=== PATIENT | male | born 1955 | race Caucasian/White ===

== ENCOUNTER 2016-12-30 15:49 | Inpatient (IN) ==
[2016-12-30] MEDS ORDERED: VANCOMYCIN IV PER PHARMACY MISC SCH (16:55)
[2016-12-30 18:03] LABS: BASO% 0.1 % (0.0-0.8); HEMATOCRIT 32.8 % (42.0-52.0); HEMOGLOBIN 11.1 g/dL (14.0-18.0); IMM GRAN# 0.06 X1000 (0.0-0.04); IMM GRAN% 0.6 % (0.0-0.5); INR 1.7; LYMPH# 0.33 X1000 (1.2-3.4); MANUAL DIFF NEEDED? YES; MCH 33.3 PG (27-31); MCHC 33.8 g/dL (33-37); MCV 98.5 FL (81-99); MONO% 9.2 % (1.7-9.3); MPV 11.2 FL (7.4-10.4); NEUT% 87.1 % (42.2-75.2); PLT 95 X1000 (130-400); PROTIME 18.5 Seconds (9.2-11.7); RBC 3.33 XMIL (4.7-6.1)
[2016-12-30 18:21] LABS: BANDS 5 % (0-1); LYMPHS 5 % (21-51); MONO 3 % (1-9)
[2016-12-30 18:24] LABS: POTASSIUM 2.6 mmol/L (3.5-5.1)
[2016-12-30 18:25] LABS: CALCIUM 8.4 mg/dL (8.8-10.2)
[2016-12-30] MEDS ORDERED: POTASSIUM CHLORIDE 20 MEQ/SWI 20 MEQ/100 ML IVPB IV SCH (19:00)
[2016-12-30] MEDS: POTASSIUM CHLORIDE 40 MEQ in NS 250 ML IV SCH (20:31)
[2016-12-30] MEDS: NUBAIN IV PRN (20:31)
[2016-12-30] MEDS: NS 1,000 ML IV SCH (20:32)
[2016-12-30] MEDS ORDERED: VANCOMYCIN 2.5 GM in NS 500 ML IV ONE ×4 (21:00)
[2016-12-30] MEDS: HUMULIN R SUBQ SCH (21:19)
[2016-12-30] MEDS ORDERED: ZOFRAN IV PRN (22:17)
--- NOTE | 2016-12-30 22:45 | HISTORY AND PHYSICAL ---
CHIEF COMPLAINT: Perirectal pain for the last few days. HISTORY OF PRESENT ILLNESS: He is a 61-year-old white gentleman who was evaluated in the office, with right perirectal swelling, with impending abscess, and quite a bit of induration. We were trying to do incision and drainage in the office. Patient was not able to infiltrate, with a lot of bleeding. He is basically admitted to the hospital for observation. He is also found to have hypokalemia. The patient needs to be incised and drained, and Dr. Piotr Camarillo was consulted. He was bleeding from the site of the incision. As a result, a hospital admission was warranted. 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 PAST SURGICAL HISTORY: Bypass surgery, below-knee amputation on the left leg. MEDICATIONS: Potassium 20 mEq p.o. b.i.d., Crestor 20 daily, Icar-C Plus 1 tablet daily, gabapentin 800 p.o. b.i.d., Pletal 100 p.o. b.i.d., BuSpar 15 t.i.d., Ventolin HFA as directed, Lasix 80 daily, aspirin 81 daily, metoprolol 100 daily, Janumet 50/500 one tab p.o. b.i.d., oxycodone 30 mg p.o. b.i.d., morphine 15 p.o. b.i.d., cholestyramine 4 g daily. Recently, was given Flagyl. ALLERGIES: Not known. SOCIAL HISTORY: . 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 Lives in [place]. Disabled. No smoking. No alcohol. No drug abuse. FAMILY HISTORY: Father at 58 from diabetes and heart disease. Mother is 78 years old, healthy. HEALTH MAINTENANCE: Influenza vaccine, pneumococcal vaccine declined. Tetanus 11/2015. Last prostate exam 01/2016. PSA 01/2016. Colonoscopy [place] [address] Back. REVIEW OF SYSTEMS: HEENT: No headache. No dizziness. No earache. No sore throat. Neck: No goiter. No lymphadenopathy. No bruit. Cardiopulmonary: No chest pain, shortness of breath, PND, orthopnea. Gastrointestinal: No nausea, vomiting, abdominal pain, diarrhea. Genitourinary: No history of hesitancy, frequency. The left leg was amputated. Right leg has peripheral vascular disease, under the care of Dr. Hui, and perirectal swelling. Painful. Neurological: No obvious neurological symptoms or weakness. PHYSICAL EXAMINATION: VITAL SIGNS: Fever of 100. Tachycardic. Blood pressure is 140/60. HEENT: Atraumatic, normocephalic. Pupils equal, react to light. Dry mucous membranes. NECK: Supple. No lymphadenopathy. CHEST: Bilateral air entry. No rales, no wheezing. HEART: Sounds are regular. ABDOMEN: Belly is soft, nontender. Good bowel sounds. EXTREMITIES: Status post left below-knee amputation, and decreased pulses in the right foot. No signs of gangrene. SKIN: Large perirectal induration, impending abscess noted. INVESTIGATIONS: CBC: White cell count 10, hematocrit 32, platelets 95,000. PT 18, INR 1.7. SMA- 7: Sodium 136, potassium 2.6, chloride 95, BUN 12, creatinine 1.5, glucose 132, calcium 8.4. ASSESSMENT AND PLAN: 1. A 61-year-old white gentleman, admitted to the hospital with a fever, right perirectal impending abscess, unable to do as an outpatient, the incision and drainage. Surgical consult. IV vancomycin. 2. Dehydration. IV fluids. 3. Hypokalemia. Replace the potassium. 4. Surgical consult with Dr. Piotr Camarillo. 5. Status post below-knee amputation on the left side. 6. Right leg peripheral vascular disease, under the care of Dr. Hui. 7. Hepatic fibrosis due to ZHENG, stable. 8. Coronary artery disease, status post bypass surgery, on aspirin. Last cardiac evaluation by Dr. Mckay in 07/2015. 9. Vitamin B12 deficiency, on replacement therapy. 10. Chronic peripheral neuropathy, on Neurontin. 11. Chronic pain, under the [facility], with morphine and Percocet. 12. Hyperlipidemia, on Crestor. 13. Type 2 diabetes, currently on Janumet. Last A1c was 6.6 in the office. 14. Baseline creatinine is 1.1. 15. Will follow up. cc: Shady Johnson MD
[2016-12-30] MEDS: SODIUM CHLORIDE 0.9% INJ SCH (22:48)
[2016-12-30] MEDS: PROTONIX IV SCH (22:48)
[2016-12-31] MEDS: NUBAIN IV PRN ×7 (00:22→23:51)
[2016-12-31] MEDS ORDERED: VANCOMYCIN 2.5 GM in NS 500 ML IV ONE (01:00)
[2016-12-31] MEDS: LOMOTIL PO PRN ×3 (01:57→16:40)
[2016-12-31] MEDS ORDERED: POTASSIUM CHLORIDE 20 MEQ/SWI 20 MEQ/100 ML IVPB IV SCH (03:00)
[2016-12-31 05:38] LABS: MANUAL DIFF NEEDED? NO
[2016-12-31 05:45] LABS: INR 1.69; PROTIME 18.3 Seconds (9.2-11.7)
[2016-12-31 05:50] LABS: BASO% 0.1 % (0.0-0.8); HEMATOCRIT 32.9 % (42.0-52.0); HEMOGLOBIN 11.1 g/dL (14.0-18.0); HEMOGLOBIN A1C 6.2 % (4.8-6.0); IMM GRAN# 0.02 X1000 (0.0-0.04); IMM GRAN% 0.3 % (0.0-0.5); LYMPH# 0.61 X1000 (1.2-3.4); LYMPH% 8.4 % (20.5-51.1); MCH 32.7 PG (27-31); MCHC 33.7 g/dL (33-37); MCV 97.1 FL (81-99); MONO# 0.57 X1000 (0.11-0.59); MONO% 7.8 % (1.7-9.3); MPV 11.1 FL (7.4-10.4); NEUT% 83.4 % (42.2-75.2); PLT 93 X1000 (130-400); RBC 3.39 XMIL (4.7-6.1)
[2016-12-31 06:13] LABS: AGAP 16; BUN 12 mg/dL (8-22); CALCIUM 8.3 mg/dL (8.8-10.2); CHLORIDE 100 mmol/L (98-107); COSMO 279; MAGNESIUM 1.7 mg/dL (1.5-2.7); POTASSIUM 2.4 mmol/L (3.5-5.1); SODIUM 139 mmol/L (136-145); TCO2 23 mmol/L (25-35)
[2016-12-31] MEDS: POTASSIUM CHLORIDE 40 MEQ in NS 250 ML IV SCH (06:16)
[2016-12-31] MEDS: HUMULIN R SUBQ SCH ×4 (06:59→23:41)
[2016-12-31] MEDS: CYANOCOBALAMIN IM SCH (08:29)
[2016-12-31] MEDS ORDERED: POTASSIUM CHLORIDE 40 MEQ in 1/2 NS 250 ML IV SCH (09:00)
[2016-12-31] MEDS: NS 1,000 ML IV SCH ×2 (09:55→16:54)
[2016-12-31] MEDS: MORPHINE ONE ×6 (10:20→15:10)
[2016-12-31] MEDS: PHENERGAN ONE ×5 (10:23→14:10)
[2016-12-31] MEDS: POTASSIUM CHLORIDE 40 MEQ in 1/2 NS 250 ML IV ONE ×2 (10:25→15:09)
[2016-12-31] MEDS ORDERED: PATIENT'S OWN MED PO PRN (11:21)
[2016-12-31] MEDS ORDERED: METOPROLOL TARTRATE 100 MG PO SCH (11:21)
--- NOTE | 2016-12-31 12:09 | CONSULTATION ---
DATE OF CONSULTATION: 12/31/2016 REQUESTING PHYSICIAN: Lasha Johnson MD REASON FOR CONSULTATION: Concerning perirectal abscess. HISTORY OF PRESENT ILLNESS: A 61-year-old male with a past medical history of peripheral vascular disease, diabetes, presenting with a several-day history of perirectal swelling. He had a significant amount of induration. He had it opened up in the office, but the patient did not it tolerate very well. We were able to drain it, and he was found to have electrolyte abnormalities, and given the need for further drainage, he was admitted to the hospital. He was ready for surgery. The patient is still reporting pain and multiple bowel movements. PAST MEDICAL HISTORY: 1. Coronary artery disease. 2. COPD. 3. Hypertension. 4. Acid reflux. 5. 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 6. Hyperlipidemia. 7. Irritable bowel syndrome. 8. Depression. 9. Metabolic syndrome. 10. B12 deficiency. 11. Anemia. 12. Peripheral vascular disease. 13. Diabetes mellitus type 2. 14. Neuropathy. 15. Chronic anxiety. PAST SURGICAL HISTORY: Includes bypass surgery and hwwxz-meo-lgsi amputation on the left. MEDICATIONS: His home medications were reviewed. He is currently on antibiotics in the hospital. ALLERGIES: None. SOCIAL HISTORY: No alcohol, tobacco, or illicit drugs. FAMILY HISTORY: Positive for diabetes and heart disease. REVIEW OF SYSTEMS: A full 10-point review of systems was obtained and negative except those specified in the HPI. PHYSICAL EXAMINATION: Vital Signs: The patient is currently afebrile. His vital signs have been stable. General: No acute distress. male, looks stated age, but appears to be uncomfortable. HEENT: Normocephalic, atraumatic. Pupils equal, round, reactive to light. Mucous membranes moist. Oropharynx benign. Neck: Supple. Trachea midline. Cardiovascular: Regular rate and rhythm. Lungs: Grossly clear. Abdomen: Soft, nontender, nondistended. Extremities previous: Ondzg-wmf-bkxl amputation on the left, healing well. Rectal: There was a large perirectal abscess that is draining. Significantly tender to palpation. Neurologic: Grossly intact. Skin: No signs of jaundice. Vascular: All extremities perfused. LABORATORY: Reviewed from admission. White blood cell count is 10, hematocrit 32, platelet count 95,000. INR 1.7, creatinine 1.5. ASSESSMENT AND PLAN: A 61-year-old male with a perirectal abscess and multiple medical comorbidities. 1. Perirectal abscess. At this time, we will plan on incision and drainage. It is somewhat draining already spontaneously, but we will need to open this up further in the operating room. We will get a consent. 2. Multiple medical comorbidities including hypokalemia, peripheral vascular disease, coronary artery disease, cirrhosis, all currently being managed by his primary care physician, Dr. Johnson. cc: MD Shady Diana MD MTDD
[2016-12-31] MEDS: POTASSIUM CHLORIDE 60 MEQ in NS 500 ML IV SCH ×2 (12:47→17:55)
[2016-12-31] MEDS: BUSPAR PO SCH ×2 (14:10→16:40)
[2016-12-31] MEDS: ATIVAN IV PRN ×2 (14:24→20:26)
--- NOTE | 2016-12-31 14:33 | OPERATIVE NOTE ---
PROCEDURE DATE: 12/31/2016 PREOPERATIVE DIAGNOSIS: Perirectal abscess. POSTOPERATIVE DIAGNOSIS: Perirectal abscess. PROCEDURE: 1. Incision and drainage of perirectal abscess. 2. Anoscopy. SURGEON: Piotr Camarillo MD. PERSONNEL ADMINISTRATOR: None. ANESTHESIA: General endotracheal. INTRAOPERATIVE FINDINGS: Perirectal abscess tracked about 5-6 cm toward the rectum. I did not see any connection on anoscopy. ESTIMATED BLOOD LOSS: 5 mL. SPECIMENS REMOVED: Cultures from the wound. BRIEF HISTORY: The patient is a 61-year-old male presenting with perirectal abscess. It had been attempted to be drained in the office by his primary care physician, but is unable to tolerate it. Therefore, we felt he would need to be admitted and had definitive drainage. The risks, benefits, and alternatives were discussed. All questions answered. DESCRIPTION OF PROCEDURE: After informed consent was obtained, the patient brought over to the operative theatre, transferred to the operating table and placed in the supine position. General endotracheal anesthesia was then performed without complication. A formal time-out was then performed, confirming patient, date, procedure. All were in agreement. At that time, attention was given to the patient. He was repositioned in lithotomy, was prepped and draped in sterile fashion. After the time-out, we turned our attention to the perirectal abscess. There was an area that previously opened. We increased this size and made a cruciate incision. We encountered a large abscess which we drained and irrigated it. It tracked about 5 cm towards the rectum. It existed mostly on the right side. We irrigated out this area copiously. Again we then put a [place] anoscope into the anoscopy. I did not see any obvious connections. The mucosa looked normal of the rectum. We then placed iodoform packing into the wound. The patient tolerated the procedure well and was transferred back to recovery room in stable condition. I did discuss this case with Dr. Johnson. I will put him on Zosyn given the potential contamination for gram-negative coverage. cc: MD Shady Diana MD
[2016-12-31] MEDS: ZOSYN 3.375 GM in NS 50 ML IV SCH ×3 (15:09→23:52)
[2016-12-31] MEDS: GLUCOPHAGE PO SCH (16:41)
[2016-12-31] MEDS: JANUVIA PO SCH (16:41)
--- NOTE | 2016-12-31 18:09 | PROGRESS NOTE ---
DATE: 12/31/2016 SUBJECTIVE: The patient complains of severe pain going for surgery this morning. He has anxiety diarrhea. REVIEW OF SYSTEMS: No chest pain, shortness of breath. No GI symptoms other than diarrhea. PHYSICAL EXAMINATION: Vital Signs: Afebrile. Tachycardic. Vitals are stable. HEENT: Within normal limits. Chest: Clear. Heart: Sounds are regular. Abdomen: Belly is soft, nontender. Good bowel sounds. Neurologic: No obvious neurological deficits noted. INVESTIGATIONS: CBC: White cell count 7.3, hematocrit 32, platelet count 93. PT 18, INR 1.69. SMA-7: Sodium 139. Potassium 2.4, chloride 100, glucose 133, A1c 6.2, magnesium 1.7. ASSESSMENT AND PLAN: 1. Right perirectal abscess. Waiting for incision and drainage. Continue on IV vancomycin. 2. Dehydration. IV NS 80 mL an hour. 3. Hypokalemia, potassium 2.4. Will replace the potassium through the IV. 4. Gastrointestinal prophylaxis with Protonix. 5. Continue pain control with Nubain and waiting for incision and drainage. 6. We will check the labs in the morning. LEVEL OF DOCUMENTATION: 25 minutes. cc: Shady Johnson MD MTDD
[2016-12-31] MEDS: VENTOLIN HFA INH SCH (19:15)
[2016-12-31] MEDS: NEURONTIN PO SCH (20:26)
[2016-12-31] MEDS: SODIUM CHLORIDE 0.9% INJ SCH (20:27)
[2016-12-31] MEDS: CRESTOR PO SCH (20:27)
[2016-12-31] MEDS: KLOR-CON PO SCH (20:27)
[2016-12-31] MEDS: PLETAL PO SCH (20:27)
[2016-12-31] MEDS: PROTONIX IV SCH ×2 (20:27→23:41)
[2016-12-31] MEDS: PERIDEX MT SCH (20:29)
[2016-12-31] MEDS: VANCOMYCIN 1,850 MG in NS 500 ML IV SCH (22:15)
[2017-01-01] MEDS: NUBAIN IV PRN ×6 (03:09→20:06)
[2017-01-01] MEDS: ATIVAN IV PRN ×2 (03:18→20:32)
[2017-01-01] MEDS: LOMOTIL PO PRN ×3 (04:48→20:26)
[2017-01-01] MEDS: ZOSYN 3.375 GM in NS 50 ML IV SCH ×3 (05:21→21:24)
[2017-01-01] MEDS: NS 1,000 ML IV SCH ×3 (05:21→18:48)
[2017-01-01 05:52] LABS: MANUAL DIFF NEEDED? NO
[2017-01-01] MEDS: HUMULIN R SUBQ SCH ×4 (06:08→23:07)
[2017-01-01 06:11] LABS: BASO% 0.3 % (0.0-0.8); EOS# 0.01 X1000 (0.0-0.7); EOS% 0.1 % (0.0-10.0); HEMATOCRIT 28.7 % (42.0-52.0); HEMOGLOBIN 9.4 g/dL (14.0-18.0); IMM GRAN# 0.04 X1000 (0.0-0.04); IMM GRAN% 0.6 % (0.0-0.5); LYMPH# 0.77 X1000 (1.2-3.4); LYMPH% 10.8 % (20.5-51.1); MCH 32.4 PG (27-31); MCHC 32.8 g/dL (33-37); MONO# 0.61 X1000 (0.11-0.59); MONO% 8.6 % (1.7-9.3); MPV 11.4 FL (7.4-10.4); NEUT% 79.6 % (42.2-75.2); PLT 94 X1000 (130-400)
[2017-01-01 06:31] LABS: CALCIUM 8.1 mg/dL (8.8-10.2); POTASSIUM 3.2 mmol/L (3.5-5.1)
[2017-01-01] MEDS: VENTOLIN HFA INH SCH ×2 (07:53→20:00)
[2017-01-01] MEDS: POTASSIUM CHLORIDE 60 MEQ in NS 500 ML IV SCH ×2 (09:27→16:37)
[2017-01-01] MEDS: PERIDEX MT SCH ×2 (09:30→20:28)
[2017-01-01] MEDS: NEURONTIN PO SCH ×2 (09:31→20:26)
[2017-01-01] MEDS: ASPIRIN PO SCH (09:31)
[2017-01-01] MEDS: LASIX PO SCH (09:31)
[2017-01-01] MEDS: BUSPAR PO SCH ×3 (09:31→16:50)
[2017-01-01] MEDS: KLOR-CON PO SCH ×2 (09:31→20:27)
[2017-01-01] MEDS: GLUCOPHAGE PO SCH ×2 (09:31→16:50)
[2017-01-01] MEDS: PATIENT'S OWN MED PO SCH (09:31)
[2017-01-01] MEDS: PLETAL PO SCH ×2 (09:31→20:26)
[2017-01-01] MEDS: JANUVIA PO SCH ×2 (09:32→16:50)
[2017-01-01] MEDS: CYANOCOBALAMIN IM SCH (09:41)
--- NOTE | 2017-01-01 12:08 | PROGRESS NOTE ---
DATE: 01/01/2017 SUBJECTIVE: The patient is in a lot of pain, confusion. A lot of diarrhea. REVIEW OF SYSTEMS: None reported other than pain. OBJECTIVE: Vital Signs: On exam, vitals are stable. HEENT: Within normal limits. Neck: Supple. Chest: Clear. Heart: Sounds are regular. Abdomen: Belly is soft, nontender. Good bowel sounds. Rectal Exam: Revealed loose stools and pack was there, much improved in duration. Extremities: Status post amputation on the left side. INVESTIGATIONS: CBC: White cell count 7.1, hematocrit 28, platelets 94. SMA-7: Sodium 143, potassium 3.2, chloride 101, BUN 15, creatinine 1.4, glucose 125. Microbiology cultures are pending. ASSESSMENT AND PLAN: 1. Right perirectal abscess, status post incision and drainage. Continue on vancomycin and Zosyn. 2. Diarrhea, due to irritable bowel syndrome. We will use the Lomotil, probiotics and Xifaxan. 3. Dehydration. IV fluids. 4. Hypokalemia. Replace the potassium. Slowly reconcile his home medications. 5. For pain control, continue on the Nubain. 6. Anxiety with Ativan. LEVEL OF DOCUMENTATION: 25 minutes. cc: Shady Johnson MD
[2017-01-01] MEDS: CRESTOR PO SCH (20:27)
[2017-01-01] MEDS: XIFAXAN PO SCH (20:27)
[2017-01-01] MEDS: SODIUM CHLORIDE 0.9% INJ SCH ×2 (20:27→20:29)
[2017-01-01] MEDS: PROTONIX IV SCH ×2 (20:29→23:06)
[2017-01-01] MEDS: VANCOMYCIN 1,850 MG in NS 500 ML IV SCH (22:35)
[2017-01-01] MEDS ORDERED: LANOXIN IV ONE (22:44)
[2017-01-01] MEDS ORDERED: TORADOL IM ONE (22:44)
[2017-01-01] MEDS: LOVENOX SUBQ SCH (23:40)
[2017-01-02 00:04] LABS: FREE T4 1.46 ng/dL (0.93-1.70)
[2017-01-02] MEDS: NUBAIN IV PRN ×2 (00:45→17:01)
[2017-01-02] MEDS: ZOSYN 3.375 GM in NS 50 ML IV SCH ×4 (02:32→21:27)
[2017-01-02 02:37] LABS: BASO% 0.5 % (0.0-0.8); EOS# 0.01 X1000 (0.0-0.7); EOS% 0.1 % (0.0-10.0); HEMATOCRIT 30.9 % (42.0-52.0); IMM GRAN# 0.08 X1000 (0.0-0.04); IMM GRAN% 0.9 % (0.0-0.5); LYMPH# 0.69 X1000 (1.2-3.4); LYMPH% 8.1 % (20.5-51.1); MANUAL DIFF NEEDED? YES; MCH 32.4 PG (27-31); MCHC 32.4 g/dL (33-37); MONO# 0.57 X1000 (0.11-0.59); MONO% 6.7 % (1.7-9.3); MPV 11.3 FL (7.4-10.4); NEUT% 83.7 % (42.2-75.2); PLT 98 X1000 (130-400); RBC 3.09 XMIL (4.7-6.1)
[2017-01-02 02:47] LABS: LYMPHS 1 % (21-51); MONO 2 % (1-9); NRBC 1 % (0-0)
[2017-01-02 03:10] LABS: URINE CULTURE NEEDED? NO; URINE MICRO REVIEW NEEDED? NO; URINE SOURCE CATH
[2017-01-02 03:13] LABS: BILIRUBIN URINE NEGATIVE (NEGATIVE); BLOOD URINE NEGATIVE (NEGATIVE); COLOR YELLOW; GLUCOSE URINE NEGATIVE (NEGATIVE); LEUKOCYTES URINE NEGATIVE (NEGATIVE); NITRITE URINE NEGATIVE (NEGATIVE); PH URINE 5.5; PROTEIN URINE TRACE mg/dL (NEGATIVE); SP GRAVITY URINE 1.014; TURBIDITY URINE CLEAR (CLEAR); UROBILINOGEN URINE NORMAL (NORMAL)
[2017-01-02 03:13] LABS: ALBUMIN 2.2 g/dL (3.5-5.0); CALCIUM 7.4 mg/dL (8.8-10.2); POTASSIUM 3.8 mmol/L (3.5-5.1); TOTAL BILIRUBIN 1.59 mg/dL (0.20-1.00); TOTAL PROTEIN 6.3 g/dL (6.3-8.3)
[2017-01-02 03:14] LABS: UR EPITHELIAL CELLS <10 /HPF (<10); URINE BACTERIA NEGATIVE /HPF; URINE RBC <10 /HPF (<10); URINE WBC <10 /HPF (<10)
[2017-01-02] MEDS ORDERED: NEO-SYNEPHRINE 50 MG in NS 250 ML IV SCH (03:15)
[2017-01-02] MEDS: NEO-SYNEPHRINE 50 MG in NS 250 ML IV SCH ×3 (03:26→20:22)
[2017-01-02 03:50] LABS: ALLEN TEST YES; BLOOD TYPE ARTERIAL; DRAW SITE R BRACHIAL; METHB 0.9 % (0.0-1.5); MODALITY NRB; O2(CT) 11.7 mL/dL (15.0-23.0); PCO2(98.6) 20 mmHg (35-45); PO2(98.6) 63 mmHg (60-100); SAMPLE BLOOD; SAO2 95.7 % (95.0-100.0); THB 8.9 g/dL (11.5-17.4); pH(98.6) 7.42 (7.35-7.45)
[2017-01-02] MEDS: DUONEB (A & A) INH SCH ×4 (04:01→21:25)
[2017-01-02] MEDS: NS 1,000 ML IV SCH ×2 (04:28→09:30)
[2017-01-02] MEDS: HUMULIN R SUBQ SCH ×4 (06:28→21:29)
[2017-01-02] MEDS ORDERED: LANOXIN IV ONE (07:00)
[2017-01-02] MEDS: VENTOLIN HFA INH SCH ×2 (08:07→19:35)
[2017-01-02] MEDS: ATIVAN IV PRN (08:37)
[2017-01-02] MEDS: LOMOTIL PO PRN (08:40)
[2017-01-02] MEDS: XIFAXAN PO SCH ×2 (08:40→21:28)
[2017-01-02] MEDS: NEURONTIN PO SCH ×2 (08:40→21:28)
[2017-01-02] MEDS: PLETAL PO SCH ×2 (08:41→21:27)
[2017-01-02] MEDS: GLUCOPHAGE PO SCH (08:41)
[2017-01-02] MEDS: JANUVIA PO SCH ×2 (08:41→17:00)
[2017-01-02] MEDS: ASPIRIN PO SCH (08:41)
[2017-01-02] MEDS: BUSPAR PO SCH ×3 (08:41→17:00)
[2017-01-02] MEDS: LASIX PO SCH (08:41)
[2017-01-02] MEDS: CYANOCOBALAMIN IM SCH (08:42)
[2017-01-02] MEDS: KLOR-CON PO SCH ×2 (08:42→21:28)
[2017-01-02] MEDS: PERIDEX MT SCH ×2 (08:42→21:28)
--- NOTE | 2017-01-02 08:50 | Diag Imaging Result Doc PS360 ---
CHEST-PORTABLE - 01/02/2017 INDICATION: A. fib w/RVR TECHNIQUE: COMPARISON: CT chest 07/09/2015 FINDINGS: There is significant cardiomegaly and pulmonary vascular congestion. There are heterogeneous, mixed bilateral infiltrates. No pneumothorax or large effusion. Stable sternotomy wires. IMPRESSION: 1. Cardiomegaly and pulmonary vascular congestion. 2. Heterogeneous bilateral infiltrates suggesting pulmonary edema or pneumonia superimposed on COPD. Electronically signed by Aydin Geiger 01/02/2017 8:48 AM
[2017-01-02] MEDS ORDERED: CULTURELLE PO SCH (09:00)
[2017-01-02] MEDS ORDERED: SODIUM BICARBONATE 8.4% 75 MEQ in D5W 1,000 ML IV SCH ×2 (10:16→12:00)
[2017-01-02] MEDS: PATIENT'S OWN MED PO SCH (11:24)
[2017-01-02] MEDS: LOVENOX SUBQ SCH (11:45)
[2017-01-02 15:52] LABS: ALLEN TEST YES; BE -8.9 mmoll (-3.0-3.0); BLOOD TYPE ARTERIAL; DRAW SITE L RADIAL; METHB 0.6 % (0.0-1.5); O2(CT) 15.5 mL/dL (15.0-23.0); PCO2(98.6) 23 mmHg (35-45); PO2(98.6) 75 mmHg (60-100); SAMPLE BLOOD; SAO2 98.4 % (95.0-100.0); THB 11.5 g/dL (11.5-17.4)
[2017-01-02 15:53] LABS: MODALITY NRB
--- NOTE | 2017-01-02 16:02 | CONSULTATION ---
DATE OF CONSULTATION: 01/02/2017 IMPRESSION: 1. Consultation regarding sinus tachycardia. Telemetry strips and 12 lead EKG demonstrates sinus tachycardia. I suspect this is likely driven by severity of acute noncardiac illness, namely, sepsis. 2. Current admission for right perirectal infection/abscess. Patient is status post recent drainage. Patient has history of previous recurrent perirectal abscess. 3. Acute sepsis. 4. Atherosclerotic coronary disease with history of previous coronary bypass grafting. Cardiac catheterization/coronary angiography around 1 year ago demonstrated left ventricular ejection fraction of 60%, severe 2 vessel coronary atherosclerosis and patent coronary bypass grafts. The patient continues without angina. 5. Chronic obstructive pulmonary disease. 6. Chronic liver disease related to fatty liver. 7. 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 8. Advanced peripheral vascular disease. Patient is status post left gledu-pek-ctdw amputation. RECOMMENDATIONS: 1. Supportive care with intravenous pressures to support blood pressures and judicious intravenous fluid administration. 2. Critical Care/Pulmonary Medicine consultation has already been arranged. 3. Follow up echocardiography to reassess left ventricular function which will be useful in managing patient's hemodynamics. HISTORY: This 61-year-old, white male with past history of recurrent perirectal abscess, diabetes mellitus with associated peripheral neuropathy and possible gastroparesis, atherosclerotic coronary disease with history of coronary bypass surgery, advanced peripheral vascular disease with history of left kfbin-lot-sbrs amputation and chronic liver disease related to fatty liver disease was recently admitted for management of impending right perirectal abscess. He is status post incision, drainage and packing. Last night he developed tachycardia possibly atrial fibrillation. His blood pressure was on the low side. He was transferred to the Intensive Care Unit. Review of ECG strips shows sinus tachycardia. The patient is presently dyspneic but denies chest pain or angina. He complains of pain at the site of his perirectal region. He is currently requiring 100% non-rebreather to achieve oxygen saturation of 95%. PAST MEDICAL HISTORY: 1. Atherosclerotic coronary disease with history of previous coronary bypass grafting. Coronary angiography last year demonstrated severe 2 vessel coronary atherosclerosis and patent bypass grafts. Left ventricular ejection fraction 60%. 2. 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 3. Chronic liver disease related to fatty liver. 4. Advanced peripheral vascular disease. Patient is status post left nucyg-qcf-ndai amputation. 5. Depression/anxiety. ALLERGIES: No known drug allergies. MEDICATIONS: Prior to admission as listed. SOCIAL HISTORY: He is . 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 He quit smoking several years ago. He does not use alcohol. FAMILY HISTORY: Positive for diabetes mellitus and heart disease. REVIEW OF SYSTEMS: Pulmonary: Noteworthy for dyspnea but negative for orthopnea. Gastrointestinal: Noteworthy for probable gastroparesis but otherwise negative. Constitutional: Noteworthy for recent fever. REMAINDER REVIEW OF SYSTEMS: Negative/noncontributory with 14 total systems reviewed. PHYSICAL EXAMINATION: General: This is an ill-appearing, older middle-aged white male on supplemental oxygen per 100% non-rebreather. Patient appears dyspneic. Vital Signs: Blood pressure 110/60 on intravenous Donavan-Synephrine. Heart rate 120-130 with ECG monitor showing sinus tachycardia. Oxygen saturation 95%. HEENT Examination: Extraocular movements intact. Mucous membranes are somewhat dry. Neck: Supple without jugular distention. Chest: Auscultation reveals a few scattered expiratory wheezes. No rales could be appreciated. Cardiac Examination: Reveals regular tachycardia without appreciable murmur or gallop. Abdomen: Soft, nontender. Extremities: Noteworthy for left pgdic-hhf-pyho amputation. There is no peripheral edema. Neurologic Examination: Reveals him to be awake and responsive. Speech is fluent. He moves all 4 extremities equally well. DIAGNOSTIC DATA: ECG demonstrates sinus tachycardia. LABORATORY DATA: Noteworthy for white blood cell count 8.5, hematocrit 30.9, BUN 15, creatinine 1.7. cc: MD Shady Teixeira MD
--- NOTE | 2017-01-02 16:04 | CONSULTATION ---
DATE OF CONSULTATION: 01/02/2017 REQUESTING PHYSICIAN: Dr. Holland. REASON FOR CONSULTATION: Respiratory failure/distress. HISTORY OF PRESENT ILLNESS: Mr. López is a 61-year-old white male with prior tobacco history, peripheral vascular disease, coronary artery disease, COPD, diabetes mellitus, and chronic anxiety disorder who has had intermittent and ongoing diarrhea for the last 8-10 months. The patient has not yet had a colonoscopy due to his inability to take GoLYTELY prior to the procedure. He has been rescheduled for next week. He has lost approximately 50 pounds according to his . He has had a history of perirectal abscesses primarily on the left side but several days ago he developed increased swelling in the rectal region. Dr. Johnson attempted to drain it in the office but patient could not tolerate the procedure. The patient was admitted to the hospital and underwent incision and drainage of a perirectal abscess. There was no connection with colon identified on anoscopy. The patient has had multiple episodes of nausea and vomiting prior to admission. The patient has developed increasing oxygen requirements along with hypotension. He continues to have multiple liquid bowel movements. PAST MEDICAL HISTORY: 1. COPD with prior tobacco use. The patient's reports he stopped smoking after his amputation 10 years ago. 2. Coronary artery disease with prior bypass grafting. 3. Recurrent perirectal abscess as per above. 4. Cirrhosis of the liver due to nonalcoholic steatohepatitis. 5. Gastroesophageal reflux disease. 6. Gastroparesis secondary to diabetes mellitus. 7. Diabetes mellitus. 8. Peripheral vascular disease status post left zjmgr-ijy-jtxw amputation. 9. Chronic anxiety. 10. Peripheral neuropathy. SOCIAL HISTORY: Patient is retired [employer]. Prior tobacco use as per above. No alcohol use. FAMILY HISTORY: Positive for heart disease and diabetes mellitus. REVIEW OF SYSTEMS: Limited due to patient's increased work of breathing. PHYSICAL EXAMINATION: General: Reveals an acute on chronically ill-appearing white male. Vital Signs: BP 98/62, heart rate 126, respiratory rate 23, oxygen saturation 94% on nonrebreather. HEENT: Pupils are equal and reactive. Oropharynx is dry. Neck: Supple. Chest: Reveals bilateral rhonchi. Cardiac Exam: Increased rate. Regular rhythm. Abdomen: Soft with diminished bowel sounds. Extremities: Cool to the touch. LABORATORIES: Chest x-ray reveals cardiomegaly, vascular congestion with right greater than left infiltrates. White blood count 8.5 thousand, hemoglobin 10.0, platelet count 98,000. Chemistry. Sodium 147, potassium 3.8, chloride 114, bicarbonate 13, anion gap is elevated at 20, BUN 15, creatinine 1.7, albumin 2.2. INR 2 days ago was 1.69. Arterial blood gas reveals a pH 7.42, pCO2 of 20, PO2 of 63 with a lactate of 4.4. IMPRESSION: A 61-year-old white male with chronic obstructive pulmonary disease, diabetes mellitus, who was admitted to the hospital with a perirectal abscess. Klebsiella pneumonia has been identified and he is on antibiotics to cover this organism. The patient has had progressive hypoxemic respiratory failure and now has bilateral pulmonary infiltrates. Infiltrates may be related to an aspiration pneumonia or to acute respiratory distress syndrome. The patient has had significant amount weight loss over the last year along with frequent diarrhea. With his vascular disease, it is not clear whether he is having ischemic bowel or some other etiology for his recurrent diarrhea. He was scheduled for colonoscopy in the middle of next week but will not likely make that appointment. He currently is hypotensive which may be related to systemic inflammatory response syndrome/sepsis or may be due to dehydration associated with multiple liquid bowel movements. With the patient's respiratory failure, hypotension, worsening clinical status, his prognosis is guarded given his multiple comorbidities. This was discussed with his . RECOMMENDATIONS: 1. Continue oxygen as needed to maintain saturation greater than 90%. He may require intubation and mechanical ventilation. 2. Anticipate CT scan of the abdomen and pelvis if he requires intubation. Currently he is too unstable to transfer to the CAT scanner. 3. Volume resuscitation with IV fluids. 4. Continue current antibiotic regimen. 5. Continue gastric acid suppression. 6. Additional recommendations pending hospital course. cc: MD Shady Knowles MD
[2017-01-02 16:15] LABS: POTASSIUM 2.9 mmol/L (3.5-5.1)
--- NOTE | 2017-01-02 16:37 | Diag Imaging Result Doc PS360 ---
CHEST-PORTABLE - 01/02/2017 INDICATION: abnormal exam TECHNIQUE: COMPARISON: Earlier today FINDINGS: There is no change in the cardiomegaly and pulmonary vascular congestion. No change in the mixed, heterogeneous bilateral infiltrates compatible with pneumonia and/or pulmonary edema superimposed on COPD. No large effusions. IMPRESSION: No change from prior. Electronically signed by Aydin Geiger 01/02/2017 4:35 PM
[2017-01-02] MEDS: SODIUM BICARBONATE 8.4% 100 MEQ in D5W 1,000 ML IV SCH (16:39)
[2017-01-02] MEDS ORDERED: CALCIUM CHLORIDE SYRINGE IV ONE (16:50)
[2017-01-02] MEDS ORDERED: ALBUMIN 25% IV ONE (16:51)
--- NOTE | 2017-01-02 17:51 | PROGRESS NOTE ---
DATE: 01/02/2017 SUBJECTIVE: The patient just does not feel well at all. Feels very tired. OBJECTIVE: Vital signs: While he was on the floor, blood pressure in the 70s, so he became very hypotensive. He was having some respiratory difficulty. With 15 L of oxygen, his O2 saturations only 88. I moved him to the unit because of his hypotension and respiratory distress. Chest x- ray looks like he has either got pulmonary edema or pneumonia. I would probably favor pneumonia. He has been having diarrhea. We will get stool cultures. He has been on antibiotics for a perirectal abscess, for which he had surgery. His creatinine is 1.7, BUN 15, sodium 147, potassium 3.8. Troponin was essentially normal. Urinalysis was essentially normal. Blood gas showed a pH of 7.42, pCO2 of 20, PO2 of 63 on 100% FiO2. He does have hypoxia. He has been started on Donavan-Synephrine drip. HEENT: Normocephalic. EOMS intact. Throat clear. Heart: His heart was irregularly irregular without murmurs, gallops, or friction rubs. Lungs: Sound fairly clear to auscultation anteriorly at this time, but chest x-ray showed some infiltrates versus pulmonary edema, consistent with probable pneumonia. Abdomen: Soft, with active bowel sounds. No organomegaly or tenderness. extremities: He has had amputation of the left leg. He had decreased pulses on right leg. Blood pressure still low, even on the Donavan-Synephrine, and that is being and regulated. The patient is in critical condition. ASSESSMENT: 1. Hypotension. 2. Pneumonia. 3. Respiratory distress. 4. Atrial fibrillation with rapid ventricular response, tachycardia. 5. Diabetes mellitus. 6. Coronary artery disease. 7. Peripheral vascular disease. 8. Diarrhea. 9. Possible gastroparesis. PLAN: Will try to support. He is on IV antibiotics already. We will give him fluids, as I think he is probably a little dehydrated with a creatinine of 1.7. Will continue the Donavan-Synephrine drip. I have consulted Pulmonology and consulted Cardiology. I have started the patient on digoxin already. The patient is in critical condition. cc: MD Shady Villanueva Jr, MD
[2017-01-02] MEDS ORDERED: CALCIUM CHLORIDE 1 GM in NS 100 ML IV ONE (18:00)
[2017-01-02] MEDS: POTASSIUM CHLORIDE 40 MEQ in 1/2 NS 250 ML IV SCH (18:16)
[2017-01-02 18:56] LABS: I-STAT BE 3 mmoll (-2-3); I-STAT GLUCOSE 113 mg/dL (70-105); I-STAT HCO3 25.9 mmoll (22.0-26.0); I-STAT HEMATOCRIT 29 % (38-51); I-STAT HEMOGLOBIN 9.9 g/dL (11.5-17.5); I-STAT IONIZED CALCIUM 1.14 mmoll (1.12-1.32); I-STAT K 2.6 mmoll (3.5-4.9); I-STAT PCO2 33.3 mmHg (35.0-45.0); I-STAT SO2 100 % (95-98); I-STAT SODIUM 139 mmoll (138-146); I-STAT TCO2 27 mmoll (23-27); I-STAT pH 7.499 (7.350-7.450)
--- NOTE | 2017-01-02 19:48 | ECHO REPORT ---
ORDER DATE: 01/02/2017 MEASUREMENTS: Left ventricular end-diastolic diameter: 5.5. Left ventricular end-systolic diameter: 3.9. Septal thickness: 0.7. Posterior wall thickness 1.2. Left atrium 3. Aortic root 4.5. SUMMARY: 1. Technically difficult study due to limited acoustic window quality. 2. Aortic valve is sclerotic but opens adequately on 2-dimensional images. Peak gradient across aortic valve is 16 mmHg. There is trace aortic regurgitation. Mitral and tricuspid valves are without gross structural abnormality. Pulmonic valve is not well demonstrated. The aortic root is mildly enlarged. 3. Normal left ventricular dimensions suggested. Estimated left ejection fraction appears to be at least 55%. No obvious wall motion abnormality is evident. Left atrium, right atrium, and right ventricle are grossly normal in size with preserved right ventricular systolic function. 4. No pericardial effusion. 5. Appearance of inferior vena cava suggests normal central venous pressure. CONCLUSIONS: 1. Technically difficult study. 2. Aortic valve sclerosis without stenosis with trace aortic regurgitation. 3. Estimated left ejection fraction at least 55%. cc: MD Shady Teixeira MD
[2017-01-02] MEDS: CRESTOR PO SCH (21:28)
[2017-01-03] MEDS: SODIUM CHLORIDE 0.9% INJ SCH ×2 (00:04→10:34)
[2017-01-03] MEDS: SODIUM BICARBONATE 8.4% 100 MEQ in D5W 1,000 ML IV SCH ×4 (00:04→21:58)
[2017-01-03] MEDS: PROTONIX IV SCH ×3 (00:04→21:52)
[2017-01-03] MEDS: LOVENOX SUBQ SCH ×3 (00:04→22:04)
[2017-01-03] MEDS: ATIVAN IV PRN ×2 (00:06→21:21)
[2017-01-03] MEDS: VANCOMYCIN 1,850 MG in NS 500 ML IV SCH ×2 (00:40→04:55)
[2017-01-03] MEDS: NEO-SYNEPHRINE 50 MG in NS 250 ML IV SCH ×5 (02:55→21:48)
[2017-01-03] MEDS: POTASSIUM CHLORIDE 40 MEQ in 1/2 NS 250 ML IV SCH (02:58)
[2017-01-03] MEDS: DUONEB (A & A) INH SCH ×4 (03:16→22:36)
[2017-01-03 04:48] LABS: BLOOD TYPE ARTERIAL; SAMPLE BLOOD
[2017-01-03 04:49] LABS: ALLEN TEST YES; BE -6.7 mmoll (-3.0-3.0); DRAW SITE R RADIAL; METHB 0.7 % (0.0-1.5); O2(CT) 15.2 mL/dL (15.0-23.0); PCO2(98.6) 35 mmHg (35-45); PO2(98.6) 86 mmHg (60-100); SAO2 98.4 % (95.0-100.0); THB 11.2 g/dL (11.5-17.4); pH(98.6) 7.33 (7.35-7.45)
[2017-01-03] MEDS: ZOSYN 3.375 GM in NS 50 ML IV SCH ×4 (04:49→22:05)
[2017-01-03] MEDS: NUBAIN IV PRN ×2 (04:49→20:00)
[2017-01-03 04:50] LABS: MODALITY BI PAP
--- NOTE | 2017-01-03 05:33 | EKG Report ---
Test Performed on : 01/02/2017 06:33:40 AM Test Reason : afib Blood Pressure : / mmHG Vent. Rate : 105 BPM Atrial Rate : 105 BPM P-R Int : 200 ms QRS Dur : 100 ms QT Int : 368 ms P-R-T Axes : 026 -29 010 degrees QTc Int : 486 ms Sinus tachycardia. with premature atrial complexes. Nonspecific ST abnormality Abnormal ECG When compared with ECG of 01-JAN-2017 22:38, (Unconfirmed) Sinus rhythm. has replaced Atrial fibrillation. T wave amplitude has decreased in Anterior leads Confirmed by Myron Angulo MD ([id number]) on 01/03/2017 8:00:15 PM
[2017-01-03 05:40] LABS: BASO% 0.4 % (0.0-0.8); EOS# 0.09 X1000 (0.0-0.7); EOS% 0.7 % (0.0-10.0); HEMATOCRIT 33.1 % (42.0-52.0); HEMOGLOBIN 10.7 g/dL (14.0-18.0); IMM GRAN# 0.06 X1000 (0.0-0.04); IMM GRAN% 0.5 % (0.0-0.5); LYMPH# 1.21 X1000 (1.2-3.4); LYMPH% 9.4 % (20.5-51.1); MANUAL DIFF NEEDED? YES; MCH 32.1 PG (27-31); MCHC 32.3 g/dL (33-37); MCV 99.4 FL (81-99); MONO# 0.52 X1000 (0.11-0.59); PLT 145 X1000 (130-400); RBC 3.33 XMIL (4.7-6.1)
[2017-01-03 05:49] LABS: MAGNESIUM 1.2 mg/dL (1.5-2.7)
--- NOTE | 2017-01-03 05:57 | EKG Report ---
Test Performed on : 01/01/2017 10:38:54 PM Test Reason : tachycardia Blood Pressure : / mmHG Vent. Rate : 136 BPM Atrial Rate : 131 BPM P-R Int : 000 ms QRS Dur : 086 ms QT Int : 388 ms P-R-T Axes : 000 -37 -04 degrees QTc Int : 583 ms Sinus tachycardia. Left axis deviation Cannot rule out Inferior infarct , age undetermined Abnormal ECG When compared with ECG of 27-AUG-2015 09:21, Vent. rate has increased BY 77 BPM Minimal criteria for Inferior infarct are now present Confirmed by Myron Angulo MD ([id number]) on 01/03/2017 7:59:39 PM
[2017-01-03 06:04] LABS: ALBUMIN 2.1 g/dL (3.5-5.0); CALCIUM 8.1 mg/dL (8.8-10.2); POTASSIUM 3.8 mmol/L (3.5-5.1); TOTAL BILIRUBIN 2.18 mg/dL (0.20-1.00); TOTAL PROTEIN 6.4 g/dL (6.3-8.3)
--- NOTE | 2017-01-03 06:05 | EKG Report ---
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 Rate : 130 BPM Atrial Rate : 130 BPM P-R Int : 248 ms QRS Dur : 086 ms QT Int : 332 ms P-R-T Axes : 000 219 210 degrees QTc Int : 488 ms Sinus tachycardia. with 1st degree AV block. Possible Lateral infarct (cited on or before 02-JAN-2017) ST \T\ T wave abnormality, consider inferior ischemia Abnormal ECG When compared with ECG of January 02, 2017 at 06:33- Serial changes of Lateral infarct present St and T wave abnormalities in the inferior leads are new. Confirmed by Myron Angulo MD ([id number]) on 01/03/2017 8:02:46 PM
[2017-01-03] MEDS: HUMULIN R SUBQ SCH ×4 (06:22→22:04)
--- NOTE | 2017-01-03 07:18 | Diag Imaging Result Doc PS360 ---
EXAM: CHEST-PORTABLE HISTORY: abnormal exam TECHNIQUE: AP portable at 0500 COMMENT: Compared to the previous study of 01/02/2017 there has been improvement in the dense alveolar opacification of the right lung but the left lung is worse particularly with regard to the left upper lobe. IMPRESSION: Waxing and waning pulmonary edema/ARDS. Electronically signed by Magdi Wilkinson 01/03/2017 7:16 AM
--- NOTE | 2017-01-03 07:25 | PROGRESS NOTE ---
DATE: 01/03/2017 SUBJECTIVE: The patient was transported down to the ICU over the weekend secondary to respiratory status. It appears that his vital signs have improved since being in the ICU. He is still requiring Donavan-Synephrine and BiPAP. They placed a rectal tube yesterday, which has helped with overall drainage and his multiple diarrhea. He does have Klebsiella growing from his abscessed drainage, which is sensitive to the Zosyn. OBJECTIVE: Vital Signs: The patient is currently afebrile, temperature 98.2 degrees. Pulse is mildly tachycardic in the 120s to 130s. Blood pressure is 115/58. He is on Donavan-Synephrine. He is currently on BiPAP saturating in the 95s. General: No acute distress, but altered and confused. HEENT: Normocephalic, atraumatic. Pupils equal, round, react to light. Mucous membranes moist. Oropharynx benign. Neck: Supple. BiPAP machine and face mask in place. Cardiovascular: Tachycardic, on Donavan-Synephrine. Lungs: Coarse sounds noted bilaterally. He is on a BiPAP. Abdomen: Soft, nontender, nondistended. Perineum: Rectal tube in place. The erythema appears to be better than it did on the day of drainage. I did not see any active drainage. LABORATORY DATA: White blood cell count is 12, hematocrit 33, platelet count 145,000. Base deficit is 6.7 on ABG. Bicarbonate is 18. He is acidotic on ABG. Creatinine is 1.7. His bilirubin is 2.8. ASSESSMENT AND PLAN: A 61-year-old male with a perineal abscess/perirectal abscess, status post drainage. 1. Perirectal abscess. At this time, the patient is agitated. He is on antibiotics for his abscess, and they seem to be appropriate. He does still have leukocytosis, and they are checking a stool for Clostridium difficile. I would recommend to continue the vancomycin and Zosyn right now given the fact that he might have potential for pneumonia. 2. Leukocytosis. At this time, his perineal wound looks like it is healing better. He is having diarrhea. Clostridium difficile is pending, but he might also have superimposed pneumonia on chronic obstructive pulmonary disease. Again, I would recommend to continue broad-spectrum antibiotics. 3. Multiple medical comorbidities. Currently being managed by his primary care physician. His overall clinical status is still guarded. I would recommend continued intensive care unit management. cc: MD Shady Diana MD
[2017-01-03 07:27] LABS: EOS 2 % (1-10); LYMPHS 10 % (21-51)
[2017-01-03] MEDS ORDERED: LASIX IV ONE (07:59)
[2017-01-03] MEDS ORDERED: MAGNESIUM SULFATE 2 GM/S.W.I. 2 GM/50 ML IVPB IV ONE ×2 (08:09→17:44)
[2017-01-03] MEDS ORDERED: AMIDATE ONE (08:28)
[2017-01-03] MEDS ORDERED: QUELICIN ONE (08:28)
--- NOTE | 2017-01-03 09:04 | Diag Imaging Result Doc PS360 ---
EXAM: CHEST-PORTABLE HISTORY: ET tube placement TECHNIQUE: AP supine at 0855 COMMENT: There is an endotracheal tube with its tip in the thoracic inlet. There is diffuse alveolar opacity bilaterally which has worsened since 01/03/2017 at 0500. IMPRESSION: Worsening pulmonary edema and/or ARDS. Electronically signed by Magdi Wilkinson 01/03/2017 9:02 AM
[2017-01-03] MEDS: JANUVIA PO SCH ×2 (10:11→18:19)
[2017-01-03] MEDS: ASPIRIN PO SCH (10:12)
[2017-01-03] MEDS: BUSPAR PO SCH ×3 (10:13→18:18)
[2017-01-03] MEDS: KLOR-CON PO SCH ×2 (10:14→21:55)
[2017-01-03] MEDS: NEURONTIN PO SCH ×2 (10:14→21:50)
[2017-01-03] MEDS: XIFAXAN PO SCH ×2 (10:15→21:50)
[2017-01-03] MEDS: PATIENT'S OWN MED PO SCH (10:15)
[2017-01-03] MEDS: PERIDEX MT SCH ×2 (10:15→22:02)
[2017-01-03 10:16] LABS: INR 1.78; PROTIME 19.4 Seconds (9.2-11.7)
[2017-01-03] MEDS: PLETAL PO SCH ×2 (10:16→21:51)
[2017-01-03] MEDS: DIPRIVAN 1% 1,000 MG/100 ML BOTTLE IV SCH ×8 (10:20→22:03)
[2017-01-03] MEDS ORDERED: NS 250 ML ONE (10:24)
[2017-01-03] MEDS: CYANOCOBALAMIN IM SCH (10:31)
--- NOTE | 2017-01-03 12:23 | Diag Imaging Result Doc PS360 ---
EXAM: CHEST-PORTABLE HISTORY: PICC line placement TECHNIQUE: AP portable at 1208 COMMENT: There is dense alveolar opacity bilaterally which appears to have improved slightly since 01/03/2017 at 0855. There is a PICC line on the right the tip of which appears to be in the superior vena cava. IMPRESSION: Improved pulmonary edema/ARDS. Electronically signed by Magdi Wilkinson 01/03/2017 12:21 PM
[2017-01-03] MEDS ORDERED: VITAMIN K 10 MG in NS 50 ML IV ONE (12:30)
--- NOTE | 2017-01-03 13:40 | Diag Imaging Result Doc PS360 ---
EXAM: CHEST-PORTABLE HISTORY: og/ng placement TECHNIQUE: Portable chest and abdomen for NG tube placement COMMENT: The tip of the NG tube is in the stomach. There is diffuse alveolar opacity in the lungs and an apparent left pleural effusion. IMPRESSION: NG tube in stomach. Electronically signed by Magdi Wilkinson 01/03/2017 1:38 PM
[2017-01-03] MEDS ORDERED: NS 500 ML IV ONE (14:18)
[2017-01-03] MEDS: LEVOPHED 8 MG in D5 1/2 NS 250 ML IV SCH ×2 (15:08→21:49)
--- NOTE | 2017-01-03 15:32 | CONSULTATION ---
DATE OF CONSULTATION: 01/03/2017 ADMITTING PHYSICIAN: Dr. Johnson REASON FOR CONSULTATION: Diarrhea. HISTORY OF PRESENT ILLNESS: Mr. López is 61-year-old male who was admitted on for history of intermittent ongoing diarrhea for the last 8 or 10 months. He has also lost 50 pounds because of the ongoing GI symptoms per the records. He had a history of recent history of perirectal abscess on left side, which is being managed by the primary care team. Since being in the hospital, the patient had developed respiratory failure and was admitted to the ICU. He just got intubated and vented. According to the records, the patient, before admission, had episodes of nausea and vomiting and diarrhea which worsened, caused him hypotension and was admitted initially to the hospital. The patient has never had a colonoscopy in the past. PAST MEDICAL HISTORY: 1. COPD, with prior tobacco abuse. He quit smoking 10 years ago. 2. Coronary artery disease, with prior gastric bypass. 3. Recurrent perirectal abscess. 4. 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 5. Reflux disease. 6. Gastroparesis, secondary diabetes mellitus. 7. Diabetes mellitus. 8. Peripheral vascular disease. 9. Status post left [id number] amputation. 10. Chronic anxiety. 11. Peripheral neuropathy. SURGICAL HISTORY: Coronary bypass grafting, I and drainage of perirectal abscess, left below-the- knee amputation. SOCIAL HISTORY: He is retired. He has a prior history of tobacco abuse. Quit about 10 years. No history of alcohol abuse. FAMILY HISTORY: Noncontributory. REVIEW OF SYSTEMS: Could not be obtained. The patient was intubated and vented a few minutes ago. MEDICATIONS: His medications in the hospital include albuterol, ipratropium inhalers, albuterol inhaler, aspirin, buspirone, chlorhexidine, cilostazol, cyanocobalamin, dextrose 5% with bicarbonate drip, diphenoxylate-atropine, Lomotil 1 tablet 4 times a day, Lovenox 45 mg q.12 hours, gabapentin, sliding-scale regular insulin, Ativan, Nubain IV, phenylephrine, Zofran, Protonix IV b.i.d. Patient on medication pharmacy-dosing of vancomycin , potassium chloride 20 mg p.o. b.i.d., and propofol drip, Xifaxan 550 mg p.o. b.i.d., Crestor 20 mg p.o. at bedtime, Januvia 50 mg b.i.d., Zosyn 3.375 IV q.6 hours, metoprolol 100 mg p.o. as needed. DIET: He is currently n.p.o. here. PHYSICAL EXAMINATION: Vital signs: Temperature of 98 degrees, pulse of 132, respiratory rate 33, blood pressure 138/65, saturating 90% on 15 L of oxygen 100% FiO2 for now, mechanical ventilator. Body weight of 225 pounds 11.2 ounces, BMI of 30.6 kg. General appearance: Moderately nourished, moderately built, lying in bed. Currently intubated, vented and sedated. HEENT : Pale conjunctivae. No icterus. ET tube in place. Neck: Supple. Abdomen: Soft. No guarding, no rebound, nondistended. Extremities: No cyanosis or clubbing. Status post left leg amputation. neurologic: Currently sedated. LABORATORIES: Hemoglobin and hematocrit are 10.7 and 32.1, white count of 12.91 , platelet count of 145,000. INR 1.7, PT of 19.4. PH of 7.3, pCO2 of 35, pO2 86. Bicarb of 19.7 and lactate of 4.1. Sodium of 142, potassium 3.8, chloride 100, bicarb of 18, anion gap of 18 , BUN of 17, creatinine 1.7, glucose of 107, calcium is 8.1, phosphorus 2.4, magnesium 1.2. Total bilirubin is 2.18, AST 73, ALT 19, alkaline phos 150. Total protein 6.4, albumin of 2.1. IMPRESSION AND PLAN: 1. Chronic intermittent diarrhea, along with nausea, vomiting, dehydration and hypotension. In this regard, we will keep him on IV fluids. We will try to correct his lactate with continuing bicarbonate drip and IV fluids. We will check the stool studies for any kind infectious etiology. 2. Perirectal abscesss/p drainage. He is currently on antibiotics, per the primary care team. He is followed by Dr. Camarillo. 3. Peripheral vascular disease, status post left leg amputation and prior history of smoking and diabetes. This is being managed by primary care team and surgical team. 4. Nonalcoholic steatohepatitis, coupled with cirrhosis, complicated with mildly elevated liver enzymes and coagulopathy. We will have to give him a dose of vitamin K to help correct the INR. We will continue to watch his platelet count, which was low and is now recovering. 5. Respiratory failure, chronic obstructive pulmonary disease. Managed by Dr. Licea. 6. Klebsiella infection in the perirectal abscess. Covering with antibiotics. 7. As the patient becomes hemodynamically stable, we may elect to do a flexible sigmoidoscopy or colonoscopy, depending on his overall status. 8. We need to obtain imaging, CT abdomen and pelvis, to evaluate for any ischemic bowel. The patient has lactic acidosis and history of known peripheral artery disease. 9. Gastrointestinal prophylaxis with proton pump inhibitors. 10. Continue to keep a good control of his diabetes. Above plan was discussed with the patient's nurse at bedside. cc: MD Shady Kelly MD Matthew L. Figh, MD James E. Boyle, MD William D. Denney, MD [facility]ALTHHandy
[2017-01-03] MEDS: VENTOLIN HFA INH SCH ×2 (16:02→22:37)
--- NOTE | 2017-01-03 16:30 | EKG Report ---
Test Performed on : 01/03/2017 4:09:47 PM Test Reason : tachycardia Blood Pressure : / mmHG Vent. Rate : 135 BPM Atrial Rate : 270 BPM P-R Int : 000 ms QRS Dur : 090 ms QT Int : 204 ms P-R-T Axes : -84 -27 173 degrees QTc Int : 306 ms Atrial flutter. with 2:1 AV conduction. Possible Anterolateral infarct (cited on or before 02-JAN-2017) Nonspecific T wave abnormality Inferior leads Abnormal ECG When compared with ECG of 02-JAN-2017 08:57, (Unconfirmed) Atrial flutter. has replaced Sinus rhythm. Questionable change in initial forces of Anterior leads ST now depressed in Lateral leads Nonspecific T wave abnormality has replaced inverted T waves in Inferior leads T wave inversion now evident in Anterolateral leads Confirmed by Myron Angulo MD ([id number]) on 01/03/2017 8:31:14 PM
--- NOTE | 2017-01-03 16:33 | PROGRESS NOTE ---
DATE: 01/03/2017 SUBJECTIVE: Overnight events noted. The patient now intubated, on mechanical ventilator and sedated. He continues with a tendency for hypotension and tachycardia. He has been on intravenous Donavan-Synephrine. OBJECTIVE: Vital signs: Blood pressure 100/48, heart rate 126 and regular, with ECG monitor showing regular narrow complex tachycardia, probably sinus tachycardia. Oxygen saturation 96% on 100% FiO2. neck: There is no significant jugular venous distention. Chest: Clear to auscultation anteriorly. Cardiac: Exam reveals a regular tachycardia, without appreciable murmur or gallop. EXTREMITIES: Without edema. DIAGNOSTICS: Echocardiography demonstrates normal left ventricular ejection fraction. LABORATORY DATA: Remarkable for white blood cell count 12.9, hematocrit 33.1. BUN 17, creatinine 1.1. IMPRESSION: 1. Respiratory failure, possibly related to acute respiratory distress syndrome, in the setting of sepsis versus bilateral pneumonitis. 2. Right perirectal abscess. 3. Suspect sepsis. 4. Atherosclerotic coronary disease, with history of previous coronary bypass grafting. Cardiac catheterization 1 year ago demonstrated left ventricular ejection fraction of 60%. Severe 2- vessel coronary atherosclerosis, and patent coronary bypass grafts. Echocardiography this admission shows normal left ventricular systolic function. 5. Chronic obstructive pulmonary disease. 6. Chronic liver disease related to fatty liver. 7. Advanced peripheral vascular disease. The patient is status post left [id number] amputation. 8. Type 2 diabetes mellitus, with associated peripheral neuropathy and possible gastroparesis. RECOMMENDATIONS: 1. Given recurrent tendency for low blood pressure, despite Donavan-Synephrine, would switch to Levophed as tolerated. 2. Intravenous saline bolus, and continue intravenous hydration. 3. Repeat ECG. cc: MD Shady Teixeira MD
[2017-01-03 18:13] LABS: ALLEN TEST NO; BE -4.2 mmoll (-3.0-3.0); BLOOD TYPE ARTERIAL; DRAW SITE L RADIAL; METHB 1.2 % (0.0-1.5); O2(CT) 13.8 mL/dL (15.0-23.0); PCO2(98.6) 48 mmHg (35-45); PO2(98.6) 65 mmHg (60-100); SAMPLE BLOOD; SAO2 94.7 % (95.0-100.0); SRATE 16 BPM; THB 10.7 g/dL (11.5-17.4); TVOL 600 mL; pH(98.6) 7.28 (7.35-7.45)
[2017-01-03 18:38] LABS: MODALITY VENTILATOR
--- NOTE | 2017-01-03 18:44 | PROGRESS NOTE ---
DATE: 01/03/2017 INTERVAL HISTORY: ICU level 3 documentation. Interval history was reviewed. Tuesday patient became hypotensive, decreased urine output. Continued to have diarrhea. Transferred to the ICU on BiPAP machine. The patient was consulted by Dr. Licea and Dr. Obinna Le. Review of systems not able to obtain. He is on BiPAP and requiring restraints and sedation. Input and output: Positive for almost 6 L. The patient was seen twice today in the morning and evening. I discussed with patient and . In the afternoon patient was intubated based on respiratory status. Currently on ventilator support and vasopressors. Afebrile, tachycardic, blood pressure is 80/40 on mechanical ventilation. The patient was intubated, sedated. Orogastric tube was placed. Thayer seen. CHEST X-RAY: Mild CHF, tachycardic. ABDOMEN: Belly is soft, nontender. Good bowel sounds. Loose stools were noted. INVESTIGATIONS: CBC: White cell count 12.9, hematocrit 33, platelets 145,000. PT 19, INR 1.7. ABG: pH is 7.33, pCO2 35, PO2 86, bicarbonate 19, lactate is high on BiPAP machine. SMA 7, sodium 146, potassium 3.8, chloride 110, BUN 17, creatinine 1.7, glucose 107, calcium 8.1, magnesium 1.2, phosphorus. 2.4, albumin 2.1. Microbiology cultures: C. diff. was negative. Klebsiella pneumonia grew from the wound. ASSESSMENT AND PLAN: 1. Central Nervous System: Continue on sedation with propofol. 2. Cardiac: EKG shows atrial flutter with 2:1 block. Echocardiography: Normal LV systolic function. The patient was given digitalis. 3. Perirectal abscess right side due to Klebsiella. Sensitive to Zosyn and vancomycin. 4. Acute respiratory failure with metabolic acidosis: Questionable sepsis. Currently on ventilator support. Chest x-ray: Mild CHF. We will give IV Lasix 60 mg. 5. Hemodynamics: Hypotension. Patient was getting bicarbonate drip 150 mL/h along with Donavan- Synephrine. 6. Deep vein thrombosis prophylaxis. Antithrombotic stockings. 7. Gastrointestinal prophylaxis with IV Protonix. 8. Type 2 diabetes: Follow up on sliding scale with insulin coverage. Also, Dr. Licea started Lovenox 40 mg subcutaneous q.12 hours. 9. Diarrhea: Waiting for CT of the abdomen and pelvis. 10. I discussed with and patient. The patient said he wants to be full code. 11. Hypomagnesemia/hypophosphatemia: Replace the magnesium with Neutra-Phosphate. 12. Patient is very critical. Prognosis is guarded. LEVEL OF DOCUMENTATION: 35 minutes. cc: Shady Johnson MD
[2017-01-03] MEDS ORDERED: POTASSIUM PHOSPHATE 30 MEQ in NS 250 ML IV ONE (19:00)
[2017-01-03] MEDS: CRESTOR PO SCH (21:51)
[2017-01-04] MEDS: ZOSYN 3.375 GM in NS 50 ML IV SCH ×4 (02:27→21:05)
[2017-01-04] MEDS: DIPRIVAN 1% 1,000 MG/100 ML BOTTLE IV SCH ×9 (02:27→23:23)
[2017-01-04] MEDS: DUONEB (A & A) INH SCH ×5 (03:30→22:51)
[2017-01-04] MEDS: HUMULIN R SUBQ SCH ×3 (04:30→16:31)
[2017-01-04 04:50] LABS: ALLEN TEST YES; BE -1.9 mmoll (-3.0-3.0); BLOOD TYPE ARTERIAL; DRAW SITE R RADIAL; METHB 0.7 % (0.0-1.5); O2(CT) 14.6 mL/dL (15.0-23.0); PO2(98.6) 75 mmHg (60-100); SAMPLE BLOOD; SAO2 96.4 % (95.0-100.0); SRATE 16 BPM; THB 11.1 g/dL (11.5-17.4); TVOL 600 mL; pH(98.6) 7.28 (7.35-7.45)
[2017-01-04 04:51] LABS: MODALITY VENTILATOR; PCO2(98.6) 54 mmHg (35-45)
[2017-01-04] MEDS: SODIUM BICARBONATE 8.4% 100 MEQ in D5W 1,000 ML IV SCH ×4 (04:53→20:24)
[2017-01-04] MEDS: NEO-SYNEPHRINE 50 MG in NS 250 ML IV SCH ×6 (04:54→20:25)
[2017-01-04] MEDS: LEVOPHED 8 MG in D5 1/2 NS 250 ML IV SCH ×3 (04:54→20:24)
[2017-01-04 05:45] LABS: INR 1.54; PROTIME 16.6 Seconds (9.2-11.7)
[2017-01-04 06:01] LABS: BASO% 0.7 % (0.0-0.8); EOS# 0.86 X1000 (0.0-0.7); EOS% 6.1 % (0.0-10.0); HEMATOCRIT 30.4 % (42.0-52.0); HEMOGLOBIN 9.9 g/dL (14.0-18.0); IMM GRAN% 0.7 % (0.0-0.5); LYMPH# 2.57 X1000 (1.2-3.4); LYMPH% 18.1 % (20.5-51.1); MANUAL DIFF NEEDED? YES; MCH 33.2 PG (27-31); MCHC 32.6 g/dL (33-37); MONO# 0.49 X1000 (0.11-0.59); MONO% 3.5 % (1.7-9.3); MPV 10.8 FL (7.4-10.4); NEUT% 70.9 % (42.2-75.2); PLT 231 X1000 (130-400); RBC 2.98 XMIL (4.7-6.1)
[2017-01-04 06:05] LABS: MAGNESIUM 2.1 mg/dL (1.5-2.7)
[2017-01-04 06:25] LABS: ALBUMIN 1.3 g/dL (3.5-5.0); POTASSIUM 3.5 mmol/L (3.5-5.1); TOTAL BILIRUBIN 3.38 mg/dL (0.20-1.00); TOTAL PROTEIN 5.7 g/dL (6.3-8.3)
[2017-01-04 06:29] LABS: CALCIUM 6.7 mg/dL (8.8-10.2)
--- NOTE | 2017-01-04 06:47 | PROGRESS NOTE ---
DATE: 01/04/2017 SUBJECTIVE: The patient was intubated yesterday. He is now on 2 pressors. His overall clinical status has worsened. I did discuss his case with the nurse taking care of him through the night. They have had some alterations to his pressors, but he is still on 100% FiO2 with saturations in the 80s. OBJECTIVE: Vital Signs: The patient is currently afebrile. Heart rate in the 130s; blood pressure 110/51, currently on Levophed and Donavan-Synephrine; O2 saturation in the 80s on 100% FiO2. General: Sedated. Cardiovascular: Tachycardic on Donavan-Synephrine and Levophed. Lungs: Coarse sounds noted bilaterally. Referred airway noises. Abdomen: Soft, nontender, nondistended. Perineum: Rectal tube in place. The erythema appears better from his drainage site. LABORATORY DATA: White blood cell count is 14, which is up from 12; hematocrit 30, platelet count 231,000. INR 1.54. His pH is 7.28, pCO2 of 54, bicarbonate 23, base deficit 1.9. His lactic acid is 2.4. Chest x-ray, worsening pulmonary congestion. ASSESSMENT AND PLAN: A 61-year-old male with perineal abscess, status post drainage, now with acute respiratory distress syndrome. 1. Perirectal abscess. At this time, the patient is on antibiotics. His overall wound does not look like it is worsening. He is on appropriate coverage. I recommend to continue antibiotics. His stool for Clostridium difficile was negative. 2. Acute respiratory distress syndrome. At this time, the patient is on 100% FiO2, currently being followed by Pulmonary. We will defer management to Pulmonary. 3. Hypotension. At this time, the patient is on 2 pressors. He is likely in a systemic inflammatory response syndrome like scenario. We may need to consider hydrocortisone for potential for adrenal insufficiency. His overall clinical status has worsened, unsure of the exact etiology because his perineal wound does not look terrible. It might be decompensation from his overall clinical comorbidities. I will continue to follow with you. cc: MD Shady Diana MD
[2017-01-04 07:20] LABS: BANDS 1 % (0-1); EOS 4 % (1-10); LYMPHS 14 % (21-51); MONO 2 % (1-9)
--- NOTE | 2017-01-04 07:23 | Diag Imaging Result Doc PS360 ---
EXAM: CHEST-1 VIEW INDICATION: SOB TECHNIQUE: One view COMPARISON: 01/03/2017 FINDINGS: Support tubes and lines are in stable positions. Inspiration is slightly better than the previous study. Diffuse consolidations are approximately stable given differences in inspiration. No new consolidations are identified. Cardiac silhouette is stable. IMPRESSION: Slightly better inspiration but essentially stable, otherwise. Electronically signed by Brody Gomez 01/04/2017 7:21 AM
[2017-01-04] MEDS: VENTOLIN HFA INH SCH (07:32)
[2017-01-04] MEDS ORDERED: CALCIUM GLUCONATE 2 GM in NS 100 ML IV ONE (07:53)
[2017-01-04] MEDS ORDERED: LASIX IV ONE (08:31)
[2017-01-04] MEDS: SODIUM CHLORIDE 0.9% INJ SCH (08:45)
[2017-01-04] MEDS: PERIDEX MT SCH ×2 (08:45→21:04)
[2017-01-04] MEDS: CYANOCOBALAMIN IM SCH (08:45)
[2017-01-04] MEDS: PROTONIX IV SCH ×2 (08:45→21:04)
[2017-01-04] MEDS: PLETAL PO SCH ×2 (08:46→21:04)
[2017-01-04] MEDS: JANUVIA PO SCH ×2 (08:46→17:28)
[2017-01-04] MEDS: LOPRESSOR PO SCH (08:46)
[2017-01-04] MEDS: NEURONTIN PO SCH ×2 (08:46→21:04)
[2017-01-04] MEDS: XIFAXAN PO SCH ×2 (08:46→21:04)
[2017-01-04] MEDS: ASPIRIN PO SCH (08:47)
[2017-01-04] MEDS: BUSPAR PO SCH ×3 (08:47→17:28)
[2017-01-04] MEDS: KLOR-CON PO SCH ×2 (08:47→22:05)
[2017-01-04] MEDS ORDERED: LASIX IV SCH (09:15)
[2017-01-04] MEDS: ALBUMIN 25% IV SCH ×2 (09:45→17:28)
[2017-01-04] MEDS: PATIENT'S OWN MED PO SCH (10:08)
[2017-01-04] MEDS: SOLU-CORTEF IV SCH ×2 (10:13→17:28)
[2017-01-04] MEDS: LASIX 160 MG in NS 25 ML IV SCH ×2 (11:11→17:28)
[2017-01-04] MEDS: LOVENOX SUBQ SCH ×2 (11:11→23:23)
--- NOTE | 2017-01-04 14:39 | PROGRESS NOTE ---
DATE: 01/04/2017 SUBJECTIVE: Patient continues sedated on ventilator. He continues on Levophed for blood pressure support. He is still also on a low dose of Donavan-Synephrine. OBJECTIVE: Vital Signs: Blood pressure 100/60, heart rate 94 and regular with ECG monitor showing sinus rhythm. Oxygen saturation 94-95% on 100% FiO2. Neck: Jugular venous distention appears to be present. Chest: Auscultation of the chest reveals coarse breath sounds bilaterally. Cardiac Exam: Reveals a regular rate and rhythm without appreciable murmur or gallop. Abdomen: Soft. Bowel sounds are hypoactive. Extremities: There is no evidence of peripheral edema. LABORATORY DATA: Includes a white blood cell count 14.2, hematocrit 30.4. BUN 22, creatinine 2.6. IMPRESSION: 1. Respiratory failure. Suspect acute respiratory distress syndrome in setting of sepsis. 2. Right perirectal abscess. 3. Acute renal failure. 4. Atherosclerotic coronary disease with previous coronary bypass grafting in the past. Left ventricular ejection fraction normal. 5. Chronic obstructive pulmonary disease. 6. Diabetes mellitus, associated peripheral neuropathy and possible gastroparesis. 7. Advanced peripheral vascular disease. Patient is status post left [id number] amputation. RECOMMENDATIONS: 1. Continue supportive care with intravenous pressors. 2. Patient's prognosis appears to be concerning. This was discussed with the patient's father-in- law. Code status is being considered by the family. cc: MD Shady Teixeira MD
--- NOTE | 2017-01-04 18:26 | PROGRESS NOTE ---
DATE: 01/04/2017 SUBJECTIVE: Interval history was reviewed over the last 24 hours, patient is worsening. He is hypertensive, hypoxic. Chest x-ray is worsening. REVIEW OF SYSTEMS: None reported. He was sedated intubated. PHYSICAL EXAMINATION: Vital Signs: Afebrile. Pulse is 90. Blood pressure is 110/53, 100% I's and O's positive, total 18 L. General: On examination, the patient is edematous, intubated, sedated. Lungs: Bilateral air entry. Heart: Sounds are regular. Abdomen: Belly is soft, obese. Nontender good bowel sounds. Extremities: Left below-knee amputation. The patient has ET tube, NG tube, rectal tube, Thayer catheter noted. INVESTIGATIONS: CBC: White cell count 14, hematocrit 30, platelets 231. ABG: PH is 7.38, pCO2 of 54, pO2 of 75. Lactate is 2.4. SMA-7: Sodium is 139, potassium 3.5, chloride 102, BUN 22, creatinine 2.6, glucose 124, calcium 6.7. Increased LFTs: ProBNP 14,000. Albumin 1.3. Routine culture Klebsiella pneumonia. ASSESSMENT AND PLAN: 1. Central nervous system sedation. 2. Acute hypoxic failure due to adult respiratory distress syndrome. Continue on ventilator support as per Dr. Licea. 3. Hyperdynamic heart with atrial flutter, stable. 4. Klebsiella perirectal abscess, incision and drainage. Continue on present IV antibiotics with vancomycin and Zosyn. 5. Third spacing due to sepsis and continue hemodynamic support with IV fluids and vasopressors. 6. Acute kidney failure due to sepsis. Discussed with . Consider Dr. Adame consult. We will give a ian dose of Lasix. 7. Chronic diarrhea. Unable to do a CAT scan. Stool cultures were negative. 8. Hypocalcemia. Calcium gluconate. 9. Gastrointestinal prophylaxis with IV Protonix. CODE: Living Will. He is Full Code. LEVEL OF DOCUMENTATION: 35 minutes. cc: Shady Johnson MD
[2017-01-04] MEDS: NUBAIN IV PRN (20:26)
[2017-01-04] MEDS: ATIVAN IV PRN (20:26)
[2017-01-04] MEDS: CRESTOR PO SCH (21:04)
[2017-01-05] MEDS: DIPRIVAN 1% 1,000 MG/100 ML BOTTLE IV SCH ×6 (01:03→20:11)
[2017-01-05] MEDS: HUMULIN R SUBQ SCH ×5 (01:04→20:01)
[2017-01-05] MEDS: ALBUMIN 25% IV SCH (01:05)
[2017-01-05] MEDS: SOLU-CORTEF IV SCH ×3 (01:05→16:18)
[2017-01-05] MEDS: LEVOPHED 8 MG in D5 1/2 NS 250 ML IV SCH ×5 (01:06→21:42)
[2017-01-05] MEDS: LASIX 160 MG in NS 25 ML IV SCH (02:00)
[2017-01-05] MEDS: ZOSYN 3.375 GM in NS 50 ML IV SCH ×3 (03:21→16:07)
[2017-01-05] MEDS: NEO-SYNEPHRINE 50 MG in NS 250 ML IV SCH ×3 (03:22→16:04)
[2017-01-05] MEDS: DUONEB (A & A) INH SCH ×4 (03:53→19:12)
[2017-01-05 04:43] LABS: ALLEN TEST YES; BE -3.4 mmoll (-3.0-3.0); BLOOD TYPE ARTERIAL; DRAW SITE R RADIAL; METHB 1.5 % (0.0-1.5); O2(CT) 10.6 mL/dL (15.0-23.0); PO2(98.6) 50 mmHg (60-100); SAMPLE BLOOD; SAO2 88.4 % (95.0-100.0); SRATE 18 BPM; THB 8.9 g/dL (11.5-17.4); TVOL 500 mL; pH(98.6) 7.22 (7.35-7.45)
[2017-01-05 04:44] LABS: PCO2(98.6) 60 mmHg (35-45)
[2017-01-05 04:45] LABS: MODALITY VENTILATOR
[2017-01-05 05:08] LABS: BASO% 0.3 % (0.0-0.8); EOS# 0.01 X1000 (0.0-0.7); EOS% 0.1 % (0.0-10.0); HEMATOCRIT 27.5 % (42.0-52.0); HEMOGLOBIN 9.3 g/dL (14.0-18.0); IMM GRAN# 0.08 X1000 (0.0-0.04); IMM GRAN% 0.6 % (0.0-0.5); LYMPH# 1.06 X1000 (1.2-3.4); LYMPH% 7.4 % (20.5-51.1); MANUAL DIFF NEEDED? YES; MCH 35.2 PG (27-31); MCHC 33.8 g/dL (33-37); MCV 104.2 FL (81-99); MONO# 0.66 X1000 (0.11-0.59); MONO% 4.6 % (1.7-9.3); PLT 243 X1000 (130-400); RBC 2.64 XMIL (4.7-6.1)
[2017-01-05 05:23] LABS: INR 1.52; PROTIME 16.4 Seconds (9.2-11.7)
[2017-01-05 05:49] LABS: MONO 1 % (1-9)
[2017-01-05 06:23] LABS: POTASSIUM 4.1 mmol/L (3.5-5.1); TOTAL BILIRUBIN 4.91 mg/dL (0.20-1.00); TOTAL PROTEIN 6.1 g/dL (6.3-8.3)
[2017-01-05 06:27] LABS: CALCIUM 6.1 mg/dL (8.8-10.2)
--- NOTE | 2017-01-05 07:05 | PROGRESS NOTE ---
DATE: 01/05/2017 SUBJECTIVE: The patient is still requiring full support. He is still on high ventilator settings with his saturations still recorded in the 80s. He is still on 2 pressors. Overall, his clinical status is still guarded. OBJECTIVE: Vital Signs: Patient is currently afebrile. His pulse is in the low 100s and high 90s, respiratory rate per the ventilator, blood pressure 126/54, currently on Levophed and Donavan- Synephrine. He is also on a bicarb drip. General Examination: Sedated. Cardiovascular: On 2 pressors. Lungs: Referred airway noises. His chest x-ray looks essentially the same as yesterday. Rectal: Perineum essentially unchanged. No worsening. Rectal tube in place. Laboratory: White blood cell count is 14, hematocrit is 27, platelet count 243,000. INR 1.52. ABG, pH of 7.22, bicarb of 22, pCO2 of 60, O2 of 50. Sodium is 134, potassium is 4.1, calcium is 6.1. ASSESSMENT/PLAN: A 61-year-old, male with perineal abscess, status post drainage, now with acute respiratory distress syndrome and systemic inflammatory response syndrome. 1. Perirectal abscess. At this time, the patient is on antibiotics appropriately. This wound does not look worsening. Recommend to continue current treatment. 2. Acute respiratory distress syndrome. At this time, he is on 100% FiO2. They are increasing his PEEP. Seems to still be having difficulty oxygenating. His chest x-ray looks consistent with acute respiratory distress syndrome to me. 3. Hypotension. At this time, the patient is on 2 pressors. They did start him on hydrocortisone. His laboratory seems to show that he has potentially the possibility of an adrenal insufficiency. He does have somewhat low sodium and high normal potassium. We will see how this affects his overall clinical picture. 4. Acute kidney injury. At this time, nephrology has been consulted. We will continue to follow with their recommendation. His urine output has been essentially 0 overnight. Overall, his clinical status has worsened. His prognosis is probably guarded. We will continue current treatment. cc: MD Shady Diana MD
[2017-01-05] MEDS: CALCIUM GLUCONATE 2 GM in NS 100 ML IV ONE ×2 (07:14→08:07)
--- NOTE | 2017-01-05 07:29 | Diag Imaging Result Doc PS360 ---
CHEST-PORTABLE - 01/05/2017 INDICATION: respiratory failure TECHNIQUE: COMPARISON: 01/04/2017 FINDINGS: Support lines and tubes are stable. Stable cardiomegaly and pulmonary vascular congestion. Stable diffuse bilateral alveolar infiltrates. No new infiltrates. Appearance is compatible with ARDS. IMPRESSION: No change from prior. Electronically signed by Aydin Geiger 01/05/2017 7:27 AM
[2017-01-05] MEDS: JANUVIA PO SCH (08:02)
[2017-01-05] MEDS: ASPIRIN PO SCH (08:03)
[2017-01-05] MEDS: PERIDEX MT SCH ×2 (08:03→20:11)
[2017-01-05] MEDS: KLOR-CON PO SCH (08:04)
[2017-01-05] MEDS: PLETAL PO SCH ×2 (08:04→20:11)
[2017-01-05] MEDS: PROTONIX IV SCH ×2 (08:04→20:11)
[2017-01-05] MEDS: SODIUM CHLORIDE 0.9% INJ SCH ×2 (08:04→20:10)
[2017-01-05] MEDS: BUSPAR PO SCH ×3 (08:05→16:06)
[2017-01-05] MEDS: NEURONTIN PO SCH (08:05)
[2017-01-05] MEDS: PATIENT'S OWN MED PO SCH (08:08)
[2017-01-05] MEDS ORDERED: CALCIUM GLUCONATE 1 GM in NS 50 ML IV ONE (09:00)
[2017-01-05] MEDS: XIFAXAN PO SCH ×2 (09:00→20:11)
[2017-01-05] MEDS: LOPRESSOR PO SCH (10:06)
--- NOTE | 2017-01-05 12:05 | PROGRESS NOTE ---
DATE: 01/04/2017 SUBJECTIVE: Mr. López has been intubated showing deterioration, hypotensive and hypoxic. Has been on intravenous Donavan-Synephrine which has been not very therapeutic, so he has changed to Levophed. OBJECTIVE: Vital signs: Temperature 98 degrees, pulse 120, respiratory rate 33, O2 saturation 99% on mechanical ventilator. HEENT: Conjunctival pallor present. No icterus. Has an ET tube in place. Neck: Supple. Abdomen: Soft, nondistended. Extremities: Status post left leg amputation. Neurological: He is sedated. LABORATORY DATA: Shows white count elevated at 12.9, creatinine elevated, bilirubin is 2.18, albumin is low at 2.1. IMPRESSION AND PLAN: 1. Hypotension and hypoxia due to adult distress syndrome. 2. Chronic intermittent diarrhea. Stool studies pending. He has been on antibiotics for his perirectal abscess. 3. Perirectal abscess and drainage. 4. Peripheral vascular disease. 5. Non-alcoholic steatohepatitis with cirrhosis. 6. Respiratory failure. 7. Klebsiella perirectal abscess. 8. Consider doing flexible sigmoidoscopy when he is stable. 9. Gastrointestinal prophylaxis. 10. Diabetes controlled. Will continue to follow. For some reason, he did take a deteriorating tone in overall status, being treated with multiple physicians. cc: MD Shady Lopez MD
[2017-01-05] MEDS: LOVENOX SUBQ SCH ×2 (12:46→23:51)
--- NOTE | 2017-01-05 13:39 | Diag Imaging Result Doc PS360 ---
CHEST-PORTABLE - 01/05/2017 at 1315 INDICATION: line placement TECHNIQUE: COMPARISON: 05 100 FINDINGS: There is a new right internal jugular dialysis catheter. The distal tip is in the upper SVC. Stable right PICC line. Stable endotracheal tube and nasogastric tube in good position. Stable severe cardiomegaly. There is perhaps slight worsening in the diffuse bilateral alveolar infiltrates compatible with ARDS. No pneumothorax. IMPRESSION: Successful right dialysis catheter placement. Electronically signed by Aydin Geiger 01/05/2017 1:37 PM
[2017-01-05] MEDS: SODIUM BICARBONATE 8.4% 100 MEQ in D5W 1,000 ML IV SCH (14:00)
--- NOTE | 2017-01-05 14:23 | PROGRESS NOTE ---
DATE: 01/05/2017 SUBJECTIVE: The patient continues on ventilator and sedated. He is currently on intravenous pressors including Levophed and Donavan-Synephrine. Temporary dialysis catheter is being placed and right IJ. OBJECTIVE: Vital Signs: Blood pressure 100/50, heart rate 108 and regular, with ECG monitor showing sinus rhythm. Oxygen saturation 88% with FiO2 100%. Neck: Jugular venous distention is present. Chest: Auscultation of chest reveals coarse breath sounds bilaterally. Cardiac examination: Reveals a regular rate and rhythm without appreciable murmur or gallop. There is no evidence of peripheral edema. LABORATORY DATA: Includes a white blood cell count 14.33, hematocrit 27.5. BUN 25, creatinine 3.4. IMPRESSION: 1. Respiratory failure, probably related to acute respiratory distress syndrome in the setting of sepsis. The patient's respiratory failure probably aggravated by volume excess in the setting of acute renal failure. 2. Acute renal failure. 3. Right perirectal abscess. 4. Atherosclerotic coronary disease with previous coronary bypass grafting in the past. Left ventricular ejection fraction normal. 5. Chronic obstructive pulmonary disease. 6. Type 2 diabetes mellitus. 7. Associated peripheral neuropathy and possible gastroparesis. 8. Advanced peripheral vascular disease. Patient is status post left [id number] amputation. RECOMMENDATIONS: 1. Continue supportive care with intravenous pressors. 2. Family has elected to pursue dialysis for volume removal. 3. Prognosis remains critical/guarded. The patient's family is aware of this. cc: MD Shady Teixeira MD
[2017-01-05] MEDS ORDERED: NS 2,000 ML MISC PRN (14:29)
[2017-01-05] MEDS ORDERED: HEPARIN ONE (15:38)
[2017-01-05] MEDS ORDERED: NS 2,000 ML ONE (15:38)
--- NOTE | 2017-01-05 16:37 | OPERATIVE NOTE ---
PROCEDURE DATE: 01/05/2017 PREOPERATIVE DIAGNOSIS: Acute renal failure requiring hemodialysis. POSTOPERATIVE DIAGNOSIS: Acute renal failure requiring hemodialysis. PROCEDURES: Ultrasound-guided right internal jugular vein Vas-Cath placement. SURGEON: Piotr Camarillo MD. DIRECTOR OF CHANNEL MARKETING: None. ANESTHESIA: Local administered by the surgeon. INTRAOPERATIVE FINDINGS: Ultrasound on the right IJ was very distended but amenable to a Vas- Cath. A chest x-ray at this time is pending. BRIEF HISTORY: The patient is a 61-year-old male well known to me, who came in initially with a perirectal abscess. He subsequently had a decline and one of the aspects of this decline was that his kidneys started to have difficulty. He has had essentially zero urine output with elevated BUN and creatinine suggestive of acute renal failure. Given this, Nephrology wanted to have Vas-Cath for dialysis. The risks, benefits, and alternatives were discussed with the family. Consent was obtained. DESCRIPTION OF PROCEDURE: After informed consent was obtained, patient remained in the ICU on the ventilator. The right neck was investigated with an ultrasound, it was of sufficient size of internal jugular vein to place a Vas-Cath. It was a little bit distended suggestive of adequate resuscitation. We then prepped and draped the right neck in the standard fashion. Used local anesthetic to anesthetize the skin. Under ultrasound guidance, I was able to cannulate the right internal jugular vein, pass a wire. We did not see any ectopy. I then in a typical Seldinger technique dilated up the tract and placed the Vas-Cath in place and secured it to the skin in the standard fashion. All ports aspirated and flushed blood easily. We placed a sterile dressing. At the time of this dictation, a chest x-ray is pending but there were no immediate complications noted during the procedure. cc: MD Shady Diana MD
--- NOTE | 2017-01-05 16:40 | PROGRESS NOTE ---
DATE: 01/05/2017 SUBJECTIVE: The patient is resting in bed. He is intubated, vented and sedated. He is on 2 pressors. His family is present at the bedside. He was reported to have green stool. He continues on Levophed and Donavan-Synephrine drip. Temporary dialysis catheter is being placed. PHYSICAL EXAMINATION: Vital signs: Temperature 98.4 degrees, pulse of 108, respiratory rate 18, blood pressure of 91/41, saturating 85% on 100% FiO2. General appearance: Moderately-nourished, lying in bed, sedated, vented, and intubated. HEENT: ET tube in place. NG tube in place. Abdomen: Soft, nondistended. Extremities: No cyanosis and clubbing. He is status post left below-knee amputation. Neurologic: He is sedated. LABORATORIES: His hemoglobin and hematocrit are 9.3 and 27.5, white count of 14.3, platelet count of 243,000. PH of 7.2, pCO2 of 60, pO2 of 50, and he is on FiO2 at 100%. Sodium 135, potassium 4.1, chloride 92, bicarb 23, anion gap of 19, BUN of 25, creatinine 3.4, glucose of 121, calcium is 6.1, total bilirubin is 4.9, AST 91, ALT 24, alkaline phosphatase 101, total protein 6.1, albumin. IMPRESSION AND PLAN: 1. Chronic intermittent diarrhea. Stool studies so far have been negative. Culture negative, clostridium difficile toxin x2. 2. Respiratory failure, secondary to pneumonia and acute respiratory distress syndrome. Being monitored by the rn diabetes critical care team. He is on 100% FiO2 with low pO2. The patient has baseline history of smoking and chronic obstructive pulmonary disease as well. 3. Acute renal insufficiency and failure. He is being evaluated by the nephrology team. 4. Right-sided perirectal abscesses, being monitored by Dr. Camarillo. 5. History of peripheral artery disease and status post below-knee amputation in the past. 6. Perirectal abscesses and drainage being performed on admission. 7. Gastrointestinal prophylaxis with proton pump inhibitors. 8. We will continue antibiotics and supportive care. The patient is critical at this moment. If the patient stabilizes, may elect to do a flexible sigmoidoscopy. This was discussed with the patient's family. cc: MD Shady Javier Dr., MD [facility]
[2017-01-05] MEDS: ZOSYN 2.25 GM in NS 50 ML IV SCH (17:16)
--- NOTE | 2017-01-05 21:25 | CONSULTATION ---
DATE OF CONSULTATION: 01/05/2017 REASON FOR CONSULTATION: Acute kidney injury. CONSULTING PHYSICIAN: Lasha Johnson MD who called me directly. HISTORY OF PRESENT ILLNESS: Mr. López is a 61-year-old man with diabetes, hypertension, hyperlipidemia, peripheral vascular disease who has left BKA. He presented to the hospital because he had a large abscess that required incision and drainage. This was performed by Dr. Camarillo on 12/31. The wound was more extensive than initially perceived, but there was no fistula present. His condition has progressively deteriorated until he required increasing oxygen requirements on the ventilator as well as IV fluids, vasopressors, broad antibiotics, etc. This was attended by a falling urine output. Rising BUN and creatinine. Increased anion gap acidosis. We were asked to assist with his management. PAST MEDICAL HISTORY: As above. He also has obesity, hyperlipidemia, ZHENG with cirrhosis, hypertension, COPD, coronary disease, etc. CURRENT MEDICATIONS: Zosyn, sitagliptin, rosuvastatin, rifaximin, propofol, potassium, Pantoprazole, ondansetron, phenylephrine, Nubain, metoprolol, lorazepam, norepinephrine, insulin, hydrocortisone, gabapentin, enoxaparin, diphenoxylate, sodium bicarbonate, cilostazol, chlorhexidine, bupropion, aspirin, albuterol, ipratropium. ALLERGIES: None. SOCIAL HISTORY: He is . Lives with his . She is present at the bedside. No alcohol or tobacco. FAMILY HISTORY: Positive for heart disease. REVIEW OF SYSTEMS: Otherwise noncontributory. PHYSICAL EXAMINATION: Vital signs: This exam was performed at 0800. At that time blood pressure 123/51, heart rate 104, respirations 21, afebrile. Generally: He is a middle-aged man, sedated, unresponsive on the ventilator. Skin is warm and dry. HEENT: Conjunctivae are pink and dry. Oropharynx is dry. Neck: Supple. Neck veins are not appreciated. Heart: Regular and distant. Lungs: Equal. Coarse crackles. Abdomen: Soft, quiet, nontender. Extremities: Have 3+ edema. No clubbing or cyanosis. LABORATORY DATA: Reviewed. IMPRESSION: Acute kidney injury complicated by anuria, acidosis, volume overload. I counseled the regarding the need for dialysis to manage his electrolytes and fluid and acid-base disorders. She is familiar with dialysis because of the care of her father in the past. I counseled her regarding access placement and Dr. Camarillo will provide that. Plan for dialysis today for 3.5 hours with 2 potassium bath and UF as tolerated. I have reviewed medications and discontinued multiple of his home medications that are still on the list, though he is not able to take p.o. I will adjust his Zosyn dose as well. cc: MD Shady Villarreal MD
[2017-01-06] MEDS: DIPRIVAN 1% 1,000 MG/100 ML BOTTLE IV SCH ×7 (01:01→21:23)
[2017-01-06] MEDS: ZOSYN 2.25 GM in NS 50 ML IV SCH ×3 (01:16→16:33)
[2017-01-06] MEDS: SOLU-CORTEF IV SCH ×3 (01:16→19:22)
[2017-01-06] MEDS: SODIUM BICARBONATE 8.4% 100 MEQ in D5W 1,000 ML IV SCH ×2 (03:07→10:30)
[2017-01-06] MEDS: LEVOPHED 8 MG in D5 1/2 NS 250 ML IV SCH ×3 (03:07→16:34)
--- NOTE | 2017-01-06 03:15 | PROGRESS NOTE ---
DATE: 01/05/2017 SUBJECTIVE: The patient is doing very poorly this morning. He has I Os positive more than 20 L. He is hypotensive, tachycardic, hypoxic. and still under sedation. The patient was given ian dose of Lasix without any urine output. Rectal tube was in place. REVIEW OF SYSTEMS: None reported. PHYSICAL EXAMINATION: Vital Signs: Afebrile, tachycardic, blood pressure is 124/50. 267 pounds. HEENT: Within normal limits. Neck: Supple. Chest: Bilateral air entry. Tachycardic. Abdomen: Belly is soft. Genitourinary: Thayer catheter. No urine output. Rectal: Rectal tube was seen. CHEST X-RAY: Chest x-ray: Questionable ARDS. LABORATORIES: CBC: White cell count 14, hematocrit 27.5, platelets 243,000. PT 16, INR 1.5. ABG: PH is 7.22, pCO2 60, pO2 50 on 100%. SMA 7: Sodium 134, potassium 4.1, chloride 92. BUN 25, creatinine 3.4. Glucose 175, calcium 6.1. Total bilirubin 4.9. ASSESSMENT AND PLAN: 1. LICENSED [employer] on sedation. 2. Sepsis syndrome with impending ARDS, maxed out on the vent support. 3. Acute oliguric renal failure, probably from sepsis syndrome. Consulted Dr. Piotr Camarillo for Vas-Cath and temporary dialysis. 4. Klebsiella, perirectal abscess. On IV Zosyn. I adjusted dose 2.25 q8. Discontinue vancomycin. 5. Refractory hypertension. Stress dose of IV steroids. 6. Hypertension. Continue IV fluids with vasopressors. 7. GI prophylaxis with IV Protonix. 8. Chronic diarrhea, on Xifaxan. Discussed with . The mortality is 80%. Continues to be full code. LEVEL OF DOCUMENTATION: Was 35 minutes. cc: Shady Johnson MD [facility]
[2017-01-06] MEDS: DUONEB (A & A) INH SCH ×3 (03:32→21:13)
[2017-01-06 04:28] LABS: BLOOD TYPE ARTERIAL; SAMPLE BLOOD
[2017-01-06 04:29] LABS: BE -2.3 mmoll (-3.0-3.0); PO2(98.6) 81 mmHg (60-100); THB 10.9 g/dL (11.5-17.4)
[2017-01-06 04:30] LABS: ALLEN TEST YES; DRAW SITE R RADIAL; MODALITY VENTILATOR; O2(CT) 14.6 mL/dL (15.0-23.0); SRATE 18 BPM; TVOL 500 mL; pH(98.6) 7.15 (7.35-7.45)
[2017-01-06 04:31] LABS: PCO2(98.6) 80 mmHg (35-45)
[2017-01-06 05:15] LABS: BASO% 0.1 % (0.0-0.8); EOS# 0.01 X1000 (0.0-0.7); EOS% 0.1 % (0.0-10.0); HEMATOCRIT 24.1 % (42.0-52.0); HEMOGLOBIN 7.5 g/dL (14.0-18.0); IMM GRAN# 0.04 X1000 (0.0-0.04); IMM GRAN% 0.6 % (0.0-0.5); INR 1.53; LYMPH# 0.35 X1000 (1.2-3.4); LYMPH% 4.8 % (20.5-51.1); MANUAL DIFF NEEDED? YES; MCH 32.1 PG (27-31); MCHC 31.1 g/dL (33-37); MONO# 0.49 X1000 (0.11-0.59); MONO% 6.7 % (1.7-9.3); MPV 10.5 FL (7.4-10.4); NEUT% 87.7 % (42.2-75.2); PLT 149 X1000 (130-400); PROTIME 16.5 Seconds (9.2-11.7); RBC 2.34 XMIL (4.7-6.1)
[2017-01-06 05:35] LABS: LYMPHS 11 % (21-51); MONO 5 % (1-9)
[2017-01-06] MEDS: HUMULIN R SUBQ SCH ×4 (06:05→20:28)
[2017-01-06 06:23] LABS: CALCIUM 6.9 mg/dL (8.8-10.2)
[2017-01-06 06:24] LABS: ALBUMIN 2.3 g/dL (3.5-5.0); POTASSIUM 3.8 mmol/L (3.5-5.1); TOTAL BILIRUBIN 3.61 mg/dL (0.20-1.00); TOTAL PROTEIN 6.2 g/dL (6.3-8.3)
--- NOTE | 2017-01-06 07:13 | PROGRESS NOTE ---
DATE: 01/06/2017 SUBJECTIVE: Discussed this case with the nurse overnight. I did place a Vas-Cath without any complications yesterday. He has since developed bleeding from his oropharynx. He is still requiring pressor support. OBJECTIVE: Vital Signs: Patient is currently afebrile. Most recent pulse 115, most recent blood pressure 103/44. He is on Donavan-Synephrine and Levophed. O2 saturation in the mid 90s on 100% FiO2. General Examination: Sedated. HEENT: Oropharynx limited. Oropharynx exam performed. I could see blood as far back to the tonsillar bed, but very limited exam. His gastric tube has blood coming out of it. We placed on suction. Cardiovascular: Mildly tachycardic. Lungs: Referred airway noises from the ventilator and coarse sounds bilaterally. Abdomen: Soft, nontender, nondistended. Perineum essentially unchanged. Rectal tube in place. LABORATORY: White blood cell count 7, hematocrit 24, platelet count 149,000. INR 1.53. ABG pH is 7.15, pCO2 80, pO2 of 81, bicarb of 23. Remainder of labs reviewed. His calcium is 6.9. ASSESSMENT/PLAN: A 61-year-old, male with acute respiratory distress syndrome, status post drainage of a perirectal abscess. 1. Perirectal abscess. At this time, he is on antibiotics. The wound itself appears to be doing well. 2. Acute respiratory distress syndrome. At this time, his overall respiratory status is declining. His pCO2 is increasing. He is on 100% FiO2. Will need to monitor. Pulmonology is following. 3. Hypertension. The patient is still on 2 pressors. Will need to monitor. 4. Acute kidney injury. At this time the patient has had a Vas-Cath ready for dialysis. Will continue current treatment. cc: MD Shady Diana MD
--- NOTE | 2017-01-06 07:40 | Diag Imaging Result Doc PS360 ---
CHEST-PORTABLE - 01/06/2017 INDICATION: respiratory failure TECHNIQUE: COMPARISON: 01/05/2017 FINDINGS: Support lines and tubes are stable. There is slight improvement in the hazy bilateral alveolar infiltrates/ARDS. Stable cardiomegaly. IMPRESSION: Improvement in aeration of the lungs. Electronically signed by Aydin Geiger 01/06/2017 7:38 AM
[2017-01-06] MEDS: ASPIRIN PO SCH (08:02)
[2017-01-06] MEDS: SODIUM CHLORIDE 0.9% INJ SCH ×2 (08:02→20:41)
[2017-01-06] MEDS: XIFAXAN PO SCH ×2 (08:02→20:41)
[2017-01-06] MEDS: PROTONIX IV SCH ×2 (08:02→20:41)
[2017-01-06] MEDS: PLETAL PO SCH ×2 (08:02→20:42)
[2017-01-06] MEDS: BUSPAR PO SCH ×3 (08:02→17:38)
--- NOTE | 2017-01-06 08:12 | PROGRESS NOTE ---
DATE: 01/06/2017 SUBJECTIVE: He is sedated on the ventilator. OBJECTIVE: Vital Signs: Blood pressure 113/49, heart rate 114, respiration 18, afebrile. Intake 5.2 L. Output 2.6 L. General: Sedated, unresponsive, no distress. Skin: Warm and dry. HEENT: Conjunctivae are pink. Neck: Neck veins are not appreciated. Trachea is midline. Heart: Regular and tachycardic with a gallop. Lungs: Have equal breath sounds, coarse with a few scattered crackles. Abdomen: Soft, nontender. Minimal bowel sounds. No organomegaly. Extremities: Have 3+ edema. No clubbing or cyanosis. LABORATORY DATA: Sodium 132, potassium 3.8, chloride 91, bicarbonate 27, BUN 21, creatinine 3.4. Hemoglobin 7.5. IMPRESSIONS: 1. Acute kidney injury. No recovery. He will have SLED again today for 8 hours with a goal of 6 L ultrafiltration. 2. Volume overload. Dialysis plan as above. He has very high volume intake at this point. I would like to stop his bicarbonate drip but I will discuss this with Dr. Licea before making a change. We will ask pharmacy to concentrate the Levophed drip. 3. Electrolytes, acceptable. 4. Acid-base. PH is low but he has significant CO2 retention that has been worsening over the last 48 hours. Anion gap has decreased to 14. 5. Anemia. Falling hemoglobin. I will discuss transfusion with the team. cc: MD Shady Villarreal MD
[2017-01-06] MEDS ORDERED: CALCIUM GLUCONATE 2 GM in NS 50 ML IV ONE (09:00)
[2017-01-06] MEDS ORDERED: HEPARIN ONE (09:02)
[2017-01-06] MEDS ORDERED: NS 2,000 ML ONE (09:02)
[2017-01-06] MEDS: ALBUMIN 25% IV SCH ×2 (10:23→19:23)
[2017-01-06] MEDS: LOPRESSOR PO SCH (10:27)
[2017-01-06] MEDS: PERIDEX MT SCH ×2 (10:27→20:29)
[2017-01-06] MEDS: PATIENT'S OWN MED PO SCH (10:28)
[2017-01-06] MEDS: NEO-SYNEPHRINE 50 MG in NS 250 ML IV SCH (10:34)
[2017-01-06 11:48] LABS: HEPATITIS PROFILE ACUTE SEE COMMENTS
[2017-01-06] MEDS ORDERED: NS 250 ML ONE (13:11)
--- NOTE | 2017-01-06 16:41 | PROGRESS NOTE ---
DATE: 01/06/2017 Error- please see the other dictated report for 01/06/2017 cc: MD Shady Kelly MD MTDD
--- NOTE | 2017-01-06 17:07 | PROGRESS NOTE ---
DATE: 01/06/2017 SUBJECTIVE: The patient currently is intubated, vented and sedated in the ICU 7. He is on 2 pressors. He had a Vas-Cath placed yesterday, and he has been started on dialysis. He has been noted to be bleeding from his mouth. OBJECTIVE: Vital signs: Temperature of 98.4 degrees, pulse rate of 102, respiratory rate 18, blood pressure 150/66, saturating 100% on mechanical ventilator, and FiO2 100%. General appearance: A moderately-nourished, lying in bed. Currently sedated, vented and intubated. HEENT: Positive ET tube. Positive NG tube. Neck: Supple. Abdomen: Soft, nondistended. No guarding. Extremities: No cyanosis, clubbing. He has status post left below-knee amputation. rectal: Tube in place. neurologic: He is sedated. LABORATORIES: Hemoglobin and hematocrit are 7.5 and 24.1, white count of 7.27, platelet count of 149,000. Sodium 132, potassium 3.8, chloride 91, bicarb 27, anion of 14, BUN of 21, creatinine 3.4, glucose of 160, calcium is 6.9. Total bilirubin is 3.61, AST 97, ALT 20, alkaline phos 116, total protein 6.2, albumin of 2.3. His ABG showing a pH of 7.15, pCO2 of 80, pO2 81, and this on PEEP of 12 and FiO2 100%. Hepatitis panel is nonreactive. IMPRESSION AND PLAN: 1. Acute respiratory distress syndrome pneumonia, on full ventilatory support. Still having hypercarbia, being managed by the Pulmonary team. 2. Nonalcoholic steatohepatitis, liver cirrhosis. Currently stable. Will continue to watch liver enzymes and will give him vitamin K for higher PTT and INR more than 1.5. 3. Perirectal abscess growing Klebsiella. He is on IV antibiotics, per the primary team. 4. Anemia. Continued to follow and transfuse as needed. 5. Gastrointestinal prophylaxis with IV Protonix. 6. Chronic intermittent diarrhea. Clostridium difficile has been negative x2. We will continue watch for now and replete electrolytes per the primary team. 7. History of peripheral arterial disease and status post below-knee amputation in the past. 8. We will continue with the current plan of care for now. I discussed that with the patient's nurse at bedside. cc: MD Shady Steve Dr., MD
[2017-01-06] MEDS ORDERED: VITAMIN K 10 MG in NS 50 ML IV ONE (18:00)
[2017-01-06] MEDS ORDERED: VANCOMYCIN 1 GM/NS 1 GM/250 ML IVPB IV ONE (18:00)
--- NOTE | 2017-01-06 22:11 | PROGRESS NOTE ---
DATE: 01/06/2017 SUBJECTIVE: The patient was seen twice in the ICU. He is a level 3 documentation. Patient was seen in the morning as well as in the evening. Discussed the plan of care with the and for the past 24 hours, the patient this morning was very significantly hypoxic, hypotensive, tachycardic. Dr. Camarillo talked to me on the phone that he is bleeding from the mouth. He has a right IJ line placed and had dialysis 2 hours yesterday. He is extremely edematous. He is sedated. REVIEW OF SYSTEMS: None reported. PHYSICAL EXAMINATION: Vital signs: Afebrile. Hypoxic. Tachycardic. On ventilator support and sedation. He has a ET tube, orogastric tube, Thayer catheter, rectal tube. Chest x-ray is worsening. Abdomen: Belly is soft, nontender. Good bowel sounds. Edematous. INVESTIGATIONS: CBC: White cell count 7.2, hematocrit 24, platelet 149,000. PT 16, INR 1.5, PTT 51. ABG: PH is 7.15, pCO2 80, PO2 81 on AC Respiratory rate 18, 100% tidal volume 500. SMA7: Sodium 132, potassium 3.8, chloride 91. BUN 21, creatinine 3.4, glucose 160. Calcium 6.9. Bilirubin 3.6. Hepatitis panel was negative. Chest x-ray, worsening bilateral infiltrates. Microbiology: Sputum culture Klebsiella. Rectum is also Klebsiella. ASSESSMENT AND PLAN: 1. Central nervous system, on sedation with propofol, 2. Acute hypoxic failure due to ARDS, ABG showed respiratory acidosis. Discussed with Dr. Licea increase the rate and tidal volume and he is afraid of dropping blood pressure. 3. Cardiac tachycardic. Intermittent atrial flutter, stable. 4. Gastrointestinal, diarrhea. On rectal tube, stable. 5. Hypertension. Continue on IV bicarb drip with vasopressors and IV fluids to maintain a systolic blood pressure more than 100. 6. Anemia. Hematocrit 24. I discussed with Dr. Adame. We will transfuse a unit of blood through the dialysis. 7. Acute kidney injury. I attempted temporary dialysis. No urine output noted. 8. Perirectal abscess. Gram-negative. 9. Pneumonia. Continue on vancomycin and Zosyn. 10. Bleeding from the mouth. INR is slightly high. We will give a frozen plasma through dialysis. Discontinue Lovenox. Patient is critically ill. discussed with . 11. Hypocalcemia, calcium gluconate. LEVEL OF DOCUMENTATION: 35 minutes. cc: Shady Johnson MD MTDHandy
[2017-01-07] MEDS: DIPRIVAN 1% 1,000 MG/100 ML BOTTLE IV SCH ×6 (00:52→22:12)
[2017-01-07] MEDS: SOLU-CORTEF IV SCH ×3 (01:40→17:34)
[2017-01-07] MEDS: ZOSYN 2.25 GM in NS 50 ML IV SCH ×3 (01:40→17:34)
[2017-01-07] MEDS: DUONEB (A & A) INH SCH ×4 (03:09→21:45)
[2017-01-07 04:46] LABS: ALLEN TEST YES; BE 1.3 mmoll (-3.0-3.0); BLOOD TYPE ARTERIAL; DRAW SITE R RADIAL; METHB 1.7 % (0.0-1.5); PCO2(98.6) 49 mmHg (35-45); PO2(98.6) 303 mmHg (60-100); SAMPLE BLOOD; SAO2 99.1 % (95.0-100.0); SRATE 20 BPM; THB 6.7 g/dL (11.5-17.4); TVOL 600 mL; pH(98.6) 7.35 (7.35-7.45)
[2017-01-07 04:48] LABS: MODALITY VENTILATOR
[2017-01-07 05:10] LABS: ALBUMIN 2.6 g/dL (3.5-5.0); CALCIUM 7.6 mg/dL (8.8-10.2); POTASSIUM 3.6 mmol/L (3.5-5.1); TOTAL BILIRUBIN 2.68 mg/dL (0.20-1.00); TOTAL PROTEIN 6.4 g/dL (6.3-8.3)
[2017-01-07] MEDS: SODIUM BICARBONATE 8.4% 100 MEQ in D5W 1,000 ML IV SCH ×2 (05:43→22:11)
[2017-01-07] MEDS: HUMULIN R SUBQ SCH ×4 (06:22→20:49)
[2017-01-07] MEDS ORDERED: HEPARIN ONE (07:13)
[2017-01-07] MEDS ORDERED: NS 2,000 ML ONE (07:14)
--- NOTE | 2017-01-07 07:20 | Diag Imaging Result Doc PS360 ---
EXAM: CHEST-PORTABLE HISTORY: respiratory failure TECHNIQUE: Portable AP COMPARISON: 01/06/2017 FINDINGS: No change in the right jugular line or in the right is PICC line. No change in the endotracheal tube or the nasogastric tube. Sternal wires are present. There are bilateral infiltrates. Heart is mildly prominent. There is a small left pleural effusion. The lungs are slightly better aerated and clear in the lung bases than they were previously. IMPRESSION: Persistent bilateral infiltrates although there has been slight interval improvement. Electronically signed by Sujit Gandhi 01/07/2017 7:17 AM
[2017-01-07 08:12] LABS: HEMATOCRIT 21.2 % (42.0-52.0); HEMOGLOBIN 6.7 g/dL (14.0-18.0); MCHC 31.6 g/dL (33-37); MCV 98.1 FL (81-99); MPV 10.4 FL (7.4-10.4); RBC 2.16 XMIL (4.7-6.1)
--- NOTE | 2017-01-07 08:34 | PROGRESS NOTE ---
DATE: 01/07/2017 SUBJECTIVE: The patient has gone down on his FiO2 and off of Donavan-Synephrine. He did tolerate dialysis yesterday, apparently got what was removed recorded at 6 L off. Discussed his overall care with the nursing staff. OBJECTIVE: Vital Signs: Patient is currently afebrile. Most recent pulse 102, most recent respiratory rate 20. He is on the ventilator. Most recent blood pressure 105/52. O2 saturation 100%. General exam: Sedated. Cardiovascular: Mildly tachycardic. Lungs: Coarse breath sounds noted. Abdomen: Soft, nontender, nondistended. Perineum essentially unchanged. LABORATORY: ABG reviewed. It appeared to be improved. His pH 7.35, PO2 of 303, pCO2 of 49. ASSESSMENT/PLAN: A 61-year-old, male with acute respiratory distress syndrome status post drainage of perirectal abscess. 1. Perirectal abscess. At this time, he is on antibiotics. We will continue to monitor. 2. Acute respiratory distress syndrome at this time. His clinical status seems to have made slight improvement, but he still has a guarded prognosis. Pulmonary is following. 3. Hypotension. At this time, patient is off of one of the pressors. Will continue to monitor. 4. Acute kidney injury. At this time patient did tolerate hemodialysis yesterday. We will continue to monitor. cc: MD Shady Diana MD
[2017-01-07] MEDS ORDERED: NS 500 ML ONE (08:51)
--- NOTE | 2017-01-07 08:52 | PROGRESS NOTE ---
DATE: 01/07/2017 SUBJECTIVE: He is unresponsive, but he does move spontaneously. OBJECTIVE: Vital Signs: Blood pressure 113/54, heart rate 104, respirations 20, afebrile. Intake 4.7 L. Output 7.2 L. General: No acute distress. Skin: Warm and dry. Eyes: Conjunctivae are pink. Neck: Neck veins are not appreciated. Heart: Regular without gallops or murmurs. Lungs: Have coarse breath sounds with few scattered crackles. Abdomen: Quiet, nontender. Extremities: Have 3+ edema. No clubbing or cyanosis. LABORATORY DATA: Sodium 137, potassium 3.6, chloride 98, bicarbonate 25, BUN 13, creatinine 2.1. Hemoglobin 7.5. IMPRESSION: 1. Acute kidney injury. No recovery. Excellent management of uremia and with dialysis. Continue current care. 2. Electrolytes/acid base. Well managed. 3. Anemia. He received 1 unit packed red blood cells on dialysis yesterday, but his hemoglobin is not yet available for today. Will remeasure and repeat transfusion if appropriate. cc: MD Shady Villarreal MD
[2017-01-07] MEDS: PROTONIX IV SCH ×2 (09:42→20:49)
[2017-01-07] MEDS: XIFAXAN PO SCH ×2 (09:43→20:49)
[2017-01-07] MEDS: PLETAL PO SCH ×2 (09:44→20:29)
[2017-01-07] MEDS: PATIENT'S OWN MED PO SCH (09:44)
[2017-01-07] MEDS: BUSPAR PO SCH ×3 (09:44→17:11)
[2017-01-07] MEDS: ASPIRIN PO SCH (09:44)
[2017-01-07] MEDS: LOPRESSOR PO SCH (09:44)
[2017-01-07] MEDS: PERIDEX MT SCH ×2 (09:44→20:49)
[2017-01-07] MEDS: LEVOPHED 8 MG in D5 1/2 NS 250 ML IV SCH (14:45)
--- NOTE | 2017-01-07 16:29 | PROGRESS NOTE ---
DATE: 01/07/2017 SUBJECTIVE: The patient continues on ventilator and sedated. He is having dialysis. He has also received transfusions. He is currently on Levophed for blood pressure support. Donavan-Synephrine has been weaned off. OBJECTIVE: Vital Signs: Blood pressure 125/56, heart rate 100 and regular, oxygen saturation 99% on FiO2 of 50%. Neck: There is no significant jugular distention evident. Chest: Auscultation of the chest reveals coarse breath sounds bilaterally. Cardiac Exam: Reveals a regular rate and rhythm without appreciable murmur or gallop. LABORATORY DATA: Laboratory data includes hematocrit 21.2, white blood cell count 4.29, BUN 13 and creatinine 2.1. IMPRESSION: 1. Hypoxemic respiratory failure likely related to acute respiratory distress syndrome related to sepsis. 2. Sinus tachycardia, improved with resumption of beta-isabelle and stabilization of blood pressure. 3. Acute renal failure. 4. Recent sepsis. 5. Right perirectal abscess status post drainage. 6. Atherosclerotic coronary disease with previous coronary bypass grafting in the past. Left ventricular ejection fraction normal. 7. Chronic obstructive pulmonary disease. 8. 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 9. Advanced peripheral vascular disease. Patient is status post left [id number] amputation. RECOMMENDATIONS: 1. Continue supportive care with intravenous pressors. 2. No additional CV suggestions at this point. Dr. Chamberlain available if needed over the weekend. cc: MD Shady Teixeira MD
[2017-01-07] MEDS ORDERED: VANCOMYCIN 1 GM/NS 1 GM/250 ML IVPB IV ONE (17:00)
--- NOTE | 2017-01-07 17:45 | PROGRESS NOTE ---
DATE: 01/07/2017 SUBJECTIVE: The patient was seen twice, once in the morning, once in the evening. I discussed with the ICU. LEVEL OF DOCUMENTATION: 35 minutes. INTERVAL HISTORY: The patient had hemodialysis. 6 L fluid was taken out. He did receive 1 unit of packed RBC, 1 unit of FFP and after that his hemodynamics were much improved. REVIEW OF SYSTEMS: None reported. He was sedated. PHYSICAL EXAMINATION: Vital Signs: Temperature is 98 degrees, tachycardic. Blood pressure is 125/56. The input and output -2.4 L. HEENT: Sedated. Patient has ET tube, orogastric tube with intermittent wall suction. PICC line on the right side. Right IJ on the neck. Slightly edematous both extremities upper, ecchymotic. Abdomen: Belly is soft, nontender and had a Thayer and rectal tube. Extremities: Status post left below-knee amputation. INVESTIGATIONS: CBC: White cell count 4.2, hematocrit 21, platelets 87,000. ABG: PH is 7.35, pCO2 49, PO2 303. On 100%. SMA7: Sodium 136, potassium 3.6, chloride 98, BUN 13, creatinine 2.1, glucose 120. Calcium 7.6, bilirubin 2.68. LFTs were normal. Hepatitis panel negative. Chest x-ray is improving. Microbiology cultures: Sputum, Klebsiella, perirectal abscess, Klebsiella pneumonia. ASSESSMENT AND PLAN: 1. Central nervous system: On sedation with propofol, 2. Hemodynamics improving. The patient on 5 mcg of Levophed. IV fluids 75 mL/hour. 3. Acute respiratory failure due to acute respiratory distress syndrome, improving. PO2 300. We will decrease the FiO2 to 50% to prevent the oxygen toxicity. 4. Acute kidney injury. Continue on hemodialysis. He is getting dialysis today and had removed 6 L of fluid. 5. Anemia, hematocrit 21. We will transfuse 2 units of packed red blood cells today during dialysis. 6. Nutrition: Enteral feeding attempted. High residuals. We will consider switching the IV fluids in the morning. Procalamine versus IDPN during dialysis. 7. Perirectal abscess due to Klebsiella, IV vancomycin and Zosyn. 8. Status post right PICC line and right IJ lines, stable. Discussed with the patient at the bedside on the telephone today. LEVEL OF DOCUMENTATION: 35 minutes. cc: Shady Johnson MD
[2017-01-08] MEDS: SOLU-CORTEF IV SCH ×3 (01:08→16:43)
[2017-01-08] MEDS: ZOSYN 2.25 GM in NS 50 ML IV SCH ×3 (01:09→16:43)
[2017-01-08] MEDS: DIPRIVAN 1% 1,000 MG/100 ML BOTTLE IV SCH ×3 (02:35→10:28)
[2017-01-08] MEDS: DUONEB (A & A) INH SCH ×4 (03:20→21:25)
[2017-01-08 04:18] LABS: ALLEN TEST YES; BE 2.3 mmoll (-3.0-3.0); BLOOD TYPE ARTERIAL; DRAW SITE R RADIAL; METHB 0.9 % (0.0-1.5); O2(CT) 17.7 mL/dL (15.0-23.0); PCO2(98.6) 39 mmHg (35-45); PO2(98.6) 81 mmHg (60-100); SAMPLE BLOOD; SAO2 98.1 % (95.0-100.0); SRATE 20 BPM; THB 13.2 g/dL (11.5-17.4); TVOL 600 mL; pH(98.6) 7.44 (7.35-7.45)
[2017-01-08 04:20] LABS: MODALITY VENTILATOR
[2017-01-08 04:45] LABS: ALBUMIN 2.6 g/dL (3.5-5.0); CALCIUM 7.9 mg/dL (8.8-10.2); POTASSIUM 3.6 mmol/L (3.5-5.1); TOTAL BILIRUBIN 2.83 mg/dL (0.20-1.00); TOTAL PROTEIN 5.9 g/dL (6.3-8.3)
[2017-01-08 05:48] LABS: HEMATOCRIT 24.7 % (42.0-52.0); HEMOGLOBIN 8.2 g/dL (14.0-18.0); MCH 32.5 PG (27-31); MCHC 33.2 g/dL (33-37); RBC 2.52 XMIL (4.7-6.1)
[2017-01-08] MEDS: HUMULIN R SUBQ SCH ×4 (06:28→20:37)
--- NOTE | 2017-01-08 07:18 | Diag Imaging Result Doc PS360 ---
EXAM: CHEST-PORTABLE HISTORY: respiratory failure TECHNIQUE: AP portable erect at 0530 COMMENT: There is a right internal jugular central venous catheter with is tip in the superior vena cava at the level of the azygos vein. There is a PICC line on the right with its tip in the superior vena cava. There is an NG tube which passes below the diaphragm and there is an endotracheal tube with its tip at the thoracic inlet. There is mild cardiomegaly. There is interstitial pulmonary edema. The pulmonary edema has improved slightly since the previous study of 01/07/2017. IMPRESSION: Slightly improved pulmonary edema. Electronically signed by Magdi Wilkinson 01/08/2017 7:16 AM
[2017-01-08] MEDS: PROTONIX IV SCH ×2 (08:21→20:38)
[2017-01-08] MEDS: XIFAXAN PO SCH ×2 (08:21→20:38)
[2017-01-08] MEDS: PERIDEX MT SCH ×2 (08:22→20:38)
[2017-01-08] MEDS: ASPIRIN PO SCH (08:29)
[2017-01-08] MEDS: CLINIMIX E 4.25%-5% SOLUTION 1,000 ML IV SCH ×2 (08:45→21:46)
[2017-01-08] MEDS ORDERED: NS 2,000 ML ONE (09:44)
[2017-01-08] MEDS ORDERED: HEPARIN ONE (09:45)
[2017-01-08] MEDS ORDERED: NS 500 ML ONE (10:28)
[2017-01-08] MEDS: LOPRESSOR PO SCH (12:56)
[2017-01-08] MEDS: PLETAL PO SCH ×2 (12:56→20:38)
[2017-01-08] MEDS: BUSPAR PO SCH ×3 (12:56→17:27)
[2017-01-08] MEDS: PATIENT'S OWN MED PO SCH (12:56)
--- NOTE | 2017-01-08 13:35 | PROGRESS NOTE ---
DATE: 01/08/2017 SUBJECTIVE: ICU evaluation at bedside with family. Twenty-four hour events noted. The patient remains sedated and had hemodialysis yesterday. Removed 6 L of fluid. Transfused 2 units of packed RBCs. FiO2 was down to 50%. Completely weaned off of Levophed. Currently on bicarbonate drip 75 mL an hour. No urine output noted. He has high residuals on nasogastric tube. Unable to advanced the enteral feeding. REVIEW OF SYSTEMS: Unable to obtain since he is sedated. OBJECTIVE: Vital Signs: Temperature is 98 degrees, pulse is 97, respiration 25, blood pressure is 125/56, 248 pounds. The input and output are negative 3.6 L. HEENT Exam: Sedated, intubated and orogastric tube placed and right IJ placed. Right upper arm central line. Chest: Bilateral air entry. Heart: Sounds are tachycardic. Abdomen: Belly is soft, nontender. Less edematous. Extremities: Status post left below-knee amputation. Rectal: Rectal tube and Thayer were placed. LABORATORIES: CBC: White cell count 3.8, hematocrit 24, platelets 58. ABG: The pH is 7.44, pCO2 39, PO2 81, bicarbonate 26 on assisted control. Respirations 20. FiO2 50%. Tidal volume 600. SMA 7: Sodium 136, potassium 3.6, chloride 99. BUN 17, creatinine 1.7, glucose 140. Calcium 7.9. Total bilirubin 2.8. AST 60. Total protein 5.9, albumin 2.6. ASSESSMENT AND PLAN: 1. Central nervous system: On sedation. 2. Hemodynamics are stable off vasopressors. Will change the intravenous fluids to the ProcalAmine. 3. Acute kidney injury due to sepsis. Continue supportive hemodialysis. 4. Anemia due to some blood loss. Continue on aspirin, Lovenox, and will transfuse a unit of packed red blood cells during dialysis, as well as nutrition. 5. Gastrointestinal prophylaxis with intravenous Protonix. 6. Sepsis syndrome from Klebsiella perirectal abscess. Gram-negative pneumonia. Continue on Zosyn and Levaquin. 7. Nutrition: Change the intravenous fluids to ProcalAmine 80 an hour. 8. Chronic diarrhea on Xifaxan. 9. We will cut down the steroids. 10. Bleeding from the mouth stopped; off on aspirin and Lovenox. Discussed with the patient and . LEVEL OF DOCUMENTATION: 35 minutes. cc: Shady Johnson MD
--- NOTE | 2017-01-08 14:54 | PROGRESS NOTE ---
DATE: 01/08/2017 SUBJECTIVE: The patient appears to be weaned off of pressors overnight. OBJECTIVE: Temperature 98 degrees, pulse 90, respirations 20, blood pressure 99/50, O2 saturation 98%.General: He is sedated on mechanical ventilator. CV: Tachycardic, but regular. Respiratory: Bilateral breath sounds. Gastrointestinal: Soft, nondistended. LABORATORY: White blood cell count 3.8, hematocrit 24, platelet count 58. A pH 7.4, pCO2 39, PaO2 81, bicarbonate 26. Electrolytes reviewed and notable for BUN 17, creatinine 1.7, total bilirubin 2.8, albumin 2.6. ASSESSMENT AND PLAN: This is a 61-year-old male status post incision and drainage of perirectal abscess with known cirrhosis, now with postoperative acute renal failure and acute respiratory distress syndrome. He remains on a ventilator weaning as per Dr. Taylor. He remains on dialysis. He is on Zosyn and Levaquin for a Klebsiella-positive perirectal abscess and gram-negative pneumonia. He is getting ProcalAmine for nutrition for the time being. cc: MD Shady Guidry MD
--- NOTE | 2017-01-08 15:05 | PROGRESS NOTE ---
DATE: 01/08/2017 SUBJECTIVE: He remains sedated on the ventilator. OBJECTIVE: Vital Signs: Blood pressure 99/50, heart rate 90, respirations 20, afebrile. Intake 3.5 L. Output 7.2 L. General: On physical exam, no acute distress. Skin: Warm and dry. Eyes: Conjunctivae are pink. Neck: Neck veins are not visible today. Heart: Regular. Lungs: Equal. No crackles. Abdomen: Soft, nontender. Bowel sounds are not appreciated. Extremities: Have 2+ edema. No clubbing or cyanosis. IMPRESSION: Acute kidney injury. Excellent biochemical management. He will have slow, low efficiency dialysis today primarily for volume management. He has been successful in achieving negative fluid balance of a total of 7 liters over the last 2 days. He is still net positive about 4-6 liters. Our goal today will be for 6 liters ultrafiltration if his blood pressure allows. No dialysis tomorrow. cc: MD Shady Villarreal MD
[2017-01-08] MEDS: VANCOMYCIN 1 GM/NS 1 GM/250 ML IVPB IV SCH (17:04)
[2017-01-08] MEDS: HALDOL IV PRN (18:51)
[2017-01-09] MEDS: ZOSYN 2.25 GM in NS 50 ML IV SCH ×3 (01:11→17:16)
[2017-01-09] MEDS: SOLU-CORTEF IV SCH ×2 (01:11→08:26)
[2017-01-09] MEDS: DUONEB (A & A) INH SCH ×4 (03:10→21:05)
[2017-01-09 04:31] LABS: ALLEN TEST YES; BE -0.2 mmoll (-3.0-3.0); BLOOD TYPE ARTERIAL; DRAW SITE R RADIAL; METHB 1.3 % (0.0-1.5); PCO2(98.6) 36 mmHg (35-45); PO2(98.6) 121 mmHg (60-100); SAMPLE BLOOD; SAO2 99.2 % (95.0-100.0); SRATE 20 BPM; THB 10.2 g/dL (11.5-17.4); TVOL 600 mL; pH(98.6) 7.43 (7.35-7.45)
[2017-01-09 04:32] LABS: MODALITY BI PAP
[2017-01-09 06:13] LABS: HEMATOCRIT 29.6 % (42.0-52.0); HEMOGLOBIN 9.7 g/dL (14.0-18.0); MCH 31.2 PG (27-31); MCHC 32.8 g/dL (33-37); MCV 95.2 FL (81-99); MPV 10.7 FL (7.4-10.4); RBC 3.11 XMIL (4.7-6.1)
[2017-01-09 06:33] LABS: ALBUMIN 2.7 g/dL (3.5-5.0); CALCIUM 8.3 mg/dL (8.8-10.2); POTASSIUM 4.3 mmol/L (3.5-5.1); TOTAL BILIRUBIN 3.54 mg/dL (0.20-1.00); TOTAL PROTEIN 6.1 g/dL (6.3-8.3)
[2017-01-09] MEDS: HUMULIN R SUBQ SCH ×4 (06:41→20:23)
--- NOTE | 2017-01-09 07:12 | Diag Imaging Result Doc PS360 ---
EXAM: CHEST-PORTABLE HISTORY: respiratory failure TECHNIQUE: Erect AP portable at 0520 COMMENT: The endotracheal tube and NG tube remain in place. There is interstitial pulmonary edema. There is cardiomegaly. Compared to the previous study of 01/08/2017 there has been no appreciable change. IMPRESSION: Pulmonary edema and cardiomegaly. Electronically signed by Magdi Wilkinson 01/09/2017 7:10 AM
[2017-01-09] MEDS: PROTONIX IV SCH ×2 (08:26→20:22)
[2017-01-09] MEDS: CLINIMIX E 4.25%-5% SOLUTION 1,000 ML IV SCH (08:26)
[2017-01-09] MEDS: PERIDEX MT SCH ×2 (08:27→20:22)
[2017-01-09] MEDS: XIFAXAN PO SCH ×2 (08:27→20:22)
[2017-01-09] MEDS: BUSPAR PO SCH ×3 (08:27→17:16)
[2017-01-09] MEDS: LOPRESSOR PO SCH (08:27)
[2017-01-09] MEDS: PATIENT'S OWN MED PO SCH (08:28)
[2017-01-09] MEDS: ASPIRIN PO SCH (08:34)
[2017-01-09] MEDS: PLETAL PO SCH ×2 (08:34→20:23)
--- NOTE | 2017-01-09 12:00 | Diag Imaging Result Doc PS360 ---
EXAM: CT ABDOMEN W/O CONTRAST HISTORY: Abdomen evaluation. TECHNIQUE: CT of the abdomen without contrast. COMMENT: There is patchy groundglass opacity throughout the lung bases which was not evident at the time the previous study of 02/23/2016. There is apparent atelectasis in the posterior costophrenic sulcus of the left lower lobe as well as a small pleural effusion which was also present at the time the previous study. There is ascites which was not present previously. There is anasarca in the subcutaneous fat. The spleen is enlarged measuring over 16.5 cm in AP dimension. This is actually slightly smaller than on the previous study. There is an NG tube with its tip in the body of the stomach. The kidneys are without evidence of hydronephrosis or definite mass. There is calcification in the aorta and its branches including the ostial portion of the superior mesenteric artery and both renal arteries. There is some nodularity and edema present in the omental fat which is not appreciable on the previous study. There are no definite gallstones. The infrarenal abdominal aorta is slightly distended to 2.5 cm. This is not changed significantly since the previous study. There is no evidence of appendicitis. There is no evidence of bowel dilatation. The transverse colon is not well distended however there appears to be some oral contrast in the left transverse colon and the distended portions do not demonstrate any mucosal thickening. The adrenal glands are not enlarged. There is some apparent presacral edema. This is somewhat worse than the previous study. The entirety of the pelvis was not included on this study which was only ordered as an abdomen. IMPRESSION: Anasarca, ascites, and splenomegaly. The possibility of cirrhosis cannot be excluded. Pulmonary edema and left pleural effusion. Atelectasis versus pneumonia left lower lobe. Electronically signed by Magdi Wilkinson 01/09/2017 11:58 AM
--- NOTE | 2017-01-09 14:27 | PROGRESS NOTE ---
DATE: 01/09/2017 SUBJECTIVE: The patient was seen in the ICU. Level 3 documentation. The patient was off on sedation, slowly weaning off from the vent. Had hemodialysis yesterday. Did receive a unit of blood. NG tube was getting more bilious secretions. The patient is still sedated. REVIEW OF SYSTEMS: None reported. PHYSICAL EXAMINATION: Vital signs: On examination, low-grade fever. Hemodynamics were stable. 247 pounds. HEENT: Sedated, intubated, orogastric tube. neck: Right IJ line. extremities: PICC line on the right side noted. DIAGNOSTICS: Chest x-ray slowly improving. I's and O's -4 L. INVESTIGATIONS: Sputum cultures: Klebsiella. Perirectal abscess: Klebsiella. LABORATORIES: CBC: White cell count 5, hematocrit 29, platelets 53,000. ABG: PH is 7.43, pCO2 of 36, PO2 of 121 on AC 20, FiO2 50%. SMA 7: Sodium 134, potassium 4.3, chloride 99, BUN 39, creatinine 2.1, glucose 165. Bilirubin 3.5. LFTs were normal. Hepatitis panel was negative. ASSESSMENT AND PLAN: 1. Central nervous system coming off of propofol. 2. Hypoxic flare due to acute respiratory distress syndrome, improving slowly. Wean off from the vent. 3. Hemodynamics were stable off vasopressors, off IV fluids. 4. Nutrition. Clinimix 75 an hour. 5. Acute kidney injury due to sepsis. Hemodialysis as needed. 6. Anemia due to blood loss. Off aspirin and Lovenox, status post 4 units of packed red blood cells, stable. 7. Perirectal abscess due to Klebsiella, and also gram-negative superimposed ventilator pneumonia. Continue on Zosyn and vancomycin. 8. Chronic diarrhea. Previous workup was negative. We will do the CT of the abdomen and pelvis today. 9. Wean off hydrocortisone since the hemodynamics are stable. Discussed with at bedside. LEVEL OF DOCUMENTATION: 35 minutes. cc: Shady Johnson MD MTDD
--- NOTE | 2017-01-09 18:11 | PROGRESS NOTE ---
DATE: 01/09/2017 SUBJECTIVE: There are no acute events overnight. OBJECTIVE: Vital signs: Temperature 99.8 degrees, pulse 100, respirations 30, blood pressure 129/69, O2 saturation 97%. General: He remains sedated and unresponsive except to painful stimuli. He is on a ventilator. CV: Tachycardic and regular. Respiratory: Bilateral breath sounds. Gastrointestinal: Soft, nontender. LABORATORY: White blood cell count 5.1, hemoglobin 9.7, hematocrit 29.6, platelet count 53,000. pH 7.4, pCO2 36, PaO2 121, bicarb 24.8, lactate 2.0, BUN 39, creatinine 2.1. IMAGING: A CT of the abdomen was obtained showing anasarca, ascites, splenomegaly and possibly cirrhosis. He also has pulmonary edema and left pleural effusion and possibly atelectasis versus pneumonia in the left lower lobe. The transverse colon is not well distended and there is oral contrast in the transverse colon. ASSESSMENT/PLAN: He is status post incision and drainage for perirectal abscess followed by subsequent acute renal failure and acute respiratory distress syndrome. He appears to have pneumonia and pulmonary edema at this time. He remains on hemodialysis. Of note, his platelets are dropping significantly over the last 4-5 days. May need to consider changing his antibiotics from Zosyn to something else and checking a heparin-induced antibody if he has had any heparin products. cc: MD Shady Guidry MD
[2017-01-10] MEDS: ZOSYN 2.25 GM in NS 50 ML IV SCH ×3 (01:45→17:39)
[2017-01-10] MEDS: DUONEB (A & A) INH SCH ×4 (03:10→20:52)
[2017-01-10] MEDS: CLINIMIX E 4.25%-5% SOLUTION 1,000 ML IV SCH ×3 (03:59→16:54)
[2017-01-10 04:28] LABS: ALLEN TEST YES; BLOOD TYPE ARTERIAL; DRAW SITE R RADIAL; PCO2(98.6) 34 mmHg (35-45); PO2(98.6) 93 mmHg (60-100); SAMPLE BLOOD; SRATE 20 BPM; TVOL 600 mL; pH(98.6) 7.35 (7.35-7.45)
[2017-01-10 04:29] LABS: MODALITY VENTILATOR
[2017-01-10 05:14] LABS: HEMATOCRIT 31.4 % (42.0-52.0); HEMOGLOBIN 10.5 g/dL (14.0-18.0); MCH 31.5 PG (27-31); MCHC 33.4 g/dL (33-37); MCV 94.3 FL (81-99); MPV 11.3 FL (7.4-10.4); RBC 3.33 XMIL (4.7-6.1)
[2017-01-10 05:29] LABS: ALBUMIN 2.8 g/dL (3.5-5.0); CALCIUM 8.9 mg/dL (8.8-10.2); POTASSIUM 4.3 mmol/L (3.5-5.1); TOTAL BILIRUBIN 3.76 mg/dL (0.20-1.00); TOTAL PROTEIN 6.4 g/dL (6.3-8.3)
[2017-01-10] MEDS: HUMULIN R SUBQ SCH ×4 (06:09→20:39)
--- NOTE | 2017-01-10 06:26 | PROGRESS NOTE ---
DATE: 01/10/2017 SUBJECTIVE: The patient is off of pressors over the weekend. His FiO2 is down to 45%. Nursing staff stopped his propofol Tuesday, but he is not doing much neurologically. No other major issues reported by the nursing staff. OBJECTIVE: Vital Signs: The patient is currently afebrile. His vital signs have been stable. Again, he is off pressors. He is on the ventilator. General: On the ventilator. Cardiovascular: Regular rate and rhythm. Lungs: Coarse sounds noted. Abdomen: Soft, nontender, nondistended. DIAGNOSTIC DATA: Laboratory reviewed from this morning. White blood cell count is 7, hematocrit 31, platelet count 53,000. ABG reviewed. CMP reviewed. Chest x-ray reviewed. It looks improved. ASSESSMENT AND PLAN: A 61-year-old male with acute respiratory distress syndrome, status post incision and drainage of perirectal abscess. 1. Perirectal abscess: At this time, he is on antibiotics. We will continue to monitor. 2. Acute respiratory distress syndrome: At this time, he seems to have made some slight improvement. He still has a guarded prognosis. 3. Hypotension: At this time, it seems to be improved. 4. Acute renal injury: At this time, he seems to be tolerating dialysis. 5. Severe protein malnutrition.: At this time, he is on Clinimix. I suspect given the fact that he is off pressors, he can probably be started on enteral tube feeds. cc: MD Shady Diana MD
--- NOTE | 2017-01-10 07:23 | Diag Imaging Result Doc PS360 ---
CHEST-PORTABLE - 01/10/2017 INDICATION: respiratory failure TECHNIQUE: COMPARISON: 01/09/2017 FINDINGS: Support lines and tubes are in good position. Stable hazy interstitial opacities diffusely and bilaterally. The appearance is compatible with pulmonary edema. Stable cardiomegaly. No pneumothorax or large effusion. IMPRESSION: No change from prior. Electronically signed by Aydin Geiger 01/10/2017 7:21 AM
[2017-01-10] MEDS: SOLU-CORTEF IV SCH (08:42)
[2017-01-10] MEDS: PROTONIX IV SCH ×2 (08:42→22:09)
[2017-01-10] MEDS: SODIUM CHLORIDE 0.9% INJ SCH ×2 (08:42→22:09)
[2017-01-10] MEDS: PERIDEX MT SCH ×2 (08:42→20:39)
[2017-01-10] MEDS: PATIENT'S OWN MED PO SCH (08:43)
[2017-01-10] MEDS: BUSPAR PO SCH ×3 (08:43→16:54)
[2017-01-10] MEDS: ASPIRIN PO SCH (08:43)
[2017-01-10] MEDS ORDERED: NS 2,000 ML ONE (08:51)
[2017-01-10] MEDS ORDERED: HEPARIN ONE (08:51)
[2017-01-10] MEDS: PLETAL PO SCH ×2 (09:21→21:27)
[2017-01-10] MEDS: LOPRESSOR PO SCH (09:22)
[2017-01-10] MEDS: XIFAXAN PO SCH ×2 (10:05→22:09)
--- NOTE | 2017-01-10 10:58 | PROGRESS NOTE ---
DATE: 01/10/2017 DATE AND TIME SEEN: 01/10/2017 at 07:00. SUBJECTIVE: Mr. López remains sedated. He is on ventilator dependence. He does not open eyes to verbal or tactile stimuli. OBJECTIVE/PHYSICAL EXAMINATION: Vital Signs: His most recent vital signs: Previous temperature recorded is 98.4, blood pressure 115/65, heart rate 90, respirations are 22. Patient remains on 45% FiO2. He has had 2130 in, 600 out per Thayer catheter. General Appearance: This is a 61-year- old white male. He is currently resting in bed. He is ventilator dependent, as mentioned above. Skin: Warm and dry. HEENT: Normocephalic, atraumatic. Conjunctiva is pale. He has mucous membranes moist. Neck: Supple. Trachea midline. Negative jugular venous distention. Cardiovascular: He is regular rate and rhythm. He has a positive S4. Lungs: Clear to auscultation anteriorly. Equal excursion. Ventilator dependent, as noted. Abdomen: Soft, nontender. Positive bowel sounds. These remain hypoactive. Extremities: Have 3+ lower extremity edema. He has bruising noted to the upper extremities bilateral. Genitourinary: Thayer catheter is in place. LABS: Sodium 135, potassium 4.3, chloride 98, CO2 18, BUN 90, creatinine 3.3. Glucose 133. Anion gap 19, calcium 8.9, albumin 2.9. White count 7.74, hemoglobin 10.5, hematocrit 31.4, with a platelet count of 53,000. Patient has ABGs: PH 7.35, CO2 34, pO2 93, bicarb 20.2 on 45%, with a lactate of 1.7. Chest x-ray completed and read this morning indicates no changes to pulmonary edema, bilateral basis. ASSESSMENT AND PLAN: 1. Acute kidney injury. Patient continues to require hemodialysis. We will place him on SLED today. He is to dialyze on a 4 K bath, 27 bicarbonate. We will attempt to pull 4 L of ultrafiltration. He still remains in a positive fluid balance. 2. Electrolytes. These remain stable. 3. Acid-base balance. Patient remains in metabolic and anion gap acidosis. 4. Anemia. This remains stable. 5. Fluid volume overload with pulmonary edema. Again, we will plan for dialysis to assist with fluid volume. I would to thank you for allowing us to follow with this patient. Dictated by Citlali M. Zaragoza, CATHETER BUILDER for Martell Adame MD Patient seen, data reviewed, discussed with Cary Zaragoza on 01/10/17. I agree with the above assessment and plan of care. cc: BROOKE Arredondo MD Jagan Reddy, MD [facility] HOSPITALHandy
[2017-01-10] MEDS ORDERED: NS 1,000 ML ONE (15:49)
[2017-01-10] MEDS: LEVOPHED 8 MG in D5 1/2 NS 250 ML IV SCH (16:13)
[2017-01-10] MEDS ORDERED: VANCOMYCIN 1 GM/NS 1 GM/250 ML IVPB IV ONE (17:00)
--- NOTE | 2017-01-10 19:13 | PROGRESS NOTE ---
DATE: 01/10/2017 SUBJECTIVE: Patient currently lying in bed intubated sedated and he is undergoing dialysis. No fever is reported per the nursing staff. He had some small amount of oozing from his mouth which is getting better from before. OBJECTIVE: Temperature 97 degrees, pulse rate of 102, respiratory rate 32, blood pressure 119/61, saturating 93% on mechanical ventilator FIO2 45%. This gentleman is moderately nourished lying in bed, currently intubated and sedated. HEENT: Positive G-tube, positive NG tube. Pale conjunctivae. Icteric sclerae. Neck supple. Abdomen soft nondistended, no guarding. Extremities: No cyanosis or clubbing. Status post left below-knee amputation. Neurologic: He is sedated. LABS: Hemoglobin and hematocrit is 10.5 and 31.4, white count of 7.7, platelet count of 53,000. MCV of 94.3, PTT of 31.6. Sodium 135, potassium 4.3, chloride 98, bicarb 18, anion gap of 19, BUN of 19, creatinine of 3.3, glucose of 133, calcium is 8.9. Total bilirubin 3.76 , AST 34, ALT 25, alkaline phosphatase 129, total protein 6.2, albumin of 2.8. IMPRESSION AND PLAN: 1. Diarrhea, which is slowing down. His rectal tube output was 200 mL. Stool culture was negative. Stool Clostridium difficile toxin was negative x 2. Will continue on IV fluids and continue on oral [id number] mg BID. The patient has nonalcoholic steatohepatitis complicated with cirrhosis, splenomegaly, ascites, coagulopathy and thrombocytopenia. We will continue watch for now. His platelet counts are going down, this could be secondary to sepsis or antibiotic like Zosyn. His Zosyn may have to be switched if his hematocrit continues to drop. 2. Acute respiratory distress syndrome on full ventilator support by the pulmonary team. 3. Perirectal abscess growing Klebsiella. He is on antibiotics per the primary team. 4. Anemia. Continue to follow and transfuse as needed. 5. Gastrointestinal prophylaxis. Proton pump inhibitors. 6. History of peripheral artery disease, status post left below-knee amputation in the past. 7. Renal failure. Currently undergoing hemodialysis per the nephrology team. 8. Nutrition. He was started on Clinimix per the primary team. The patient was started on Nepro today. Will advance per the dietitian's recommendation. 9. Above discussed with the patient's nurse and the family at bedside. cc: MD Shady Kelly MD Reginald D. Gladish, MD James Boyle MTDD
--- NOTE | 2017-01-10 20:58 | PROGRESS NOTE ---
DATE: 01/10/2017 SUBJECTIVE: Interval history was reviewed. Patient had a CT of the abdomen. Findings were noted. Ascites with cirrhosis of liver with splenomegaly. Unable to do the pelvic CT. We will reschedule in the morning. Patient hemodynamically stable. Discussed with the family at the bedside. He has not had a dialysis yesterday. REVIEW OF SYSTEMS: None reported. OBJECTIVE: Vital signs: He has a temperature 100 degrees. Hemodynamics were stable. Input and output negative. Today after dialysis 2.4 L. Blood pressure dropped and requiring a brief Levophed. HEENT: Intubated, sedated and orogastric tube noted. Right IJ line and PICC line on the right side noted. Chest: Bilateral air entry. Heart: Sounds are tachycardic. Abdomen: Belly is soft, nontender. Good bowel sounds. Left below-knee amputation noted. Extremities: Both upper extremities edematous. INVESTIGATIONS: CBC: White cell count 7.7 hematocrit 31 platelets 53,000. ABG: PH is 7.35, pCO2 34, PO2 93 on assist control, rate of 20, FiO2 45%, tidal volume 600. PEEP of 5. SMA7: Sodium 135, potassium 4.3, chloride 98, BUN 90, creatinine 3.3, glucose 133, calcium 8.9, bilirubin slightly high. ASSESSMENT AND PLAN: 1. Central nervous system, sedation as needed. 2. Hemodynamics are stable. 3. Acute hypoxic failure. Chest x-ray is improving. Continue present vent sitting. 4. Acute kidney injury. No improvement. Going for dialysis today. 5. After dialysis, blood pressure dropped on Levophed. 6. Enteral feeding. Started as well as total parenteral nutrition. 7. Bleeding diathesis stable. Stable hematocrit. 8. Sepsis from the perirectal abscess, Klebsiella, as well as on gram-negative pneumonia. Continue present antibiotics, Zosyn and vancomycin. 9. GI prophylaxis with Protonix. Chronic diarrhea on Xifaxan. 10. 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 PLAN: A little bit unstable. Continue present therapy and full code. Reschedule a CT of the pelvis without contrast. LEVEL OF DOCUMENTATION: 45 minutes. cc: Shady Johnson MD
[2017-01-10] MEDS: ATIVAN IV PRN (21:27)
[2017-01-10] MEDS: HALDOL IV PRN (22:03)
[2017-01-11] MEDS: ZOSYN 2.25 GM in NS 50 ML IV SCH ×3 (01:08→16:31)
[2017-01-11] MEDS: CLINIMIX E 4.25%-5% SOLUTION 1,000 ML IV SCH ×3 (01:08→21:35)
[2017-01-11] MEDS: DUONEB (A & A) INH SCH ×4 (03:32→21:15)
[2017-01-11 04:45] LABS: ALLEN TEST YES; BE -3.3 mmoll (-3.0-3.0); BLOOD TYPE ARTERIAL; DRAW SITE R RADIAL; O2(CT) 15.1 mL/dL (15.0-23.0); PCO2(98.6) 36 mmHg (35-45); PO2(98.6) 75 mmHg (60-100); SAMPLE BLOOD; SAO2 96.9 % (95.0-100.0); SRATE 20 BPM; THB 11.4 g/dL (11.5-17.4); TVOL 600 mL; pH(98.6) 7.38 (7.35-7.45)
[2017-01-11 04:46] LABS: MODALITY VENTILATOR
[2017-01-11] MEDS: ATIVAN IV PRN (05:03)
[2017-01-11 06:23] LABS: HEMATOCRIT 32.7 % (42.0-52.0); HEMOGLOBIN 10.6 g/dL (14.0-18.0); MCH 31.6 PG (27-31); MCHC 32.4 g/dL (33-37); MCV 97.6 FL (81-99); MPV 12.2 FL (7.4-10.4); RBC 3.35 XMIL (4.7-6.1)
[2017-01-11] MEDS: HUMULIN R SUBQ SCH ×5 (06:26→20:14)
[2017-01-11 06:27] LABS: ALBUMIN 2.6 g/dL (3.5-5.0); CALCIUM 8.3 mg/dL (8.8-10.2); POTASSIUM 5.3 mmol/L (3.5-5.1); TOTAL BILIRUBIN 3.04 mg/dL (0.20-1.00); TOTAL PROTEIN 6.6 g/dL (6.3-8.3)
--- NOTE | 2017-01-11 07:12 | Diag Imaging Result Doc PS360 ---
EXAM: CHEST-PORTABLE HISTORY: respiratory failure TECHNIQUE: Erect AP portable at 0520 COMMENT: There is an endotracheal tube with its tip at thoracic inlet and an NG tube with its tip below the diaphragm. There is a PICC line and a internal jugular line on the right both with their tips in the superior vena cava. There is pulmonary edema. This appears to be slightly improved since 01/10/2017. IMPRESSION: Improved pulmonary edema. Electronically signed by Magdi Wilkinson 01/11/2017 7:10 AM
--- NOTE | 2017-01-11 08:02 | PROGRESS NOTE ---
DATE: 01/11/2017 SUBJECTIVE: The patient's respiratory status has somewhat declined. He has become slightly more tachycardic. He has developed a fever. He was on a short interval of Levophed after dialysis but has come off. OBJECTIVE: Vital Signs: Patient's current temperature is 101.2 degrees, pulse in the 120s, blood pressure 153/71, O2 saturation in the 90s. General Examination: Off sedation but not doing much neurologic. Cardiovascular: Mildly tachycardic. Lungs: Coarse sounds noted. Abdomen: Soft, nontender, nondistended. Laboratory: Reviewed. X-ray reviewed. ASSESSMENT/PLAN: A 61-year-old, male with acute respiratory distress syndrome status post incision and drainage of perirectal abscess. 1. Perirectal abscess. At this time, essentially unchanged. 2. Acute respiratory distress syndrome. At this time, he has made some improvements, although he has developed a temperature and his respiratory status is somewhat declined. 3. Hypotension. At this time, seems to be improved, although he did require a short interval of Levophed after dialysis. 4. Acute renal injury. At this time, seems to be tolerating dialysis again except for that short period where he had developed hypotension. 5. Overall, his clinical status appears to still be very much guarded. We will continue to follow with you. cc: MD Shady Diana MD
[2017-01-11] MEDS: SOLU-CORTEF IV SCH (08:18)
[2017-01-11] MEDS: LOPRESSOR PO SCH (08:19)
[2017-01-11] MEDS: TYLENOL PO PRN (08:19)
[2017-01-11] MEDS: XIFAXAN PO SCH ×2 (08:19→20:12)
[2017-01-11] MEDS: PROTONIX IV SCH ×2 (08:19→20:12)
[2017-01-11] MEDS: BUSPAR PO SCH ×3 (10:30→16:31)
[2017-01-11] MEDS: ASPIRIN PO SCH (10:30)
[2017-01-11] MEDS: PLETAL PO SCH ×2 (10:31→21:36)
[2017-01-11] MEDS: PERIDEX MT SCH ×2 (10:31→20:12)
[2017-01-11] MEDS ORDERED: NS 2,000 ML ONE (10:37)
[2017-01-11] MEDS ORDERED: HEPARIN ONE (10:37)
--- NOTE | 2017-01-11 11:37 | Diag Imaging Result Doc PS360 ---
EXAM: CT PELVIS W/O CONTRAST HISTORY: Abdominal distension TECHNIQUE: CT pelvis without contrast. Dose reduction protocol. COMPARISON: None. FINDINGS: There is a small amount of ascites in each paracolic gutter and within the pelvis. A Thayer catheter has the urinary bladder decompressed. There is also a rectal catheter. The bowel loops are not dilated. The prostate is not enlarged. No enlarged lymph nodes. No mass. No abscess. There is at least moderate atherosclerosis. Long-standing mild to moderate arthritic changes to each hip. IMPRESSION: Small amount of ascites. Electronically signed by Sujit Gandhi 01/11/2017 11:35 AM
[2017-01-11] MEDS: PATIENT'S OWN MED PO SCH (12:47)
--- NOTE | 2017-01-11 15:02 | PROGRESS NOTE ---
DATE: 01/11/2017 TIME SEEN: 0735. SUBJECTIVE: Mr. López is resting quietly in bed. His most recent temperature is a 105.7 degrees. The nurses have just placed him on a cooling blanket. He remains ventilator dependent and sedated. OBJECTIVE: His most recent vital signs: Temperature 105.7 degrees, blood pressure 109/61, heart rate 130, respirations are 23. He remains on 45% FiO2. He has had 2877 In. He has had 3710 Out with 3 L on dialysis. 650 mL per fecal bag and 10 mL per Thayer. LABORATORY DATA: Sodium 136, potassium 5.3, chloride 102, CO2 of 22. BUN 54, creatinine 2.3, glucose 164. Anion gap 12, calcium 8.3, albumin 2.6. White count 10.45, hemoglobin 10.6, hematocrit 32.7. Total bilirubin is 3.04. AST of 67, ALT of 38. ABGs: pH 7.38, CO2 of 36, PO2 of 75, bicarb 22.3 on 45% vent FiO2. PHYSICAL EXAMINATION: This is a 61-year-old white male. He is currently resting in bed. He remains sedated, ventilator dependent, in no acute distress. HEENT: Normocephalic, atraumatic. Conjunctiva pale. He has KIMBERLI. Mucous membranes are dry. Neck is supple. Trachea is midline. He has negative JVD. Cardiovascular: He has regular rate and rhythm. He is tachycardic on the monitor. Heart rate of 130s. Positive S4 is noted. Lungs clear to auscultation anteriorly. Equal excursion. Ventilator dependent as noted. Abdomen is soft, nontender, though patient remains sedated. NG tube remains on low intermittent suction. Patient has a fecal tube in place. Hypo-bowel sounds are noted. Extremities: He remains with 3+ lower extremity edema, bruising with 1+ edema to the upper extremities. Genitourinary: Thayer catheter is in place. Minimal urine out. Neurological as mentioned above. ASSESSMENT AND PLAN: 1. Acute kidney injury. Patient continues to require hemodialysis. We have orders for sustained low-efficiency dialysis today. Secondary to patient running 105.7 rectal temperature, we will wait and possibly have 4 hour dialysis later this afternoon. Primary care, Dr. Johnson at bedside. They are ordering a CT of the abdomen. 2. Electrolytes. Patient has mild hyperkalemia, hopefully, with correction on dialysis. We will continue to monitor. 3. Acid-base balance. Patient remains in metabolic and anion gap acidosis though this anion gap is closing. 4. Anemia. This remains low but stable. 5. Fluid volume overload. Again, we will continue to assist with dialysis for ultrafiltration. 6. Fever of unknown source. Primary care is following. They will contact surgery. The patient remains on renal dosed antibiotics. I would like to thank you for allowing us to follow with this patient. Dictated by BROOKE Arredondo for Martell Adame MD Patient seen, data reviewed, discussed with Cary Zaragoza on 01/11/17. I agree with the above assessment and plan of care. cc: BROOKE Arredondo MD Jagan Reddy, MD [facility]ENTER[facility]y
[2017-01-11] MEDS: VANCOMYCIN 1 GM/NS 1 GM/250 ML IVPB IV SCH (17:10)
--- NOTE | 2017-01-11 17:42 | CONSULTATION ---
DATE OF CONSULTATION: 01/11/2017 CONCLUSION: Patient underwent drainage of a perirectal abscess. He spiked a fever up to 105 degrees. The exact cause of the fever is uncertain to me. He does have pulmonary infiltrates and from the sputum Klebsiella was isolated. However it seems like the pulmonary infiltrates are more like pulmonary edema than pneumonia. Likewise, the patient is growing Klebsiella from his perirectal area however the abscess has been drained and if anything, that should keep the temperature down rather than having it spike up after the procedure. RECOMMENDATIONS: The patient has been started on vancomycin and Zosyn. I think this is reasonable pending culture results which I have ordered. I have ordered 2 blood cultures and a urine culture. DISCUSSION: The patient is unable to provide a history as he is intubated and sedated. No family member is here. The admitting history and physical on the patient was done by Dr. Johnson. He was admitted because of perirectal pain. He was found to have an abscess in the perirectal area. Dr. Camarillo was consulted and performed a incision and drainage of the perirectal abscess. PAST MEDICAL HISTORY: Positive for coronary artery disease, COPD, hypertension , gastroesophageal reflux disease, cirrhosis of the liver, splenomegaly, hyperlipidemia, irritable bowel syndrome, depression, B12 deficiency, anemia, peripheral vascular disease and chronic anxiety. PAST SURGICAL HISTORY: Positive for bypass surgery and left [id number] amputation. HOME MEDICATIONS: Include potassium, Crestor, gabapentin Pletal, BuSpar, Ventolin inhaler, Lasix, aspirin, metoprolol, Janumet, oxycodone, cholestyramine. ALLERGIES: None known. 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 He is disabled. He does not smoke cigarettes, drink alcoholic beverages or abuse drugs. FAMILY HISTORY: Positive for diabetes and heart disease. REVIEW OF SYSTEMS: Unable to be obtained. PHYSICAL EXAMINATION: Vital signs: Temperature earlier today was 105, now it is 97.8, pulse 74, respirations 20, blood pressure 101/56. General: This is an ill appearing middle-aged male who is in no acute distress. Lungs: Clear to auscultation. Cardiovascular: Regular heart rate. Extremities: Patient has a right upper extremity PICC in place. The site is not erythematous or swollen. He has a left [id number] amputation. Neck: Patient has internal jugular catheter which has been used for dialysis on the patient. Abdomen: Soft and nontender. Neurologic: The patient is intubated and sedated. There was no tremor. Integument: There was no rash. The patient did have some ecchymotic areas on his arms. Thank you for the consult. cc: MD Shady Gunter MD MTD[facility]
[2017-01-11] MEDS: SODIUM CHLORIDE 0.9% INJ SCH (20:12)
--- NOTE | 2017-01-11 20:23 | PROGRESS NOTE ---
DATE: 01/11/2017 SUBJECTIVE: During the last 24 hours the patient's condition slightly deteriorated. He spiked fever 105 requiring Tylenol. He is a little bit hypotensive requiring vasopressors. He got dialysis today. He still has intermittent bleeding from the mouth. He also is not able to tolerate enteral feeding. REVIEW OF SYSTEMS: None reported. OBJECTIVE: Temperature 105, tachycardic, blood pressure is 131/61, 247 pounds. Input and output - 800 mL. Sedated and intubated. Orogastric tube present, right IJ line and PICC line on the right side noted. Chest x-ray is improving. Abdomen: Belly is soft, nontender. Good bowel sounds. Rectal tube and Thayer was seen upper. Upper extremities edematous and bruising noted. Left below- knee amputation seen. INVESTIGATIONS: White cell count 10, hematocrit 32, platelets 43,000. ABG pH is 7.38, pCO2 36, PO2 75. On assisted control rate of 25-40%. Tidal volume 600, PEEP of 5. SMA 12: Sodium 136, potassium 5.3, chloride 102, BUN 54, creatinine 2.3, glucose 164, calcium 8.3, total bilirubin 3.0, AST 67, alkaline phosphatase 164. Repeat blood cultures are pending. ASSESSMENT AND PLAN: 1. Central nervous system. Under sedation. 2. Fever of 105. Repeat blood cultures. PICC line and IJ line were pretty normal. Follow up on CT of the pelvis. No pelvic abscess noted. Tylenol as needed. Cooling blankets. Blood cultures. CT head. Dr. Mike Ramires consult appreciated. 3. Enteral feeding with Jevity 25 mL an hour and TPN IV. 4. Acute kidney injury. No urine output. Continue dialysis support. 5. Klebsiella pneumonia as well as the perirectal abscess. Continue on Zosyn and vancomycin. 6. Gastrointestinal prophylaxis with IV Protonix. 7. Coronary artery disease on beta blockers. LEVEL OF DOCUMENTATION: 25 minutes. Discussed with the patient's . cc: Shady Johnson MD
[2017-01-12] MEDS: ZOSYN 2.25 GM in NS 50 ML IV SCH ×3 (00:18→17:01)
[2017-01-12] MEDS: CLINIMIX E 4.25%-5% SOLUTION 1,000 ML IV SCH ×3 (00:59→12:37)
[2017-01-12] MEDS: DUONEB (A & A) INH SCH ×4 (03:10→21:09)
[2017-01-12 04:33] LABS: ALLEN TEST YES; BE -3.6 mmoll (-3.0-3.0); BLOOD TYPE ARTERIAL; DRAW SITE R RADIAL; METHB 0.8 % (0.0-1.5); O2(CT) 14.1 mL/dL (15.0-23.0); PCO2(98.6) 30 mmHg (35-45); PO2(98.6) 151 mmHg (60-100); SAMPLE BLOOD; SAO2 99.7 % (95.0-100.0); SRATE 20 BPM; THB 10.1 g/dL (11.5-17.4); TVOL 600 mL; pH(98.6) 7.43 (7.35-7.45)
[2017-01-12 04:34] LABS: MODALITY VENTILATOR
[2017-01-12 05:03] LABS: ALBUMIN 2.2 g/dL (3.5-5.0); CALCIUM 8.9 mg/dL (8.8-10.2); HEMOGLOBIN 9.6 g/dL (14.0-18.0); MCH 32.4 PG (27-31); MCHC 33.1 g/dL (33-37); MPV 13.6 FL (7.4-10.4); POTASSIUM 4.8 mmol/L (3.5-5.1); RBC 2.96 XMIL (4.7-6.1); TOTAL BILIRUBIN 2.28 mg/dL (0.20-1.00); TOTAL PROTEIN 5.4 g/dL (6.3-8.3)
[2017-01-12] MEDS: HUMULIN R SUBQ SCH ×4 (06:06→20:36)
--- NOTE | 2017-01-12 07:16 | Diag Imaging Result Doc PS360 ---
EXAM: CHEST-PORTABLE INDICATION: respiratory failure TECHNIQUE: One view COMPARISON: 01/11/2017 FINDINGS: Support tubes and lines are in stable positions. Bilateral infiltrates suggesting edema are unchanged. No new consolidation is appreciated. Cardiac silhouette is stable. IMPRESSION: Stable chest. Electronically signed by Brody Gomez 01/12/2017 7:14 AM
--- NOTE | 2017-01-12 07:42 | PROGRESS NOTE ---
DATE: 01/12/2017 SUBJECTIVE: The patient is essentially unchanged. He did have a CT scan of his pelvis which did not show a significant perirectal abscess at this time. I suspect he has healed up from that appropriately. He did had to go on Levophed for short interval, it sounds like during dialysis yesterday. OBJECTIVE: Vital Signs: Patient is currently afebrile. Most recent vital signs have been stable through the night. Again, he is off pressors. He is on 45% FiO2 and his saturation is listed in the 90s on the monitor. General Examination: Off sedation, but not doing much neurologically. Cardiovascular: Regular rate and rhythm. Lungs: Coarse referred airway noises. Abdomen: Soft, nontender, nondistended. Tube feeds going at 25 mL an hour. LABORATORY: Reviewed. ASSESSMENT/PLAN: A 61-year-old, male with acute respiratory distress syndrome, status post incision and drainage of perirectal abscess. 1. Perirectal abscess. At this time, essentially unchanged and essentially probably resolved. 2. Acute respiratory distress syndrome. At this time, the patient has made some improvement. He has been on the ventilator for at least nine days. May need approach the family here in the near future about tracheostomy, because I suspect he is probably not going to be off the ventilator in the near future. 3. Hypotension. At this time he is requiring short intervals of Levophed during dialysis, but otherwise he has maintained his blood pressure on its own. 4. Acute renal injury. At this time seems to be tolerating dialysis, except for the short period of time when he is on Levophed. Overall, his clinical status appears to be very much guarded. We will continue to follow with you. cc: MD Shady Diana MD
[2017-01-12] MEDS ORDERED: HEPARIN ONE (08:01)
[2017-01-12] MEDS ORDERED: NS 2,000 ML ONE (08:01)
[2017-01-12] MEDS: BUSPAR PO SCH ×3 (08:46→16:12)
[2017-01-12] MEDS: ASPIRIN PO SCH (08:46)
[2017-01-12] MEDS: LOPRESSOR PO SCH (08:47)
[2017-01-12] MEDS: PATIENT'S OWN MED PO SCH (08:47)
[2017-01-12] MEDS: PERIDEX MT SCH (08:48)
--- NOTE | 2017-01-12 08:48 | Diag Imaging Result Doc PS360 ---
CT HEAD W/O CONTRAST - 01/12/2017 INDICATION: altered mental status TECHNIQUE: A CT dose reduction protocol was used. COMPARISON: None FINDINGS: There is diffuse bilateral subarachnoid hemorrhage. This applies to the cerebral hemispheres, with sparing of the brainstem. There are areas of old encephalomalacia at the cerebellar hemispheres bilaterally. The skull is intact. There is a mastoid effusion on the left side. The sinuses are clear. There is a nasogastric tube in place. IMPRESSION: 1. Diffuse bilateral subarachnoid hemorrhages in the cerebral hemispheres. 2. Areas of old encephalomalacia at the cerebellum bilaterally. 3. A report was immediately called to the ICU. Electronically signed by Aydin Geiger 01/12/2017 8:46 AM
[2017-01-12] MEDS: PLETAL PO SCH (08:49)
[2017-01-12] MEDS: XIFAXAN PO SCH ×2 (08:49→20:25)
--- NOTE | 2017-01-12 10:24 | PROGRESS NOTE ---
DATE: 01/12/2017 TIME SEEN: 07 SUBJECTIVE: Mr. López is resting quietly in bed. He remains ventilator dependent. He is not on any sedation. Nonresponsive. He is in no acute distress. OBJECTIVE: Vital Signs: Most recent vital signs, temperature 97.5 degrees, blood pressure 106/52, heart rate 72, respirations 18. He remains on 45% FiO2. Last recorded saturation 100%. He has had 2860 in and 4700 out with 4 L off at dialysis. Laboratory Data: Sodium 134, potassium 4.8, chloride is 100, CO2 18, BUN 68, creatinine 2.3, glucose 161, anion gap 16, calcium 8.9, albumin 2.2. White count 7.24, hemoglobin 9.6, hematocrit 29, platelet count 46,000. Total bilirubin is 2.28, AST is 50, ALT 34. ABGs: PH 7.43, CO2 30, PO2 151, bicarb 22.1 on 45% FiO2. Lactate of 1.6. Physical Examination: General: This is a 61-year-old, white male. He is currently resting in bed. He is in no acute distress. Remains on the ventilator without sedation. HEENT: Normocephalic, atraumatic. Conjunctivae are pale. He has KIMBERLI. Mucous membranes are dry. Neck: Supple. Trachea midline. No JVD. Cardiovascular: Regular rate and rhythm. He remains tachycardic on the monitor. He has a positive S4. Lungs: Clear to auscultation anteriorly. Equal excursion. Crackles, posterior bases. Remains ventilator dependent. Abdomen: Soft. Hypoactive bowel sounds noted. NG to low intermittent suction. The patient continues with fecal rectal tube. Extremities: Continues with 3+ edema into the sacral, hip, upper abdominal area. Integumentary: The patient has multi-stages of healing for ecchymoses to the upper and lower extremities. Genitourinary: Thayer catheter is in place. Minimal urine out. Neurological: As above. ASSESSMENT AND PLAN: 1. Acute kidney injury. Patient requires hemodialysis today. We will plan for SLED today. We will place him on a 4 K bath. He is to dialyze for 8 hours. We will attempt to pull 4-5 L of ultrafiltration as tolerated on a 27 bicarbonate. 2. Electrolytes. These have improved today. No indications for intervention with assistance on dialysis. 3. Acid-base balance. Again, with assistance on dialysis. Patient continues with metabolic and anion gap acidosis. 4. Anemia. This remains low but stable. 5. Fever of unknown source. Patient had a CT of the abdomen yesterday that was essentially negative. 6. Fluid volume overload. Assist with patient's ultrafiltration. 7. Unresponsiveness without sedation on the ventilator. Patient is scheduled for a CT of the head today without contrast. I would like to thank you for allowing us to follow with this patient. Dictated by BROOKE Arredondo for Martell Adame MD Patient seen, data reviewed, discussed with Cary Zaragoza on 01/12/17. I agree with the above assessment and plan of care. cc: BROOKE Arredondo MD Jagan Reddy, MD [facility]
[2017-01-12 11:07] LABS: INR 1.38; PROTIME 14.8 Seconds (9.2-11.7)
--- NOTE | 2017-01-12 14:45 | Diag Imaging Result Doc PS360 ---
CHEST/ABD TUBE PLACEMENT - 01/12/2017 1430 INDICATION: NG tube placement TECHNIQUE: COMPARISON: 09 11 FINDINGS: There is a nasogastric tube with the tip in the stomach. There is probably also a temperature probe in the esophagus. IMPRESSION: No complication. Electronically signed by Aydin Geiger 01/12/2017 2:42 PM
[2017-01-12] MEDS: PROTONIX IV SCH ×2 (14:48→20:25)
[2017-01-12] MEDS: SOLU-CORTEF IV SCH (14:48)
[2017-01-12] MEDS: REGLAN IV SCH ×2 (15:10→20:33)
[2017-01-12] MEDS: HALDOL IV PRN (15:23)
[2017-01-12] MEDS: LEVOPHED 8 MG in D5 1/2 NS 250 ML IV SCH (16:03)
[2017-01-12] MEDS ORDERED: VANCOMYCIN 1 GM/NS 1 GM/250 ML IVPB IV ONE (17:00)
[2017-01-12] MEDS: ROCEPHIN 2 GM in NS 50 ML IV SCH (19:44)
--- NOTE | 2017-01-12 19:48 | PROGRESS NOTE ---
DATE: 01/12/2017 PRESENT ILLNESS: The patient on CT scan was found today to have a subarachnoid hemorrhage. The patient does have Klebsiella growing in his sputum and his chest x-ray shows bilateral congestion. This could be due to pneumonia or pulmonary venous congestion or a combination of both. Patient is status post drainage of a perirectal abscess which grew Klebsiella as did the sputum. MEDICATIONS: Patient currently is on Zosyn and vancomycin. PHYSICAL EXAMINATION: Vital Signs: Temperature is 99.1 degrees, pulse 78, respirations 30, blood pressure 82/41. General: This is an ill-appearing, middle-aged male who is in no acute distress. Head, eyes, ears, nose, and throat: No drainage noted from the nose or ears. Lungs: Clear to auscultation. Cardiovascular: Regular heart rate. Abdomen: Soft and nontender. Neurologic: The patient is intubated. He has not been on sedation, but he is still obtunded. Most likely this is due to his subarachnoid hemorrhage. LABORATORY AND X-RAY: CBC shows a white count of 7240, hemoglobin 9.6 and platelet count 46,000. Blood gases show a pH of 7.43, a PO2 of 151, a pCO2 of 30. Patient's creatinine is 2.3. GFR is 29. Bilirubin is 2.28. As mentioned above, the head CT scan shows subarachnoid hemorrhage and the chest x-ray shows bilateral infiltrates. ASSESSMENT AND PLAN: 1. The patient has subarachnoid hemorrhage. He may have a Klebsiella pneumonia. He is status post drainage of a perirectal abscess. As regarding Infectious Disease, I am going to discontinue vancomycin and Zosyn and put the patient on Rocephin for a possible Klebsiella pneumonia. 2. Comorbidity is that he has had a subarachnoid hemorrhage. He also has COPD, gastroesophageal reflux disease and cirrhosis of the liver. cc: MD Shady Gunter MD
[2017-01-12] MEDS: SODIUM CHLORIDE 0.9% INJ SCH (20:25)
--- NOTE | 2017-01-12 21:49 | PROGRESS NOTE ---
DATE: 01/12/2017 SUBJECTIVE: The patient continues to do very poorly. Fever was down. He was off sedation, not responding. Dr. Licea has ordered a CT head this morning. Findings were reviewed. Discussed with the family. I's and O's are positive 160 ml. REVIEW OF SYSTEMS: None reported. OBJECTIVE: Vital Signs: Temperature is 99.5 degrees, respiration 34, blood pressure is 109/53. The patient is obtunded requiring minimal dose of Ativan. Not able to tolerate the tube feedings. Chest: Clear. Heart: Sounds are regular. Abdomen: Belly is soft, nontender. Good bowel sounds. Status post left below-knee amputation. LABORATORIES: CBC: White cell count 7.2, hematocrit 29, platelet count 46,000. PT 14, INR 1.3. ABG pH is 7.43, pCO2 30, PO2 151 on assisted control rate of 20, FIO2 45%, tidal volume 600, SMA 7. Sodium 134, potassium 4.8, chloride 100, BUN 68, creatinine 2.3, glucose 182. Repeat blood cultures are pending. CT head showed subarachnoid bleed. ASSESSMENT AND PLAN: 1. Neurological deterioration due to subarachnoid bleed with underlying thrombocytopenia and uremia. Dr. Licea ordered fresh frozen plasma and platelets. Will discuss with the about his prognosis and possible do not resuscitate status. 2. Hemodynamics are unstable requiring vasopressors as needed. 3. Perirectal abscess due to sepsis from Klebsiella. Continue present IV Zosyn and vancomycin and Dr. Ramires has concurred with present doses. 4. Nutrition. Unable to tolerate enteral feeding. Continue on amino acids, total parenteral nutrition 80 mL per hour. 5. Diarrhea. CT of the abdomen and pelvis negative. Continue on Xifaxan. 6. At this time prognosis is very grim. Will discuss with the patient's about the living will, and he is too sick to have anything done in [facility]. The patient's just left from the hospital at 6:30 p.m. We will communicate with her tomorrow morning. LEVEL OF DOCUMENTATION: 35 minutes. cc: Shady Johnson MD
[2017-01-13] MEDS: CLINIMIX E 4.25%-5% SOLUTION 1,000 ML IV SCH ×4 (01:00→22:59)
[2017-01-13] MEDS: PLETAL PO SCH ×3 (01:48→22:24)
[2017-01-13] MEDS: DUONEB (A & A) INH SCH ×4 (03:01→21:32)
[2017-01-13] MEDS: PERIDEX MT SCH ×3 (03:05→22:24)
[2017-01-13] MEDS: ATIVAN IV PRN (03:05)
[2017-01-13] MEDS: REGLAN IV SCH ×4 (03:10→22:30)
--- NOTE | 2017-01-13 03:48 | PROGRESS NOTE ---
DATE: 01/12/2017 SUBJECTIVE: The patient recently intubated and vented. He is not on any sedation anymore. He has a few spontaneous limb movements. He does not open up his eyes yet. He got hemodialysis today with the removal of 1.5 L. He had reinsertion of NG tube today, and the chest x-ray confirmed the NG tube with the tip in the stomach. He is having difficulty tolerating tube feeds. This morning he had around 300 and, on restarting tube feeds later, he developed high residuals. He has a rectal tube, which has put out around 700 mL. OBJECTIVE: Vital signs: Temperature 98.8 degrees, pulse of 87, respiratory 34 , blood pressure 118/60, saturating 90% on 40% FiO2. General appearance: Moderately-nourished, lying in bed, intubated and vented. HEENT: Positive ET tube, positive NG tube. Neck: Supple. Abdomen: Soft. No guarding. No rebound. Extremities: Status post left below-knee amputation. neurologic: He is currently off sedation, but he does not open up his eyes. Not following commands. LABORATORIES: Hemoglobin and hematocrit are 9.6 and 29, white count of 7.2, platelet count of 46,000. ABG showing pH of 7.4, pCO2 of 30, pO2 151, and lactate on 1.6. This is on FiO2 of 45%. Sodium 132, potassium 4, chloride 100, bicarb 18, anion gap 16, BUN of 68, creatinine of 2.3, glucose of 161, calcium is 8.9. Total bilirubin is 2.28, AST 50, ALT 34, alkaline phosphatase 137, total protein 5.4, albumin 3.2. IMPRESSION AND PLAN: 1. Sepsis, currently worked up by Dr. Ramires. 2. Failure to tolerate the percutaneous endoscopic gastrostomy tube feeds: In this regard, we will start on Reglan 5 mg IV q.6 hours and then start trickle feeding and evaluate the response. Further recommendations per Nutrition team. 3. Acute kidney injury, currently on hemodialysis. 4. Klebsiella pneumonia and perirectal abscess, currently on antibiotics, Zosyn and vancomycin. Dr. Ramires has been consulted. 5. Gastrointestinal prophylaxis with proton pump inhibitors. 6. Nonalcoholic steatohepatitis, cirrhosis, complicated with thrombocytopenia. Continue to watch and avoid hepatotoxic drugs as best as possible. 7. Encephalopathy. He is currently off sedation, but is not opening up his eyes. Will continue to watch. Further recommendations pending. cc: MD Dr. Rabia Gunter MD Jagan Reddy, MD MTDD
[2017-01-13 04:35] LABS: ALLEN TEST YES; BLOOD TYPE ARTERIAL; DRAW SITE R RADIAL; METHB 1.2 % (0.0-1.5); O2(CT) 12.3 mL/dL (15.0-23.0); PCO2(98.6) 29 mmHg (35-45); PO2(98.6) 84 mmHg (60-100); SAMPLE BLOOD; SRATE 16 BPM; THB 9.1 g/dL (11.5-17.4); TVOL 600 mL; pH(98.6) 7.47 (7.35-7.45)
[2017-01-13 04:36] LABS: MODALITY VENTILATOR
[2017-01-13] MEDS: HUMULIN R SUBQ SCH ×4 (06:37→22:23)
[2017-01-13 06:51] LABS: ALBUMIN 2.4 g/dL (3.5-5.0); CALCIUM 7.8 mg/dL (8.8-10.2); POTASSIUM 5.2 mmol/L (3.5-5.1); TOTAL BILIRUBIN 1.98 mg/dL (0.20-1.00); TOTAL PROTEIN 5.8 g/dL (6.3-8.3)
[2017-01-13] MEDS ORDERED: HEPARIN ONE (06:57)
[2017-01-13] MEDS ORDERED: NS 2,000 ML ONE (06:57)
--- NOTE | 2017-01-13 07:13 | Diag Imaging Result Doc PS360 ---
EXAM: CHEST-PORTABLE HISTORY: respiratory failure TECHNIQUE: Erect AP portable at 0510 COMMENT: There continues to be increased interstitial markings throughout both lungs. There has been no appreciable change since the previous study of 01/12/2017. The endotracheal tube and NG tube remain in place. IMPRESSION: Pulmonary edema. Stable. Electronically signed by Magdi Wilkinson 01/13/2017 7:10 AM
[2017-01-13] MEDS ORDERED: NS 1,000 ML ONE (07:52)
[2017-01-13] MEDS: SOLU-CORTEF IV SCH (08:31)
--- NOTE | 2017-01-13 08:31 | PROGRESS NOTE ---
DATE: 01/13/2017 SUBJECTIVE: Patient did have a CT scan of his head done yesterday. Showed bilateral subarachnoid hemorrhages. I reviewed the notes from Dr. Licea and Dr. Johnson. They both discussed with the about expectations and end of life discussions. The patient is still not doing much neurologically. OBJECTIVE: Vital signs: Patient's current temperature is 99.5 degrees. Most recent pulse in the 90s. Most recent blood pressure 96/46. O2 saturation 95%. General exam: Without sedation but no real major neurologic activity. Cardiovascular: Regular rate and rhythm. Lungs: Coarse airway noises. Abdomen: Soft, nontender, nondistended. LABORATORY: ABG reviewed. ASSESSMENT/PLAN: A 61-year-old, male with acute respiratory distress syndrome, bilateral subarachnoid hemorrhages, status post incision and drainage of perirectal abscess. 1. Perirectal abscess. At this time, essentially resolved. 2. Bilateral subarachnoid hemorrhages. At this time, likely gives him a very poor prognosis. 3. Acute respiratory distress syndrome. At this time, Pulmonology is following. Overall the patient's prognosis is very poor. From a surgical point of view, he has essentially healed up his perirectal abscess. I suspect future discussions will be had with the family as far as DNR status and expectations. From a surgical point of view, no more surgical intervention unless family does want a trach. In the meantime I will follow peripherally and I will be available if you need me. cc: MD Shady Diana MD
[2017-01-13] MEDS: SODIUM CHLORIDE 0.9% INJ SCH ×2 (08:32→22:31)
[2017-01-13] MEDS: PROTONIX IV SCH ×2 (08:33→22:32)
[2017-01-13] MEDS: LOPRESSOR PO SCH (08:35)
[2017-01-13] MEDS: PATIENT'S OWN MED PO SCH (08:35)
[2017-01-13] MEDS: BUSPAR PO SCH ×3 (08:35→16:02)
[2017-01-13] MEDS: XIFAXAN PO SCH ×2 (08:35→22:36)
--- NOTE | 2017-01-13 08:58 | PROGRESS NOTE ---
DATE: 01/07/2017 SUBJECTIVE: The patient is on hemodialysis. Six L fluid was taken and was given a unit of packed cells and a unit of FFP and stable. OBJECTIVE: Vital Signs: Temperature 98 degrees, slightly tachycardic, blood pressure 125/56. In and out -2.4 L. HEENT: Sedated. ET tube and NG tube with suction spiculated on the right side. Conjunctival pallor present. Abdomen: Soft. Nontender. Thayer and rectal tube present. Extremities: Below knee amputation. LABS: White count 4, hematocrit 21. Creatinine 2.1. Bilirubin 2.68. Her other LFTs are normal. Chest x-ray, improving. CULTURES: Perirectal abscess and Klebsiella pneumoniae. IMPRESSION AND PLAN: 1. Hemodynamics improving on Levophed. 2. Acute respiratory failure from secondary to ARDS. 3. Acute renal failure on hemodialysis. 4. Anemia. Hematocrit is down to 21. The patient is getting couple of units of blood. 5. Nutrition. Has high residuals on enteral feeding with getting ProcalAmine. 6. Perirectal abscess secondary to Klebsiella on IV vancomycin and Zosyn. 7. PICC line. He is still in a critical but is stabilizing. We will follow. Continue decompression. cc: MD Shady Lopez MD
--- NOTE | 2017-01-13 08:58 | PROGRESS NOTE ---
DATE: 01/08/2017 SUBJECTIVE: Patient's family at bedside. The patient has dialysis for 6 L negative. Gotten 2 units of blood. He is off Levophed. OBJECTIVE: Vital signs: Temp 98 degrees, pulse 97, respirations 25, blood pressure 125/56. In and output heddler tier -3.6. HEENT: Sedated, intubated. Lungs: Are clear. Heart: Hyperdynamic. Abdomen: Soft, nontender. Extremities: Devza-yds-nmty amputation on the left. The patient has a rectal and Thayer. LABS: Hematocrit is only up to 24, platelets 58,000. Creatinine down to 1.7. Bilirubin is stable at 2.8. 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 2. Hemodynamic stable off vasopressors. 3. Acute renal failure on hemodialysis. 4. Anemia secondary to blood loss. 5. Gastrointestinal prophylaxis. 6. Sepsis syndrome secondary to Klebsiella. Continue antibiotic. 7. Nutrition. He is on IV ProcalAmine. 8. Chronic diarrhea with stool C. difficile present. 9. Creatinine down with steroids. -4 cc: MD Shady Lopez MD MTDD
--- NOTE | 2017-01-13 09:00 | PROGRESS NOTE ---
DATE: 01/11/2017 Is slightly worse with fever of 105 last night associated with hypotension on vasopressors. He is on dialysis. The bleeding from the mouth has again started. He did not tolerate tube feedings. OBJECTIVE: Temp 105 degrees, tachycardic. Blood pressure 130/67. In and out -800. Sedated, intubated. Abdomen: Soft and nontender. Chest x-ray improving. Has some edema in the upper extremities. Left below knee amputation. LABS: White count is 10, hematocrit stable at 32. Creatinine stable at 2.3. Bilirubin at 3.2, AST and alkaline phosphatase are slightly up. 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 2. Fever spike of 105. The lines are being checked. The patient is getting a CT of the pelvis which showed no abscess. Blood cultures are being ordered. 3. TPN IV tube feeding is on decreased mode because of high outputs, high residuals. 4. Acute kidney injury, still anuric on dialysis. 5. Klebsiella sepsis. 6. Gastrointestinal prophylaxis. 7. CAD. The new spike of temperature is concerning. I still probably think his lines need to be changed. There is some edema in the upper extremities as well. Dr. Johnson is going to follow up on that. Dr. Ramires is following as well. Awaiting on the cultures. -8 cc: MD Shady Lopez MD
--- NOTE | 2017-01-13 09:00 | PROGRESS NOTE ---
DATE: 01/09/2017 SUBJECTIVE: The patient is on weaning mode of sedation. Had hemodialysis. Received another unit of blood. PHYSICAL EXAMINATION: Vital Signs: Low grade fever 99.8, otherwise vitals are stable. HEENT: Still intubated. Conjunctival pallor present. Mild scleral icterus. Lungs: Show increasing improvement with clear lungs. Abdomen: Soft, nondistended. Extremities: Below knee amputation on the left side. LABS: Hematocrit dropped to 29. Creatinine is stable at 2.1. Bilirubin is 3.5. 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 2. Hypoxic secondary to ARDS improving. 3. Hemodynamics stable. 4. Nutrition on Clinimix. 5. Acute kidney injury. Continue dialysis. 6. Anemia due to blood loss. Off aspirin and Lovenox. No signs of bleeding. 7. Perirectal abscess secondary to Klebsiella, on treatment. 8. Chronic diarrhea. C. difficile is negative. Plan is to get a CT of the abdomen. 9. The patient is being weaned off the steroids. He is hemodynamically stable. The patient is still critical but seems to be showing some improvement. -0 cc: MD Shady Lopez MD
[2017-01-13] MEDS: ROCEPHIN 2 GM in NS 50 ML IV SCH (18:13)
--- NOTE | 2017-01-13 18:21 | PROGRESS NOTE ---
DATE: 01/13/2017 SUBJECTIVE: Mr. López is resting in bed. He is ventilator-dependent. He has no spontaneous movement. He does not appear in any acute distress. His is at the bedside. OBJECTIVE: Temperature 99.5 degrees, blood pressure 120/49, heart rate 98, respirations 20. He is on 40% FiO2. Last recorded saturation 97%. He has had 3297 in, 2230 out, 1.5 L on dialysis with 700 out of his fecal bag. LABORATORIES: Sodium 135, potassium 5.2, chloride is 101, CO2 20, BUN 58, creatinine 2.1 glucose 169, anion gap 14, calcium 7.8, albumin 2.4. White count 3.9, hemoglobin 9.1, hematocrit 27.2, with a platelet count of 123,000. ABG: PH 7.47, CO2 29, pO2 84, bicarb 23.4, with a lactic acid of 1.8 on 40% FiO2. IMAGING: The patient had a CT of the head yesterday afternoon, indicating a large subarachnoid hemorrhage. He has been made a DNR level 2. PHYSICAL EXAMINATION: general: This is a 61-year-old, white male. He is currently resting in bed. He is in no acute distress. Ventilator-dependent, without sedation. HEENT: Normocephalic, atraumatic. Conjunctivae pale. He does have KIMBERLI slow to react. Mucous membranes are dry. Neck: Supple. Trachea midline. No JVD. Cardiovascular: Regular rate and rhythm. He is tachycardic on the monitor. Positive S4. Lungs: Clear to auscultation anteriorly. Equal excursion. Crackles at posterior bases. Abdomen: Soft hypo bowel sounds. NG tube to low intermittent suction. Bile green. Fecal bag remains intact. Extremities: Continues with 3+ edema, mostly in the sacral hip/upper abdominal area. Integumentary: The patient has multi- stages of healing for ecchymosis to the upper and lower extremities, right upper arm is greater than left. Genitourinary: Thayer catheter is in place. Minimal urine out, assist with dialysis. Neurological: As above. ASSESSMENT AND PLAN: 1. Acute kidney injury. The patient has had a no improvement. He continues to require dialysis for fluid volume management. We will plan for sustained low-efficiency dialysis today. We will place him on a 4 K bath. He is to dialyze for 8 hours. We will attempt to pull 2 L of ultrafiltration, secondary to Dr. Licea attempting to keep blood pressure greater than 95. We will keep his Levophed on board if needed. 2. Electrolytes and acid-base balance. These remain stable. 3. Anemia. This remains stable. 4. Fever, more than likely secondary to CT of the head being positive for subarachnoid hemorrhage. This continues to fluctuate. 5. Unresponsiveness. Dr. Licea had ordered a CT of the head yesterday. It came back indicating positive subarachnoid hemorrhage. The patient is now on a Do Not Resuscitate level 2. I have spoken with Dr. Johnson, who indicates that they will reevaluate on Tuesday to see if there is any changes before further decisions are made. I would to thank you for allowing us to follow with this patient. Dictated by BROOKE Arredondo for Martell Adame MD Patient seen, data reviewed, discussed with Cary Zaragoza on 01/13/17. I agree with the above assessment and plan of care. cc: BROOKE Arredondo MD Jagan Reddy, MD [facility] HEALTH SYSTEMHandy
[2017-01-13] MEDS: LEVOPHED 8 MG in D5 1/2 NS 250 ML IV SCH (19:02)
--- NOTE | 2017-01-13 19:55 | PROGRESS NOTE ---
DATE: 01/13/2017 SUBJECTIVE: The patient is lying in bed intubated and vented. He has not had any sedation. He gets as needed Haldol. He had a CT scan of the head done yesterday which showed, 1) diffuse bilateral subarachnoid hemorrhage in the cerebral hemispheres, 2) area of old encephalomalacia at the cerebellum bilaterally. The patient's family was present at bedside. No reported fever today. Patient has been having difficulty with tolerating NG tube feeds. He continues to have high residuals despite starting on Reglan 5 mg IV q.6 hours. We will try to increase the Reglan to 10 IV q.6 and restart tube feeds. His fecal device output has slowed down, was reported as 200 mL today. OBJECTIVE: Vitals: Temperature 98.9 degrees, pulse of 98, respiratory rate of 33, blood pressure 110/54, saturating 97% on mechanical ventilator, FiO2 40%. General: Moderately built. Lying in bed. Currently intubated, vented. HEENT : Pale conjunctiva. Icteric sclerae. NG tube in place. Neck: Supple. Abdomen: Soft, nondistended. No guarding. Extremities: Status post left-sided below-knee amputation. Neurologic: He is currently off sedation. Has some spontaneous movements of the lower extremities but does not open up his eyes. LABS: Hemoglobin and hematocrit is 9.6, 29, was from yesterday. ABG; pH of 7.47, PCO2 of 29, PO2 84, bicarb of 23.4, lactate of 1.8. Sodium 130, potassium 5.2, chloride 101, bicarb 20, anion gap of 14, BUN of 58, creatinine of 2.1. Glucose of 159, calcium 7.8. Total bilirubin is 1.98. AST 56, ALT 37, alkaline phosphatase 126. Total protein 5.8, albumin of 2.4. IMPRESSION AND PLAN: 1. Perirectal abscess which has been drained, and currently continue antibiotics per the primary team. 2. Acute respiratory distress syndrome being managed by Dr. Licea. 3. Diarrhea which has slowed down. 4. Failure to tolerate NG tube feeds. Will increase Reglan to 10 mg IV q.6 hours and restart tube feeds and assess from there. 5. Bilateral subarachnoid hemorrhages on a recent CT scan. May be the reason for his altered mental status and limited encephalopathy. 6. Gastrointestinal prophylaxis proton pump inhibitors. 7. Non alcoholic steatohepatitis, cirrhosis. Continue to watch. 8. Renal failure on Hemodialysis per nephrology team. The above plan of care discussed with the patient's family at bedside and all questions answered. cc: MD Shady Kelly MD James E. Boyle, MD Matthew L. Figh, MD Leroy F. Harris, MD MTDD
[2017-01-14] MEDS: REGLAN IV SCH ×4 (01:47→20:24)
[2017-01-14] MEDS: DUONEB (A & A) INH SCH ×4 (03:19→19:22)
[2017-01-14 04:28] LABS: ALLEN TEST YES; BE -2.6 mmoll (-3.0-3.0); BLOOD TYPE ARTERIAL; METHB 0.9 % (0.0-1.5); O2(CT) 18.3 mL/dL (15.0-23.0); PCO2(98.6) 29 mmHg (35-45); PO2(98.6) 92 mmHg (60-100); SAMPLE BLOOD; SAO2 98.6 % (95.0-100.0); SRATE 16 BPM; THB 13.6 g/dL (11.5-17.4); TVOL 600 mL; pH(98.6) 7.45 (7.35-7.45)
[2017-01-14 04:29] LABS: DRAW SITE R RADIAL; MODALITY VENTILATOR
[2017-01-14 04:52] LABS: MANUAL DIFF NEEDED? NO
[2017-01-14 05:09] LABS: BASO% 0.4 % (0.0-0.8); EOS# 0.25 X1000 (0.0-0.7); EOS% 2.9 % (0.0-10.0); HEMATOCRIT 24.7 % (42.0-52.0); IMM GRAN# 0.02 X1000 (0.0-0.04); IMM GRAN% 0.2 % (0.0-0.5); LYMPH% 10.5 % (20.5-51.1); MCH 31.4 PG (27-31); MCHC 32.4 g/dL (33-37); MCV 96.9 FL (81-99); MONO# 0.73 X1000 (0.11-0.59); MONO% 8.5 % (1.7-9.3); MPV 13.3 FL (7.4-10.4); NEUT% 77.5 % (42.2-75.2); PLT 66 X1000 (130-400); RBC 2.55 XMIL (4.7-6.1)
[2017-01-14 05:22] LABS: ALBUMIN 2.4 g/dL (3.5-5.0); CALCIUM 8.6 mg/dL (8.8-10.2); POTASSIUM 5.3 mmol/L (3.5-5.1); TOTAL BILIRUBIN 2.32 mg/dL (0.20-1.00); TOTAL PROTEIN 5.7 g/dL (6.3-8.3)
--- NOTE | 2017-01-14 05:31 | PROGRESS NOTE ---
DATE: 01/13/2017 SUBJECTIVE: Interval history was reviewed. The patient is off sedation, on response. Hemodynamics were stable. Getting dialysis today. REVIEW OF SYSTEMS: None reported. OBJECTIVE: Vital signs: Temp is 99. Is tachycardic. Hemodynamics are stable on 40% FiO2 on 100%. I's and O's -97 mL. HEENT: Sedated, unresponding, intubated. Skin: Slightly bruised on the face as well as on both upper extremities. Chest: Clear. Heart: Sounds are regular. Abdomen: Belly is soft, nontender. Rectal tube and Tahyer were placed. Extremities: He has a right IJ and PICC line on the right arm. LABORATORIES: CBC was not done. ABG: pH is 7.47, pCO2 29, pO2 84, assist control 40%. SMA-7: Sodium 135, potassium 5.2, chloride 101, BUN 58, creatinine 2.1, glucose 169. LFTs were coming down. Repeat blood cultures on 01/11 were negative. ASSESSMENT AND PLAN: 1. Neurological status due to subarachnoid bleed. No sedation, unresponding. 2. Klebsiella pneumoniae, perirectal abscess. Gram-negative pneumonia. Continue present IV antibiotics. 3. Enteral feeding. Not able to tolerate, restart again. 4. Acute kidney injury due to sepsis on hemodialysis today. 5. Subarachnoid bleed. The patient was given FFP as well as, platelets and stop giving heparin. 6. Coordination care with the family. I talked to his at length about 25 minutes. The other options and alternatives. At this point, she decided not to be transferred to [place] for further neurosurgical intervention. She is also discussed with other family members preparing for any bad outcomes on him. At this point, we agreed the advanced directives, DNR level 2 and continue present supportive care; and if the situation does not improve by Tuesday, repeating the CT, will discuss about withdrawing the support. At this time, his prognosis is grim. 7. Advanced directives: DNR 2. LEVEL OF DOCUMENTATION: 35 minutes. cc: MD FARNAZ Jean-Baptiste
[2017-01-14] MEDS: HUMULIN R SUBQ SCH ×4 (06:08→20:24)
[2017-01-14] MEDS: CLINIMIX E 4.25%-5% SOLUTION 1,000 ML IV SCH ×4 (06:09→23:19)
--- NOTE | 2017-01-14 07:35 | Diag Imaging Result Doc PS360 ---
EXAM: CHEST-PORTABLE HISTORY: respiratory failure TECHNIQUE: Portable COMPARISON: 01/13/2017 FINDINGS: No change in the right jugular line, the right-sided PICC line, endotracheal tube, or the nasogastric tube. The lungs are well expanded. Mild increased interstitial markings similar to the prior exam. Sternal wires are present. The heart is not enlarged. The overall appearance is similar to that of the prior exam. IMPRESSION: Stable chest. Electronically signed by Sujit Gandhi 01/14/2017 7:33 AM
[2017-01-14] MEDS: PERIDEX MT SCH ×2 (08:20→20:24)
[2017-01-14] MEDS: SOLU-CORTEF IV SCH (08:32)
[2017-01-14] MEDS: PROTONIX IV SCH ×2 (08:33→20:24)
[2017-01-14] MEDS: LOPRESSOR PO SCH (08:34)
[2017-01-14] MEDS: BUSPAR PO SCH ×4 (08:34→17:33)
[2017-01-14] MEDS: PLETAL PO SCH ×2 (08:35→20:23)
[2017-01-14] MEDS: PATIENT'S OWN MED PO SCH (08:35)
[2017-01-14] MEDS: XIFAXAN PO SCH ×2 (08:35→20:23)
[2017-01-14] MEDS: TYLENOL PO PRN (14:53)
--- NOTE | 2017-01-14 16:44 | PROGRESS NOTE ---
DATE: 01/14/2017 SUBJECTIVE: The patient resting in bed. Remains mechanically ventilated. His eyes are open, but there is no spontaneous movement. OBJECTIVE: Vital Signs: Temperature 97.9 degrees, pulse 95, respiratory rate 31, blood pressure 114/52. Intake 2 L. Output 1.6 L. General: This is an elderly gentleman, resting in bed. He remains mechanically ventilated. Does not appear he is on any sedation. His eyes are open, but he does not focus or track. HEENT: Normocephalic, atraumatic. Orally intubated. Neck: Supple. Trachea midline. No JVD. Cardiovascular: Regular rate and rhythm. Remains tachycardic. S4 noted. Pulmonary: Equal excursion. He has got rhonchi bilaterally. No wheeze noted. Does not appear to be breathing above the vent. Abdomen: Soft, positive bowel sounds. Hypoactive. He has a NG tube to low, intermittent suction, with green bilious drainage. Genitourinary: Thayer catheter. No significant urine. He has a equal he has a bowel management system in place. Extremities: Dependent edema to the sacral hip/upper abdominal area. Trace pretibial edema. No movement. Integumentary: Skin is warm and dry otherwise. LABORATORY DATA: WBC of 8.5, hemoglobin 8.0, hematocrit 24.7, platelet count of 66,000. Sodium 135, potassium 5.3, CO2 18, BUN 61, creatinine 2.4. ASSESSMENT AND PLAN: 1. Acute kidney injury, without recovery. We are dialyzing him for fluid volume management. We will plan to sustained low-efficiency dialysis today, a 4 K bath/8 hours. Attempt to pull 2 to 3 L of fluid. I am not sure if we will achieve that. We are trying to keep his blood pressure above systolic of 95. Will likely require Levophed to achieve that goal. We will continue daily dialysis, as warranted. 2. Electrolytes, acid-base balance, anemia. These are stable. 3. Unresponsiveness. Family is to meet Tuesday with further decisions regarding the patient's care. We will continue with our current plan, until we have additional information. Dictated by BROOKE Matt for Martell Adame MD Data reviewed, discussed with Alissa Abbott on 01/14/17. I agree with the above assessment and plan of care. cc: MD Shady Villarreal MD MTDD
[2017-01-14] MEDS ORDERED: NS 250 ML ONE (17:28)
[2017-01-14] MEDS: ROCEPHIN 2 GM in NS 50 ML IV SCH (17:44)
--- NOTE | 2017-01-14 18:28 | PROGRESS NOTE ---
DATE: 01/14/2017 SUBJECTIVE: The patient is not getting any sedation. Not responding. REVIEW OF SYSTEMS: None reported. OBJECTIVE: Vital Signs: Temperature is 98 degrees, tachycardic, tachypneic. Hemodynamics are stable. Input and output positive 450 mL. HEENT: Pupils equal, reactive to light. Subconjunctival hemorrhage. Petechial hemorrhages noted on the face. Chest: Clear. Heart: Sounds are regular. Abdomen: Belly is soft, nontender. Not arousable with verbal stimulus or painful stimulus and the patient has a right IJ line right- sided PICC line. Thayer catheter noted. Rectal tube noted. Intubated. LABORATORY DATA: CBC: White cell count 8.5, hematocrit 24, platelets 66,000. ABG pH is 7.45, pCO2 of 29, PO2 92 on assisted control 16 rate, 40% FiO2, tidal volume 600, PEEP of 5. SMA 7, sodium 135, potassium 5.3, chloride 101, BUN 61, creatinine 2.4, glucose 133, calcium 8.6. Total bilirubin is high. LFTs were high. Repeat blood cultures were negative on 01/11 as well as urine cultures. ASSESSMENT AND PLAN: 1. Subarachnoid bleed. Not arousable. 2. Anemia. Thrombocytopenia. Transfuse a unit of blood during dialysis as well as, platelet transfusion. Keep the platelet close to 100. 3. Continue ventilator support. 4. Hemodynamics are stable. 5. Unable to tolerate enteral feeding. 6. Perirectal abscess due to Klebsiella. Continue on present IV antibiotics. 7. Continue on IV Clinimix. 8. Discussed with about his prognosis. Continue the present care until Tuesday and reassess his neurological exam and maybe repeat the CT. Until that time there is no withdrawal support. 9. In the meantime he is a DNR level 2. LEVEL OF DOCUMENTATION: Twenty-five minutes. cc: Shady Johnson MD
[2017-01-15] MEDS: REGLAN IV SCH ×4 (01:51→21:04)
[2017-01-15] MEDS: DUONEB (A & A) INH SCH ×4 (02:58→21:17)
[2017-01-15 04:20] LABS: ALLEN TEST YES; BE -0.9 mmoll (-3.0-3.0); BLOOD TYPE ARTERIAL; DRAW SITE R RADIAL; METHB 0.9 % (0.0-1.5); MODALITY VENTILATOR; O2(CT) 10.3 mL/dL (15.0-23.0); PCO2(98.6) 29 mmHg (35-45); PO2(98.6) 85 mmHg (60-100); SAMPLE BLOOD; SAO2 98.7 % (95.0-100.0); SRATE 16 BPM; THB 7.5 g/dL (11.5-17.4); TVOL 600 mL; pH(98.6) 7.49 (7.35-7.45)
[2017-01-15 04:55] LABS: MANUAL DIFF NEEDED? NO
[2017-01-15 05:51] LABS: BASO% 0.5 % (0.0-0.8); EOS# 0.24 X1000 (0.0-0.7); EOS% 2.8 % (0.0-10.0); HEMATOCRIT 23.3 % (42.0-52.0); HEMOGLOBIN 7.5 g/dL (14.0-18.0); IMM GRAN# 0.04 X1000 (0.0-0.04); IMM GRAN% 0.5 % (0.0-0.5); LYMPH# 0.95 X1000 (1.2-3.4); MCH 31.6 PG (27-31); MCHC 32.2 g/dL (33-37); MCV 98.3 FL (81-99); MONO% 8.1 % (1.7-9.3); MPV 11.5 FL (7.4-10.4); NEUT% 77.1 % (42.2-75.2); PLT 92 X1000 (130-400); RBC 2.37 XMIL (4.7-6.1)
[2017-01-15 05:56] LABS: ALBUMIN 2.4 g/dL (3.5-5.0); CALCIUM 8.5 mg/dL (8.8-10.2); POTASSIUM 5.1 mmol/L (3.5-5.1); TOTAL BILIRUBIN 2.03 mg/dL (0.20-1.00)
[2017-01-15] MEDS: HUMULIN R SUBQ SCH ×4 (05:59→21:06)
--- NOTE | 2017-01-15 07:15 | Diag Imaging Result Doc PS360 ---
EXAM: CHEST-PORTABLE HISTORY: respiratory failure TECHNIQUE: Portable chest COMPARISON: 01/14/2017 FINDINGS: The lungs are well expanded. No change in the endotracheal tube, nasogastric tube, right-sided PICC line, or in the right jugular line. Pulmonary edema remains. Heart is mildly prominent. Sternal wires are present. Questionable tiny left effusion. The overall appearance is similar to that of the prior study. IMPRESSION: No interval improvement. Electronically signed by Sujit Gandhi 01/15/2017 7:12 AM
[2017-01-15] MEDS ORDERED: HEPARIN ONE (07:54)
[2017-01-15] MEDS ORDERED: NS 2,000 ML ONE (07:54)
[2017-01-15] MEDS: PLETAL PO SCH ×3 (07:57→21:04)
[2017-01-15] MEDS: XIFAXAN PO SCH ×3 (07:58→21:05)
[2017-01-15] MEDS: BUSPAR PO SCH ×4 (07:58→17:20)
[2017-01-15] MEDS: PROTONIX IV SCH ×3 (07:58→21:04)
[2017-01-15] MEDS: SOLU-CORTEF IV SCH ×2 (07:58→09:41)
--- NOTE | 2017-01-15 08:19 | PROGRESS NOTE ---
DATE: 01/14/2017 PRESENT ILLNESS: The patient has a Klebsiella perirectal abscess and also a Klebsiella pneumonia. MEDICATIONS: The patient is receiving Rocephin. PHYSICAL EXAMINATION: Vital Signs: Temperature is 98.8 degrees, pulse 99, respirations 27, blood pressure 125/54. General: This is an ill-appearing middle-aged male. He is in no acute distress. Lungs: Clear to auscultation. Cardiovascular: Regular heart rate. Abdomen: Soft and nontender. Ear, nose and throat: Patient is intubated. He appears to have poor oral hygiene. LAB AND X-RAY: Chest x-ray shows increased interstitial markings. Blood and urine cultures are sterile. The CBC shows a white count of 8550, hemoglobin is 8 and platelet count is 66,000. Patient's blood gases show a pH of 7.45, PO2 of 92 and a pCO2 of 29. The patient's creatinine is 2.4. The GFR is 28. The alkaline phosphatase is 167. ASSESSMENT AND PLAN: The patient has Klebsiella pneumonia and Klebsiella perirectal abscess. COMORBIDITIES: Include he has a subarachnoid hemorrhage. He also has COPD, gastroesophageal reflux disease and cirrhosis of the liver. cc: MD Shady Gunter MD
[2017-01-15] MEDS ORDERED: NS 250 ML ONE (09:33)
[2017-01-15] MEDS: PATIENT'S OWN MED PO SCH (09:40)
[2017-01-15] MEDS: PERIDEX MT SCH ×2 (09:40→21:04)
[2017-01-15] MEDS: LOPRESSOR PO SCH (09:40)
[2017-01-15] MEDS: CLINIMIX E 4.25%-5% SOLUTION 1,000 ML IV SCH ×2 (12:05→23:52)
[2017-01-15] MEDS: ROCEPHIN 2 GM in NS 50 ML IV SCH (17:20)
--- NOTE | 2017-01-15 18:42 | PROGRESS NOTE ---
DATE: 01/15/2017 SUBJECTIVE: Mr. López 61-year-old white gentleman initially admitted with perirectal abscess requiring incision and drainage. The patient had complex hospital course complicated by sepsis, hypotension, respiratory failure. The patient had kidney failure requiring dialysis. The patient also had subarachnoid hemorrhage. Patient admission history and physical noted. The patient is on hemodialysis. He is receiving blood transfusion. Not able to give any history. Stencil Typist, technician automated equipment and ID specialist following patient along with drywall contractor. OBJECTIVE: Vital signs: His recent vital signs noted. Blood pressure 108/54, pulse 107, respiration 28, temperature 97.5 degrees. Lungs: Decreased air entry both the bases. CVS: S1 and S2. Tachycardia. Abdomen: Soft, globular. Bowel sounds present. RECRUITING CONSULTANT: Patient is on vent not responding. LAB DATA: Revealed hemoglobin 7.5, hematocrit 23.3, WBC count 8.64, platelet count was 92,000. Blood gas results reviewed pH 7.49, pCO2 29, PO2 was 85. Electrolytes BUN 49, creatinine 2.3. PROBLEMS: Includes perirectal abscess, subarachnoid hemorrhage, acute kidney injury, sepsis, respiratory failure. Thrombocytopenia. Overall prognosis is poor. Family is aware of the prognosis. Patient is getting treatment for Klebsiella pneumoniae. The patient also had history of significant peripheral vascular disease, anemia. cc: MD Shady Galan MD
[2017-01-15] MEDS: NUBAIN IV PRN (21:05)
--- NOTE | 2017-01-15 22:56 | PROGRESS NOTE ---
DATE: 01/15/2017 SUBJECTIVE: The patient currently in bed. Remains mechanically ventilated. No spontaneous movement. OBJECTIVE: Vital Signs: Temperature 97.5 degrees, pulse 107, respiratory rate 28, blood pressure 108/54. He is not requiring pressor support at this time. Intake 2.2 L. Output 2.4 L. General: This is an acutely ill gentleman resting in bed. He remains unresponsive and mechanically ventilated. HEENT: Normocephalic, atraumatic. Orally intubated. Neck: Supple. Cardiovascular: Regular rate and rhythm. Again, on no pressor support. Pulmonary: He has equal excursion. Coarse rhonchi bilaterally. Abdomen: Soft. Hypoactive. He continues with an NG tube to low intermittent suction. Genitourinary: Thayer catheter without significant urine output. Bowel management in place. Extremities: Trace to 1+ pretibial edema. Continues with dependent edema to the hips, upper abdominal area. Integumentary: Skin is warm and dry. LABORATORY DATA: WBC of 8.4, hemoglobin 7.5. Sodium 137, potassium 5.1, CO2 20, creatinine 2.3. ASSESSMENT AND PLAN: 1. Acute kidney injury, without recovery. We are continuing daily sled for fluid management. We understand that Tuesday the patient is to undergo some further testing and the decision is to be made by the family as far as continuing aggressive care. We will hold dialysis on Tuesday. 2. Electrolytes, acid-base balance. These are acceptable. 3. Anemia. This is chronic, while he has been in the hospital. Followed by the primary. 4. Mental status. See above for plan. Dictated by BROOKE Matt for Martell Adame MD cc: MD Shady Villarreal MD
[2017-01-16] MEDS: DUONEB (A & A) INH SCH ×4 (03:23→21:16)
[2017-01-16] MEDS: REGLAN IV SCH ×5 (04:14→20:20)
[2017-01-16 04:39] LABS: ALLEN TEST YES; BE -0.4 mmoll (-3.0-3.0); BLOOD TYPE ARTERIAL; DRAW SITE R RADIAL; METHB 0.6 % (0.0-1.5); O2(CT) 11.7 mL/dL (15.0-23.0); PCO2(98.6) 37 mmHg (35-45); PO2(98.6) 89 mmHg (60-100); SAMPLE BLOOD; SAO2 98.6 % (95.0-100.0); SRATE 16 BPM; THB 8.6 g/dL (11.5-17.4); TVOL 600 mL; pH(98.6) 7.42 (7.35-7.45)
[2017-01-16 04:41] LABS: MODALITY VENTILATOR
[2017-01-16 05:40] LABS: MANUAL DIFF NEEDED? NO
[2017-01-16 05:52] LABS: EOS# 0.35 X1000 (0.0-0.7); EOS% 4.2 % (0.0-10.0); HEMATOCRIT 25.2 % (42.0-52.0); IMM GRAN# 0.03 X1000 (0.0-0.04); IMM GRAN% 0.4 % (0.0-0.5); LYMPH# 0.79 X1000 (1.2-3.4); LYMPH% 9.6 % (20.5-51.1); MCH 31.6 PG (27-31); MCHC 31.7 g/dL (33-37); MCV 99.6 FL (81-99); MONO# 0.66 X1000 (0.11-0.59); MPV 12.4 FL (7.4-10.4); NEUT% 76.8 % (42.2-75.2); PLT 84 X1000 (130-400); RBC 2.53 XMIL (4.7-6.1)
[2017-01-16 06:02] LABS: ALBUMIN 2.5 g/dL (3.5-5.0); CALCIUM 8.4 mg/dL (8.8-10.2); POTASSIUM 4.9 mmol/L (3.5-5.1); TOTAL BILIRUBIN 1.8 mg/dL (0.20-1.00); TOTAL PROTEIN 5.8 g/dL (6.3-8.3)
--- NOTE | 2017-01-16 07:17 | Diag Imaging Result Doc PS360 ---
EXAM: CHEST-PORTABLE HISTORY: respiratory failure TECHNIQUE: Portable COMPARISON: 01/15/2017 FINDINGS: No change in the endotracheal tube or in the nasogastric tube. No change in the right jugular line. There is a right-sided PICC line which may have been pulled back 1 to 2 cm from its prior location. The tip is now in the mid superior vena cava. Sternal wires are present. Mild increased interstitial markings in the mid and lower lungs. IMPRESSION: No interval improvement. Electronically signed by Sujit Gandhi 01/16/2017 7:14 AM
[2017-01-16] MEDS: HUMULIN R SUBQ SCH ×4 (07:21→21:04)
[2017-01-16] MEDS: SOLU-CORTEF IV SCH (08:00)
[2017-01-16] MEDS: LOPRESSOR PO SCH ×2 (08:01→11:27)
[2017-01-16] MEDS: PATIENT'S OWN MED PO SCH (08:01)
[2017-01-16] MEDS: PLETAL PO SCH ×2 (08:01→20:20)
[2017-01-16] MEDS: XIFAXAN PO SCH ×2 (08:01→20:20)
[2017-01-16] MEDS: BUSPAR PO SCH ×3 (08:01→16:34)
[2017-01-16] MEDS: PROTONIX IV SCH ×2 (08:01→20:20)
[2017-01-16] MEDS: PERIDEX MT SCH ×2 (08:02→21:04)
[2017-01-16] MEDS: CLINIMIX E 4.25%-5% SOLUTION 1,000 ML IV SCH ×3 (10:43→22:44)
[2017-01-16] MEDS: NUBAIN IV PRN ×2 (13:15→20:21)
[2017-01-16] MEDS: ROCEPHIN 2 GM in NS 50 ML IV SCH (17:18)
--- NOTE | 2017-01-16 17:38 | PROGRESS NOTE ---
DATE: 01/16/2017 SUBJECTIVELY: Mr. López is doing fair. The patient is still on mechanical ventilation, poorly responsive. No fever or chills. At times tachycardic and tachypneic. The patient received 1 unit of packed RBC yesterday. OBJECTIVE: Vital Signs: Noted. Lungs: Decreased air entry both bases. Cardiovascular: S1 and S2 heard. Tachycardia. Abdomen: Soft, globular. Bowel sounds present. METAL POLISHER: Patient is on mechanical ventilator, poorly responsive. LAB DATA: Done today, hemoglobin 8, hematocrit 25.2, platelet count 84,000, WBC count 8.24. Blood gas results reviewed. Electrolytes noted. BUN 31, creatinine 1.6. ASSESSMENT: The patient does have multiple medical problems includin. Subarachnoid hemorrhage. 2. Sepsis. 3. Chronic kidney failure. 4. Thrombocytopenia. 5. Perirectal abscess. 6. Respiratory failure. 7. Klebsiella pneumonia. PLAN: The patient's was present. Overall prognosis is fair to guarded. Family is aware of prognosis. We will continue current treatment and close observation. cc: MD Shady Galan MD
--- NOTE | 2017-01-16 19:03 | PROGRESS NOTE ---
DATE: 01/16/2017 SUBJECTIVE: Patient currently resting in bed. He is mechanically ventilated. He is making some purposeful movement today. He does not allow me to open his eyes. He winces. Report by the nurse is that he will open eyes and attempt to move on command. OBJECTIVE: Vital Signs: Temperature 97.3 degrees, pulse 112, respiratory rate 28, blood pressure 139/65. Intake 2.8 L. Output 3.3 L. General: Acutely ill-appearing gentleman, resting in bed. He is currently mechanically ventilated. He does have some purposeful movement, or at least response to tactile stimuli. HEENT: Normocephalic, atraumatic. He will not allow me to evaluate his pupils. Oral mucosa: He is orally intubated. Neck: Supple. Trachea midline. Cardiovascular: Regular rate and rhythm. Pulmonary: Continues with coarse rhonchi bilaterally. Decreased breath sounds to the bases. He remains mechanically ventilated. Abdomen: Soft, with positive bowel sounds. Hypoactive. He has an NG tube to low intermittent suction. Genitourinary: Thayer catheter, with scant urine. Extremities: 1+ pretibial edema. Dependent edema to the hips. Integumentary: Skin is warm and dry otherwise. LABORATORY DATA: WBC of 8.2, hemoglobin 8.0, hematocrit 25.2, and platelet count of 84,000. Sodium 135, potassium 4.9, CO2 23, creatinine 1.6, albumin 2.5. ASSESSMENT AND PLAN: 1. Acute kidney injury, without recovery. He had SLED every day last week. We are letting him rest today. We will plan to dialyze again tomorrow. Check labs in the morning. Adjust his bath as appropriate. 2. Altered mental status. We understand he is to go down for imaging in the morning. We will plan to initiate his dialysis afterward, and then depending on his results, we will either continue or terminate treatment according to the family's decisions. 3. Electrolytes, acid-base balance, anemia. These have been stable. Anemia is followed by the primary. 4. Fluid volume. See #1 for plan. Dictated by BROOKE Matt for Martell Adame MD cc: MD Shady Villarreal MD
[2017-01-16] MEDS: SODIUM CHLORIDE 0.9% INJ SCH (20:21)
[2017-01-17] MEDS: REGLAN IV SCH ×4 (02:08→21:22)
[2017-01-17] MEDS: DUONEB (A & A) INH SCH ×4 (03:28→21:48)
[2017-01-17 04:43] LABS: ALLEN TEST YES; BE -4.3 mmoll (-3.0-3.0); BLOOD TYPE ARTERIAL; DRAW SITE R RADIAL; METHB 1.1 % (0.0-1.5); O2(CT) 11.5 mL/dL (15.0-23.0); PCO2(98.6) 30 mmHg (35-45); PO2(98.6) 80 mmHg (60-100); SAMPLE BLOOD; SAO2 97.7 % (95.0-100.0); SRATE 14 BPM; THB 8.5 g/dL (11.5-17.4); TVOL 700 mL; pH(98.6) 7.42 (7.35-7.45)
[2017-01-17 04:44] LABS: MODALITY VENTILATOR
[2017-01-17 05:48] LABS: ALBUMIN 2.6 g/dL (3.5-5.0); POTASSIUM 4.3 mmol/L (3.5-5.1); TOTAL BILIRUBIN 1.53 mg/dL (0.20-1.00); TOTAL PROTEIN 6.2 g/dL (6.3-8.3)
[2017-01-17] MEDS: HUMULIN R SUBQ SCH ×4 (06:27→21:23)
--- NOTE | 2017-01-17 07:14 | Diag Imaging Result Doc PS360 ---
EXAM: CHEST-PORTABLE HISTORY: respiratory failure TECHNIQUE: Portable COMPARISON: 01/16/2017 FINDINGS: No change in the right-sided PICC line, endotracheal tube, or in the nasogastric tube. There are infiltrates throughout both lungs. Sternal wires are present. The heart is borderline mildly prominent. The overall appearance is similar to that of the prior exam. IMPRESSION: Stable chest Electronically signed by Sujit Gandhi 01/17/2017 7:12 AM
[2017-01-17] MEDS ORDERED: HEPARIN ONE (08:16)
[2017-01-17] MEDS ORDERED: NS 2,000 ML ONE (08:16)
--- NOTE | 2017-01-17 09:00 | Diag Imaging Result Doc PS360 ---
EXAM: CT HEAD W/O CONTRAST HISTORY: subarachnoid bleed f/u TECHNIQUE: CT of the head without contrast with decreased radiation dose COMMENT: There is some apparent encephalomalacia in the cerebellar hemispheres bilaterally. This is also suggested on the previous study of 01/12/2017, however both examinations suffer from some beam hardening artifact and motion artifact. There is hyperdense material in the subarachnoid space over the convexities of both hemispheres. This was also present at the time the previous study although is slightly less extensive at this time. No mass effect or hydronephrosis is evident. The visualized paranasal sinuses are clear. There is no evidence of acute bony abnormality. IMPRESSION: Subarachnoid hemorrhage over the cerebral convexities. This has diminished slightly since the previous study of 01/12/2017. Quoting an article from stroke dated 05/29/2013, "Commonest causes [of isolated convexity SAH] were cerebral amyloid angiopathy (39%), reversible cerebral vasoconstriction syndrome (17%), cerebral venous sinus thrombosis (10%), large-vessel stenotic atherosclerosis (10%), and posterior reversible encephalopathy syndrome (5%). No cause was identified in 20% (mostly elderly patients with incomplete evaluation). Most (63%) presented with transient neurological symptoms." Electronically signed by Magdi Wilkinson 01/17/2017 8:58 AM
[2017-01-17] MEDS: PERIDEX MT SCH ×2 (09:41→21:24)
[2017-01-17] MEDS: PROTONIX IV SCH ×2 (09:41→21:22)
[2017-01-17] MEDS: SOLU-CORTEF IV SCH (09:41)
[2017-01-17] MEDS: XIFAXAN PO SCH ×2 (09:41→21:22)
[2017-01-17] MEDS: BUSPAR PO SCH ×3 (09:41→17:04)
[2017-01-17] MEDS: PLETAL PO SCH ×2 (09:41→21:22)
[2017-01-17] MEDS: PATIENT'S OWN MED PO SCH (09:44)
[2017-01-17] MEDS: LOPRESSOR PO SCH (09:44)
[2017-01-17] MEDS: CLINIMIX E 4.25%-5% SOLUTION 1,000 ML IV SCH (11:17)
[2017-01-17] MEDS: NUBAIN IV PRN ×2 (13:48→21:22)
--- NOTE | 2017-01-17 15:14 | PROGRESS NOTE ---
DATE: 01/17/2017 SUBJECTIVE: Patient is lying in bed. He is intubated and vented. He has an NG tube. He continues to have difficulty tolerating the NG tube feeds. He continues to have diarrhea in the rectal tube. No fevers reported in the last 24 hours. PHYSICAL EXAMINATION: Vital Signs: Temperature is 97, pulse rate of 92, respiratory rate of 20, blood pressure 122/51, saturating 96% on 40% FiO2. General Appearance: He is moderately built, moderate nourished, lying in bed, intubated and vented. HEENT: Positive ET tube. Positive NG tube. Pale conjunctivae. Neck: Supple. Abdomen: Protuberant, otherwise soft. No guarding. No distention. Extremities: Status post left below-knee amputation. Positive anasarca. Neurologic: He withdraws to pain. He has a subarachnoid hemorrhage. LAB: His ABG is showing a pH of 7.4, pCO2 30, PO2 80, lactate of 1.7, FiO2 of 40%. Sodium 133, potassium 4.3, chloride 101, bicarb 19, anion gap of 15, BUN of 63, creatinine of 2.7, glucose of 161, calcium is 9. Total bilirubin is 1.53, AST 63, ALT 60, alkaline phosphatase is 218, total protein 6.2, albumin of 2.6. CT of the head done today showed subarachnoid hemorrhage over the cerebral convexities. This has diminished slightly since the previous study of 01/12/2017. IMPRESSION AND PLAN: 1. Nonalcoholic steatohepatitis complicated with liver cirrhosis and causing elevated liver enzymes. We will to continue to follow the liver enzymes and liver function. 2. Failure to tolerate NG tube feeds. Patient continues on Clinimix intravenous and intravenous Reglan. We will continue to try with the NG tube feeding and if he fails, we have to consider total parenteral nutrition. I discussed that with the music rehabilitation therapist team. 3. Renal failure, on hemodialysis. 4. Rectal abscess that was drained by the surgical team. 5. Klebsiella pneumoniae and respiratory failure, on full ventilatory support and intravenous antibiotics per the primary team. 6. Subarachnoid hemorrhage causing change in mental status and being followed by the primary team. 7. Gastrointestinal prophylaxis with proton pump inhibitors. 8. Anemia. Continue to watch for now and transfuse as needed. 9. Further recommendations pending hospital course. I discussed the findings with the patient's at bedside and the nurse at bedside. All questions were answered. cc: MD Shady Kelly MD Matthew L. Figh, MD James E. Boyle, MD William D. Denney, MD Reginald D. Gladish, MD
[2017-01-17] MEDS: ROCEPHIN 2 GM in NS 50 ML IV SCH (17:04)
--- NOTE | 2017-01-17 17:27 | PROGRESS NOTE ---
DATE: 01/17/2017 SUBJECTIVE: Patient is resting in bed. He will open his eyes to name and appears to make eye contact. He does not follow commands otherwise. His says that she is able to get him to follow some commands. He is to go for a CT scan and then decisions will be made about continuing his care. OBJECTIVE: Vital signs: Temperature 98.9 degrees, pulse 87, respiratory rate 19, blood pressure 118/51. Intake 2.6 L. Output 1.0 L. General: This is an acutely ill-appearing gentleman resting in bed. He remains mechanically ventilated. He has spontaneous eye opening. HEENT: Normocephalic, atraumatic. He is orally intubated. Pupils are reactive. Neck: Supple. Trachea midline. Cardiovascular: Regular rate and rhythm. Pulmonary: He has rhonchi bilaterally. Again with decreased breath sounds to the bases and remains mechanically ventilated. Abdomen: Soft. Hypoactive bowel sounds and G tube Thayer catheter with a small amount a urine. Extremities: 1+ pretibial edema with dependent edema up to the hip level. Integumentary: Skin is warm and dry with ecchymosis noted otherwise. LAB DATA: Sodium 135, potassium 4.3, CO2 19, BUN 63, creatinine 2.7, albumin 2.6. ASSESSMENT AND PLAN: 1. Acute kidney injury without recovery. We are continuing with SLEDD daily. We will plan to initiate treatment in the morning and await the family's decisions on his treatment plan. 2. Altered mental status. Followed by primary and Neurology. 3. Electrolytes, acid-base balance anemia acceptable. Continue to treat on dialysis. Dictated by BROOKE Matt for Martell Adame MD Patient seen, data reviewed, discussed with Alissa Abbott on 01/17/17. I agree with the above assessment and plan of care. cc: MD Shady Villarreal MD MTDD
--- NOTE | 2017-01-17 19:44 | PROGRESS NOTE ---
DATE: 01/17/2017 SUBJECTIVE: Interval history was reviewed over the weekend. The patient did receive significant platelet transfusion to keep the platelet count above 100. He is slowly awake off sedation, able to make eye contact. REVIEW OF SYSTEMS: None reported. OBJECTIVE: Vital Signs: Afebrile. He is tachycardic. Blood pressure is 111/ 52. He is on vent settings. I/O's negative 987. HEENT: He has subconjunctival hemorrhage. Pupils equal, reactive to light. Ecchymoses and petechial rash on the upper part of the body noted. Chest: Bilateral air entry. Heart: Sounds are regular. Abdomen: Belly is soft, nontender. Rectal: tube and Thayer were placed. No urine output was noted. LABS: ABGs: pH is 7.42, pCO2 30, PO2 80 on assisted control 14, FiO2 40%. Tidal volume 600, PEEP of 5. SMA 7: Sodium 135, potassium 4.3, chloride 101, BUN 63, creatinine 2.7, glucose 257, elevated LFTs. Repeat cultures were negative. ASSESSMENT AND PLAN: 1. Subarachnoid bleed due to thrombocytopenia. Keep the platelet count at 100, 000. Patient was given platelet transfusion by Dr. Licea. The patient is getting a CT of the head this afternoon. 2. Acute kidney injury. Going for hemodialysis with sustained low-efficiency daily dialysis (SLEDD). 3. Hemodynamics are stable. 4. Acute hypoxic failure. Chest x-ray is improving. Continue present vent settings. 5. Enteral feeding. Not able to tolerate due to high residuals. Continue on intravenous proton pump inhibitor to prevent the stress-induced gastropathy. 6. Klebsiella abscess and pneumonia. Continue on the intravenous antibiotics with present doses. 7. Chronic diarrhea. CT of the abdomen and pelvis negative Xifaxan and enteral feeding with intravenous peripheral parenteral nutrition . 8. Right leg peripheral vascular disease. On Pletal. 9. Living will, Do Not Resuscitate 2 discussed with the patient, . LEVEL OF DOCUMENTATION: Thirty-five minutes. cc: Shady Johnson MD [facility]
--- NOTE | 2017-01-17 20:01 | PROGRESS NOTE ---
DATE: 01/17/2017 PRESENT ILLNESS: The patient has a Klebsiella perirectal abscess and pneumonia. MEDICATIONS: This is day 5 for Rocephin. PHYSICAL EXAMINATION: Vital Signs: Temperature is 98.1 degrees, pulse 99, respirations 22, blood pressure 111/52. General: This is an ill-appearing, middle-aged male. He is intubated and sedated. Lungs: Bilateral rhonchi. Cardiovascular: Regular heart right. Abdomen: Soft and nontender. LAB AND X-RAY: CBC shows a white count of 8240, hemoglobin 8, platelet count 84,000, blood gases show a pH of 7.42, a PO2 of 80 and a pCO2 of 30. Creatinine is 2.7, GFR is 24, alkaline phosphatase is 218. Blood and urine cultures are sterile. CT scan shows subarachnoid hemorrhage. Chest x-ray shows bilateral infiltrates. ASSESSMENT AND PLAN: Patient has Klebsiella pneumonia and perirectal abscess. My plan is to continue treatment with Rocephin. The patient's comorbid comorbidities include subarachnoid hemorrhage, chronic obstructive pulmonary disease, gastroesophageal reflux disease and cirrhosis of the liver. cc: MD Shady Gunter MD
[2017-01-18] MEDS: CLINIMIX E 4.25%-5% SOLUTION 1,000 ML IV SCH ×3 (00:30→22:52)
[2017-01-18] MEDS ORDERED: LACRI-LUBE OPH OINT BOTH EYES ONE (00:34)
[2017-01-18] MEDS: REGLAN IV SCH ×4 (03:50→20:19)
[2017-01-18] MEDS: DUONEB (A & A) INH SCH ×4 (03:51→19:34)
[2017-01-18] MEDS ORDERED: LACRI-LUBE OPH OINT BOTH EYES PRN (04:04)
[2017-01-18 04:46] LABS: ALLEN TEST YES; BE -3.2 mmoll (-3.0-3.0); BLOOD TYPE ARTERIAL; DRAW SITE R RADIAL; METHB 1.5 % (0.0-1.5); O2(CT) 11.6 mL/dL (15.0-23.0); PCO2(98.6) 31 mmHg (35-45); PO2(98.6) 85 mmHg (60-100); SAMPLE BLOOD; SAO2 98.3 % (95.0-100.0); SRATE 14 BPM; THB 8.6 g/dL (11.5-17.4); TVOL 700 mL; pH(98.6) 7.43 (7.35-7.45)
[2017-01-18 04:47] LABS: MODALITY VENTILATOR
[2017-01-18 05:28] LABS: ALBUMIN 2.5 g/dL (3.5-5.0); CALCIUM 8.7 mg/dL (8.8-10.2); POTASSIUM 4.7 mmol/L (3.5-5.1); TOTAL BILIRUBIN 1.41 mg/dL (0.20-1.00); TOTAL PROTEIN 5.9 g/dL (6.3-8.3)
[2017-01-18] MEDS ORDERED: NS 2,000 ML ONE (07:24)
[2017-01-18] MEDS ORDERED: HEPARIN ONE (07:24)
--- NOTE | 2017-01-18 07:35 | Diag Imaging Result Doc PS360 ---
CHEST-PORTABLE - 01/18/2017 INDICATION: respiratory failure TECHNIQUE: COMPARISON: 01/17/2017 FINDINGS: Support lines and tubes are stable. Stable significant cardiomegaly and pulmonary vascular congestion. Stable diffuse bilateral pulmonary infiltrates compatible with edema and/or volume overload. No pneumothorax or large effusion. IMPRESSION: No change from prior. Electronically signed by Aydin Geiger 01/18/2017 7:32 AM
[2017-01-18] MEDS: NUBAIN IV PRN ×2 (08:53→16:43)
[2017-01-18] MEDS: BUSPAR PO SCH ×3 (08:55→16:46)
[2017-01-18] MEDS: PLETAL PO SCH ×2 (08:56→20:18)
[2017-01-18] MEDS: XIFAXAN PO SCH ×2 (08:56→20:18)
[2017-01-18] MEDS: LOPRESSOR PO SCH ×2 (08:57→16:46)
[2017-01-18] MEDS: PATIENT'S OWN MED PO SCH (09:13)
[2017-01-18] MEDS: PERIDEX MT SCH ×2 (09:14→20:18)
[2017-01-18] MEDS: PROTONIX IV SCH ×2 (09:14→20:19)
--- NOTE | 2017-01-18 09:33 | PROGRESS NOTE ---
DATE: 01/18/2017 SUBJECTIVE: Unresponsive. OBJECTIVE: Vital Signs: Blood pressure 114/51, heart rate 121, respiration 24, temperature 99.5 degrees. Intake 2.8 L. Output 2.6 L. PHYSICAL EXAMINATION: No acute distress.Skin: Warm and dry. Neck: Neck veins are not appreciated. Heart: Regular without gallops. Lungs: Equal and clear. Abdomen: Soft, nontender. Bowel sounds present. Extremities: Have 2+ edema. No clubbing or cyanosis. LABORATORY DATA: Sodium 136, potassium 4.7, chloride 100, bicarbonate 20, BUN 53, creatinine 2.5. Hemoglobin 8.0. IMPRESSION: Acute kidney injury. No recovery. SLED today. A 4 potassium bath, 27 bicarbonate. 8 hours. Two to 3 L ultrafiltration. cc: MD Shady Villarreal MD
[2017-01-18] MEDS: HUMULIN R SUBQ SCH ×4 (10:06→20:18)
[2017-01-18] MEDS: LEVOPHED 8 MG in D5 1/2 NS 250 ML IV SCH (11:39)
[2017-01-18] MEDS: SOLU-CORTEF IV SCH (14:12)
[2017-01-18] MEDS: ROCEPHIN 2 GM in NS 50 ML IV SCH (18:20)
--- NOTE | 2017-01-18 18:39 | PROGRESS NOTE ---
DATE: 01/18/2017 PRESENT ILLNESS: The patient has Klebsiella perirectal abscess and pneumonia. MEDICATIONS: The patient is on Rocephin now for the 6th day. PHYSICAL EXAMINATION: Vital Signs: Temperature is 99.8 degrees, pulse 122, respirations 21, blood pressure 114/57. General: This is an ill-appearing, middle-aged male. He is intubated and sedated. Cardiovascular: Heart rate is regular. Lungs: There were bilateral rhonchi. Abdomen: Soft and nontender. Neurologic: The patient is intubated, he has obtunded. IV catheters-R internal jugular vein catheter and PICC sites not red or swollen. LAB AND X-RAY: Patient's chest x-ray shows bilateral infiltrates. The patient' s blood gases show a pH of 7.43, a PO2 of 85 and a pCO2 of 31. Creatinine is 2.5. GFR is 26. AST is 61. Blood and urine cultures are sterile. ASSESSMENT AND PLAN: Patient has Klebsiella pneumonia and perirectal abscess. I plan to continue Rocephin. I have ordered a CBC for tomorrow. COMORBIDITIES: Include subarachnoid hemorrhage, chronic obstructive pulmonary disease, gastroesophageal reflux disease and cirrhosis of the liver. cc: MD Shady Gunter MD MTDD
--- NOTE | 2017-01-18 19:08 | PROGRESS NOTE ---
DATE: 01/18/2017 SUBJECTIVE: The patient is awake but not able to focus, not able to move the extremities. REVIEW OF SYSTEMS: None reported. PHYSICAL EXAMINATION: Vital Signs: He has low-grade fever, tachycardic, blood pressure is low on mechanical ventilation. General: The patient is getting bathing today. Neck: Right-sided dialysis catheter noted in the neck, intubated. HEENT: Will open eyes. Petechial hemorrhage on the head. Chest: Bilateral air entry. Heart: Sounds are regular. Abdomen : Belly is soft, nontender. Rectal: Thayer rectal tube was placed. PICC line on the right side is fine. Rectal area slightly excoriated. He also had a stage I pressure ulcer noted. Neurologic Examination: Not able to move the legs, arms. LABORATORIES: CBC was not done. ABG: pH is 7.43, pCO2 31, PO2 85 on mechanical ventilation, 40% FiO2, tidal volume 700, PEEP of 5. SMA 7, BUN 53, creatinine 2.5. LFTs were high. ASSESSMENT AND PLAN: 1. Subarachnoid bleed. Keep the platelet count above 90,000 close to 100. Follow up on CBC. 2. Acute respiratory failure. Stable on the vent. 3. Hemodynamics were stable. 4. Enteral feeding not able to tolerate. 5. Stage I pressure ulcer, on DuoDERM patch. 6. Nutrition through IV PPN. 7. Acute kidney injury. Getting dialysis today with SLEDD. 8. History of Klebsiella infection. Change the antibiotics to IV ceftriaxone. 9. Continue GI prophylaxis and No significant improvement. Discussed with patient and . Continue DNR to see progress. Repeat labs in the morning. LEVEL OF DOCUMENTATION: 25 minutes. cc: Shady Johnson MD [facility]
[2017-01-18] MEDS: SODIUM CHLORIDE 0.9% INJ SCH (20:19)
[2017-01-19] MEDS: CLINIMIX E 4.25%-5% SOLUTION 1,000 ML IV SCH ×2 (02:00→13:02)
[2017-01-19] MEDS: DUONEB (A & A) INH SCH ×4 (02:35→19:39)
[2017-01-19] MEDS: REGLAN IV SCH ×4 (02:40→20:27)
[2017-01-19 04:35] LABS: ALLEN TEST YES; BE -2.7 mmoll (-3.0-3.0); BLOOD TYPE ARTERIAL; DRAW SITE R RADIAL; METHB 1.4 % (0.0-1.5); O2(CT) 10.1 mL/dL (15.0-23.0); PCO2(98.6) 30 mmHg (35-45); PO2(98.6) 77 mmHg (60-100); SAMPLE BLOOD; SAO2 97.9 % (95.0-100.0); SRATE 14 BPM; THB 7.5 g/dL (11.5-17.4); TVOL 700 mL; pH(98.6) 7.45 (7.35-7.45)
[2017-01-19 04:37] LABS: MODALITY VENTILATOR
[2017-01-19 05:00] LABS: BASO% 0.2 % (0.0-0.8); EOS# 0.22 X1000 (0.0-0.7); EOS% 2.2 % (0.0-10.0); HEMATOCRIT 25.4 % (42.0-52.0); HEMOGLOBIN 8.2 g/dL (14.0-18.0); IMM GRAN# 0.05 X1000 (0.0-0.04); IMM GRAN% 0.5 % (0.0-0.5); LYMPH# 1.04 X1000 (1.2-3.4); LYMPH% 10.5 % (20.5-51.1); MANUAL DIFF NEEDED? YES; MCH 31.9 PG (27-31); MCHC 32.3 g/dL (33-37); MCV 98.8 FL (81-99); MONO# 0.71 X1000 (0.11-0.59); MONO% 7.2 % (1.7-9.3); MPV 13.1 FL (7.4-10.4); NEUT% 79.4 % (42.2-75.2); PLT 82 X1000 (130-400); RBC 2.55 XMIL (4.7-6.1)
[2017-01-19 05:07] LABS: ALBUMIN 2.3 g/dL (3.5-5.0); CALCIUM 8.8 mg/dL (8.8-10.2); POTASSIUM 4.9 mmol/L (3.5-5.1); TOTAL BILIRUBIN 1.34 mg/dL (0.20-1.00); TOTAL PROTEIN 5.4 g/dL (6.3-8.3)
[2017-01-19] MEDS: HUMULIN R SUBQ SCH ×4 (06:21→20:28)
[2017-01-19 06:39] LABS: EOS 2 % (1-10); MONO 8 % (1-9)
[2017-01-19 06:40] LABS: LARGE PLATELETS OCCASIONAL; LYMPHS 8 % (21-51)
--- NOTE | 2017-01-19 07:21 | Diag Imaging Result Doc PS360 ---
EXAM: CHEST-PORTABLE HISTORY: respiratory failure TECHNIQUE: AP portable at the 0500 COMMENT: There is a NG tube which passes below the diaphragm and an endotracheal tube with its tip at the shantell. There is a right internal jugular central venous catheter with its tip in the superior vena cava. There is interstitial pulmonary edema. Compared to the previous study of 01/18/2017 this has not changed. IMPRESSION: Pulmonary edema. Electronically signed by Magdi Wilkinson 01/19/2017 7:18 AM
[2017-01-19] MEDS ORDERED: NS 2,000 ML ONE (07:23)
[2017-01-19] MEDS ORDERED: HEPARIN ONE (07:23)
[2017-01-19] MEDS: PROTONIX IV SCH ×2 (08:32→20:27)
[2017-01-19] MEDS: BUSPAR PO SCH ×3 (08:32→16:11)
[2017-01-19] MEDS: PATIENT'S OWN MED PO SCH (08:32)
[2017-01-19] MEDS: XIFAXAN PO SCH ×2 (08:32→20:28)
[2017-01-19] MEDS: PLETAL PO SCH ×2 (08:32→20:28)
[2017-01-19] MEDS: SOLU-CORTEF IV SCH (08:32)
[2017-01-19] MEDS: SODIUM CHLORIDE 0.9% INJ SCH ×2 (08:32→20:27)
[2017-01-19] MEDS: LOPRESSOR PO SCH (08:33)
[2017-01-19] MEDS: PERIDEX MT SCH ×2 (08:33→20:27)
--- NOTE | 2017-01-19 09:09 | PROGRESS NOTE ---
DATE: 01/14/2017 SUBJECTIVE: The patient is resting in bed. The patient is intubated and vented. He is off sedation. He has some spontaneous limb movements. He continues to have difficulty tolerating tube feeds. He continues high residuals. His NG tube has been clamped. He continues to have liquid stool in the rectal tube. OBJECTIVE: Vital signs: Temperature 98.8, pulse of 99, respiratory 22, blood pressure 125/54, saturating 98% on 40% FiO2. General appearance: He is moderately nourished, lying in bed, currently intubated and vented. HEENT: Pale conjunctivae. Icteric sclera. An NG tube in place, draining dark-colored drainage. Neck: Supple. Abdomen: Soft, nondistended. No guarding. Extremities: Bruising noted over upper extremities, and status post left below-knee amputation. Neurologic: He does not open his eyes to commands. He has some spontaneous lower extremity movements. He is off sedation. According the nurses, he did open his eyes today. LABORATORY: Hemoglobin and hematocrit are 8 and 24.7, white count of 8.5, platelet count of 66,000. ABG showing pH of 7.45, pCO2 29, pO2 92. This is on FiO2 of 40%. Sodium 132, potassium 5.3, chloride 101, bicarb of 18, anion gap 16, BUN of 61, creatinine 2.4, glucose of 133, calcium is 8.6. Total bilirubin is 2.32, AST 78, ALT 50, alkaline phosphatase 167. Total protein 5, albumin of 2.4. IMAGING: X-ray of the chest, done today, showed stable chest. IMPRESSION AND PLAN: 1. Nonalcoholic steatohepatitis and cirrhosis. Continue watch for now. 2. Thrombocytopenia. Continue to watch for now. The patient does have bruising over the upper extremities, so we will have to avoid using any kind of heparin with dialysis. 3. Diarrhea, negative stool studies. Unclear, could be secondary to ischemic bowel. Will need to obtain imaging of the abdomen and pelvis at some point. This has been ordered, but not been done because of the patient's unstable status. 4. Subarachnoid hemorrhage. Aware. 5. Klebsiella pneumoniae and perirectal abscess. Continue antibiotics. 6. Failure to tolerate enteral feeding, despite being on Reglan, so we may have to consider total parenteral nutrition, but total parenteral nutrition can cause fluid overload. We will leave to the discretion of the Pulmonary team and the Nephrology team. 7. Renal failure. He is on hemodialysis. The above plan was discussed with the patient's nurse at bedside. All questions answered. cc: MD Shady Johnston Dr., MD
--- NOTE | 2017-01-19 11:32 | PROGRESS NOTE ---
DATE: 01/19/2017 SUBJECTIVE: He has eyes open and looking forward, but does not respond to verbal or tactile stimuli. OBJECTIVE: Vital Signs: Blood pressure 102/58, heart rate 100, respirations 24, afebrile. Intake 2.4 L, output 4.1 L. General: On physical exam, no acute distress. Skin: Warm and dry. HEENT: Conjunctivae are pink. Oropharynx is dry. Neck: Neck veins are not appreciated. Heart: Regular and tachycardic. Lungs: Have equal breath sounds. Coarse. A few crackles. Abdomen: Soft, nontender. Bowel sounds present. Extremities: Have 2+ edema. No clubbing or cyanosis. LABORATORY DATA: Sodium 134, potassium 4.9, chloride 101, bicarbonate 20, BUN 46, creatinine 2.2, hemoglobin 8.2. IMPRESSION: Acute kidney injury. No recovery. We will perform a standard intermittent hemodialysis treatment today using a 2 potassium bath and a goal of 2-3 liters ultrafiltration. Electrolytes and acid-base are acceptable. Hemoglobin is within target. cc: MD Shady Villarreal MD
[2017-01-19] MEDS: NUBAIN IV PRN (14:53)
--- NOTE | 2017-01-19 16:57 | PROGRESS NOTE ---
DATE: 01/19/2017 SUBJECTIVE: The patient is resting in bed. He is intubated and vented. He is off sedation. He opens his eyes sometimes. He continues to have trouble tolerating tube feeds. Continues to have some liquid stool in the rectal tube. Stool studies have been negative. The last imaging of the abdomen and pelvis, abdomen was done on 01/09/2017 which showed anasarca, ascites, splenomegaly, pulmonary edema, pleural effusion, atelectasis and pneumonia in the left lower lobe. There was no evidence of any gallstones. No evidence of any appendicitis. No evidence of any bowel dilation, and the spleen size was 16.5 cm. OBJECTIVE: Vital signs: Temperature 99.6, pulse of 85, respiratory rate 20, blood pressure 193/43, saturating 90% on mechanical ventilator. FiO2 of 40%. General: Moderately built, moderately nourished , lying in bed, currently vented and intubated. HEENT: Positive ET tube. Positive NG tube. Pale conjunctivae. No icterus. Neck: Supple. Abdomen: Soft. No guarding. No rebound. No distention. Extremities: Status post left below-knee amputation. Neurologic: He occasionally opens up his eyes. Does not follow any commands. LABORATORIES: Hemoglobin and hematocrit is 8.2 and 25.4, white count 9.8, platelet count of 82,000. PH of 7.45, PCO2 30, PO2 77. This is on FiO2 40%. His lactate is 1.9, sodium 130, potassium 4.9, chloride 101, bicarb 29, anion gap 13, BUN of 46, creatinine 2.2, glucose of 144. Calcium is 8.8, total bilirubin is 1.34, AST 55, ALT 59. Alkaline phosphatase 229. Total protein is 5.4, albumin of 2.3. Blood culture has been negative x2. It was drawn 01/11. Stool culture were drawn on 01/03. We will repeat those which were negative. IMPRESSION AND PLAN: 1. Subarachnoid bleed. Being monitored primary care team. 2. Failure to tolerate NG tube feeds, despite being on Reglan. He continues on Clinimix for now. May consider TPN if okay with the Pulmonary Team and Critical Care Team. 3. Ongoing diarrhea. We will repeat the stool studies. We will start him on Culturelle per the NG tube twice daily. 4. Kidney failure, currently undergoing dialysis by Dr. Adame. 5. Klebsiella pneumonia infection, continue on IV antibiotics. GI prophylaxis per PPI. 6. Nonalcoholic steatohepatitis complicated with cirrhosis. Mildly elevated liver enzymes, sepsis, thrombocytopenia, anasarca, hypoalbuminemia. Continue to watch for now and try to avoid hepatotoxic drugs. 7. Further recommendations to follow pending hospital course. cc: MD Shady Kelly MD Leroy F. Harris, MD James E. Boyle, MD
[2017-01-19] MEDS: ROCEPHIN 2 GM in NS 50 ML IV SCH (17:26)
--- NOTE | 2017-01-19 19:25 | PROGRESS NOTE ---
DATE: 01/18/2017 SUBJECTIVE: The patient is awake, but not communicating. He would make an eye contact, moving spontaneously. PHYSICAL EXAMINATION: Vital Signs: Low-grade fever, tachycardic, blood pressure is low. He is on mechanical ventilation. neck: Dialysis catheter. HEENT: He is opening his eyes. Lungs: Bilateral air entry. Heart: Normal sounds and regular rhythm. Abdomen: Soft. Nontender. rectal: The patient has rectal tube. skin: PICC line. He has a small pressure ulcer noted. Neurological: Not able to test. LABORATORY DATA: AB.43, pCO2 31, pO2 85 on 40% FiO2. BUN 53, creatinine 2.5. IMPRESSION AND PLAN: 1. Subarachnoid bleed. 2. Acute respiratory failure, stable on vent. 3. Acute kidney injury. Getting dialysis today. 4. Enteral feeding, is not tolerating. 5. Stage I pressure ulcer. 6. Nutrition. He is getting IV PPN. 7. Klebsiella infection. 8. Gastrointestinal prophylaxis. 9. H is currently Do Not Resuscitate. Family, is aware. Dr. Johnson is talking to her. cc: MD Shady Lopez MD MTDD
--- NOTE | 2017-01-19 20:24 | PROGRESS NOTE ---
DATE: 01/19/2017 SUBJECTIVE: The patient is still awake, not following with verbal commands. REVIEW OF SYSTEMS: None reported. OBJECTIVE: Low-grade fever. Respirations 20, blood pressure is 119/60 on mechanical ventilation. Chest: Clear. Heart Sounds are regular. Abdomen: Belly is soft, nontender. Extremities: Slight bruising noted. INVESTIGATIONS: CBC: White cell count 9.8, hematocrit 25, platelets 82. An ABG pH is 7.45, pCO2 30, PO2 77, 91% on mechanical ventilation. Sodium 134, potassium 4.9, chloride 101, BUN 46, creatinine 2.2, glucose 144. LFTs are slightly high. Microbiology cultures were negative. ASSESSMENT AND PLAN: 1. Subarachnoid bleed slowly improving. Keep the platelet count more than 100, 000. Transfuse one platelet unit. 2. Anemia with underlying coronary artery disease. Transfuse a unit of blood. 3. Enteral feeding not able to tolerate. Continue IV PPN. 4. Klebsiella infection on IV ceftriaxone. Dr. Back repeated the stool cultures again. 5. Living will, Do Not Resuscitate. No significant change. Continue supportive care. Hemodialysis as per Dr. Adame. Level of documentation 25 minutes. cc: Shady Johnson MD [facility]
[2017-01-20] MEDS: CLINIMIX E 4.25%-5% SOLUTION 1,000 ML IV SCH ×2 (01:40→13:58)
[2017-01-20] MEDS: DUONEB (A & A) INH SCH ×4 (03:00→18:58)
[2017-01-20] MEDS: REGLAN IV SCH ×5 (03:44→20:26)
[2017-01-20 04:24] LABS: ALLEN TEST YES; BE -0.2 mmoll (-3.0-3.0); BLOOD TYPE ARTERIAL; DRAW SITE R RADIAL; METHB 1.1 % (0.0-1.5); O2(CT) 24.8 mL/dL (15.0-23.0); PCO2(98.6) 34 mmHg (35-45); PO2(98.6) 91 mmHg (60-100); SAMPLE BLOOD; SAO2 98.3 % (95.0-100.0); SRATE 14 BPM; THB 18.5 g/dL (11.5-17.4); TVOL 700 mL; pH(98.6) 7.44 (7.35-7.45)
[2017-01-20 04:25] LABS: MODALITY VENTILATOR
[2017-01-20 05:03] LABS: MANUAL DIFF NEEDED? NO
[2017-01-20 05:32] LABS: ALBUMIN 2.2 g/dL (3.5-5.0); CALCIUM 8.5 mg/dL (8.8-10.2); POTASSIUM 4.7 mmol/L (3.5-5.1); TOTAL BILIRUBIN 1.56 mg/dL (0.20-1.00); TOTAL PROTEIN 5.4 g/dL (6.3-8.3)
[2017-01-20 05:51] LABS: BASO% 0.2 % (0.0-0.8); EOS# 0.43 X1000 (0.0-0.7); EOS% 5.3 % (0.0-10.0); HEMATOCRIT 25.8 % (42.0-52.0); HEMOGLOBIN 8.3 g/dL (14.0-18.0); LYMPH# 0.96 X1000 (1.2-3.4); LYMPH% 11.9 % (20.5-51.1); MCH 31.4 PG (27-31); MCHC 32.2 g/dL (33-37); MCV 97.7 FL (81-99); MONO# 0.52 X1000 (0.11-0.59); MONO% 6.4 % (1.7-9.3); MPV 12.6 FL (7.4-10.4); NEUT% 76.2 % (42.2-75.2); PLT 70 X1000 (130-400); RBC 2.64 XMIL (4.7-6.1)
[2017-01-20] MEDS: HUMULIN R SUBQ SCH ×4 (06:22→20:26)
--- NOTE | 2017-01-20 06:56 | PROGRESS NOTE ---
DATE: 01/20/2017 PRESENT ILLNESS: The patient has a Klebsiella perirectal abscess and pneumonia. MEDICATIONS: This is day 8 of treatment with Rocephin. PHYSICAL EXAMINATION: Vital Signs: Temperature is 99.3 degrees, pulse 94, respirations 19, blood pressure 101/43. General: This is an ill-appearing, middle-aged male. He is intubated and sedated. The patient has a diffuse edema and ecchymotic areas. Extremities: Patient has a PICC in the right arm. The site is not erythematous or swollen. Lungs: Clear to auscultation. Cardiovascular: Heart rate is regular. Abdomen: Soft and nontender. LAB AND X-RAY: The patient's chest x-ray today shows bilateral infiltrates. Liver function studies are slightly elevated. The patient's blood gases show a pH of 7.44, pO2 of 91, a pCO2 of 34. Creatinine is 2.5. GFR is 26. CBC shows a white count of 8100, hemoglobin 8.3, and platelet count 70,000. A chest x-ray has been taken this morning. The report of it is pending. ASSESSMENT AND PLAN: Patient has a Klebsiella pneumoniae and perirectal abscess. I plan to continue Rocephin. COMORBIDITIES: Subarachnoid hemorrhage, COPD, gastroesophageal reflux disease, and cirrhosis of the liver. cc: MD Shady Gunter MD
--- NOTE | 2017-01-20 07:08 | Diag Imaging Result Doc PS360 ---
EXAM: CHEST-PORTABLE HISTORY: respiratory failure TECHNIQUE: AP portable at 0500 COMMENT: There is an endotracheal tube with its tip slightly above the shantell. There is an NG tube which passes below the diaphragm. The right PICC line and internal jugular line remain in place. There is still diffuse interstitial opacity bilaterally which has not changed appreciably since 01/19/2017. The heart size remains enlarged. The inspiration remains suboptimal. IMPRESSION: Pulmonary edema. Cardiomegaly. Electronically signed by Magdi Wilkinson 01/20/2017 7:05 AM
[2017-01-20] MEDS: NUBAIN IV PRN (07:34)
[2017-01-20] MEDS ORDERED: NS 2,000 ML ONE (08:33)
[2017-01-20] MEDS ORDERED: HEPARIN ONE (08:33)
[2017-01-20] MEDS: SODIUM CHLORIDE 0.9% INJ SCH ×2 (08:57→20:26)
[2017-01-20] MEDS: PLETAL PO SCH ×2 (08:57→21:05)
[2017-01-20] MEDS: BUSPAR PO SCH ×3 (08:57→17:23)
[2017-01-20] MEDS: PERIDEX MT SCH ×2 (08:57→20:26)
[2017-01-20] MEDS: PROTONIX IV SCH ×2 (08:57→20:26)
[2017-01-20] MEDS: XIFAXAN PO SCH ×2 (08:57→20:26)
[2017-01-20] MEDS: SOLU-CORTEF IV SCH (08:57)
[2017-01-20] MEDS: LOPRESSOR PO SCH (08:58)
[2017-01-20 09:06] LABS: MPV 12.7 FL (7.4-10.4)
[2017-01-20] MEDS: FLAGYL PO SCH ×2 (09:31→21:24)
[2017-01-20] MEDS: PATIENT'S OWN MED PO SCH (09:31)
--- NOTE | 2017-01-20 09:33 | PROGRESS NOTE ---
DATE: 01/20/2017 SUBJECTIVE: The patient is awake, not following with verbal commands. REVIEW OF SYSTEMS: Unable to obtain. EXAMINATION: General: He is awake. He is on ventilator support. Hemodynamics were stable. Chest: Clear. Heart: Sounds are regular. Abdomen: Belly is soft, nontender. Left leg: Below-knee was amputated. INVESTIGATIONS: CBC: White cell count 8.1, hematocrit 26, platelets 70,000. ABG: pH is 7.44, pCO2 34, pO2 91 on mechanical ventilation. SMA-7: BUN 50, creatinine 2.5. LFTs were slightly high. ASSESSMENT AND PLAN: 1. Subarachnoid bleed. Continue to hematological support for platelets more than 100,000. 2. Continue ventilator support, stable. Chest x-ray stable. 3. Enteral feeding. Not able to tolerate. Continues to have diarrhea and worsening of the perirectal abscess. Residuals 120 mL. 4. Diarrhea. We will add p.o. Flagyl. 5. Perirectal abscess. Continue on IV ceftriaxone. 6. Kidney failure on dialysis as needed. Continue supportive care. 7. Living will/Do Not Resuscitate 2. We will discuss with the about his status. LEVEL OF DOCUMENTATION: 25 minutes. cc: Shady Johnson MD
--- NOTE | 2017-01-20 13:49 | PROGRESS NOTE ---
DATE: 01/20/2017 SUBJECTIVE: Patient is currently resting in bed. He is intubated and vented. He opens his eyes spontaneously. His is at the bedside. He had a low-grade fever this morning of 99.6. He continues having difficulty with tolerating NG tube feeds. Last night he was started on tube feeds at 20 mL/h from 3 a.m. to 7 a.m. and at change of shift he had 120 mL of residuals. He has ongoing diarrhea in the rectal tube. The stool studies were again done yesterday which were in negative for C. difficile. OBJECTIVE: Vital signs: Temperature 99.6 degrees, pulse rate 112, respiratory rate 19, blood pressure 170/70, saturating 90% on 40% FiO2. General appearance: Moderately built, moderately nourished, lying in bed, currently intubated and vented. HEENT: NG tube in place. Positive pallor. Questionable icterus. Neck: Supple. Abdomen: Soft. No guarding. No rebound. Extremities: No cyanosis or clubbing. He is status post left below-knee amputation. Neurologic: He opens eyes spontaneously. Does not answer any questions or obey any commands. LABS: His hemoglobin and hematocrit are 8.3 and 25.8, white count of 8.1, platelet count of 71,000. ABG showing pH of 7.44, pCO2 34, PO2 91; this is on the ventilator support, FiO2 of 40%. Sodium 130, potassium 4.7, chloride 97, bicarb 29, anion gap of 16, BUN of 50, creatinine 2.5, glucose, calcium is 8.5, total bilirubin is 1.56, AST 50, ALT 55, alkaline phosphatase 212, total protein 5.4, albumin of 2.2. Residuals on the NG tube were positive and his tube is now again being held. He continues Clinimix. Rectal Tube has put out 390 mL today. He is getting dialysis today. The stool is liquid brown. IMPRESSION AND PLAN: 1. Nonalcoholic steatohepatitis complicated with liver cirrhosis. Continue to follow his liver enzymes, ammonia level, and CBC. 2. Subarachnoid bleed. Being monitored by the primary team. 3. Failure to tolerate NG tube feeds despite being on Reglan. Continue the Clinimix. May consider TPN if okay with the primary care team and critical care team. 4. Ongoing diarrhea. Negative stool studies x2. Will follow the finalized report of stool culture. 5. Kidney failure, on hemodialysis. Undergoing dialysis today. 6. Klebsiella pneumonia infection. On IV antibiotics. 7. Perirectal abscess status post drainage. On antibiotics. 8. Gastrointestinal prophylaxis with PPIs. 9. The above plan of care is discussed with the patient and patient's family at bedside and all questions answered. cc: MD Shady Kelly MD Leroy F. Harris, MD James E. Boyle, MD MTDD
[2017-01-20] MEDS: LEVOPHED 8 MG in D5 1/2 NS 250 ML IV SCH (15:12)
--- NOTE | 2017-01-20 16:11 | PROGRESS NOTE ---
DATE: 01/20/2017 SUBJECTIVE: He did not really respond to me. The family states that he does respond. He is coughing. OBJECTIVE: Vital Signs: Blood pressure 96/45, heart rate 75, respiration 18, afebrile. Intake 3.1 L. Output 3.8 L. General: No acute distress. Skin: Warm and dry. HEENT: Conjunctivae are pink. Oropharynx is dry. Neck: Neck veins are not distended. Heart: Regular without gallops. Lungs: Have equal breath sounds. Coarse. Few crackles. Abdomen: Soft, nontender. Bowel sounds present. Extremities: Have 3+ edema. No clubbing or cyanosis. LABORATORY DATA: Sodium 135, potassium 4.7, chloride 97, bicarbonate 22, BUN 50, creatinine 2.5. Hemoglobin 8.3. IMPRESSION: 1. Acute kidney injury. No recovery. Continue daily SLED for volume management and uremia management. Electrolytes and acid-base are in target. 2. Anemia. Hemoglobin is below target but does not reach criteria for transfusion. cc: MD Shady Villarreal MD
[2017-01-20] MEDS: ROCEPHIN 2 GM in NS 50 ML IV SCH (17:22)
[2017-01-21] MEDS: DUONEB (A & A) INH SCH ×4 (02:38→21:15)
[2017-01-21] MEDS: CLINIMIX E 4.25%-5% SOLUTION 1,000 ML IV SCH ×2 (02:46→15:35)
[2017-01-21] MEDS: REGLAN IV SCH ×4 (03:33→20:05)
[2017-01-21 04:14] LABS: ALLEN TEST YES; BE 0.5 mmoll (-3.0-3.0); BLOOD TYPE ARTERIAL; DRAW SITE R RADIAL; METHB 0.8 % (0.0-1.5); MODALITY VENTILATOR; O2(CT) 11.7 mL/dL (15.0-23.0); PCO2(98.6) 29 mmHg (35-45); PO2(98.6) 59 mmHg (60-100); SAMPLE BLOOD; SAO2 95.4 % (95.0-100.0); SRATE 14 BPM; THB 8.9 g/dL (11.5-17.4); TVOL 700 mL; pH(98.6) 7.51 (7.35-7.45)
[2017-01-21 04:43] LABS: MANUAL DIFF NEEDED? NO
[2017-01-21 05:07] LABS: ALBUMIN 2.6 g/dL (3.5-5.0); POTASSIUM 4.1 mmol/L (3.5-5.1); TOTAL BILIRUBIN 1.15 mg/dL (0.20-1.00); TOTAL PROTEIN 5.5 g/dL (6.3-8.3)
[2017-01-21 05:10] LABS: BASO% 0.3 % (0.0-0.8); EOS# 0.38 X1000 (0.0-0.7); EOS% 5.8 % (0.0-10.0); HEMATOCRIT 26.3 % (42.0-52.0); HEMOGLOBIN 8.3 g/dL (14.0-18.0); IMM GRAN# 0.02 X1000 (0.0-0.04); IMM GRAN% 0.3 % (0.0-0.5); LYMPH# 0.82 X1000 (1.2-3.4); LYMPH% 12.6 % (20.5-51.1); MCH 31.2 PG (27-31); MCHC 31.6 g/dL (33-37); MCV 98.9 FL (81-99); MONO# 0.52 X1000 (0.11-0.59); MPV 12.6 FL (7.4-10.4); PLT 47 X1000 (130-400); RBC 2.66 XMIL (4.7-6.1)
[2017-01-21] MEDS: HUMULIN R SUBQ SCH ×4 (06:08→20:06)
[2017-01-21] MEDS ORDERED: HEPARIN IV PRN (07:16)
[2017-01-21] MEDS ORDERED: NS 2,000 ML MISC PRN (07:16)
[2017-01-21] MEDS ORDERED: TIGHT: 0.2 ML/HR MISC PRN (07:16)
--- NOTE | 2017-01-21 07:36 | Diag Imaging Result Doc PS360 ---
EXAM: CHEST-PORTABLE INDICATION: respiratory failure TECHNIQUE: One view COMPARISON: 01/20/2017 FINDINGS: Support tubes and lines are in stable positions. Diffuse bilateral infiltrate is unchanged, most compatible with pulmonary edema. No new consolidations are appreciated. Cardiac silhouette is stable. IMPRESSION: Stable chest. Electronically signed by Brody Gomez 01/21/2017 7:34 AM
[2017-01-21] MEDS: PROTONIX IV SCH ×2 (08:14→20:05)
[2017-01-21] MEDS: XIFAXAN PO SCH ×2 (08:14→20:05)
[2017-01-21] MEDS: SOLU-CORTEF IV SCH (08:14)
[2017-01-21] MEDS: LOPRESSOR PO SCH (08:14)
[2017-01-21] MEDS: SODIUM CHLORIDE 0.9% INJ SCH ×2 (08:14→20:05)
[2017-01-21] MEDS: BUSPAR PO SCH ×3 (08:14→17:09)
[2017-01-21] MEDS: FLAGYL PO SCH ×2 (08:14→20:05)
[2017-01-21] MEDS: PERIDEX MT SCH ×2 (08:15→20:07)
[2017-01-21] MEDS: PATIENT'S OWN MED PO SCH (08:15)
--- NOTE | 2017-01-21 08:16 | PROGRESS NOTE ---
DATE: 01/21/2017 SUBJECTIVE: He remains sedated on the ventilator and unresponsive. OBJECTIVE: Vital Signs: Blood pressure 112/59, heart rate 85, respirations 26, afebrile, intake 3.1 L. Output 5.4 L. General: No acute distress. Skin: Warm and dry. Neck: Neck veins are not visible. Lungs: Have equal breath sounds with diffuse rhonchi. Heart: Regular without gallops. Abdomen: Soft and nontender. Bowel sounds are present. Extremities: Have 2+ edema. No clubbing or cyanosis. LABORATORY DATA: Sodium 139, potassium 4.1, chloride 104, bicarbonate 23, BUN 34, creatinine 1.7. Hemoglobin 8.3. IMPRESSION AND PLAN: 1. Acute kidney injury. No recovery. His uremia is well managed with daily SLED. We will use intermittent hemodialysis today instead of SLED for logistical reasons. Target 3 L ultrafiltration using a 3 potassium bath. 2. Electrolytes are acceptable. 3. Acid-base is in target. 4. Anemia. Hemoglobin is low, but stable and does not meet criteria for transfusion. cc: MD Shady Villarreal MD
[2017-01-21] MEDS ORDERED: NS 2,000 ML ONE (08:43)
[2017-01-21] MEDS ORDERED: HEPARIN ONE (08:43)
[2017-01-21 12:07] LABS: INR 1.36; PROTIME 14.6 Seconds (9.2-11.7); PTT 27.6 Seconds (22.0-36.0)
[2017-01-21 12:20] LABS: MPV 12.3 FL (7.4-10.4)
--- NOTE | 2017-01-21 13:07 | CONSULTATION ---
DATE OF CONSULTATION: 01/21/2017 REASON FOR CONSULTATION: Subarachnoid hemorrhage with thrombocytopenia. REQUESTING PHYSICIAN: Consultation requested by Dr. Taylor. HISTORY OF PRESENT ILLNESS: Mr. López is a critically ill, 61-year-old, male who is currently in the ICU. He is experiencing thrombocytopenia and also has a subarachnoid hemorrhage. It appears that the patient was initially admitted to the hospital back on 12/30 for a perirectal abscess after failed I and D as an outpatient. The patient has since had surgical I and D. He has had complications since that time. The patient also had comorbidities upon presentation as well. The patient has cirrhosis, as well as non alcoholic steatohepatitis. He has also developed kidney failure, as well as Klebsiella pneumonia infection. His perirectal abscess has started to worsen, even after surgical intervention. The patient has received several units of platelets. Today his platelets are 47,000. He is currently intubated. He is also undergoing slow, low efficiency dialysis while in the ICU. There is no family at bedside at this time. PAST MEDICAL HISTORY: 1. Coronary artery disease. 2. COPD. 3. Hypertension. 4. Acid reflux. 5. Cirrhosis of the liver due to ZHENG. 6. Splenomegaly. 7. Hyperlipidemia. 8. IBS. 9. Peripheral vascular disease. 10. Type 2 diabetes with neuropathy. 11. Chronic depression and anxiety. PAST SURGICAL HISTORY: 1. Status post bypass surgery. 2. [id number] amputation on the left leg. SOCIAL HISTORY: Patient is reported to be . 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 He currently lives in [place] and is disabled. Per the H and P, the patient denies any smoking, alcohol or drug use. FAMILY HISTORY: His father at age 58 from diabetes and heart disease, and his mother is currently living at 78 years old and is healthy. REVIEW OF SYSTEMS: Really could not be completed as the patient is intubated and there is no one at bedside. Reviewing from the chart, he has several issues going on. These seem to be expressed currently in the HPI. PHYSICAL EXAMINATION: Vital Signs: Temperature 99.3 degrees, heart rate 71, respirations 22, blood pressure 138/71, O2 saturation 95% on mechanical vent at 40%. General: This is a critically ill-appearing male, lying in the hospital bed. He is intubated. He is currently hooked up to hemodialysis. He is not moving or responsive to voice. HEENT: Head appears to be normocephalic, atraumatic. Eyes: His eyes are open. Sclerae appear to be with no erythema. Ears nose throat, neck, and mouth: Intubated. Trachea appears to be midline. Cardiovascular: S1, S2 heard. No murmurs, gallops, or rubs appreciated at this time. Respiratory: Patient has coarse breath sounds bilaterally. Gastrointestinal: Abdomen does seem protuberant. Decreased bowel sounds throughout. Abdomen is soft. Musculoskeletal: Patient does have that left [id number] amputation noted. Extremities: Patient has no right lower extremity edema at this time. Bilateral upper extremities have some edema with the right being slightly greater than the left. LABS AND STUDIES: White blood cells 6.51, hemoglobin 8.3, hematocrit 26.3, platelets 47. Sodium 139, potassium 4.1, chloride 104, CO2 23, BUN 34, creatinine 1.7 and glucose 147. Bilirubin 1.15, AST 71, ALT 70, alkaline phosphatase 241. CT of the head done on 01/17/2017 shows a subarachnoid hemorrhage over the cerebral convexities. This has diminished slightly since the previous study done on 01/12/2017. ASSESSMENT AND PLAN: 1. Thrombocytopenia. We will go ahead and check a DIC panel at this time. We will plan to replete with cryoprecipitate as needed. Patient is critically ill and also has liver disease. This is noted. With a subarachnoid hemorrhage, the goal would be to keep his platelets as close to 100,000 as possible. Agree with platelet transfusion after dialysis later today. We will also ensure that the patient is not becoming platelet refractory and get a 1 hour post platelet count after transfusions are completed today. 2. Subarachnoid hemorrhage. Most recent CT as per above. Again, platelet count goal should be around 100,000. 3. Liver disease with cirrhosis. Continue as per gastroenterology. 4. Respiratory failure. Pulmonology is on board. 5. Acute renal failure. Currently receiving slow, low efficiency dialysis. Continue as per Dr. Adame. 6. Pneumonia and rectal mass. Patient is on intravenous antibiotics. It appears that Dr. Ramires from infectious disease is also involved in the case. We want to thank you for consulting us on Mr. López. We will continue to follow along and adjust our treatment plan per his hospital course. Dictated by ALEXANDER Lopez for Alix King MD cc: MD Shady Riggs MD I have seen and examined the patient and the above note reflects my evaluation , assessment and plan. Alix King MD [facility]
[2017-01-21] MEDS: NUBAIN IV PRN ×2 (16:15→22:44)
[2017-01-21] MEDS: ROCEPHIN 2 GM in NS 50 ML IV SCH (17:09)
--- NOTE | 2017-01-21 17:28 | PROGRESS NOTE ---
DATE: 01/21/2017 PRESENT ILLNESS: The patient has a Klebsiella pneumonia and perirectal abscess. MEDICATIONS: The patient has been on Rocephin now for 9 days. PHYSICAL EXAMINATION: Vital Signs: Temperature is 97.3 degrees, pulse 74, respirations 16, blood pressure 115/58. General: This is an ill-appearing, middle-aged male. He is intubated and sedated. He has diffuse edema. He also has multiple ecchymotic areas. Both of the patient's IV catheter sites, 1 in the arm and 1 and neck are not erythematous or swollen. Lungs: Clear to auscultation. Cardiovascular: Heart rate is irregular. Abdomen: Soft and nontender. LAB AND X-RAY: CBC shows a white count of 6510, hemoglobin 8.3 and platelet count 42,000. Stool for Clostridium difficile culture and O and P are all negative. Chest x-ray shows bilateral infiltrates which could be due to fluid or infection or a combination of both. ASSESSMENT AND PLAN: I plan to continue Rocephin over the weekend and then the first of the week stop it because the patient was at close to 2 weeks of treatment and see how he does off the antibiotic. COMORBIDITIES: Subarachnoid hemorrhage, COPD, gastroesophageal reflux disease, cirrhosis of the liver. cc: MD Shady Gunter MD
[2017-01-21 17:31] LABS: MPV 10.3 FL (7.4-10.4)
--- NOTE | 2017-01-21 18:53 | PROGRESS NOTE ---
DATE: 01/21/2017 SUBJECT: Patient remains awake, nonverbal, not following with verbal commands. The patient did receive platelet transfusion. REVIEW OF SYSTEMS: None reported. The patient able to tolerate the tube feedings well. OBJECTIVE: Vital signs: Temperature is 97 degrees, pulse is 74, blood pressure 111/47 on mechanical ventilation. HEENT exam: Opening the eyes. Not following with verbal commands. Pupils equal, reactive to light. Good gag reflex and cough reflex. Chest: Bilateral air entry. Heart: Sounds are regular. Belly: Soft, nontender. He has a Thayer and rectal tube noted. Extremities: Left leg below-knee amputation noted. Right leg no ischemic changes in the foot noted. LABORATORIES: CBC. White cell count 6.1, hematocrit 26, platelet 82,000. PT 14, INR 1.3. ABG pH is 7.51, pCO2 of 29, PO2 59 on AC 14 FiO2 40%. Tidal volume 700, PEEP of 5. SMA 7. Sodium 139, potassium 4.1, chloride 104, BUN 34, creatinine 1.7, glucose 146, total bilirubin 1.1, increased LFTs and repeat stool white cells none. C. difficile negative. ASSESSMENT AND PLAN: 1. Subarachnoid bleed, stable. Keep the platelet count more than 100,000, transfuse 2 units of platelet count. 2. Acute respiratory failure, stable chest x-ray. Continue on mechanical ventilation. 3. Hemodynamics were stable off vasopressors. 4. Enteral feeding as tolerates. 5. Chronic diarrhea. Workup so far was negative. Continue on p.o. Flagyl. 6. Acute kidney injury. No recovery at this time. Continue supportive hemodialysis as per Dr. Adame. 7. History of Klebsiella perirectal abscess. Continue on IV ceftriaxone. 8. Living will, do not resuscitate 2. Enteral feeding with IV PPN. Discussed with patient about the status. Continue present therapy until Tuesday will reassess again. Will ask neurology consult if there is no better. LEVEL OF DOCUMENTATION: 25 minutes. cc: Shady Johnson MD
[2017-01-22] MEDS: CLINIMIX E 4.25%-5% SOLUTION 1,000 ML IV SCH ×3 (02:14→16:30)
[2017-01-22] MEDS: REGLAN IV SCH ×4 (02:14→20:04)
[2017-01-22 04:57] LABS: ALLEN TEST YES; BE 3.9 mmoll (-3.0-3.0); BLOOD TYPE ARTERIAL; DRAW SITE R RADIAL; METHB 1.2 % (0.0-1.5); O2(CT) 11.9 mL/dL (15.0-23.0); PCO2(98.6) 37 mmHg (35-45); PO2(98.6) 85 mmHg (60-100); SAMPLE BLOOD; SAO2 98.2 % (95.0-100.0); SRATE 14 BPM; THB 8.8 g/dL (11.5-17.4); TVOL 700 mL; pH(98.6) 7.48 (7.35-7.45)
[2017-01-22 04:58] LABS: MODALITY VENTILATOR
[2017-01-22 05:12] LABS: ALBUMIN 2.7 g/dL (3.5-5.0); CALCIUM 8.7 mg/dL (8.8-10.2); POTASSIUM 3.5 mmol/L (3.5-5.1); TOTAL BILIRUBIN 1.12 mg/dL (0.20-1.00); TOTAL PROTEIN 6.1 g/dL (6.3-8.3)
[2017-01-22] MEDS: HUMULIN R SUBQ SCH ×4 (06:18→20:05)
[2017-01-22] MEDS ORDERED: HEPARIN ONE (06:51)
[2017-01-22] MEDS ORDERED: NS 2,000 ML ONE (06:52)
--- NOTE | 2017-01-22 08:08 | Diag Imaging Result Doc PS360 ---
EXAM: CHEST-PORTABLE INDICATION: respiratory failure TECHNIQUE: One view COMPARISON: 01/21/2017 FINDINGS: Support tubes and lines are in stable positions. Diffuse bilateral infiltrates suggesting edema are unchanged. No new consolidations appreciated. Cardiac silhouette is stable. IMPRESSION: Stable chest. Electronically signed by Brody Gomez 01/22/2017 8:05 AM
[2017-01-22] MEDS: PATIENT'S OWN MED PO SCH (09:00)
[2017-01-22 09:10] LABS: MANUAL DIFF NEEDED? NO
[2017-01-22] MEDS: PERIDEX MT SCH ×2 (09:21→20:04)
[2017-01-22] MEDS: NUBAIN IV PRN (09:21)
[2017-01-22] MEDS: XIFAXAN PO SCH ×2 (09:22→20:04)
[2017-01-22] MEDS: SOLU-CORTEF IV SCH (09:22)
[2017-01-22] MEDS: LOPRESSOR PO SCH (09:22)
[2017-01-22] MEDS: BUSPAR PO SCH ×3 (09:22→17:35)
[2017-01-22] MEDS: PROTONIX IV SCH ×2 (09:23→20:04)
[2017-01-22 09:27] LABS: BASO% 0.5 % (0.0-0.8); EOS# 0.52 X1000 (0.0-0.7); EOS% 8.1 % (0.0-10.0); HEMATOCRIT 26.5 % (42.0-52.0); HEMOGLOBIN 8.2 g/dL (14.0-18.0); IMM GRAN# 0.02 X1000 (0.0-0.04); IMM GRAN% 0.3 % (0.0-0.5); LYMPH# 0.85 X1000 (1.2-3.4); LYMPH% 13.2 % (20.5-51.1); MCH 31.1 PG (27-31); MCHC 30.9 g/dL (33-37); MCV 100.4 FL (81-99); MONO# 0.38 X1000 (0.11-0.59); MONO% 5.9 % (1.7-9.3); MPV 11.6 FL (7.4-10.4); PLT 72 X1000 (130-400); RBC 2.64 XMIL (4.7-6.1)
[2017-01-22] MEDS: FLAGYL PO SCH ×2 (09:29→20:04)
[2017-01-22] MEDS: DUONEB (A & A) INH SCH ×4 (09:48→21:45)
--- NOTE | 2017-01-22 13:15 | PROGRESS NOTE ---
DATE: 01/22/2017 SUBJECTIVE: Patient remains in ICU on ventilatory support and he is currently on dialysis. seemed to think he followed her with his eyes around the room a bit and may have blinked in response earlier today. He is currently sedated now. OBJECTIVE: Vital signs: Afebrile, pulse 99, respirations 19, O2 saturation on ventilator is 95%. Cardiovascular: RRR. Lungs: CTA. Abdomen: Soft, active bowel sounds. Nondistended. TP in progress. Extremities: Left lower extremity amputation noted. Right lower extremity without edema. I's and O's show 3750 in, 3405 out. LABS: White count 6.4, hemoglobin 8.2, platelets 72,000, sodium 133, potassium 3.5, chloride 94, CO2 26, BUN 45, creatinine 2.0. Liver function tests remain mild to moderately elevated. Chest x- ray, no acute changes. Some mild diffuse infiltrates which are chronic. ASSESSMENT: 1. Subarachnoid hemorrhage. 2. Thrombocytopenia. 3. Acute respiratory failure on mechanical ventilation. 4. Nutrition on enteral feedings. 5. Chronic diarrhea with negative Clostridium difficile on oral Flagyl, rectal tube in place. 6. Acute kidney injury on dialysis per Dr. Adame. 7. Klebsiella perirectal abscess on Rocephin per Dr. Ramires. 8. Do not resuscitate level 2. PLAN: Continue Rocephin, ventilation, hemodialysis, metoprolol and current supportive care. Follow labs. Particularly consider repeat platelet transfusion if platelets dip. Will leave the final decision on that to Dr. Taylor who is on this weekend for critical care. cc: MD Shady Willoughby MD
--- NOTE | 2017-01-22 13:39 | PROGRESS NOTE ---
DATE: 01/22/2017 SUBJECTIVE: Eyes are open but he does not really respond to me. OBJECTIVE: Vital Signs: Blood pressure 102/49, heart rate 83, respirations 32, afebrile. General: He is in no acute distress. Skin: Warm and dry. Conjunctivae are pink. Heart: Regular. Lungs: Have equal breath sounds, coarse. Few crackles. Abdomen: Soft, nontender. Bowel sounds present. Extremities: Have 1+ edema. No clubbing or cyanosis. LABORATORY DATA: Sodium 133, potassium 3.5, chloride 94, bicarbonate 26, BUN 45, creatinine 2.0, hemoglobin 8.2. IMPRESSION: 1. Acute kidney injury. No recovery. Continue SLEDD with a target of 3-4 L ultrafiltration today. Electrolytes and acid-base are acceptable. No changes. 2. Anemia is in target. cc: MD Shady Villarreal MD
--- NOTE | 2017-01-22 14:06 | CONSULTATION ---
DATE OF CONSULTATION: 01/22/2017 CHIEF COMPLAINT: No new issues today per the spouse and the patient is unable to speak due to tracheostomy. VITAL SIGNS: Blood pressure 106/49, pulse 85, respirations 18, temperature 97.9 degrees Fahrenheit, O2 saturation 95% on the ventilator at 40% FiO2. LABORATORY DATA: Hemoglobin 8.2, hematocrit 26.5, total white blood cell count 6.43, platelet count 72,000. Sodium 133, potassium 3.5, BUN 45, creatinine 2.0, calcium 8.7, total bilirubin 1.12, AST 63, ALT 58, albumin 2.7, total protein 6.1. PHYSICAL EXAM: General: The patient is awake and alert. He is on ventilator and is in no acute distress. HEENT: Head normocephalic, atraumatic. Mucosa is pale and moist. Pupils reactive to light. Oropharynx with tracheostomy. Neck: Supple. Cardiovascular: S1, S2. Regular rate and rhythm. No murmurs noted. Respiratory: Decreased breath sounds to the bilateral lower lobes. Clear to auscultation. Mild labored breathing noted. Abdomen: Soft, nontender nondistended, positive for bowel sounds. Extremities: Trace edema to the bilateral lower extremities. Skin: He has multiple ecchymoses to the bilateral upper extremities. Neurologic: No apparent neurological deficits noted. ASSESSMENT AND PLAN: 1. Thrombocytopenia. Platelet count today is 72,000. He was transfused 1 unit of platelets yesterday. Fibrinogen was 328.5, PT 14.6, INR 1.36, PTT 27.6, D-dimer 19.4. He does have a subarachnoid hemorrhage and our goal is to maintain his platelets as close to 100,000 as possible. Will continue to monitor platelet count closely. 2. Subarachnoid hemorrhaging. We will continue to monitor and try to maintain his platelets at a goal of around 100,000. 3. Liver disease with cirrhosis. He is being followed by Gastroenterology. 4. Respiratory failure. He is on a ventilator. Pulmonary is following. 5. Acute renal failure. He is on hemodialysis and is being followed closely by Dr. Adame. 6. Pneumonia and rectal mass. He is on antibiotics and is being followed closely by Dr. Ramires. Dictated by BROOKE Mcgregor for Alix King MD cc: MD Shady Riggs MD I have seen and examined the patient and agree with the above A/P Alix King MD [facility]ITAL[facility]
--- NOTE | 2017-01-22 16:45 | PROGRESS NOTE ---
DATE: 01/22/2017 GASTROENTEROLOGY CONSULTATION: SUBJECTIVE: Patient is resting in bed. He is intubated and vented. He was able to wake up, open up his eyes on commands. He is tolerating tube feeds better, he has been put on 25 mL/h. His last residual was around 100 mL per the nursing staff. No documented fever or chills. No blood in the stools noted. OBJECTIVE: Vital signs: Temperature of 98.7 degrees, pulse rate of 99, respiratory rate of 19, blood pressure 102/49, saturating 95% on mechanical ventilator. General Appearance: Well- nourished, lying in bed, in no acute distress. HEENT: Positive ET tube, positive NG tube. Pale conjunctivae, no icterus. Neck: Supple. Abdomen: Soft. No guarding. No rebound. Extremities: No cyanosis and clubbing. Status post left below-knee amputation. Neurologic: He has a limited exam. He does open his eyes on command. LABS: Hemoglobin and hematocrit 8.2 and 26.5, white count 6.43, platelet count of 72,000, his PTT of 27.4, pH of 7.48, pCO2 37, PO2 85, lactate of 2, this is on FiO2 of 40%. Sodium 130, potassium 3.5, chloride 94, bicarb 22, anion gap 13, BUN of 45, creatinine of 2, glucose of 149, calcium 8.7, total bilirubin is 1.12. AST 63, ALT 58, and alkaline phos 238, total protein 6.1, albumin of. 2.7. IMPRESSION AND PLAN: 1. Nonalcoholic steatohepatitis complicated with liver cirrhosis. Continue to follow liver enzymes, liver function. 2. Malnutrition. He continues on NG tube feeds. He is beginning to tolerate the NG tube feeds better than before. We will continue to advance to meet the nutrition goal. We will keep an eye on the residual as well. Continue on Reglan as before. 3. Subarachnoid hemorrhage. Aware. 4. Thrombocytopenia likely secondary to sepsis and cirrhosis. Aware. 5. Acute respiratory failure requiring intubation. Being managed by the Pulmonary team. 6. Chronic diarrhea. Negative stool studies x2. 7. Perirectal abscess. Has drainage. Currently on antibiotics. 8. He has acute kidney injury. On hemodialysis per Dr. Adame. 9. Pneumonia. Currently on antibiotics. 10. Gastrointestinal prophylaxis proton pump inhibitors. The above plan was discussed with the patient and nurse and answered all questions. cc: MD Sahdy Kelly MD James E. Boyle, MD Reginald D. Gladish, MD MTDD
[2017-01-22] MEDS: ROCEPHIN 2 GM in NS 50 ML IV SCH (18:01)
[2017-01-23] MEDS: NUBAIN IV PRN ×2 (02:28→08:08)
[2017-01-23] MEDS: REGLAN IV SCH ×4 (03:07→20:27)
[2017-01-23] MEDS: DUONEB (A & A) INH SCH ×4 (03:24→19:00)
[2017-01-23] MEDS: CLINIMIX E 4.25%-5% SOLUTION 1,000 ML IV SCH ×3 (03:29→17:17)
[2017-01-23 05:31] LABS: ALLEN TEST YES; BE 0.5 mmoll (-3.0-3.0); BLOOD TYPE ARTERIAL; DRAW SITE R RADIAL; O2(CT) 11.4 mL/dL (15.0-23.0); PCO2(98.6) 30 mmHg (35-45); PO2(98.6) 64 mmHg (60-100); SAMPLE BLOOD; SAO2 97.5 % (95.0-100.0); SRATE 14 BPM; THB 8.5 g/dL (11.5-17.4); TVOL 700 mL
[2017-01-23 05:32] LABS: MODALITY VENTILATOR
[2017-01-23] MEDS: HUMULIN R SUBQ SCH ×4 (06:04→20:27)
[2017-01-23 06:30] LABS: ALBUMIN 2.7 g/dL (3.5-5.0); CALCIUM 8.8 mg/dL (8.8-10.2); POTASSIUM 4.1 mmol/L (3.5-5.1); TOTAL BILIRUBIN 1.14 mg/dL (0.20-1.00); TOTAL PROTEIN 6.2 g/dL (6.3-8.3)
--- NOTE | 2017-01-23 06:37 | PROGRESS NOTE ---
DATE: 01/21/2017 SUBJECTIVE: Patient appears to be awake, nonverbal, not responding. Patient has received a platelet transfusion. He is tolerating the tube feeding well. OBJECTIVE: Vital Signs: Temperature 97 degrees, pulse 74, blood pressure 111/47. HEENT: Opening eyes but not following the finger. There is a blank stare. There is conjunctival pallor present. Neck: Supple. Trachea in the midline. Heart: Normal first and second heart sounds. Lungs: Clear. Abdomen: Soft. Nontender. Laboratory Data: White count 6, hematocrit 26, platelets are 82,000 after transfusion. INR 1.3. BUN 34, creatinine 1.7, glucose 146. Stool C. difficile negative. IMPRESSION AND PLAN: 1. Subarachnoid bleed, thrombocytopenia. The patient is getting a couple more units of platelets to keep the platelet count above 100,000. 2. Acute respiratory failure, on mechanical ventilation. 3. Hemodynamics stable without vasopressors. 4. Chronic diarrhea. Workup was negative but he is on oral Flagyl. 5. Acute kidney injury, currently on dialysis. 6. Klebsiella rectal abscess. Continue on intravenous ceftriaxone. 7. [id number] level 2. Patient is getting further reevaluation by neurology. Probably by Tuesday, family will decide about continued life support. cc: MD Shady Lopez MD
[2017-01-23 07:33] LABS: MANUAL DIFF NEEDED? NO
[2017-01-23 07:38] LABS: BASO% 0.5 % (0.0-0.8); EOS# 0.27 X1000 (0.0-0.7); EOS% 4.4 % (0.0-10.0); HEMOGLOBIN 8.1 g/dL (14.0-18.0); LYMPH# 0.89 X1000 (1.2-3.4); LYMPH% 14.4 % (20.5-51.1); MCH 31.3 PG (27-31); MCHC 31.2 g/dL (33-37); MCV 100.4 FL (81-99); MONO# 0.56 X1000 (0.11-0.59); MONO% 9.1 % (1.7-9.3); MPV 11.6 FL (7.4-10.4); NEUT% 71.6 % (42.2-75.2); PLT 86 X1000 (130-400); RBC 2.59 XMIL (4.7-6.1)
--- NOTE | 2017-01-23 08:03 | Diag Imaging Result Doc PS360 ---
EXAM: CHEST-PORTABLE INDICATION: respiratory failure TECHNIQUE: One view COMPARISON: 01/22/2017 FINDINGS: Support tubes and lines are in stable positions. Bilateral diffuse infiltrates most compatible with edema are unchanged. No new consolidation is appreciated. Cardiac silhouette is stable. IMPRESSION: Stable chest. Electronically signed by Brody Gomez 01/23/2017 8:01 AM
[2017-01-23] MEDS: SOLU-CORTEF IV SCH (08:07)
[2017-01-23] MEDS: PERIDEX MT SCH ×2 (08:08→20:26)
[2017-01-23] MEDS: PROTONIX IV SCH ×2 (08:08→20:27)
[2017-01-23] MEDS: LOPRESSOR PO SCH (08:08)
[2017-01-23] MEDS: BUSPAR PO SCH ×3 (08:09→17:17)
[2017-01-23] MEDS: XIFAXAN PO SCH ×2 (08:09→20:27)
[2017-01-23] MEDS: PATIENT'S OWN MED PO SCH (08:10)
[2017-01-23] MEDS: FLAGYL PO SCH ×2 (08:10→20:27)
--- NOTE | 2017-01-23 10:37 | PROGRESS NOTE ---
DATE: 01/23/2017 SUBJECTIVE: Patient remains in the ICU on ventilatory support. SLED is being performed 6 out of 7 days per week. Patient seems stable. He received 2 more units of platelets transfused yesterday. OBJECTIVE: Vital Signs: Afebrile. Pulse 105, respirations 25, O2 saturation on the ventilator is 94%. Weight 224. Is and Os show 3730 in and 700 out. Tube feedings continuing, which are being tolerated. CV: RRR. Lungs: CTA. Abdomen: Soft. Active bowel sounds. Nondistended. Extremities: Less edema in the hands. Left stump BKA is without significant abnormality. Right lower extremity without any edema. Neurologic: Patient is blinking. He does move his right hand non-purposefully. Laboratory Data: Sodium 139, potassium 4.1, chloride 103, CO2 22, BUN 43, creatinine 1.8. Total bilirubin 1.14, AST 57, ALT 57, alkaline phosphatase 244, total protein 6.2, albumin 2.7. White blood cell count 6.18, hemoglobin 8.1, platelets 86,000. Chest x-ray this morning reveals bilateral diffuse infiltrates, notable for edema unchanged. ASSESSMENT: 1. Subarachnoid hemorrhage with brain injury. 2. Thrombocytopenia. 3. Cirrhosis of the liver. 4. Acute respiratory failure, on mechanical ventilation. 5. Malnutrition, on enteral feedings. 6. Chronic diarrhea with rectal tube in place and on Flagyl. 7. Acute kidney injury, on SLED per Dr. Adame. 8. Klebsiella perirectal abscess, on Rocephin per Dr. Ramires. 9. [id number] level 2. PLAN: Continue aggressive supportive care to include SLED, Rocephin, ventilation. Plans are being made for repeat CT head tomorrow, platelet transfusions per Dr. Taylor and the critical care team as required to keep his platelets more toward the 100,000 range. We will follow. cc: MD Shady Willoughby MD
[2017-01-23] MEDS: ATIVAN IV PRN (12:37)
[2017-01-23] MEDS: ROCEPHIN 2 GM in NS 50 ML IV SCH (17:16)
--- NOTE | 2017-01-23 17:46 | PROGRESS NOTE ---
DATE: 01/23/2017 SUBJECTIVE: Patient currently resting in bed. He is intubated, vented. He does receive Ativan and that is why he was more drowsy than yesterday. No fever is reported today. He is keeping his NG tube feeds down. He is receiving 27 per hour. His residuals are less than 100, so I will increase the dose to 30 mL/hour and observe the response. OBJECTIVE: Vital signs: Temperature 98.5 degrees, pulse rate of 75, respiratory rate 20, blood pressure 157/79, saturating 90% on mechanical ventilator with FiO2 of 40%. General appearance: Moderately build, moderately nourished, lying in bed, currently intubated, vented. HEENT: Positive ET tube. Positive NG tube. Pale conjunctivae. No icterus. Neck: Supple. Abdomen: Soft. No guarding. No rebound. Mildly protuberant. No major distention noted. Extremities: Status post left below-knee amputation. Neurologic: He is currently sedated secondary to Ativan. LABORATORIES: Hemoglobin and hematocrit is 8.1 and 26, white count of 6.18, platelet count of 86,000. His ABG is 7.5, PCO2 30, PO2 64. He is on FiO2 40%. Sodium 139, potassium 4.1, chloride 103, bicarb 22, anion gap of 14, BUN of 43, creatinine 1.2, glucose of 132, calcium is 8.8, total bilirubin is 1.14. AST 57, ALT 57, alkaline phosphatase 244, total protein 6.2, albumin of 2.7. IMPRESSION AND PLAN: 1. Non alcoholic steatohepatitis, complicated with cirrhosis. Continue to follow liver enzymes and liver function. 2. Thrombocytopenia, currently being monitored. 3. Malnutrition. He is tolerating his NG tube feeds, so we advance the rate to 30 mL/hour and we will follow up on the dietitian recommendations and we will keep a check on the residuals as before. 4. Subcoracoid hemorrhage, aware. 5. Thrombocytopenia, likely secondary to sepsis and cirrhosis. Aware. 6. Acute respiratory failure requiring intubation. Being managed by Pulmonary Team. 7. Chronic diarrhea. Negative stool studies x2. We will keep on probiotics. 8. Perirectal abscess, status post drainage. On antibiotics. 9. Acute kidney injury, on hemodialysis by Dr. Adame. 10. Pneumonia on antibiotics. 11. GI prophylaxis with PPI. The above plan of care was discussed with the patient's nurse and all questions answered. cc: MD Shady Kelly MD James E. Boyle, MD Reginald D. Gladish, MD
[2017-01-24] MEDS: ATIVAN IV PRN ×4 (00:18→21:18)
[2017-01-24] MEDS: NUBAIN IV PRN ×3 (00:32→08:20)
[2017-01-24] MEDS: DUONEB (A & A) INH SCH ×4 (03:11→18:57)
[2017-01-24] MEDS: REGLAN IV SCH ×4 (03:34→20:27)
[2017-01-24] MEDS: CLINIMIX E 4.25%-5% SOLUTION 1,000 ML IV SCH ×2 (03:35→17:09)
[2017-01-24 04:44] LABS: ALLEN TEST YES; BE -2.9 mmoll (-3.0-3.0); BLOOD TYPE ARTERIAL; DRAW SITE R RADIAL; METHB 0.9 % (0.0-1.5); O2(CT) 15.4 mL/dL (15.0-23.0); PCO2(98.6) 32 mmHg (35-45); PO2(98.6) 58 mmHg (60-100); SAMPLE BLOOD; SAO2 91.8 % (95.0-100.0); SRATE 14 BPM; THB 12.3 g/dL (11.5-17.4); TVOL 700 mL; pH(98.6) 7.42 (7.35-7.45)
[2017-01-24 04:45] LABS: MODALITY VENTILATOR
[2017-01-24 05:00] LABS: MANUAL DIFF NEEDED? NO
[2017-01-24 05:36] LABS: POTASSIUM 4.7 mmol/L (3.5-5.1)
[2017-01-24 05:37] LABS: ALBUMIN 2.9 g/dL (3.5-5.0); CALCIUM 9.4 mg/dL (8.8-10.2); TOTAL BILIRUBIN 1.15 mg/dL (0.20-1.00); TOTAL PROTEIN 6.7 g/dL (6.3-8.3)
[2017-01-24 05:56] LABS: BASO% 0.3 % (0.0-0.8); EOS# 0.52 X1000 (0.0-0.7); EOS% 4.7 % (0.0-10.0); HEMATOCRIT 28.5 % (42.0-52.0); HEMOGLOBIN 9.3 g/dL (14.0-18.0); IMM GRAN# 0.04 X1000 (0.0-0.04); IMM GRAN% 0.4 % (0.0-0.5); LYMPH# 1.19 X1000 (1.2-3.4); LYMPH% 10.7 % (20.5-51.1); MCH 32.4 PG (27-31); MCHC 32.6 g/dL (33-37); MCV 99.3 FL (81-99); MONO# 0.83 X1000 (0.11-0.59); MONO% 7.5 % (1.7-9.3); MPV 11.6 FL (7.4-10.4); NEUT% 76.4 % (42.2-75.2); PLT 93 X1000 (130-400); RBC 2.87 XMIL (4.7-6.1)
[2017-01-24] MEDS: HUMULIN R SUBQ SCH ×4 (06:04→20:15)
--- NOTE | 2017-01-24 07:30 | Diag Imaging Result Doc PS360 ---
CHEST-PORTABLE - 01/24/2017 INDICATION: respiratory failure TECHNIQUE: COMPARISON: 01/23/2017 FINDINGS: Support lines and tubes are stable. Stable dense bilateral alveolar infiltrates compatible with edema or ARDS. Heart size remains borderline enlarged. IMPRESSION: No complication or change from prior. Electronically signed by Aydin Geiger 01/24/2017 7:28 AM
[2017-01-24] MEDS: FLAGYL PO SCH ×2 (08:19→20:27)
[2017-01-24] MEDS: XIFAXAN PO SCH ×2 (08:19→20:31)
[2017-01-24] MEDS: BUSPAR PO SCH ×3 (08:19→17:09)
[2017-01-24] MEDS: LOPRESSOR PO SCH (08:19)
[2017-01-24] MEDS: PERIDEX MT SCH ×2 (08:20→20:27)
[2017-01-24] MEDS: SOLU-CORTEF IV SCH (08:20)
[2017-01-24] MEDS: PROTONIX IV SCH ×2 (08:21→20:27)
[2017-01-24] MEDS: SODIUM CHLORIDE 0.9% INJ SCH (08:21)
[2017-01-24] MEDS: PATIENT'S OWN MED PO SCH (08:28)
--- NOTE | 2017-01-24 09:07 | Diag Imaging Result Doc PS360 ---
CT HEAD W/O CONTRAST - 01/24/2017 INDICATION: AMS TECHNIQUE: A CT dose reduction protocol was used. COMPARISON: None FINDINGS: There are numerous stable bilateral small areas of cortical hyperdensity. These are randomly distributed mostly in the watershed areas of the cerebral hemispheres. No mass effect. No acute hemorrhage. The skull is intact. The sinuses are clear. There is a nasogastric tube. IMPRESSION: Stable diffuse bilateral hyperdensities. Initially this was thought to represent subarachnoid hemorrhage, but now this clearly represents laminar cortical necrosis, in a watershed distribution. No new abnormalities. Electronically signed by Aydin Geiger 01/24/2017 9:05 AM
[2017-01-24] MEDS ORDERED: NS 2,000 ML ONE (09:11)
[2017-01-24] MEDS ORDERED: HEPARIN ONE (09:11)
--- NOTE | 2017-01-24 10:58 | PROGRESS NOTE ---
DATE: 01/24/2017 SUBJECTIVE: Mr. López is resting quietly in bed. He remains ventilator dependent. His eyes are open. He does not respond. OBJECTIVE: Vital Signs: His most recent vital signs are temperature 96.9 degrees, blood pressure 146/72, heart rate 105, respirations 20. He remains on 50% FiO2. Last recorded saturation 93%. He has had 3730 in, 700 out per Thayer catheter. He continues with Nepro infusing to tube feeding at 30 mL an hour. Laboratory Data: Sodium 135, potassium 4.7, chloride is 100, CO2 20, BUN 74, creatinine 2.9, glucose 136, anion gap 15, calcium 9.4, albumin 2.9. White count 11.14, hemoglobin 9.3, hematocrit 28.5, platelet count 93,000. Patient has ABGs with pH 7.42, CO2 32, PO2 58, bicarb 22.5 on 50%. Physical Examination: General: This is a 61-year-old, white male. He is currently resting in bed. He remains ventilator dependent. Unresponsive. Skin is warm and dry. HEENT: Normocephalic, atraumatic. Conjunctivae are pink. He has no reaction to his pupils. Cardiovascular: Regular rate and rhythm. Lungs: Coarse breath sounds. Clear to auscultation bilateral, equal excursion. Abdomen: Soft, nontender. Positive bowel sounds. Extremities: There is 1+ edema. No clubbing or cyanosis. ASSESSMENT AND PLAN: 1. Acute kidney injury with no recovery. Patient will be placed on SLED today. Target goal of 3- 4 L of ultrafiltration. He will be placed on a 4 K bath for 8 hours as tolerated. 2. Electrolytes. These are stable. 3. Acid-base balance. This remains stable. 4. Anemia. This remains low but stable. 5. Unresponsive on ventilator without sedation. Patient is to have a repeat CT today. I would like to thank you for allowing us to follow with this patient. Dictated by BROOKE Arredondo for Martell Adame MD Patient seen, data reviewed, discussed with Cary Zaragoza on 01/24/17. I agree with the above assessment and plan of care. cc: BROOKE Arredondo MD Jagan Reddy, MD [facility] INSANEHandy
--- NOTE | 2017-01-24 11:42 | PROGRESS NOTE ---
DATE: 01/24/2017 SUBJECTIVE: Patient is currently resting in bed. He is currently sleepy. He got some Ativan earlier this morning. The patient is intubated and vented. He starting tube feed at 30 mL per hour. No fevers reported over the last 24 hours. T max was 99.7 yesterday morning. PHYSICAL EXAMINATION: Vital Signs: Temperature of 98.1 degrees, pulse rate of 97, respiratory rate 31, blood pressure 146/72, saturating 91% on mechanical ventilator at FiO2 of 60%. General Appearance: Moderately built, moderately nourished, lying in bed, intubated and vented. HEENT: Positive ET tube, positive NG tube. Neck: Supple. Abdomen: Soft. No guarding. No rebound. Mild protuberance. Extremities: No cyanosis and clubbing. Status post left below-knee amputation. Neurologic: He is currently sedated with Ativan. LABS: Hemoglobin and hematocrit are 9.3 and 28.5, white count of 11.14, platelet count of 93,000. PTT of 26.9. ABGs 7.42, pCO2 32, PO2 58. This is on 50% FiO2. Sodium of 135, potassium 4.7, chloride 100, bicarb 20, anion gap 15, BUN of 74, creatinine of 2.9, glucose of 136, calcium is 9.4. Total bilirubin is 1.15, AST 47, AST 52, alkaline phosphatase is 259, total protein 6.7, albumin of 2.9. ASSESSMENT AND PLAN: 1. Nonalcoholic steatohepatitis complicated with cirrhosis. His liver enzymes are trending down. We will continue to follow. 2. Thrombocytopenia, likely secondary to sepsis and cirrhosis. We will continue to follow. 3. Malnutrition. He has now been tolerating NG tube feeds. He is at 30 mL per hour. We will continue advancing the tube feeds as the dietitian's recommendations. According to the last note, the goal of 25 mL per hour has been reached but he is already receiving intravenous Clinimix. The goal of tube feeds is to be 45 mL per hour. Once he reaches his goal of 45 mL per hour of Nepro, then we will discontinue his intravenous Clinimix. 4. His phosphorus level was normal at 3.8 yesterday. 5. Subarachnoid hemorrhage. He had a repeat CT scan done today per the primary team. They are following. 6. Acute respiratory failure, requiring intubation, being managed by pulmonary team. 7. Perirectal abscess, status post drainage. 8. Acute kidney injury, on hemodialysis per Dr. Adame. 9. Pneumonia. Currently on antibiotics. 10. Gastrointestinal prophylaxis with proton pump inhibitors. 11. Diarrhea. He continues to have a fecal output of 600 mL this morning. His stools have been negative x2. We will keep him on probiotics, Culturelle by mouth twice a day. It could be a side effect of medication like Reglan but Reglan is helping him tolerate his NG tube feeds so we will watch for now. 12. Encephalopathy. He will continue on Xifaxan 550 mg by mouth twice a day. 13. The above plans were discussed with the patient and family at bedside. All questions were answered. cc: MD Shady Kelly MD Matthew L. Figh, MD James E. Boyle, MD Reginald D. Gladish, MD
[2017-01-24] MEDS: ROCEPHIN 2 GM in NS 50 ML IV SCH (17:09)
--- NOTE | 2017-01-24 17:38 | PROGRESS NOTE ---
DATE: 01/24/2017 PRESENT ILLNESS: The patient has Klebsiella pneumoniae and perirectal abscess. MEDICATIONS: This is day 12 of treatment with Rocephin. PHYSICAL EXAMINATION: Vital Signs: Temperature is 97.6 degrees, pulse 81, respirations 27, blood pressure 101/53. General: This is a chronically ill-appearing, middle-aged male. He is intubated and sedated. Lungs: Clear to auscultation. Cardiovascular: Regular heart rate. Abdomen: Soft and nontender. The patient's IV sites show no erythema or drainage. Rectal: We turned the patient on his side and I looked at the patient's rectal area. There are 2 small incisions where the perirectal abscess was drained. Both incisions are not erythematous. They appear to be closing. They do not have any purulent drainage from them and there is no older either. LAB AND X-RAY: Chest x-ray shows bilateral infiltrates compatible with ARDS or edema. The patient's blood gases show a pH of 7.42, a PO2 of 58, a pCO2 of 32. The patient's creatinine is 2.9. The GFR is 22. The patient's alkaline phosphatase is 259. CBC shows a white count of 11,140, hemoglobin 9.3, and platelet count 93,000. CT scan of the head shows diffuse bilateral hyperdensities compatible with cortical necrosis. ASSESSMENT AND PLAN: I plan to continue Rocephin for 2 more days and then stop it. Patient's comorbidities include subarachnoid hemorrhage which now has become necrotic, COPD, gastroesophageal reflux disease, and cirrhosis of the liver. cc: MD Shady Gunter MD
--- NOTE | 2017-01-24 18:00 | CONSULTATION ---
DATE OF CONSULTATION: 01/24/2017 HISTORY OF PRESENT ILLNESS: Mr. López is 61 years old and he has been poorly responsive. History from his attentive is that he may have had some periods of confusion over a few weeks prior to admission about a month ago. For example, once he seemed to be attempting to put his prosthetic left leg on to his right foot. He did not have definite dementia. There is no history of recent head injury. He has never had diagnosed stroke, seizure, other neurologic event. He has not used ethanol regularly in many years. He presented several weeks ago with apparent rectal abscess. This was managed surgically. Postoperatively, he was sedated and then after sedation was reduced, he did not become alert. Workup includes noncontrast CT of the head done 3 times in the last 12 days. These show some changes across the cortex which were thought to be possible subarachnoid bleeding but, more clearly seen today, seem more consistent with laminar necrosis. Lab showed WBC 6000 up to 11,000. Blood sugars have been 150s to 190s. Liver enzymes have been mildly elevated. He has been afebrile. Systolic blood pressures have ranged 90s to 160s. PHYSICAL EXAM: On exam, Mr. López is supine, intubated, not responsive. He has full lateral eye movement with passive head turning. There is brisk corneal reflex bilaterally. Pupils react briskly to bright light. Right pupil is little bit smaller than the left. Tongue is midline. Tone is equal in the limbs. Plantar response is silent on the remaining foot. There is no meningismus. IMPRESSION: Global encephalopathy, imaging evidence of laminar necrosis, no definite evidence of increased intracranial pressure or focal brain dysfunction. We will get EEG to make sure there is not ongoing seizure. Further plans will depend on that report. Thanks for asking me to see Mr. López. cc: MD Shady Marques III, MD MTDD
--- NOTE | 2017-01-24 22:49 | PROGRESS NOTE ---
DATE: 01/24/2017 SUBJECT: Interval history was reviewed over the weekend. Patient was seen by Dr. Sosa. According to the nurses his condition remains no change. He was more responding on Tuesday. This morning he was given little bit sedation and Nubain. He is not responding, tachycardic, tachypneic. As a result given some Nubain. REVIEW OF SYSTEMS: Not able to obtain. DATA: Vital signs: Temperature is 98 degrees, respirations 26, blood pressure is 119/54. HEENT: He is un-responding on the ventilator support. He has ET tube, NG tube, PICC line on the right arm as well as dialysis catheter on the right IJ. Chest: Is bilateral air entry. Heart: Sounds are regular. Belly: Is soft, nontender. Good bowel sounds. Extremities: Right foot no ischemic changes noted. Left below-knee amputation noted. LABS: CBC. White cell count 11, hematocrit 28, platelets 93,000. ABG pH is 7.42, pCO2 32, PO2 58 mechanical ventilation assisted control, rate of 14, FiO2 of 50%. Tidal volume 700, PEEP of 5. SMA 7. Sodium 135, potassium 4.7, BUN 74, creatinine 2.9, glucose 191, elevated liver function tests. The microbiology stool white cells negative, ova and parasites negative, Klebsiella on sputum cultures. Chest x-ray, worsening ARDS like picture. ASSESSMENT AND PLAN: 1. Subarachnoid bleed. Repeat CT. Also get neurology consult with Dr. Barrios. 2. Chronic mechanical ventilation not able to wean off due to central nervous system issues. Dr. Piotr Camarillo is interested in doing tracheostomy. 3. Hemodynamics are stable. 4. Enteral feeding tolerating, rectal tube was placed. Continue on Xifaxan. Stool cultures were negative. 5. Acute kidney injury. No recovery. Continue dialysis support. He is getting SLEDD 6. Transfuse a unit of platelets. 7. Klebsiella perirectal abscess on intravenous ceftriaxone. 8. Overall prognosis is no change. Discussed with . Will take the input from Dr. Barrios and based on that further recommendations will be discussed. In the meantime, continue present therapy with DNR level 2. LEVEL OF DOCUMENTATION: 35 minutes. cc: Shady Johnson MD
[2017-01-25] MEDS: ATIVAN IV PRN ×4 (01:35→20:06)
[2017-01-25] MEDS: DUONEB (A & A) INH SCH ×4 (02:57→21:25)
[2017-01-25] MEDS: REGLAN IV SCH ×4 (04:05→20:40)
[2017-01-25 04:09] LABS: ALLEN TEST YES; BE -0.6 mmoll (-3.0-3.0); BLOOD TYPE ARTERIAL; DRAW SITE R RADIAL; METHB 1.3 % (0.0-1.5); PCO2(98.6) 32 mmHg (35-45); PO2(98.6) 118 mmHg (60-100); SAMPLE BLOOD; SAO2 99.2 % (95.0-100.0); SRATE 14 BPM; THB 10.2 g/dL (11.5-17.4); TVOL 600 mL; pH(98.6) 7.46 (7.35-7.45)
[2017-01-25 04:10] LABS: MODALITY VENTILATOR
[2017-01-25] MEDS: NUBAIN IV PRN ×2 (04:23→08:24)
[2017-01-25] MEDS: TYLENOL PO PRN (04:29)
[2017-01-25] MEDS: CLINIMIX E 4.25%-5% SOLUTION 1,000 ML IV SCH ×2 (05:07→16:51)
[2017-01-25 05:32] LABS: ALBUMIN 2.4 g/dL (3.5-5.0); CALCIUM 8.4 mg/dL (8.8-10.2); TOTAL BILIRUBIN 1.07 mg/dL (0.20-1.00)
--- NOTE | 2017-01-25 06:17 | Diag Imaging Result Doc PS360 ---
EXAM: CHEST-PORTABLE HISTORY: respiratory failure TECHNIQUE: Portable AP COMPARISON: 01/24/2017 FINDINGS: There are dense bilateral infiltrates diffusely in both lungs. These are fairly similar to the prior exam. Sternal wires are present and the heart is mildly prominent. No change in the right-sided PICC line, right jugular line, or in the nasogastric tube. Endotracheal tube is located at the shantell. This is similar to the prior exam and should likely be pulled back 1 to 2 cm. IMPRESSION: No interval improvement. The endotracheal tube is at the shantell and should probably be pulled back 1 to 2 cm. Electronically signed by Sujit Gandhi 01/25/2017 6:15 AM
[2017-01-25] MEDS: HUMULIN R SUBQ SCH ×4 (06:32→22:42)
[2017-01-25] MEDS ORDERED: HEPARIN ONE (08:15)
[2017-01-25] MEDS ORDERED: NS 2,000 ML ONE (08:15)
[2017-01-25] MEDS: PROTONIX IV SCH ×2 (08:26→20:41)
[2017-01-25] MEDS: SOLU-CORTEF IV SCH (08:27)
[2017-01-25] MEDS: PERIDEX MT SCH ×2 (08:27→20:41)
[2017-01-25] MEDS: XIFAXAN PO SCH ×2 (08:27→20:40)
[2017-01-25] MEDS: SODIUM CHLORIDE 0.9% INJ SCH (08:27)
[2017-01-25] MEDS: LOPRESSOR PO SCH (08:28)
[2017-01-25] MEDS: BUSPAR PO SCH ×3 (08:28→16:51)
[2017-01-25] MEDS: PATIENT'S OWN MED PO SCH (08:28)
[2017-01-25] MEDS: FLAGYL PO SCH ×2 (08:28→20:40)
--- NOTE | 2017-01-25 09:16 | EEG REPORT ---
DATE: 01/24/2017 EEG #: [id number]. COMMENT: This is a digitally recorded EEG done portably in the ICU on a 61-year-old patient with persistent unresponsiveness. FINDINGS: The record is composed of low and medium amplitude polymorphic and rhythmic theta and delta diffusely across the hemispheres. There was no variation in response to noxious stimulation or photic stimulation. There was no spontaneous variation to correlate with drowsing or sleep. There is a subtle burst suppression pattern with 0.5-2 second bursts of relatively higher amplitude slowing by periods of voltage suppression. No epileptiform discharge or electrographic seizure was recorded. INTERPRETATION: Abnormal EEG because of generalized slowing. CORRELATION: This is indicative of a diffuse encephalopathy and is nonspecific. Burst suppression is a poor prognostic factor. cc: MD Shady Maqrues III, MD
--- NOTE | 2017-01-25 10:02 | PROGRESS NOTE ---
DATE: 01/25/2017 SUBJECTIVE: Mr. López continues unresponsive, requiring ventilator support. Clinically, he looks about the same as yesterday. His EEG showed marked generalized slowing with some voltage suppression and some burst suppression features. I discussed very frankly with the possibility that the clinical findings, CT findings, and EEG findings are all consistent with a diffuse cortical brain injury and that this may be irreversible. With continued support, he may stabilize and be vegetative. I do not have any urgent suggestions. He has some chemistry abnormalities which are relatively minor and generally would not be associated with encephalopathy. The only sedating medication I see listed in recent days is lorazepam at relatively low doses, probably not sufficient to produce his protracted unresponsiveness. Thanks for asking me to see Mr. López. cc: MD Shady Marques III, MD MTDD
[2017-01-25 10:04] LABS: MANUAL DIFF NEEDED? NO
[2017-01-25 12:05] LABS: BASO% 0.3 % (0.0-0.8); EOS# 0.27 X1000 (0.0-0.7); EOS% 4.7 % (0.0-10.0); HEMATOCRIT 24.5 % (42.0-52.0); HEMOGLOBIN 7.5 g/dL (14.0-18.0); IMM GRAN# 0.02 X1000 (0.0-0.04); IMM GRAN% 0.3 % (0.0-0.5); LYMPH# 0.95 X1000 (1.2-3.4); LYMPH% 16.6 % (20.5-51.1); MCHC 30.6 g/dL (33-37); MCV 101.2 FL (81-99); MONO# 0.53 X1000 (0.11-0.59); MONO% 9.2 % (1.7-9.3); MPV 12.7 FL (7.4-10.4); NEUT% 68.9 % (42.2-75.2); PLT 60 X1000 (130-400); RBC 2.42 XMIL (4.7-6.1)
--- NOTE | 2017-01-25 13:39 | PROGRESS NOTE ---
DATE: 01/25/2017 TIME SEEN: 0745. SUBJECTIVE: Mr. López is resting quietly in bed. His is at his bedside. He remains ventilator dependent. Nonresponsive. OBJECTIVE: His most recent vital signs: Temperature 100.5 degrees, blood pressure 119/60, heart rate 92, respirations 22. He is on 60% FiO2. His last recorded saturation is 98%. He has had 3660 In, 4535 out with 4 L on dialysis. LABORATORY DATA: Sodium 137, potassium 5, chloride is 103, CO2 is 22. BUN 48, creatinine 1.9, glucose 134. Anion gap 12, calcium 8.4, albumin 2.4. White count 11.14, hemoglobin 9.3, hematocrit 28.5 with a platelet count of 93,000 drawn on 01/24/2017. PHYSICAL EXAMINATION: This is a 61-year-old, white male. He is currently resting in bed. He remains ventilator dependent. Unresponsive. Skin is warm and dry. HEENT: Normocephalic, atraumatic. Conjunctivae is pink. He has KIMBERLI mostly constricted. North react. Cardiovascular: Regular rate and rhythm. Lungs: Coarse breath sounds bilateral. Equal excursion. Diminished in the posterior bases. Abdomen soft, nontender. Positive bowel sounds. NG tube remains to tube feedings. Extremities: 1+ edema. No clubbing or cyanosis. ASSESSMENT AND PLAN: 1. Acute kidney injury with no recovery. Patient requires daily dialysis for fluid volume management. We will place him on SLEDD today and place him on a 4 K bath for 8 hours, 27 bicarb, target goal of 4 L of ultrafiltration. 2. Electrolytes. These are stable. 3. Acid-base balance. This is stable. 4. Anemia. This remains low but stable. 5. Unresponsiveness. Remains on ventilator, unresponsive without sedation, followed by Dr. Barrios. I would to thank you for allowing us to follow with this patient. Dictated by BROOKE Arredondo for Martell Adame MD Patient seen, data reviewed, discussed with Cary Zaragoza on 01/25/17. I agree with the above assessment and plan of care. cc: BROOKE Arredondo MD Jagan Reddy, MD [facility] HOSPITALHandy
[2017-01-25] MEDS: CARDIZEM 100 MG/NS 100 MG/100 ML IVPB IV SCH (14:24)
--- NOTE | 2017-01-25 15:38 | EKG Report ---
Test Performed on : 01/25/2017 1:44:58 PM Test Reason : afib with rvr Blood Pressure : / mmHG Vent. Rate : 129 BPM Atrial Rate : 083 BPM P-R Int : 000 ms QRS Dur : 078 ms QT Int : 298 ms P-R-T Axes : 000 016 018 degrees QTc Int : 436 ms Atrial fibrillation. with rapid ventricular response. Nonspecific ST abnormality Abnormal ECG When compared with ECG of 03-JAN-2017 16:09, Atrial fibrillation. has replaced Atrial flutter. Borderline criteria for Anterior infarct are no longer present Borderline criteria for Anterolateral infarct are no longer present ST no longer depressed in Lateral leads T wave inversion no longer evident in Anterolateral leads Confirmed by Nancy TORRES, Nghia Sierra ([id number]) on 01/26/2017 10:00:20 AM
[2017-01-25] MEDS: ROCEPHIN 2 GM in NS 50 ML IV SCH (17:06)
[2017-01-25] MEDS ORDERED: NS 500 ML ONE (17:45)
--- NOTE | 2017-01-25 18:48 | PROGRESS NOTE ---
DATE: 01/25/2017 SUBJECTIVE: Patient remains on ventilator support. Not much improvement appreciated by Dr. Barrios's consult. His comments were reviewed. EEG was done. The patient is not responding very well. REVIEW OF SYSTEMS: Not able to obtain. OBJECTIVE: Vital signs: Temperature is 97 degrees, blood pressure is 102/52, mechanical ventilation 50% FiO2, PEEP of 5, tidal volume 600. General: The patient still has a right IJ dialysis catheter, PICC line on the right side. Intubated. Orogastric tube. Chest x-ray is worsening. He is little bit tachycardic during dialysis. Abdomen: Belly is soft, nontender. /Rectal: Rectal tube and Thayer was placed. Neurologic: No improvement of neurological status. INVESTIGATIONS: CBC: White cell count 5.7, hematocrit 24.5, platelets 60,000. PH is 7.46, pCO2 32, PO2 118 on 60% FiO2. SMA 7: Sodium 137, potassium 5, BUN 48, creatinine 1.9, glucose 177. LFTs were high. ASSESSMENT AND PLAN: 1. 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 Dr. Barrios is skeptical that his recovery is not full. Follow up on EEG. 2. Chronic ventilator support more than [address] Camarillo is interested in doing a tracheostomy to relieve the pain. Discussed with . She wants to get it done. 3. Acute kidney injury. No improvement. Continue supportive dialysis. 4. Thrombocytopenia. Platelet transfusion as needed. 5. Enteral feeding. Not able to tolerate. Off the feeding. 6. Nutrition through IV PPN. 7. Klebsiella infection. On IV ceftriaxone. 8. Chronic diarrhea. Currently on Mefoxin and Flagyl. 9. Intermittent atrial fibrillation during dialysis. Cardizem drip as needed. 10. Prognosis is grim. We will discuss with the . LEVEL OF DOCUMENTATION: 25 minutes. cc: Shady Johnson MD
--- NOTE | 2017-01-25 19:28 | PROGRESS NOTE ---
DATE: 01/25/2017 PRESENT ILLNESS: The patient has Klebsiella pneumonia and a perirectal abscess. MEDICATIONS: This is day 13 of treatment with Rocephin. PHYSICAL EXAMINATION: Vital Signs: Temperature is 97.8 degrees, pulse 85, respirations 28, blood pressure 101/50. General: This is an ill-appearing, middle-aged male. He is in no acute distress. Lungs: Clear to auscultation. Cardiovascular: Regular heart rate. Abdomen: Soft and nontender. The patient's IV sites do not show any drainage or swelling. LAB AND X-RAY: CBC shows a white count of 5730, hemoglobin 7.5 and platelet count 60,000. Blood gases show a pH of 7.46, a PO2 of 118 and a pCO2 of 32. Creatinine is 1.9, GFR is 36, alkaline phosphatase is 288. ASSESSMENT AND PLAN: Patient has pneumonia and a perirectal abscess, both of which I think are getting better. The patient will be on Rocephin 1 more day. I plan to stop it tomorrow. COMORBIDITIES: Include subarachnoid hemorrhage, which has become necrotic, COPD, gastroesophageal reflux disease and cirrhosis of the liver. cc: MD Shady Gunter MD
[2017-01-25] MEDS: HALDOL IV PRN (23:04)
[2017-01-26] MEDS: DUONEB (A & A) INH SCH ×4 (03:00→21:00)
[2017-01-26] MEDS: CARDIZEM 100 MG/NS 100 MG/100 ML IVPB IV SCH ×3 (03:07→19:33)
[2017-01-26] MEDS: REGLAN IV SCH ×4 (03:07→20:03)
[2017-01-26] MEDS: ATIVAN IV PRN ×3 (03:27→23:24)
[2017-01-26] MEDS: NUBAIN IV PRN ×2 (04:49→11:54)
[2017-01-26 05:05] LABS: ALLEN TEST YES; BE -0.1 mmoll (-3.0-3.0); BLOOD TYPE ARTERIAL; DRAW SITE R RADIAL; METHB 0.9 % (0.0-1.5); O2(CT) 12.2 mL/dL (15.0-23.0); PCO2(98.6) 33 mmHg (35-45); PO2(98.6) 89 mmHg (60-100); SAMPLE BLOOD; SAO2 99.2 % (95.0-100.0); SRATE 14 BPM; THB 8.9 g/dL (11.5-17.4); TVOL 600 mL; pH(98.6) 7.46 (7.35-7.45)
[2017-01-26 05:06] LABS: MODALITY VENTILATOR
[2017-01-26 05:43] LABS: MANUAL DIFF NEEDED? NO
[2017-01-26 05:58] LABS: INR 1.26; PROTIME 13.4 Seconds (9.2-11.7)
[2017-01-26] MEDS: CLINIMIX E 4.25%-5% SOLUTION 1,000 ML IV SCH ×2 (06:09→17:16)
[2017-01-26 06:19] LABS: ALBUMIN 2.6 g/dL (3.5-5.0); CALCIUM 8.8 mg/dL (8.8-10.2); POTASSIUM 5.3 mmol/L (3.5-5.1); TOTAL BILIRUBIN 1.06 mg/dL (0.20-1.00)
[2017-01-26] MEDS ORDERED: NS 4,000 ML ONE (06:21)
[2017-01-26] MEDS ORDERED: HEPARIN ONE (06:21)
[2017-01-26] MEDS: HUMULIN R SUBQ SCH ×4 (06:22→20:06)
--- NOTE | 2017-01-26 06:25 | PROGRESS NOTE ---
DATE: 01/26/2017 SUBJECTIVE: Patient still remains on the ventilator. There is some concern about his potential recovery given his EEG and Dr. Barrios's evaluation but otherwise, the patient has been on the ventilator for pushing close to 3 weeks. OBJECTIVE: Vital Signs: Patient is currently hemodynamically stable. He is currently on the ventilator. His settings were reviewed. He is on FiO2 of 50%, has a PEEP of 5. General Examination: Sedated. Neck: Palpable trachea. He does have a central line in his right internal jugular vein. Cardiovascular: Regular rate and rhythm. Lungs: Referred airway noises. Abdomen: Soft, nondistended. Laboratory: Currently pending from this morning. His platelet count yesterday was 60,000. His INR is 1.26. His ABG was reviewed. ASSESSMENT AND PLAN: A 61-year-old, male with multiple medical comorbidities, currently on ventilator support, needing potential for tracheostomy. 1. Multiple medical comorbidities. Currently being managed by his primary care physician, infectious disease, and neurology. We will defer to them. 2. Long-term ventilator support. At this time, he has reached a point where a tracheostomy needs to be considered. I will discuss further with Dr. Johnson and the patient's about intervention. We will have to follow up with his morning labs. He may need some platelets before we can do the procedure since his platelet count was 60,000 yesterday. If it remains this low, we might need to transfuse him until it is around 100,000. His INR seems to be okay at 1.26 which is likely acceptable for this procedure. We will discuss further with the family and Dr. Johnson. cc: MD Shady Diana MD
[2017-01-26 06:31] LABS: BASO% 0.5 % (0.0-0.8); EOS# 0.21 X1000 (0.0-0.7); HEMATOCRIT 22.4 % (42.0-52.0); HEMOGLOBIN 6.9 g/dL (14.0-18.0); LYMPH# 0.56 X1000 (1.2-3.4); LYMPH% 13.4 % (20.5-51.1); MCH 31.2 PG (27-31); MCHC 30.8 g/dL (33-37); MCV 101.4 FL (81-99); MONO% 9.6 % (1.7-9.3); MPV 11.7 FL (7.4-10.4); NEUT% 71.5 % (42.2-75.2); PLT 70 X1000 (130-400); RBC 2.21 XMIL (4.7-6.1)
--- NOTE | 2017-01-26 07:31 | Diag Imaging Result Doc PS360 ---
CHEST-PORTABLE - 01/26/2017 INDICATION: respiratory failure TECHNIQUE: COMPARISON: 01/25/2017 FINDINGS: Support lines and tubes are stable. Stable coarse bilateral alveolar infiltrates. Heart size remains enlarged. No pneumothorax or large effusion. IMPRESSION: No complication or change from prior. Electronically signed by Aydin Geiger 01/26/2017 7:28 AM
--- NOTE | 2017-01-26 08:19 | PROGRESS NOTE ---
DATE: 01/25/2017 SUBJECTIVE: Mr. López is intubated. He is sedated. There is no one at bedside. OBJECTIVE/VITAL SIGNS: Temperature is 97.8 degrees, heart rate 96, respirations 25, blood pressure 119/60, O2 saturations 97% on mechanical vent set at 60. LABORATORIES: White blood cells 5.73, hemoglobin 7.5, hematocrit 24.5, platelets 60,000. Sodium 137, potassium 5.0, chloride 103, CO2 22, BUN 48, creatinine 1.9, glucose 177. PHYSICAL EXAMINATION: Cardiovascular: S1, S2 heard. Regular rhythm. Respiratory: Mechanical vent sounds noted. Gastrointestinal: Abdomen is soft. Positive bowel sounds. Extremities: No edema noted. ASSESSMENT AND PLAN: 1. Thrombocytopenia. DIC panel was previously negative; however, the patient's platelets have again dropped. We will plan to repeat DIC panel in the morning. We will proceed with 2 units of platelets at this time. The goal is to keep his platelets as close to 100 ,000 as possible. The patient has also proven to be responsive to platelets, as his 1-hour post -platelet count was adequate. 2. Subarachnoid hemorrhage. Continue to keep platelets around 100,000, as per above. Neurology is following. 3. Liver disease with cirrhosis. Continue as per Gastroenterology. 4. Respiratory failure. The patient continues on a vent. Pulmonology is following. 5. Acute renal failure. The patient continues to get hemodialysis, as per Dr. Adame. 6. Pneumonia, and then a rectal abscess. The patient continues on IV antibiotics. Infectious Disease is following the patient. 7. Anemia. The patient's hemoglobin is also down some. We will defer further management to Nephrology. Dictated by ALEXANDER Lopez for Alix King MD cc: MD Shady Riggs MD I have seen and examined the patient and agree with the above note. Alix OSEI
[2017-01-26] MEDS: PROTONIX IV SCH ×2 (10:04→20:03)
[2017-01-26] MEDS: HALDOL IV PRN ×2 (10:04→20:03)
[2017-01-26] MEDS: PERIDEX MT SCH ×2 (10:04→20:03)
[2017-01-26] MEDS: SODIUM CHLORIDE 0.9% INJ SCH (10:04)
[2017-01-26] MEDS: SOLU-CORTEF IV SCH (10:05)
[2017-01-26] MEDS: BUSPAR PO SCH ×3 (10:05→17:16)
[2017-01-26] MEDS: XIFAXAN PO SCH ×2 (10:05→20:03)
[2017-01-26] MEDS: FLAGYL PO SCH ×2 (10:06→20:03)
[2017-01-26] MEDS: LOPRESSOR PO SCH (10:06)
--- NOTE | 2017-01-26 10:54 | PROGRESS NOTE ---
DATE: 01/26/2017 SUBJECTIVE: He has eyes open, deviated to the right eye. Increased work of breathing. OBJECTIVE: Vital Signs: Blood pressure 115/66, heart rate 104, respirations 35, temperature 99.7 degrees. Intake 3.04 L. Output 3.3 L. General: Well increased work of breathing as above. Skin: Warm and dry. HEENT: Conjunctivae are pink. Neck: Neck veins are not appreciated. Heart: Regular and tachycardic. Lungs: Have equal breath sounds. Coarse. Few scattered crackles. Abdomen: Soft, nontender. Bowel sounds present. Extremities: Have 1+ edema. No clubbing or cyanosis. LABORATORY DATA: Sodium 135, potassium 5.3, chloride 101, bicarbonate 22, BUN 44, creatinine 1.8. Hemoglobin 6.9. IMPRESSION: 1. Acute kidney injury. No recovery. SLED today. 2. Electrolytes. Modest hyperkalemia. A 3K bath. 3. Acid base, in target. 4. Anemia. Two units packed red blood cells. cc: MD Shady Villarreal MD
[2017-01-26] MEDS: PATIENT'S OWN MED PO SCH (11:53)
[2017-01-26] MEDS: LEVOPHED 8 MG in D5 1/2 NS 250 ML IV SCH (12:31)
--- NOTE | 2017-01-26 14:28 | PROGRESS NOTE ---
DATE: 01/26/2017 Mr. López looks about the same clinically. His minimal facial movement and eye movement may be a little more brisk today than yesterday, but I do not think that is significant. He has full lateral eye movement with head turning. Pupils react to bright light. Corneal reflex is present bilaterally. There is no limb movement. IMPRESSION: Global encephalopathy, probably irreversible but time will tell. He has some sedating medicines on board which makes extending time frame of observation reasonable. I agree with current management. No new suggestion from neurologic standpoint today. cc: MD Shady Marques III, MD
--- NOTE | 2017-01-26 16:02 | PROGRESS NOTE ---
DATE: 01/26/2017 SUBJECTIVE: Patient resting in bed. His is at bedside and notes that he is currently undergoing dialysis. There was a fever spike today at around 8 o'clock of 100.4. Patient has been on NG tube feeds. He is tolerating 30 mL/hour. He had residuals of 60-70 mL every 4 hours. His stool output was 650 mL so far. He is undergoing hemodialysis. OBJECTIVE: Vital signs: Temperature 98.7 degrees, T-max 100.4 degrees, pulse rate of 84, respiratory rate of 30, blood pressure 93/45, saturating 97% on 50% FiO2. General: Moderately well-nourished, lying in bed, in no acute distress. He is intubated and vented. Positive NG tube. Positive for pallor. Neck: Supple. Abdomen: Soft. No guarding. No rebound. Extremities: Status post left below-knee amputation. Neurologic: He opens his eyes spontaneously according to the patient's but today he has been sedated as he was having respiratory distress and coughing spells while on ventilator. LABS: Hemoglobin and hematocrit of 6.9 and 22.4, white count of 4.17, platelet count of 70,000, INR 1.26, PT of 13.4, PTT of 28.6, ABG 7.46, pCO2 33, PO2 89, lactate of 1.9 on 50% FiO2. Sodium 135, potassium 5.3, chloride 101, bicarbonate 22, anion gap 12, BUN of 44, creatinine 1.8, glucose of 139, calcium is 8.8, total bilirubin is 1.06, AST 32, ALT 33, alkaline phosphatase 235, total protein 6, albumin of 2.6. IMPRESSION AND PLAN: 1. Nonalcoholic steatohepatitis with liver cirrhosis. We will continue to follow liver enzymes and liver function. 2. Thrombocytopenia. He is getting platelet transfusions as needed to keep the platelet count above 100,000 as the patient has some arachnoid hemorrhage seen on CT. 3. The patient has global encephalopathy secondary to subarachnoid hemorrhage likely. Neurology team is on board. 4. Respiratory failure on ventilator support. Dr. Camarillo is considering doing a tracheostomy. 5. Renal failure, currently on hemodialysis. 6. Enteral feeding. We will advance the tube feeds to 30 mL/hour. We will try to reach a goal of 45 mL/hour. At that time we will decide to wean him down off Clinimix. We will follow the dietitian's recommendations if there are any changes. I discussed this with the Nursing staff. 7. Klebsiella infection, on IV ceftriaxone. 8. Chronic diarrhea, on Flagyl with negative stool studies. It could be malabsorption syndrome from vascular insufficiency. When he recovers he may benefit from CT angiography of the mesenteric vessels. 9. Atrial fibrillation intermittent, on Cardizem. 10. GI prophylaxis: PPI. 11. The above plan was discussed with the patient and family who were at bedside. cc: MD Shady Kelly MD Leroy F. Harris, MD Eston G. Norwood III, MD Matthew L. Figh, MD Reginald D. Gladish, MD MTDD
[2017-01-26] MEDS: ROCEPHIN 2 GM in NS 50 ML IV SCH (17:15)
--- NOTE | 2017-01-26 18:00 | PROGRESS NOTE ---
DATE: 01/26/2017 PRESENT ILLNESS: Mr. López is in with a klebsiella perirectal abscess, and he has developed Klebsiella pneumonia. MEDICATIONS: This is day 14 of treatment with Rocephin. We will DC antibiotics at this time. PHYSICAL EXAMINATION: Vital Signs: Temp 98.7 degrees, heart rate 82, respiratory rate 31, blood pressure 130/74. He was noted to have a temp of a 100.4 degrees this a.m. The patient is going to be receiving a trach and a tunnel cath tomorrow, which temp may be in relation to right intrajugular Vas-Cath at this point. general: This is an ill-appearing, middle-aged, white gentleman, who is sedated on the ventilator. He is tachypneic. Lungs: Clear to auscultation bilaterally. He is on 50% FiO2 on the ventilator. Cardiovascular: He has a regular rate and rhythm. He has trace edema to his lower extremities, and some edema and weeping to the upper extremities as well. Skin: Moist and warm, with multiple areas of bruising and abrasions. Abdomen: Soft, with hypoactive bowel sounds. His IV sites to his right internal jugular and right upper arm PICC are covered with Biopatch, so sites cannot be seen as far as drainage or redness. No edema is noted. LABORATORY AND X-RAY: CBC today shows a white count of 4.17, hemoglobin is 6.9. He has received 2 units of blood. Platelet count is 70,000. PH is 7.46, pCO2 33, pO2 is 89. His creatinine is 1.8. GFR 39. He has had dialysis today with 2 L of fluid removed. Alkaline phos is 235. Chest x- ray today shows stable course alveolar infiltrates. ASSESSMENT AND PLAN: Mr. López has pneumonia and a perirectal abscess, and has completed a 2-week course of Rocephin, which we will stop after today. We will obtain blood cultures from the PICC and internal jugular catheter. The plans have been discussed with and recommended by Dr. Ramires. Comorbidities include cortical necrosis on a previous CT scan, COPD, GERD and cirrhosis of the liver. Dictated by BROOKE Thorne for Mike Ramires MD cc: BROOKE Thorne MD Jagan Reddy, MD MTDD
--- NOTE | 2017-01-26 18:02 | PROGRESS NOTE ---
DATE: 01/26/2017 SUBJECTIVE: Based on the data collected by my nurse practitioner, Sasha Chamberlain, and my physical exam, my plan of treatment appears in the dictation by Ms. Chamberlain. In addition, the patient has a temperature now of 100.4. Our plan is to get 1 blood culture from the internal jugular catheter, and the other blood culture from the PICC. cc: MD Shady Gunter MD
--- NOTE | 2017-01-26 19:12 | PROGRESS NOTE ---
DATE: 01/26/2017 SUBJECTIVE: The patient remained unresponsive. No significant change. REVIEW OF SYSTEMS: None reported. OBJECTIVE: VITAL SIGNS: He is afebrile. Hemodynamics are stable on mechanical ventilation. Open the eyes. Not following with verbal commands.Chest: Bilateral air entry. Heart: Sounds are regular. Abdomen: Belly is soft, nontender. Good bowel sounds. Extremities: Status post left below- knee amputation. LABORATORIES: CBC: White cell count 4, hematocrit 22, platelets 70,000. PT 13, INR 1.2. ABG pH is 7.46, pCO2 33, PO2 89. On assisted control 14, FiO2 50, tidal volume 600, PEEP of 5. SMA 7: Sodium 135, potassium 5.3, chloride 101, BUN 44, creatinine 1.8, glucose 176, LFTs were normal. ASSESSMENT AND PLAN: 1. Subarachnoid bleed with cortical necrosis. No improvement. No definitive change noted. 2. Acute respiratory failure unable to wean off. Discussed with Dr. Piotr Camarillo and the family wants to do a tracheostomy. 3. Thrombocytopenia. We will transfuse a unit of platelets prior to the procedure. 4. Anemia. We will transfuse 2 units of packed RBCs during dialysis. 5. Acute kidney injury getting the sustained low-efficiency dialysis (SLED). Removed 4 L. 6. Living will. Do Not Resuscitate 2. 7. Enteral feeding as tolerated 8. Peripheral parenteral nutrition IV for nutrition. 9. Paroxysmal atrial fibrillation. Stable. 10. Prognosis is poor. LEVEL OF DOCUMENTATION: Twenty-five minutes. cc: Shady Johnson MD
[2017-01-27] MEDS: NUBAIN IV PRN ×2 (01:31→18:11)
[2017-01-27] MEDS: DUONEB (A & A) INH SCH ×4 (03:10→21:13)
[2017-01-27] MEDS: REGLAN IV SCH ×4 (03:55→20:33)
[2017-01-27 04:38] LABS: ALLEN TEST YES; BE 0.6 mmoll (-3.0-3.0); BLOOD TYPE ARTERIAL; DRAW SITE R RADIAL; METHB 1.2 % (0.0-1.5); MODALITY VENTILATOR; O2(CT) 12.5 mL/dL (15.0-23.0); PCO2(98.6) 32 mmHg (35-45); PO2(98.6) 101 mmHg (60-100); SAMPLE BLOOD; SAO2 98.9 % (95.0-100.0); SRATE 14 BPM; THB 9.2 g/dL (11.5-17.4); TVOL 600 mL; pH(98.6) 7.48 (7.35-7.45)
[2017-01-27] MEDS: CARDIZEM 100 MG/NS 100 MG/100 ML IVPB IV SCH ×2 (05:26→18:01)
[2017-01-27] MEDS: ATIVAN IV PRN (05:26)
[2017-01-27 06:01] LABS: ALBUMIN 2.6 g/dL (3.5-5.0); CALCIUM 8.7 mg/dL (8.8-10.2); POTASSIUM 5.4 mmol/L (3.5-5.1); TOTAL BILIRUBIN 1.45 mg/dL (0.20-1.00); TOTAL PROTEIN 6.4 g/dL (6.3-8.3)
[2017-01-27 06:21] LABS: BASO% 0.6 % (0.0-0.8); EOS# 0.28 X1000 (0.0-0.7); EOS% 5.5 % (0.0-10.0); HEMATOCRIT 28.2 % (42.0-52.0); IMM GRAN# 0.04 X1000 (0.0-0.04); IMM GRAN% 0.8 % (0.0-0.5); LYMPH# 0.83 X1000 (1.2-3.4); LYMPH% 16.2 % (20.5-51.1); MANUAL DIFF NEEDED? YES; MCH 30.4 PG (27-31); MCHC 31.9 g/dL (33-37); MCV 95.3 FL (81-99); MONO# 0.49 X1000 (0.11-0.59); MONO% 9.6 % (1.7-9.3); MPV 13.2 FL (7.4-10.4); NEUT% 67.3 % (42.2-75.2); RBC 2.96 XMIL (4.7-6.1)
[2017-01-27] MEDS: HUMULIN R SUBQ SCH ×4 (06:26→20:33)
--- NOTE | 2017-01-27 06:34 | Diag Imaging Result Doc PS360 ---
EXAM: CHEST-PORTABLE HISTORY: respiratory failure TECHNIQUE: Portable AP COMPARISON: 01/26/2017 FINDINGS: Sternal wires are present. No change in the right jugular line, the endotracheal tube, or the nasogastric tube. There are dense bilateral infiltrates. These are slightly more pronounced in the right lung than they were on the prior exam. I believe there is a tiny left pleural effusion. IMPRESSION: Mild interval worsening. Electronically signed by Sujit Gandhi 01/27/2017 6:31 AM
--- NOTE | 2017-01-27 06:38 | PROGRESS NOTE ---
DATE: 01/27/2017 SUBJECTIVE: The patient about the same. I did discuss the placement of a tunneled dialysis catheter and a tracheostomy with the . We obtained consent yesterday. OBJECTIVE: Vital Signs: Patient is currently afebrile. His most recent temperature 97.9, most recent pulse 71, most recent respiratory rate on the ventilator 24. Most recent blood pressure is 108/53. O2 saturation 95%. He is currently on 50% FiO2. His PEEP was 8. General: Sedated. Neck: Palpable trachea and a central line in place. Does not look infected. Cardiovascular: Regular rate and rhythm. Lungs: Referred airway noises. Abdomen: Soft, nontender, nondistended. LABORATORY: Platelet count from this morning is pending. His platelet count yesterday was 70. He has had orders for a platelet transfusion. ASSESSMENT AND PLAN: A 61-year-old male with multiple medical comorbidities currently on ventilator support. 1. Multiple medical comorbidities, currently being managed by his primary care physician and other specialists. 2. Renal dysfunction. At this time, he does have a Vas-Cath. It sounds like he will need more long-term access. We will place a tunneled dialysis catheter in the operating room today. 3. Long-term ventilator support. At this time, we will plan on tracheostomy. Discussed with the extensively the risks, benefits, alternatives, including risk of loss of airway, risk of bleeding, risk of damage to the trachea. She voiced understanding and wished to proceed with the procedure. We will need to make sure his platelet count is at least higher than it was yesterday. He does have platelets ordered. We will follow up with the results. cc: MD Shady Diana MD
[2017-01-27] MEDS: CLINIMIX E 4.25%-5% SOLUTION 1,000 ML IV SCH ×2 (06:54→23:05)
[2017-01-27] MEDS ORDERED: NS 2,000 ML ONE (07:09)
[2017-01-27] MEDS ORDERED: HEPARIN ONE (07:09)
[2017-01-27 07:30] LABS: LYMPHS 16 % (21-51); MONO 12 % (1-9)
[2017-01-27 07:54] LABS: PLT 39 X1000 (130-400)
[2017-01-27] MEDS: FLAGYL PO SCH ×2 (08:59→20:33)
[2017-01-27] MEDS: SOLU-CORTEF IV SCH (08:59)
[2017-01-27] MEDS: XIFAXAN PO SCH ×2 (08:59→20:33)
[2017-01-27] MEDS: PROTONIX IV SCH ×2 (08:59→20:33)
[2017-01-27] MEDS: BUSPAR PO SCH ×3 (08:59→18:00)
[2017-01-27] MEDS: PERIDEX MT SCH ×2 (09:00→20:32)
[2017-01-27] MEDS: PATIENT'S OWN MED PO SCH (09:00)
[2017-01-27] MEDS: LOPRESSOR PO SCH (09:11)
--- NOTE | 2017-01-27 12:44 | PROGRESS NOTE ---
DATE: 01/27/2017 SUBJECTIVE: The patient is resting in bed. He is undergoing dialysis today. He is receiving platelets, 3 packs today. He is going for a tracheostomy by Dr. Piotr Camarillo. No fever reported this morning. His tube feeds have been turned off for tracheostomy today. OBJECTIVE: Vital signs: Temperature 98.1, pulse 74, respiratory rate, blood pressure 119/60, saturating 96% on FiO2 50%. General: He is moderately built, lying in bed, currently intubated and vented. HEENT: Positive ET tube. Neck: Supple. Abdomen: Soft. No guarding or rebound. Extremities: Status post left below-knee amputation. Neurologic : He is currently sleepy. LABS: Hemoglobin and hematocrit is 9.9, 28.2. White count of 5.1, platelet count of 39,000. His ABG 7.48, pCO2 32, pO2 101. This is on FiO2 of 50%. Sodium 135, potassium 5.1 , chloride 101, bicarb 22, anion gap 12. BUN 37, creatinine 1.5, glucose of 117. Calcium 8.7, total bilirubin is 1.45. AST 42, ALT 37, alkaline phosphatase 270. Total protein 6.4, albumin 2.6. IMPRESSION AND PLAN: 1. Non-alcoholic steatohepatitis, complicated with cirrhosis. Currently stable. Bilirubin test are getting close to normal. 2. Thrombocytopenia, which is getting worse. Getting platelet transfusions. 3. Prolonged intubation and on ventilation after respiratory failure. He is preparing for tracheostomy today with Dr. Camarillo. 4. Subarachnoid bleed with cortical necrosis, being managed by the neurology team. 5. Anemia. Continue to watch for now and transfuse as needed. 6. Renal failure on SLED sustained low. Patient did dialysis per Dr. Adame. 7. We will restart his enteral feeding after the tracheostomy. At some point, he will need PEG tube placement. Also, we will discuss after the tracheostomy. The above plan was discussed with patient's nurse. cc: MD Shady Kelly MD Matthew L. Figh, MD Reginald D. Gladish, MD Leroy F. Harris, MD MTDD
[2017-01-27 13:45] LABS: BASO% 0.3 % (0.0-0.8); EOS# 0.15 X1000 (0.0-0.7); EOS% 3.9 % (0.0-10.0); HEMATOCRIT 25.3 % (42.0-52.0); HEMOGLOBIN 7.8 g/dL (14.0-18.0); IMM GRAN# 0.02 X1000 (0.0-0.04); IMM GRAN% 0.5 % (0.0-0.5); LYMPH# 0.28 X1000 (1.2-3.4); LYMPH% 7.3 % (20.5-51.1); MANUAL DIFF NEEDED? NO; MCHC 30.8 g/dL (33-37); MCV 97.3 FL (81-99); MONO# 0.24 X1000 (0.11-0.59); MONO% 6.2 % (1.7-9.3); MPV 11.5 FL (7.4-10.4); NEUT% 81.8 % (42.2-75.2); PLT 73 X1000 (130-400)
--- NOTE | 2017-01-27 14:28 | PROGRESS NOTE ---
DATE: 01/27/2017 TIME SEEN: 07:10. SUBJECTIVE: Mr. López is resting quietly in bed. He remains ventilator dependent. He remains unresponsive. He does appear to have some slight increased work of breathing again this a.m. OBJECTIVE: Vital signs: His last temperature 97.9 degrees, blood pressure 120/ 60, heart rate respirations are 22. Patient remains on 50% FiO2. Last recorded saturation 95% . He has had 3786 in, he has had 4640 out with 4 L on dialysis. LABS: Sodium 135 potassium 5.4, chloride 101, CO2 22, BUN 37, creatinine 1.5, glucose 117. His anion gap is 12, calcium 8.7 albumin 2.6. White count 5.13, hemoglobin 9, hematocrit 28.2, with a platelet count of 39,000. Blood cultures preliminary for repeat are still pending. PHYSICAL EXAMINATION: General: This is a 61-year-old, white male. He is ventilator dependent. He is resting quietly in no acute distress. Skin: Warm and dry. HEENT: Normocephalic, atraumatic. Conjunctivae pink. He has KIMBERLI. Mucous membranes dry. Neck: Supple. Trachea midline. No indications of JVD. Cardiovascular: He is regular rate and rhythm. He has a few scattered rhonchi. Per ET tube suctioning, scant, clear to sy. Abdomen: Soft , nontender. Positive bowel sounds. Tube feedings continue and these are currently stopped secondary to going to surgery. Extremities: Continues with 1+ edema. No clubbing or cyanosis. ASSESSMENT AND PLAN: 1. Acute kidney injury with no recovery. SLED today. Patient is to be placed on a 3 K bath. He is to dialyze for 8 hours as tolerated. We will attempt to pull 4 L of ultrafiltration. 2. Electrolytes and acid-base balance. Again, patient has mild hyperkalemia with a 3 K bath for correction. 3. Anemia. This remains stable. 4. Thrombocytopenia. Patient's platelet count is down to 39. This is followed by primary care, Dr. Ramires. I would like to thank you for allowing us to follow with this patient. Dictated by BROOKE Arredondo for Martellrachel Adame MD Patient seen, data reviewed, discussed with Cary Zaragoza on 01/27/17. I agree with the above assessment and plan of care. cc: BROOKE Arredondo MD Jagan Reddy, MD MTDD
[2017-01-27] MEDS ORDERED: NORCURON ONE (16:00)
[2017-01-27] MEDS ORDERED: SODIUM CHLORIDE 0.9% 10 ML ONE (16:00)
--- NOTE | 2017-01-27 18:58 | PROGRESS NOTE ---
DATE: 01/27/2017 PRESENT ILLNESS: The patient has been treated for a Klebsiella perirectal abscess and pneumonia. MEDICATIONS: The patient's antibiotics were discontinued yesterday. PHYSICAL EXAMINATION: Vital Signs: Temperature is 98.3 degrees, pulse 76, respirations 18, blood pressure 118/67. General: This is an ill-appearing, middle-aged male. He is in no acute distress. He is obtunded. Lungs: Bilateral lungs clear to auscultation. Cardiovascular: Regular heart rate. Abdomen: Soft and nontender. LABORATORY AND X-RAY: Chest x-ray still shows bilateral infiltrates. Repeat blood cultures are pending. Alkaline phosphatase is 270. Creatinine is 1.5. GFR is 48. Blood gases show a pH of 7.48, a PO2 of 101, a pCO2 of 32. A CBC shows a white count of 3960, hemoglobin 7.8 and platelet count 73,000. ASSESSMENT AND PLAN: 1. At this time, I do not think the patient has an active infection and I do not plan on putting him on any antibiotics at this time. The blood cultures that were drawn are still pending, however. 2. Comorbidities: include in subarachnoid hemorrhage which has become necrotic, COPD, gastroesophageal reflux disease and cirrhosis of the liver. cc: MD Shady Gunter MD
--- NOTE | 2017-01-27 19:54 | PROGRESS NOTE ---
DATE: 01/27/2017 SUBJECTIVE: The patient is not doing very well. Nonresponsive. As per the , she wants to do the tracheostomy. Piotr Camarillo MD called me. Platelets were low. He advised to transfuse 3 units prior to the procedure. REVIEW OF SYSTEMS: None reported. OBJECTIVE: Vital signs: Afebrile. Hemodynamics were stable on mechanical ventilation. Nonresponding. Eyes: Pupils equal, reactive to light. Chest: Bilateral air entry. Heart: Sounds are regular. Abdomen: Belly is soft, nontender. Good bowel. Neurological: No change. INVESTIGATIONS: CBC: Initial platelet count 39,000, white cell 5.1, hematocrit 28, platelet count 639,000. PT/INR is normal. Arterial blood gas: PH is 7.48, pCO2 32, PO2 101. On mechanical ventilation 14, FiO2 50%. Tidal volume 600. SMA7: Sodium 135, potassium 5.4, chloride 101, BUN 37, creatinine 1.5, glucose 117, calcium 8.7. Alkaline phosphatase 270. LFTs were normal. ASSESSMENT AND PLAN: 1. Subarachnoid bleed. No change. 2. Acute respiratory failure. Not able to wean off from the ventilator. As per the 's request, we will do the tracheostomy this afternoon after transfusing 3 units of platelets to keep the platelets above 70,000. 3. Enteral feeding, not able to tolerate. 4. Acute kidney injury. Supportive dialysis. 5. Perirectal abscess, status post incision and drainage. Dr. Ramires is going to discontinue the antibiotics. 6. Chronic diarrhea on Xifaxan and Flagyl. 7. Do Not Resuscitate level 2. Prognosis is poor. At this time I do not see any improvement. We will discuss with the patient over the weekend to make the plans for withdrawal supports if he does not improve over next 72 hours. LEVEL OF DOCUMENTATION: 35 minutes. cc: Shady Johnson MD
[2017-01-28] MEDS: DUONEB (A & A) INH SCH ×4 (03:43→21:11)
[2017-01-28] MEDS: REGLAN IV SCH ×4 (03:49→20:13)
[2017-01-28] MEDS: CARDIZEM 100 MG/NS 100 MG/100 ML IVPB IV SCH ×3 (03:49→23:37)
[2017-01-28 04:21] LABS: ALLEN TEST YES; BE -0.3 mmoll (-3.0-3.0); BLOOD TYPE ARTERIAL; DRAW SITE R RADIAL; METHB 1.5 % (0.0-1.5); O2(CT) 13.8 mL/dL (15.0-23.0); PCO2(98.6) 37 mmHg (35-45); PO2(98.6) 125 mmHg (60-100); SAMPLE BLOOD; SAO2 99.1 % (95.0-100.0); SRATE 14 BPM; THB 10.1 g/dL (11.5-17.4); TVOL 600 mL; pH(98.6) 7.42 (7.35-7.45)
[2017-01-28 04:28] LABS: MODALITY VENTILATOR
--- NOTE | 2017-01-28 04:58 | OPERATIVE NOTE ---
PROCEDURE DATE: 01/27/2017 PREOPERATIVE DIAGNOSES: 1. Chronic respiratory failure, requiring supervisor backfilling intubation. 2. Subarachnoid hemorrhage, with neurologic deficit. 3. Renal failure, needing more supervisor backfilling hemodialysis. POSTOPERATIVE DIAGNOSES: 1. Chronic respiratory failure, requiring supervisor backfilling intubation. 2. Subarachnoid hemorrhage, with neurologic deficit. 3. Renal failure, needing more supervisor backfilling hemodialysis. PROCEDURE PERFORMED: 1. Insertion of tunneled hemodialysis catheter in the right internal jugular vein, with fluoro guidance. 2. Tracheostomy (#8 Shiley). SURGEON: Piotr Camarillo MD. COMMUTER PILOT: Dr. Ward. Dr. Ward assisted with the entirety of the case. He helped with retraction, dissection, and identification of the major anatomy. ANESTHESIA: General endotracheal. BRIEF HISTORY: The patient is a 61-year-old male well-known to me. He has been in respiratory failure and renal failure. He had been intubated for over 2 weeks, needed supervisor backfilling ventilator support. He also needed skilled nursing dialysis access. The risks, benefits, and alternatives for both procedures were discussed with his . All questions answered. DESCRIPTION OF PROCEDURE: After informed consent was obtained, patient brought to the operative theatre, transferred to the operative table, placed in supine position. The patient remained intubated during the entirety of the time. The patient had a previous right internal jugular vein Vas-Cath. This area was prepped and draped in sterile fashion. After the formal time-out, we passed a wire through the most distal port, through the Vas-Cath. Exchanged it over a wire, then placed a wire to the superior vena cava. We then created a tunnelled hemodialysis catheter from the right chest wall, exchanged it over the wire in typical Seldinger technique, and placed the tip of the catheter in the superior vena cava. We secured it in place in a standard fashion. All ports aspirated and flushed easily. The fluoro showed the catheter in good position. We then cleaned this area. We placed a sterile dressing and then re-prepped the neck to turn our attention to the tracheostomy. We palpated the thyroid cartilage, made an incision inferior to this down to the sternal notch. He had some very enlarged veins in the area, which we had to ligate. I got down to the tracheal fascia, which we were able to identify. We grasped the 3rd tracheal ring, elevated it, and made an incision through the tracheal ring after placing 2 stay sutures on either side. We saw the ET tube slowly pass and be removed. We placed a #8 Shiley into the trachea, connected it to the ventilator. There was good end-tidal CO2. The patient's saturations of oxygen level remained above 90% during the entirety of the exchange. We secured the trach in place and placed a trach collar. The patient tolerated the procedure well, was transferred back to the ICU. cc: MD Shady Diana MD
[2017-01-28 05:08] LABS: MANUAL DIFF NEEDED? NO
[2017-01-28 05:42] LABS: BASO% 0.3 % (0.0-0.8); EOS# 0.34 X1000 (0.0-0.7); EOS% 5.9 % (0.0-10.0); HEMATOCRIT 28.1 % (42.0-52.0); HEMOGLOBIN 8.8 g/dL (14.0-18.0); IMM GRAN# 0.02 X1000 (0.0-0.04); IMM GRAN% 0.3 % (0.0-0.5); LYMPH# 0.74 X1000 (1.2-3.4); LYMPH% 12.8 % (20.5-51.1); MCH 30.2 PG (27-31); MCHC 31.3 g/dL (33-37); MCV 96.6 FL (81-99); MONO# 0.62 X1000 (0.11-0.59); MONO% 10.8 % (1.7-9.3); MPV 11.6 FL (7.4-10.4); NEUT% 69.9 % (42.2-75.2); PLT 85 X1000 (130-400); RBC 2.91 XMIL (4.7-6.1)
[2017-01-28 05:44] LABS: ALBUMIN 2.7 g/dL (3.5-5.0); CALCIUM 8.6 mg/dL (8.8-10.2); TOTAL BILIRUBIN 1.05 mg/dL (0.20-1.00); TOTAL PROTEIN 6.2 g/dL (6.3-8.3)
[2017-01-28] MEDS: HUMULIN R SUBQ SCH ×4 (06:01→20:13)
[2017-01-28] MEDS ORDERED: HEPARIN ONE (07:26)
[2017-01-28] MEDS ORDERED: NS 2,000 ML ONE (07:26)
--- NOTE | 2017-01-28 07:27 | Diag Imaging Result Doc PS360 ---
CHEST-PORTABLE - 01/28/2017 INDICATION: respiratory failure TECHNIQUE: COMPARISON: 01/27/2017 FINDINGS: There is a new tracheostomy tube in good position. Stable nasogastric tube, right PICC line and right dialysis catheter in good position. Stable diffuse bilateral alveolar infiltrates compatible with pulmonary edema/ARDS. Stable mild cardiomegaly. IMPRESSION: ETT exchanged for tracheostomy tube. Otherwise no change from prior. Electronically signed by Aydin Geiger 01/28/2017 7:25 AM
--- NOTE | 2017-01-28 07:47 | PROGRESS NOTE ---
DATE: 01/28/2017 SUBJECTIVE: No major issues. He has had a little bit of bleeding noted from his tracheostomy site but he seems to be doing okay otherwise. OBJECTIVE: Vital Signs: Patient is currently afebrile. His vital signs have been stable. He is on the ventilator. General: No acute distress. Cardiovascular: Regular rate and rhythm. Lungs: Some coarse sounds noted. He seems to be tolerating his tracheostomy well. Abdomen: Soft, nontender, nondistended. LABORATORY: Reviewed from this morning. ASSESSMENT AND PLAN: A 61-year-old male with respiratory failure and renal failure. 1. Respiratory failure. At this time he seems to be doing okay with his tracheostomy. We will continue to monitor. I will be available as needed. 2. Renal dysfunction. At this time, he tolerated exchange for his Vas-Cath for a tunneled dialysis catheter. That will be used for dialysis. 3. At this time, he seems to be doing relatively well. My partners will be available over the weekend and I will be available once the week starts next week if any issues arise. cc: MD Shady Diana MD
--- NOTE | 2017-01-28 08:55 | PROGRESS NOTE ---
DATE: 01/28/2017 SUBJECTIVE: Mr. López is about the same. He had his tracheostomy performed on yesterday. He remains unresponsive today. OBJECTIVE: Vital Signs: Blood pressure 131/66, heart rate 86, respirations 28, afebrile. Intake 4 L. Output 400 mL. PHYSICAL EXAMINATION: No acute distress.Skin: Warm and dry. HEENT: Conjunctivae are pink. He has an abrasion on the left face. Neck: Neck veins are not visible. Tracheostomy in place. Heart: Regular. Lungs: Equal, coarse. No crackles. Abdomen: Soft, nontender. Bowel sounds are present. Extremities: Have trace edema. No clubbing or cyanosis. LABORATORY DATA: Sodium 134, potassium 5.0, chloride 101, bicarbonate 22, BUN 45, creatinine 1.6. IMPRESSION: 1. Acute kidney injury. No recovery. I will plan for SLED today with a goal of 4 L to maintain even fluid balance. 2. Electrolytes are acceptable. 3. Acid base, in target. cc: MD Shday Villarreal MD
[2017-01-28] MEDS: LOPRESSOR PO SCH (09:20)
[2017-01-28] MEDS: PERIDEX MT SCH ×2 (09:20→20:12)
[2017-01-28] MEDS: XIFAXAN PO SCH ×2 (09:20→20:12)
[2017-01-28] MEDS: SOLU-CORTEF IV SCH (09:21)
[2017-01-28] MEDS: PROTONIX IV SCH ×2 (09:21→20:12)
[2017-01-28] MEDS: BUSPAR PO SCH ×3 (09:22→16:34)
[2017-01-28] MEDS: NUBAIN IV PRN ×3 (09:38→22:49)
[2017-01-28] MEDS: FLAGYL PO SCH ×2 (09:49→20:12)
[2017-01-28] MEDS: PATIENT'S OWN MED PO SCH (09:49)
[2017-01-28] MEDS: CLINIMIX E 4.25%-5% SOLUTION 1,000 ML IV SCH (11:06)
--- NOTE | 2017-01-28 14:57 | PROGRESS NOTE ---
DATE: 01/28/2017 Mr. López is supine, intubated, unresponsive. With passive head turning to check eye movement, there is full lateral eye movement and more grimace generated than in previous days. I do not see anything else changed on exam. Pupils continue briskly reactive. Limb tone is diminished and symmetric throughout. IMPRESSION: Cortical laminar necrosis as demonstrated on several imaging studies. The imaging findings, clinical course, EEG are all consistent with severe encephalopathy and poor prognosis. I do not have any new suggestion from neurologic standpoint today. cc: MD Shady Marques III, MD [facility]
--- NOTE | 2017-01-28 20:51 | PROGRESS NOTE ---
DATE: 01/28/2017 SUBJECTIVE: The patient had a tracheostomy done with no improvement. Mental status with no change. The patient's he is not in the room. REVIEW OF SYSTEMS: None reported. PHYSICAL EXAMINATION: Vital Signs: He is afebrile. Tachypneic. Vital Signs: Stable. I's and O's -1.8. HEENT Examination: He has ecchymosis rash on the left cheek. Not able to open the eyes. Status post tracheostomy, bleeding stopped. Chest: Bilateral air entry. Heart: Sounds are regular. Abdomen: Belly is soft, nontender. No ischemic leg on the right side. LABORATORIES: Repeat blood cultures were negative. CBC: White cell count 5.7, hematocrit 28, platelet 85,000. ABG: pH is 7.42, pCO2 37, PO2 125 on mechanical ventilation, rate 14, FiO2 70, tidal volume 600, PEEP of 5. ASSESSMENT AND PLAN: 1. Central Nervous System: Subarachnoid bleed. No change. Prognosis is grim. 2. Acute kidney injury. No response on hemodialysis as per Dr. Adame. 3. Unable to wean off vent status post tracheostomy. 4. 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 5. Status post perirectal abscess I and D. Off antibiotics. 6. Enteral feeding through the Dobhoff, tolerating very well. 7. Living Will DNR. Prognosis is poor. If there is no improvement over the weekend, consider withdrawal support after discussing with other consultants. LEVEL OF DOCUMENTATION: 25 minutes. cc: Shady Johnson MD MTDD
[2017-01-28] MEDS: ATIVAN IV PRN (20:53)
[2017-01-29] MEDS: CLINIMIX E 4.25%-5% SOLUTION 1,000 ML IV SCH (00:56)
[2017-01-29] MEDS: ATIVAN IV PRN ×5 (01:16→22:35)
[2017-01-29] MEDS: REGLAN IV SCH ×4 (02:57→20:21)
[2017-01-29] MEDS: DUONEB (A & A) INH SCH ×4 (03:36→21:00)
--- NOTE | 2017-01-29 03:48 | PROGRESS NOTE ---
DATE: 01/28/2017 PRESENT ILLNESS: The patient currently is off all antibiotics. At this time I think the patient does not have an active infection. MEDICATIONS: As mentioned above, the patient is off antibiotics. PHYSICAL EXAMINATION: Vital Signs: Temperature is 97.1 degrees, pulse 80, respirations 30, blood pressure 123/56. General: This is an ill-appearing middle-aged male. He does seem to be short of breath, even at rest. Lungs: There were bilateral rhonchi. Cardiovascular: Heart rate was regular. Abdomen: Soft and nontender. Neck: The patient has a tracheostomy in place. Extremities: Patient has a PICC in the right arm. The site is not swollen or red. Neck: The patient has a dialysis catheter in place. LAB AND X-RAYS: Chest x-ray shows bilateral alveolar infiltrates. Blood gases show a pH of 7.42, a pO2 of 125, a pCO2 of 37, creatinine is 1.6. GFR is 44. Blood cultures are negative. CBC shows a white count of 5760, hemoglobin 8.8, and platelet count 85,000. ASSESSMENT AND PLAN: At this time I do not think the patient has an infection. For now, I am not going to start him on antibiotics. COMORBIDITIES: 1. Includes subarachnoid hemorrhage, which has become necrotic. 2. Chronic obstructive pulmonary disease. 3. Gastroesophageal reflux disease. 4. Cirrhosis of the liver. cc: MD Shady Gunter MD
[2017-01-29 04:39] LABS: MANUAL DIFF NEEDED? NO
[2017-01-29 04:48] LABS: BASO% 0.5 % (0.0-0.8); EOS# 0.31 X1000 (0.0-0.7); EOS% 5.7 % (0.0-10.0); HEMATOCRIT 27.2 % (42.0-52.0); HEMOGLOBIN 8.8 g/dL (14.0-18.0); IMM GRAN# 0.02 X1000 (0.0-0.04); IMM GRAN% 0.4 % (0.0-0.5); LYMPH# 0.73 X1000 (1.2-3.4); LYMPH% 13.3 % (20.5-51.1); MCH 30.9 PG (27-31); MCHC 32.4 g/dL (33-37); MCV 95.4 FL (81-99); MONO# 0.63 X1000 (0.11-0.59); MONO% 11.5 % (1.7-9.3); MPV 11.7 FL (7.4-10.4); NEUT% 68.6 % (42.2-75.2); PLT 58 X1000 (130-400); RBC 2.85 XMIL (4.7-6.1)
[2017-01-29 04:58] LABS: ALLEN TEST YES; BE -1.4 mmoll (-3.0-3.0); BLOOD TYPE ARTERIAL; DRAW SITE R RADIAL; METHB 1.1 % (0.0-1.5); MODALITY VENTILATOR; O2(CT) 13.1 mL/dL (15.0-23.0); PCO2(98.6) 35 mmHg (35-45); PO2(98.6) 88 mmHg (60-100); SAMPLE BLOOD; SAO2 98.2 % (95.0-100.0); SRATE 14 BPM; THB 9.7 g/dL (11.5-17.4); TVOL 600 mL; pH(98.6) 7.42 (7.35-7.45)
[2017-01-29 05:16] LABS: ALBUMIN 2.7 g/dL (3.5-5.0); TOTAL BILIRUBIN 1.04 mg/dL (0.20-1.00); TOTAL PROTEIN 6.1 g/dL (6.3-8.3)
[2017-01-29] MEDS: HUMULIN R SUBQ SCH ×4 (06:02→20:22)
[2017-01-29] MEDS: CARDIZEM 100 MG/NS 100 MG/100 ML IVPB IV SCH ×2 (07:38→18:34)
--- NOTE | 2017-01-29 09:02 | Diag Imaging Result Doc PS360 ---
CHEST-PORTABLE - 01/29/2017 INDICATION: respiratory failure TECHNIQUE: COMPARISON: 01/28/2017 FINDINGS: Support lines and tubes are stable. There are grossly stable mixed bilateral infiltrates. Stable cardiomegaly. No pneumothorax. IMPRESSION: No change from prior. Electronically signed by Aydin Geiger 01/29/2017 9:00 AM
[2017-01-29] MEDS: XIFAXAN PO SCH ×2 (09:06→20:22)
[2017-01-29] MEDS: LOPRESSOR PO SCH (09:07)
[2017-01-29] MEDS: BUSPAR PO SCH ×3 (09:07→17:30)
[2017-01-29] MEDS: SOLU-CORTEF IV SCH (09:08)
[2017-01-29] MEDS: PROTONIX IV SCH ×2 (09:08→20:22)
[2017-01-29] MEDS: PERIDEX MT SCH ×2 (09:08→20:22)
--- NOTE | 2017-01-29 10:17 | PROGRESS NOTE ---
DATE: 01/29/2017 SUBJECTIVE: The patient is still in a vegetative state. Not able to follow with verbal commands. Not getting any sedation other than Nubain for pain. REVIEW OF SYSTEMS: None reported. PHYSICAL EXAMINATION: Afebrile. Blood pressure is stable, 217 pounds. Input and output 95 mL.HEENT: Opens the eyes. Tracheostomy done. Chest: Clear. Heart: Sounds are regular. Abdomen: Belly is soft, nontender. Good bowel sounds. Status post left below-knee amputation. LABORATORIES: CBC: White cell count 5.4, hematocrit 27, platelets 58,000. ABG, pH is 7.42, pCO2 35, PO2 88 on mechanical ventilation assist control rate of 14, FiO2 50%. Tidal volume 600, PEEP of 5. SMA 7: Sodium 136, potassium 5, chloride 101, BUN 58, creatinine 2.0. Elevated LFTs. ASSESSMENT AND PLAN: 1. Neurological status after subarachnoid bleed. No significant improvements. Looks like he is sitting to the vegetative state. 2. Acute respiratory failure. Unable to wean off due to neurological state status post tracheostomy. 3. Paroxysmal atrial fibrillation. Stable. 4. On the beta blockers. 5. Enteral feeding tolerating 35 an hour. Currently on Reglan and Xifaxan. 6. Perirectal abscess. Off IV antibiotics. 7. Anemia, thrombocytopenia due to cirrhosis and stable. At this time his prognosis is grim. We will discuss with the about possible withdrawals after weekend. Continue supportive care. LEVEL OF DOCUMENTATION: 35 minutes. cc: Shady Johnson MD
[2017-01-29] MEDS: PATIENT'S OWN MED PO SCH (10:55)
[2017-01-29] MEDS: FLAGYL PO SCH ×2 (10:55→20:22)
--- NOTE | 2017-01-29 10:56 | PROGRESS NOTE ---
DATE: 01/29/2017 Mr. Efren López underwent a trach and a PermCath by Dr. Camarillo on 01/27/2017. The trach site and PermCath site appear to be doing well. The patient remains on the ventilator, critically ill. cc: MD Shady Trimble MD
--- NOTE | 2017-01-29 12:19 | PROGRESS NOTE ---
DATE: 01/29/2017 SUBJECTIVE: He is about the same. Unresponsive. OBJECTIVE: Vital Signs: Blood pressure 146/67, heart rate 104, respirations 38, temperature 99.3 degrees. Intake 3 L. Output 2.9 L. General: No acute distress. Skin: Warm and dry. Neck: Neck veins are not distended. Heart: Regular. Lungs: Equal. Abdomen: Soft, nontender. Bowel sounds present. Extremities: There is 2+ edema. No clubbing or cyanosis. LABORATORY DATA: Sodium 136, potassium 5.0, chloride 101, bicarbonate 21, BUN 58, creatinine 2.0. Hemoglobin 8.8. IMPRESSION: Acute kidney injury. No recovery. Volume status is acceptable currently. No dialysis over the weekend. Electrolytes and acid-base are in target. cc: MD Shady Villarreal MD
[2017-01-29] MEDS: NUBAIN IV PRN (12:51)
[2017-01-29] MEDS: HALDOL IV PRN (15:29)
--- NOTE | 2017-01-29 19:44 | PROGRESS NOTE ---
DATE: 01/25/2017 SUBJECTIVE: Patient remains on the ventilator. No improvement. Dr. Barrios of Neurology has seen. EEG was done. The patient is not responding, but he is staring. OBJECTIVE: Vital Signs: Temperature 97, blood pressure 102/52, 50% FiO2 on the vent, PEEP of 5, tidal volume 600. General: Patient is on dialysis catheter with a PICC line. The patient has an orogastric tube, from which he is being fed. Chest x-ray worse. Abdomen: Belly is soft, nontender. Patient has a rectal tube and Thayer tube in place. Neurological: No improvement. LABORATORY DATA: White count 5.7, hematocrit 24.7. Potassium 5. BUN 48, creatinine 1.9. LFTs are high. IMPRESSION AND PLAN: 1. Subarachnoid bleed with cortical necrosis. 2. Chronic ventilatory support. 3. Acute kidney injury, on dialysis. 4. Thrombocytopenia. 5. Enteral feeding. 6. Nutritional support through TPN. 7. Klebsiella sepsis. 8. Chronic diarrhea. 9. Intermittent atrial fibrillation. 10. Gastrointestinal prophylaxis. PROGNOSIS: Dismal. cc: MD Shady Lopez MD
--- NOTE | 2017-01-29 19:47 | PROGRESS NOTE ---
DATE: 01/28/2017 SUBJECTIVE: Patient had a trach done. There is no improvement in mental status or ventilatory status. PHYSICAL EXAMINATION: Vital Signs: Afebrile. Tachypneic. HEENT: The patient has some ecchymosis on the face. Today, appears drowsy. Chest: Bilateral air entry. Heart: Regular. Abdomen: Soft. Nontender. LABORATORY DATA: White count 5.7, hematocrit 28, platelets 85,000. IMPRESSION AND PLAN: 1. Subarachnoidal bleed with cortical necrosis. 2. Acute kidney injury, on dialysis. 3. Respiratory failure. 4. Anemia and thrombocytopenia, secondary to sepsis. 5. Perirectal abscess. 6. Enteral feeding. 7. Gastrointestinal prophylaxis. 8. DNR. PROGNOSIS: Appears very poor. cc: MD Shady Lopez MD
[2017-01-30] MEDS: REGLAN IV SCH ×5 (02:24→21:39)
[2017-01-30] MEDS: ATIVAN IV PRN ×4 (02:24→16:50)
[2017-01-30] MEDS: DUONEB (A & A) INH SCH ×4 (03:22→21:32)
[2017-01-30] MEDS: HALDOL IV PRN ×2 (04:01→14:06)
[2017-01-30] MEDS: CARDIZEM 100 MG/NS 100 MG/100 ML IVPB IV SCH ×2 (04:02→16:47)
[2017-01-30 04:47] LABS: ALLEN TEST YES; BE -4.6 mmoll (-3.0-3.0); BLOOD TYPE ARTERIAL; DRAW SITE R RADIAL; METHB 0.9 % (0.0-1.5); O2(CT) 11.7 mL/dL (15.0-23.0); PCO2(98.6) 35 mmHg (35-45); PO2(98.6) 89 mmHg (60-100); SAMPLE BLOOD; SAO2 98.5 % (95.0-100.0); SRATE 14 BPM; THB 8.6 g/dL (11.5-17.4); TVOL 500 mL; pH(98.6) 7.37 (7.35-7.45)
[2017-01-30 04:48] LABS: MODALITY VENTILATOR
[2017-01-30 04:57] LABS: MANUAL DIFF NEEDED? NO
[2017-01-30 05:21] LABS: BASO% 0.1 % (0.0-0.8); EOS# 0.23 X1000 (0.0-0.7); EOS% 3.4 % (0.0-10.0); HEMATOCRIT 27.8 % (42.0-52.0); HEMOGLOBIN 8.9 g/dL (14.0-18.0); IMM GRAN# 0.02 X1000 (0.0-0.04); IMM GRAN% 0.3 % (0.0-0.5); LYMPH# 0.91 X1000 (1.2-3.4); LYMPH% 13.4 % (20.5-51.1); MCH 30.2 PG (27-31); MCV 94.2 FL (81-99); MONO# 0.77 X1000 (0.11-0.59); MONO% 11.4 % (1.7-9.3); MPV 11.8 FL (7.4-10.4); NEUT% 71.4 % (42.2-75.2); PLT 70 X1000 (130-400); RBC 2.95 XMIL (4.7-6.1)
[2017-01-30 05:36] LABS: MAGNESIUM 2.2 mg/dL (1.5-2.7); PREALBUMIN 10.7 mg/dL (20-40)
[2017-01-30 06:01] LABS: ALBUMIN 2.7 g/dL (3.5-5.0); CALCIUM 9.6 mg/dL (8.8-10.2); POTASSIUM 5.5 mmol/L (3.5-5.1); TOTAL BILIRUBIN 1.12 mg/dL (0.20-1.00); TOTAL PROTEIN 6.6 g/dL (6.3-8.3)
[2017-01-30] MEDS: HUMULIN R SUBQ SCH ×8 (06:01→21:40)
[2017-01-30] MEDS: NUBAIN IV PRN ×2 (07:41→23:49)
[2017-01-30] MEDS: BUSPAR PO SCH ×3 (08:49→16:46)
[2017-01-30] MEDS: XIFAXAN PO SCH ×2 (08:49→21:40)
[2017-01-30] MEDS: FLAGYL PO SCH ×2 (08:50→21:40)
[2017-01-30] MEDS: PROTONIX IV SCH ×2 (08:50→21:39)
[2017-01-30] MEDS: SOLU-CORTEF IV SCH (08:50)
[2017-01-30] MEDS: PERIDEX MT SCH ×2 (08:50→21:39)
--- NOTE | 2017-01-30 08:50 | Diag Imaging Result Doc PS360 ---
CHEST-PORTABLE - 01/30/2017 INDICATION: respiratory failure TECHNIQUE: COMPARISON: 01/29/2017 FINDINGS: Support lines and tubes are stable. Stable cardiomegaly. Stable diffuse bilateral heterogeneous alveolar infiltrates. There are probably small pleural effusions. IMPRESSION: No change from prior. Electronically signed by Aydin Geiger 01/30/2017 8:48 AM
[2017-01-30] MEDS: LOPRESSOR PO SCH (08:51)
[2017-01-30] MEDS: PATIENT'S OWN MED PO SCH (08:51)
--- NOTE | 2017-01-30 12:00 | PROGRESS NOTE ---
DATE: 01/30/2017 SUBJECTIVE: The patient is extremely tachycardic, tachypneic, agitated, requiring Ativan and Nubain. REVIEW OF SYSTEMS: None reported. OBJECTIVE: Temperature is 97, heart rate is 112, respirations 37, blood pressure is 130/78 on mechanical ventilation. I's and O's are minus 370. HEENT: Unresponsive, not following verbal commands. Orogastric tube and ET tube were placed. Right IJ dialysis catheter and PICC line were placed. Bilateral air entry. Tachycardic. Belly is soft, nontender. No improvement of neurological status. DIAGNOSTIC DATA: White cell count is 6.7, hematocrit 27, platelets 70. ABG shows pH is 7.37, pCO2 is 35, pO2 is 89 on mechanical ventilation, 14 FiO2 50%, tidal volume 500, PEEP of 5. SMA-7 shows sodium 136, potassium 5.8, chloride 98, BUN is 90, creatinine 3.1, glucose 162. LFTs are stable. Prealbumin is 10.7. Chest x-ray with bilateral infiltrates, no improvement. ASSESSMENT AND PLAN: 1. Intermittent agitation, tachycardic, tachypneic. We will give Nubain and Ativan as needed. 2. Persistent vegetative state, no improvement. We will discuss with the tomorrow. 3. Acute kidney injury. Supportive hemodialysis. 4. Subarachnoid bleed with cortical necrosis. No significant improvement. 5. Chronic respiratory failure status post tracheostomy. 6. Enteral feeding, tolerating, 35 mL per hour and PPN by IV. Prognosis is poor. DNR level 2. We will discuss with the in the morning about withdrawal of support and see other opinions. Level of documentation was 35 minutes. cc: Shady Johnson MD
[2017-01-31] MEDS ORDERED: CALMOSEPTINE OINTMENT TOP PRN (02:22)
[2017-01-31] MEDS: CARDIZEM 100 MG/NS 100 MG/100 ML IVPB IV SCH ×3 (03:18→20:04)
[2017-01-31] MEDS: REGLAN IV SCH ×4 (03:18→20:05)
[2017-01-31] MEDS: DUONEB (A & A) INH SCH ×4 (03:27→22:47)
[2017-01-31 04:45] LABS: ALLEN TEST YES; BE -5.4 mmoll (-3.0-3.0); BLOOD TYPE ARTERIAL; DRAW SITE R RADIAL; METHB 1.2 % (0.0-1.5); O2(CT) 12.2 mL/dL (15.0-23.0); PCO2(98.6) 31 mmHg (35-45); PO2(98.6) 57 mmHg (60-100); SAMPLE BLOOD; SAO2 91.4 % (95.0-100.0); SRATE 14 BPM; THB 9.8 g/dL (11.5-17.4); TVOL 500 mL; pH(98.6) 7.39 (7.35-7.45)
[2017-01-31 04:47] LABS: MODALITY VENTILATOR
[2017-01-31] MEDS: HUMULIN R SUBQ SCH ×4 (06:23→20:05)
[2017-01-31 06:49] LABS: ALBUMIN 2.6 g/dL (3.5-5.0); TOTAL BILIRUBIN 1.15 mg/dL (0.20-1.00); TOTAL PROTEIN 6.4 g/dL (6.3-8.3)
[2017-01-31] MEDS ORDERED: NS 2,000 ML ONE (07:01)
[2017-01-31] MEDS ORDERED: HEPARIN ONE (07:01)
[2017-01-31] MEDS: NUBAIN IV PRN ×2 (07:15→14:55)
--- NOTE | 2017-01-31 07:22 | Diag Imaging Result Doc PS360 ---
EXAM: CHEST-PORTABLE INDICATION: respiratory failure TECHNIQUE: One view COMPARISON: 01/30/2017 FINDINGS: Support tubes and lines are in stable positions. Diffuse bilateral infiltrates are approximately stable. No new consolidation is appreciated. Cardiac silhouette is stable. IMPRESSION: Stable chest. Electronically signed by Brody Gomez 01/31/2017 7:20 AM
[2017-01-31] MEDS: BUSPAR PO SCH ×2 (08:28→12:11)
[2017-01-31] MEDS: FLAGYL PO SCH ×2 (08:28→21:13)
[2017-01-31] MEDS: PERIDEX MT SCH ×2 (08:28→20:05)
[2017-01-31] MEDS: PROTONIX IV SCH ×2 (08:28→20:05)
[2017-01-31] MEDS: PATIENT'S OWN MED PO SCH (08:28)
[2017-01-31] MEDS: XIFAXAN PO SCH ×2 (08:29→20:04)
[2017-01-31] MEDS: ATIVAN IV PRN ×2 (10:29→20:05)
--- NOTE | 2017-01-31 10:29 | PROGRESS NOTE ---
DATE: 01/31/2017 SUBJECTIVE: Patient remains mechanically ventilated, unresponsive. OBJECTIVE: Vital Signs: Temperature 96.7 degrees, pulse 142, respiratory rate 28, blood pressure 111/68. Intake 580 mL. Output 750 mL. Physical Examination: General: This is a middle-aged gentleman resting in bed. He remains mechanically ventilated and unresponsive. HEENT: Normocephalic, atraumatic. His oral mucosa is dry. Neck: His neck is supple. He has a midline tracheostomy. Cardiovascular : Tachycardic, increased PMI. Pulmonary: Equal excursion. Some rhonchi bilaterally. Decreased breath sounds to the bases. Mechanically ventilated. Abdomen: Soft. Positive bowel sounds. : Not inspected. Scant urine to the Thayer. Extremities. There is 2+ pretibial edema. No clubbing, cyanosis. Integumentary: Skin is warm and dry. Lab Data: WBC of 6.7, hemoglobin 8.9. Sodium 135, potassium is 3, CO2 of 18, BUN 110, creatinine 3.7, albumin 2.6. ASSESSMENT AND PLAN: 1. Acute kidney injury without recovery. We are running him on SLED for fluid volume management. He will dialyze on a 3 K bath/2-3 L UF removal as tolerated with a normal sodium and normal bicarbonate bath. 2. Disposition. Discussion with the family is that their current plan is to withdraw care likely on Tuesday. Discussed with the family we would continue supportive care until final decisions have been made. We will evaluate the patient in the morning to determine if he needs to run on dialysis again before Tuesday. Dictated by BROOKE Matt for Martell Adame MD Patient seen, data reviewed, discussed with Alissa Abbott on 01/31/17. I agree with the above assessment and plan of care. cc: MD Shady Villarreal MD [facility]
[2017-01-31] MEDS: LOPRESSOR PO SCH (11:46)
[2017-01-31] MEDS: SOLU-CORTEF IV SCH (12:10)
--- NOTE | 2017-01-31 12:33 | PROGRESS NOTE ---
DATE: 01/31/2017 SUBJECTIVE: The patient is resting in bed. He is sleepy. He got Nubain recently. He had difficulty tolerating tube feeds last night. His residual was high, and his tube feeds were held overnight. This morning he was started at 15 mL per hour, and he is tolerating it well so far. No fevers reported this morning. He has been noticed to be tachycardic and tachypneic, being monitored by the primary care team. His fecal device is putting out 100 mL this morning. OBJECTIVE: Vital signs: Temperature is 96.7, pulse rate of 140, respirations 25, blood pressure 111/60, saturating 94% on Ventilator FiO2 of 50%. General: Moderately built, lying in bed, in no acute distress. HEENT: Pale conjunctivae. Neck: Positive Tracheostomy. Abdomen: Soft. No guarding or rebound. Extremities: Status post left below-knee amputation. Neurologic: He is sleepy. DIAGNOSTIC DATA: His ABG is 7.39, pCO2 is 31, pO2 of 57, lactate 1.7. Sodium 132, potassium 6, chloride 97, bicarb 18, anion gap 20, BUN 110, creatinine 3.7, glucose 120, calcium 9. Total bilirubin is 1.15, AST is 35, ALT is 24, alkaline phosphatase 315. Total protein 6.4. Albumin 2.6. Prealbumin was 10.7. IMPRESSION AND PLAN: 1. 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 We need to watch liver enzymes for now. 2. Malnutrition. Continue on tube feeds and high NG residuals. In this regard , the patient will continue 15 mL per hour tube feeds and gradually advance by 5 mL every 4 hours to reach goal of 45 mL per hour. 3. Renal insufficiency. He is on hemodialysis per Dr. Adame. 4. Subarachnoid hemorrhage with cortical necrosis with intermittent agitation. Getting IV Ativan and Nubain as needed. 5. Respiratory failure, status post tracheostomy. 6. Diarrhea. Continue to watch for now. The above plan of care was discussed with the patient's nurse at the bedside, and also with oim consultant, Dr. Johnson. cc: MD Shady Kelly MD [facility]
[2017-01-31] MEDS: HALDOL IV PRN ×2 (13:55→22:45)
--- NOTE | 2017-01-31 15:11 | PROGRESS NOTE ---
DATE: 01/31/2017 ICU: Bed 16. Mr. López looks about the same. 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 He continues vegetative. I discussed very frankly with poor prognosis and likelihood that he will not recover and certainly is not likely to recover without major permanent neurologic impairment. I believe that she plans to discuss further with family and hopes to reach a decision regarding continuing versus discontinuing support. I do not have any new suggestion from a neurologic standpoint. Thanks for asking me to see Mr. López. cc: MD Shady Marques III, MD MTDD
--- NOTE | 2017-01-31 16:49 | PROGRESS NOTE ---
DATE: 01/31/2017 PRESENT ILLNESS: Mr. López has been previously treated for Klebsiella pneumoniae and perirectal abscess. At this time he does not have an active infection. MEDICATIONS: He is off antibiotics at this time. We will discontinue fluconazole. PHYSICAL EXAM: Vital Signs: Temp 96.8 degrees, pulse rate 157, respiratory rate 30, blood pressure 79/42. Generally: This is a chronically ill-appearing, elderly gentleman, who is tachycardic and tachypneic at this time. He has recently received pain medication and is minimally responsive and sedated. Respiratory: Lungs sounds are rhonchi bilaterally. He does have tachypnea with 50% FiO2 per tracheostomy on mechanical ventilator. Cardiovascular: He appears to be in SVT at this time and is receiving Cardizem to try to get down his rate. GI: Abdomen is soft and round with positive bowel sounds noted. He is receiving tube feedings. : He has a Thayer catheter with minimal amounts of cloudy urine. He does have dialysis and had one liter off today per nursing. Integumentary: He does have multiple skin tears and bruises. His IV site to his right upper arm PICC looks clean, dry and intact, with no redness, edema or drainage. He also has a tracheostomy in place without any problems at the site. LABS AND XRAY: No CBC today, but his chemistry does show a creatinine of 3.7, and GFR of 17. His AST is 35, ALT is 24, alkaline phosphatase 315. Blood gas shows a pH is 7.39, pCO2 of 31, and PO2 of 57. Chest x-ray today shows diffuse bilateral infiltrates that are stable with no new consolidation. ASSESSMENT AND PLAN: No active infection at this time. Will continue to hold antibiotics, and at this point, we will sign off and see the patient as needed. The previous plans have been discussed with and recommended by Dr. Ramires. COMORBITIES: Mr. López has had a previous subarachnoid hemorrhage, which became necrotic, COPD, GERD and cirrhosis of the liver. Dictated by BROOKE Thorne for Mike Ramires MD cc: BROOKE Thorne MD Jagan Reddy, MD MTDD
--- NOTE | 2017-01-31 16:58 | PROGRESS NOTE ---
DATE: 01/31/2017 SUBJECTIVE: Based on the data obtained by my nurse practitioner, Sasha Chamberlain, and my physical exam I have formulated a treatment plan for this patient, who now is noncommunicative with us. cc: MD Shady Gunter MD
[2017-01-31] MEDS ORDERED: SODIUM CHLORIDE 0.9% 10 ML ONE (19:46)
--- NOTE | 2017-01-31 19:54 | PROGRESS NOTE ---
DATE: 01/31/2017 SUBJECTIVE: The patient is doing very poorly. Appears to be vegetative state. I had a long discussion with the patient's about withdrawal support and she is going to talk to the other family members and make the decision. Currently is a Do Not Resuscitate 2. The patient is getting dialysis. OBJECTIVE: Cardiac: Tachycardic, tachypneic. Blood pressures dropping. HEENT: Unresponding. On tracheostomy. Chest: Clear. Abdomen: Belly is soft and nontender. Good bowel sounds. Extremities: No peripheral edema, cyanosis. Neurologic: No obvious neurological deficits. Unable to assess neurological exam. ASSESSMENT AND PLAN: Persistent vegetative state. Poor prognosis. Discussed with the family about withdrawal supports. Continue Do Not Resuscitate 2 and continue present medical therapy. He has been actively dying with heart rate of 157, maxed out on diltiazem drip. Waiting for demise. LEVEL OF DOCUMENTATION: 25 minutes. cc: Shady Johnson MD
[2017-02-01] MEDS: ATIVAN IV PRN ×8 (01:11→23:26)
[2017-02-01] MEDS: NUBAIN IV PRN (02:31)
[2017-02-01] MEDS: REGLAN IV SCH (03:13)
[2017-02-01] MEDS: DUONEB (A & A) INH SCH (03:30)
[2017-02-01 04:48] LABS: ALLEN TEST YES; BE 2.3 mmoll (-3.0-3.0); BLOOD TYPE ARTERIAL; DRAW SITE R RADIAL; METHB 0.7 % (0.0-1.5); O2(CT) 12.4 mL/dL (15.0-23.0); PCO2(98.6) 38 mmHg (35-45); PO2(98.6) 104 mmHg (60-100); SAMPLE BLOOD; SAO2 100.5 % (95.0-100.0); SRATE 14 BPM; TVOL 500 mL; pH(98.6) 7.45 (7.35-7.45)
[2017-02-01 04:49] LABS: MODALITY VENTILATOR
[2017-02-01] MEDS: CARDIZEM 100 MG/NS 100 MG/100 ML IVPB IV SCH (05:12)
--- NOTE | 2017-02-01 05:57 | Diag Imaging Result Doc PS360 ---
EXAM: CHEST-PORTABLE HISTORY: respiratory failure TECHNIQUE: Portable COMPARISON: 01/31/2017 FINDINGS: No change in the right jugular catheter, the tracheostomy tube, or in the nasogastric tube. No change in the right-sided PICC line. Sternal wires are present and the heart is mildly prominent. There are bilateral infiltrates. The appearance is similar to that of the prior exam. IMPRESSION: Stable chest. Electronically signed by Sujit Gandhi 02/01/2017 5:55 AM
[2017-02-01 06:01] LABS: ALBUMIN 2.4 g/dL (3.5-5.0); CALCIUM 8.6 mg/dL (8.8-10.2); POTASSIUM 4.8 mmol/L (3.5-5.1); TOTAL BILIRUBIN 1.26 mg/dL (0.20-1.00); TOTAL PROTEIN 6.1 g/dL (6.3-8.3)
[2017-02-01] MEDS: HUMULIN R SUBQ SCH (06:16)
--- NOTE | 2017-02-01 08:48 | PROGRESS NOTE ---
DATE: 02/01/2017 SUBJECTIVE: Unchanged. OBJECTIVE: Vital Signs: Blood pressure 94/40, heart rate 120, respirations 17, afebrile. Intake 590 mL. Output 1.9 L. Physical Examination: General: Unresponsive. Mouth open. Eyes open. Hyperventilating. Skin: Warm and dry with ecchymoses. HEENT: Conjunctivae are pink. Oropharynx is dry. Neck: Neck veins are not appreciated. Heart: Regular and tachycardic with a gallop. Lungs: Have equal breath sounds with rhonchi. Abdomen: Soft, nontender. Bowel sounds present. Extremities: Have 2+ edema. No clubbing or cyanosis. IMPRESSION AND PLAN: Acute kidney injury in the context of sepsis. He has had no recovery. Family plans for withdrawal of care today. Specifically, they plan to extubate around 9 o'clock this morning. As such, we will sign off. If we can be of further assistance, please do not hesitate to call. cc: MD Shady Villarreal MD
[2017-02-01] MEDS: MORPHINE IV PRN ×6 (08:59→23:26)
[2017-02-01] MEDS: HALDOL IV PRN (10:05)
--- NOTE | 2017-02-01 21:17 | PROGRESS NOTE ---
DATE: 02/01/2017 SUBJECTIVE: The patient is doing very poorly, hypotensive, tachycardic, atrial fibrillation in moderate respiratory distress. No significant improvement. REVIEW OF SYSTEMS: None reported. OBJECTIVE: Vital signs: Temperature is 99 degrees, tachycardic, hypotensive. On ventilator support. The rest of the exam, no change with vegetative state. LABORATORIES: ABG: PH is 7.45, pCO2 38, PO2 104. SMA7: Creatinine 2.4. Elevated LFTs. ASSESSMENT AND PLAN: A 61-year-old white male admitted to the hospital with sepsis syndrome due to Klebsiella from perirectal abscess, associated with multiorgan failure and subarachnoid bleed with vegetative state. No improvement after 33 days with aggressive medical management. The patient was seen by multiple consultants which includes Infectious Disease, nephrologists, lung specialist, neurologist, His prognosis is grim. Results are conveyed to the patient's . She discussed with other family members. Family decided to withdraw the support and make him Do Not Resuscitate, and basically comfort care. The information was relayed to the nursing staff. Plan is withdraw the ventilator support with trach collar and morphine and Ativan as needed. Living Will, Do Not Resuscitate. We will completely stop the dialysis, enteral feeding. LEVEL OF DOCUMENTATION: 25 minutes. cc: Shady Johnson MD MTDD
[2017-02-02] MEDS: MORPHINE IV PRN ×6 (02:37→21:17)
[2017-02-02] MEDS: ATIVAN IV PRN ×5 (02:37→15:38)
--- NOTE | 2017-02-02 18:41 | PROGRESS NOTE ---
DATE: 02/02/2017 SUBJECTIVE: The patient is off the vent and still unconscious. Able to maintain the vital signs. REVIEW OF SYSTEMS: None reported. EXAMINATION: Vital signs: Tachycardic, tachypneic, afebrile, on trach collar at 98%. Chest: Bilateral air entry. Heart: Sounds are regular. ASSESSMENT AND PLAN: Looking comfortable, resting well. Changing the DNR level 1 and continue comfort care. Waiting for demise. Discussed with the , asking how long he is going to stay. Will just go to day-by-day and continue palliative care. LEVEL OF DOCUMENTATION: 15 minutes. cc: Shady Johnson MD
--- NOTE | 2017-02-02 19:26 | PROGRESS NOTE ---
DATE: 02/02/2017 SUBJECTIVE: The patient is resting in bed. The is present at the bedside. The patient has been put on comfort measures only. OBJECTIVE: Pulse rate 140, respiratory rate 35, blood pressure 112/58, saturating 95%. Physical examination was not performed. IMPRESSION AND PLAN: I reviewed the notes from yesterday and discussed the current plan with the patient's . The plan is the patient will be on comfort measures only. His dialysis has been stopped. His ventilatory support has been turned off. He is receiving IV morphine and Ativan as needed. I offered my support to the patient's family at the bedside. Will be available if needed. cc: MD Shady Kelly MD
[2017-02-03] MEDS: MORPHINE IV PRN ×6 (02:45→20:44)
[2017-02-03 19:42] VITALS: BP 62/30
--- NOTE | 2017-02-04 03:49 | PROGRESS NOTE ---
DATE: 02/03/2017 SUBJECTIVE: Patient remains obtunded, tachycardic, tachypneic. Looks comfortable. OBJECTIVE: Vital Signs: On examination, heart rate is 150. Blood pressure is stable. Respirations 22. Chest: Bilateral air entry. No rhonchi, rales noted. Neurologic: No response with even painful stimulus. ASSESSMENT AND PLAN: Sepsis syndrome. Vegetative state. Waiting for demise. Continue supportive care as well as, comfort with oxygen, morphine and Ativan. was not in the waiting room today. LEVEL OF DOCUMENTATION: Fifteen minutes. cc: Shady Johnson MD
--- NOTE | 2017-02-05 12:09 | DISCHARGE SUMMARY ---
ADMISSION DATE: 12/30/2016 DISCHARGE DATE: 02/04/2017 DATE OF : 02/04/2017 at midnight. FINAL DIAGNOSIS: Acute cardiopulmonary arrest due to septic shock associated with multiorgan failure from perirectal abscess due to Klebsiella. SECONDARY DIAGNOSES: 1. Subarachnoid bleed with cortical necrosis with vegetative state. 2. Acute respiratory failure due to ARDS and gram-negative pneumonia due to Klebsiella. 3. Paroxysmal atrial fibrillation. 4. Acute kidney failure due to sepsis on dialysis. 5. Cirrhosis of liver. 6. Coronary artery disease. 7. Peripheral vascular disease status post below-knee amputation on the left side. 8. Chronic diarrhea. 9. Anemia, thrombocytopenia due to sepsis. OTHER PROBLEMS: 1. Diabetes with neuropathy. 2. Coronary artery disease. 3. Acid reflux disease. 4. B12 deficiency. CONSULTATIONS: 1. Dr. Piotr Camarillo. 2. Dr. Licea. 3. Dr. Ramires. 4. Dr. Barrios. 5. Dr. Back. 6. Dr. Adame. PROCEDURES: 1. Ventilator support. 2. Tracheostomy. 3. Right IJ dialysis catheter. 4. PICC line on the right arm. 5. Orogastric tube. 6. Rectal tube. 7. Incision and drainage of rectal abscess on the right side. BRIEF HISTORY: Please see the H and P that was done on 12/30/2016. In brief, he is a 61-year-old white gentleman who was admitted to the hospital on 12/30 after it was found he had a right perirectal abscess, and patient was in a lot of pain. HOSPITAL COURSE: The patient was seen by Dr. Piotr Camarillo who did I D followed by packing on the next day. Wound cultures grew Klebsiella. The patient was started on Zosyn and IV vancomycin. Then after the 3rd day, the patient's situation deteriorated and he was transferred to the ICU due to sepsis syndrome. He developed a full-blown septic shock with multiorgan failure. The patient's wants him to be a full code. ICU as follows. 1. Patient developed acute respiratory failure due to ARDS requiring ventilator support with FiO2 100%. 2. Hemodynamics were unstable, started on IV vasopressors. 3. Acute kidney failure requiring hemodialysis. 4. IV access problem requiring PICC line on the right side. He was seen by the above consultants and continued on ventilator support, hemodynamic support, IV antibiotic support. Nutrition was given through the enteral feeding, not able to tolerate due to high residuals and chronic diarrhea. The patient was seen by GI who got a CT of the abdomen and pelvis that did not find any acute pathology. All the stool cultures were negative. The patient was also given p.o. Flagyl. His situation more deteriorated when he developed thrombocytopenia causing mental status changes and high fever. CT showed subarachnoid bleed with cortical necrosis. Neurology consult was obtained. His situation was grim, leading to a vegetative state. The patient was not able to wean off from the vent, requiring a tracheostomy. Despite adequate support from all the consultants which includes perioperative antibiotics, ventilator support, hemodynamic support, enteral feeding, the patient remained unconscious in a vegetative state. Dr. Barrios felt his situation is very grim, and results were discussed with the patient's after treating 32 days in the ICU. Family finally decided to withdraw the support, and the patient was weaned off from the ventilator support and dialysis and given comfort care with morphine and Ativan, and then he peacefully on 02/04/2017 at close to midnight. The family was there at the time of demise. The cause of was due to cardiopulmonary arrest with multiorgan failure due to septic shock from the gram-negative infection due to Klebsiella and perirectal abscess with comorbid conditions as above. cc: MD Piotr Jean-Baptiste MD James E. Boyle, MD Leroy F. Harris, MD Eston G. Norwood III, MD Martell Mead MD
== END 2017-02-04 01:03 | disposition expired ==
LOC: DIRADM 15:49 → 4N 16:30 → ICU 01-02 02:04
PROVIDERS: ADMIT Internal Medicine; ATTEND Internal Medicine